=== PATIENT | male | born 1930 | race Caucasian/White ===

== ENCOUNTER 2017-10-03 16:07 | Emergency (ER) | payer OTHER ==
--- NOTE | 2017-10-03 17:54 | RAD REPORT ---
EXAM DESCRIPTION: RAD - Foot Left 3 View - 10/03/2017 5:32 pm CLINICAL HISTORY: Trip and fall, foot pain, no localizing symptoms detailed COMPARISON: None. FINDINGS: No fracture, dislocation or periosteal reaction. No acute or destructive bony process. F lexion at the first -third IP joints likely chronic. No acute IP joint finding. No air or foreign body in the soft tissues. IMPRESSION: No fracture or acute finding.
--- NOTE | 2017-10-03 18:35 | ER ---
Nurse's Notes [facility] Name: Bella Morales Age: 87 yrs Sex: Male : 1930 Arrival Date: 10/03/2017 Time: 16:11 Bed 13 Private MD: Diagnosis: Peroneal tendinitis, left leg;Foot drop, left foot;Foot drop (acquired) Presentation: 10/03 16:14 Presenting complaint: Patient states: "I tripped Tuesday and almost fell and I think I aa5 broke my tendon". Pt c/o left foot pain. Transition of care: patient was not received from another setting of care. Onset of symptoms was September 2017. Risk Assessment: Do you want to hurt yourself or someone else? Patient reports no desire to harm self or others. Initial Sepsis Screen: Does the patient meet any 2 criteria? No. Patient's initial sepsis screen is negative. Does the patient have a suspected source of infection? No. Patient's initial sepsis screen is negative. Care prior to arrival: None. 16:14 Method Of Arrival: Ambulatory aa5 16:14 Acuity: DIANNE 4 aa5 Historical: - Allergies: 16:15 No Known Allergies; aa5 - PMHx: 16:15 Hypertension; prostate cancer; aa5 - PSHx: 16:15 CABG; prostectomy; foot surgery; aa5 - Immunization history:: Adult Immunizations unknown. - Social history:: Smoking status: Patient/guardian denies using tobacco. - Ebola Screening: : No symptoms or risks identified at this time. - Family history:: not pertinent. Screenin:52 Abuse screen: Denies threats or abuse. Nutritional screening: No deficits noted. ae1 Tuberculosis screening: No symptoms or risk factors identified. Fall Risk No fall in past 12 months (0 pts). Secondary diagnosis (15 points) reduced control over ROM of left ankle/foot. . No IV (0 pts). Ambulatory Aid- None/Bed Rest/Nurse Assist (0 pts). Gait- Normal/Bed Rest/Wheelchair (0 pts) Mental Status- Oriented to own ability (0 pts). Assessment: 16:30 General: Appears in no apparent distress. uncomfortable, slender, Behavior is calm, ae1 cooperative. Pain: Complains of pain in left foot. Neuro: Level of Consciousness is awake, alert, obeys commands, Oriented to person, place, time, situation. Cardiovascular: Patient's skin is warm and dry. Respiratory: Airway is patent. GI: No signs and/or symptoms were reported involving the gastrointestinal system. : No signs and/or symptoms were reported regarding the genitourinary system. EENT: No signs and/or symptoms were reported regarding the EENT system. Derm: Skin is pink, warm \\T\\ dry. Musculoskeletal: Range of motion: limited in left ankle. Injury Description: denies injury, patient states he has always had pain and issues with his left foot but woke up this morning and had very little control over his ROM on his left foot. 16:30 Reassessment: Patient appears in no apparent distress at this time. No changes from ae1 previously documented assessment. Vital Signs: 16:16 BP 144 / 89; Pulse 81; Resp 16 S; Temp 98.6(TE); Pulse Ox 98% on R/A; Weight 89.81 kg aa5 (R); Height 6 ft. 2 in. (187.96 cm) (R); Pain 0/10; 18:53 BP 138 / 76; Pulse 75; Resp 17; Pulse Ox 97% on R/A; ae1 16:16 Body Mass Index 25.42 (89.81 kg, 187.96 cm) aa5 ED Course: 16:11 Patient arrived in ED. mr 16:14 Triage completed. aa5 16:14 Arm band placed on. aa5 16:20 Michael James, SHELBY is Primary Nurse. ae1 16:20 Eamon Potts NP is PHCP. pm1 16:20 Ralph Dominguez MD is Attending Physician. pm1 16:30 Bed in low position. Call light in reach. Side rails up X 1. ae1 16:47 Ralph Dominguez MD is Attending Physician. evelyn 17:32 Foot Left 3 View XRAY In Process Unspecified. EDMS 18:34 Oracio Templeton DPM is Referral Physician. evelyn 18:53 No provider procedures requiring assistance completed. Patient did not have IV access ae1 during this emergency room visit. Administered Medications: No medications were administered Outcome: 18:35 Discharge ordered by . evelyn 18:53 Discharged to home ambulatory, with family. ae1 18:53 Condition: stable 18:53 Discharge instructions given to patient, Instructed on discharge instructions, follow up and referral plans. medication usage, Demonstrated understanding of instructions, Prescriptions given X 2. 18:54 Patient left the ED. ae1 Signatures: Dispatcher [employer] EDDE Ralph Dominguez MD MD cha Rivera, Maria mr Jewell, Janelle, RN RN aa5 Eamon Potts, CHEMICAL DEPENDENCY COUNSELOR CHEMICAL DEPENDENCY COUNSELOR pm1 Michael James RN RN ae1
--- NOTE | 2017-10-03 18:36 | EDPHYS ---
Physician Documentation [facility] Name: Bella Morales Age: 87 yrs Sex: Male : 1930 Arrival Date: 10/03/2017 Time: 16:11 Bed 13 Private MD: Ralph Marquez HPI: 10/03 18:30 This 87 yrs old Male presents to ER via Ambulatory with complaints of Foot evelyn Pain. 18:30 The patient presents with decreased range of motion, cant dorsiflex. The complaints evelyn affect the left foot. Context: The problem was sustained. Onset: The symptoms/episode began/occurred 2 day(s) ago. Modifying factors: The symptoms are alleviated by nothing, the symptoms are aggravated by nothing. Associated signs and symptoms: The patient has no apparent associated signs or symptoms. Severity of symptoms: At their worst the symptoms were mild. The patient has not experienced similar symptoms in the past. Historical: - Allergies: 16:15 No Known Allergies; aa5 - PMHx: 16:15 Hypertension; prostate cancer; aa5 - PSHx: 16:15 CABG; prostectomy; foot surgery; aa5 - Immunization history:: Adult Immunizations unknown. - Social history:: Smoking status: Patient/guardian denies using tobacco. - Ebola Screening: : No symptoms or risks identified at this time. - Family history:: not pertinent. ROS: 18:30 Constitutional: Negative for fever, chills, and weight loss, Eyes: Negative for injury, evelyn pain, redness, and discharge, ENT: Negative for injury, pain, and discharge, Neck: Negative for injury, pain, and swelling, Cardiovascular: Negative for chest pain, palpitations, and edema, Respiratory: Negative for shortness of breath, cough, wheezing, and pleuritic chest pain, Abdomen/GI: Negative for abdominal pain, nausea, vomiting, diarrhea, and constipation, Back: Negative for injury and pain, : Negative for injury, bleeding, discharge, and swelling, Skin: Negative for injury, rash, and discoloration, Neuro: Negative for headache, weakness, numbness, tingling, and seizure, Psych: Negative for depression, anxiety, suicide ideation, homicidal ideation, and hallucinations, Allergy/Immunology: Negative for hives, rash, and allergies, Endocrine: Negative for neck swelling, polydipsia, polyuria, polyphagia, and marked weight changes, Hematologic/Lymphatic: Negative for swollen nodes, abnormal bleeding, and unusual bruising. 18:30 MS/extremity: Positive for decreased range of motion, pain, of the lateral aspect of left calf, left lateral ankle, lateral aspect of left foot, medial aspect of left calf, left medial ankle, medial aspect of left foot, left marin, anterior aspect of left ankle and dorsum of left foot. Exam: 18:30 Constitutional: This is a well developed, well nourished patient who is awake, alert, evelyn and in no acute distress. Head/Face: Normocephalic, atraumatic. Eyes: Pupils equal round and reactive to light, extra-ocular motions intact. Lids and lashes normal. Conjunctiva and sclera are non-icteric and not injected. Cornea within normal limits. Periorbital areas with no swelling, redness, or edema. ENT: Nares patent. No nasal discharge, no septal abnormalities noted. Tympanic membranes are normal and external auditory canals are clear. Oropharynx with no redness, swelling, or masses, exudates, or evidence of obstruction, uvula midline. Mucous membranes moist. Neck: Trachea midline, no thyromegaly or masses palpated, and no cervical lymphadenopathy. Supple, full range of motion without nuchal rigidity, or vertebral point tenderness. No Meningismus. Chest/axilla: Normal chest wall appearance and motion. Nontender with no deformity. No lesions are appreciated. Cardiovascular: Regular rate and rhythm with a normal S1 and S2. No gallops, murmurs, or rubs. Normal PMI, no JVD. No pulse deficits. Respiratory: Lungs have equal breath sounds bilaterally, clear to auscultation and percussion. No rales, rhonchi or wheezes noted. No increased work of breathing, no retractions or nasal flaring. Abdomen/GI: Soft, non-tender, with normal bowel sounds. No distension or tympany. No guarding or rebound. No evidence of tenderness throughout. Back: No spinal tenderness. No costovertebral tenderness. Full range of motion. Male : Normal genitalia with no discharge or lesions. Skin: Warm, dry with normal turgor. Normal color with no rashes, no lesions, and no evidence of cellulitis. Neuro: Awake and alert, GCS 15, oriented to person, place, time, and situation. Cranial nerves II-XII grossly intact. Motor strength 5/5 in all extremities. Sensory grossly intact. Cerebellar exam normal. Normal gait. Psych: Awake, alert, with orientation to person, place and time. Behavior, mood, and affect are within normal limits. 18:30 Musculoskeletal/extremity: ROM: cant dorsiflex left foot, Circulation is intact in all extremities. Tingling of extremity. numbness, decreased sensation, Compartment Syndrome exam of affected extremity: is normal. Tendon exam: postive for cant dorsiflex foot, DVT Exam: no pain, no swelling, no tenderness, negative Homans' sign noted on exam, no appreciated bluish discoloration, no erythema, no increased warmth. Vital Signs: 16:16 BP 144 / 89; Pulse 81; Resp 16 S; Temp 98.6(TE); Pulse Ox 98% on R/A; Weight 89.81 kg aa5 (R); Height 6 ft. 2 in. (187.96 cm) (R); Pain 0/10; 18:53 BP 138 / 76; Pulse 75; Resp 17; Pulse Ox 97% on R/A; ae1 16:16 Body Mass Index 25.42 (89.81 kg, 187.96 cm) aa5 MDM: 16:20 Patient medically screened. pm1 16:48 Patient medically screened. [facility] 18:30 Data reviewed: vital signs, nurses notes, radiologic studies. [facility] 10/03 16:57 Order name: Foot Left 3 View XRAY iw Administered Medications: No medications were administered Disposition: 10/03/17 18:35 Discharged to Home. Impression: Peroneal tendinitis, left leg, Foot drop, left foot, Foot drop (acquired). - Condition is Stable. - Discharge Instructions: Fall Prevention and Home Safety, Tendinitis, Fall Prevention and Home Safety, [id number], Tendinitis, [id number]. - Prescriptions for Tylenol- Codeine #3 300-30 mg Oral Tablet - take 1 tablet by ORAL route every 4 hours As needed; 24 tablet. Medrol (Justin) 4 mg Oral Tablets, Dose Pack - take 1 tablet by ORAL route as directed - follow package instructions; 1 packet. - Medication Reconciliation Form, Thank You Letter, Antibiotic Education, Prescription Opioid Use form. - Follow up: Private Physician; When: 2 - 3 days; Reason: Recheck today's complaints, Continuance of care, Re-evaluation by your physician. Follow up: Oracio Templeton DPM; When: 1 - 2 days; Reason: Recheck today's complaints, Re-evaluation by your physician. - Problem is new. - Symptoms have improved. Signatures: Dispatcher [employer] EDMS Ralph Dominguez MD MD cha Calderon, Audri, RN RN aa5 Eamon Potts, EMILIO ASSISTANT BUSINESS MANAGER pm1 Michael James RN RN ae1 Corrections: (The following items were deleted from the chart) 18:54 18:35 10/03/2017 18:35 Discharged to Home. Impression: Peroneal tendinitis, left leg; ae1 Foot drop, left foot; Foot drop (acquired). Condition is Stable. Forms are Medication Reconciliation Form, Thank You Letter, Antibiotic Education, Prescription Opioid Use. Follow up: Private Physician; When: 2 - 3 days; Reason: Recheck today's complaints, Continuance of care, Re-evaluation by your physician. Follow up: Dr. Oracio Templeton; When: 1 - 2 days; Reason: Recheck today's complaints, Re-evaluation by your physician. Problem is new. Symptoms have improved. evelyn
== END 2017-10-03 18:54 | disposition home or self-care (01) ==
LOC: ER 16:07
DX: M76.72 Peroneal tendinitis, left leg (principal); M21.372 Foot drop, left foot; I10 Essential (primary) hypertension
CPT/HCPCS: 99283

== ENCOUNTER 2018-05-19 08:17 | Day surgery (SDC) | payer OTHER ==
--- OUTSIDE RECORDS SUMMARY | 2018-05-19 08:20 | XMS REPORT ---
:1930 [facility] Address [address] [place] [address] Dr[address] Do [address] [place] [id number] Care Team Providers Name Role Phone Unavailable Unavailable Unavailable Problems This patient has no known problems. Allergies, Adverse Reactions, Alerts This patient has no known allergies or adverse reactions. Medications This patient has no known medications.
[2018-05-19] MEDS ORDERED: Ringers Lactate 1,000 ML IV ONE ×2 (09:25→11:05)
[2018-05-19] MEDS ORDERED: FENTANYL CITR 100 MCG/2 ML ONE (10:01)
[2018-05-19] MEDS ORDERED: PROPOFOL 200 MG/20 ML VIAL IV ONE (10:01)
[2018-05-19] MEDS ORDERED: LIDOCAINE 2% MPF 5 ML VIAL ONE (10:02)
[2018-05-19] MEDS ORDERED: LIDOCAINE 1.5% W/EPI AMP 5 ML ONE (10:17)
[2018-05-19] MEDS ORDERED: EPHEDRINE SULF 50 MG/ML VIAL ONE (10:39)
[2018-05-19] MEDS ORDERED: Phenylephrine HCl 10 MG/ML 1 ML VIAL ONE (10:58)
[2018-05-19] MEDS ORDERED: GLYCOPYRROLATE 0.2 MG/ML SYR ONE (11:04)
[2018-05-19] MEDS ORDERED: KETOROLAC 30 MG/ML INJ ONE (11:21)
--- NOTE | 2018-05-19 11:21 | P.BOP ---
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
--- NOTE | 2018-05-21 17:11 | OP ---
Date of Procedure: 05/19/2018 Surgeon: Ivanna Adler MD Preoperative Diagnoses: Left tissue soft mass and right skin neoplasm of uncertain behavior. Postoperative Diagnoses: Left tissue soft mass and right skin neoplasm of uncertain behavior with right atypical actinic keratosis. Primary Procedures: Excision and closure of left soft tissue mass and wide local excision with closure of right moravian. Description Of Procedure: The patient was brought to the operating room. He was placed under general anesthesia via LMA. The area around the left nasal mass and right moravian were injected with local anesthetic and were prepped with Betadine and draped in a sterile fashion. The right moravian lesion was examined. There appeared to be a raised crusted mass about 3 mm in diameter immediately inferior to this was an area of what appeared to be some lightly pigmented area, possibly a seborrheic keratosis. Due to the proximity of these 2 lesions, a single excision around these was performed. The skin was incised in a vertical fusiform fashion parallel to the relaxed skin tension lines. A full-thickness excision of the lesion was performed. The specimen was marked with a suture at 12 o'clock indicating the superior most aspect and the specimen was sent to Pathology for frozen section analysis. While awaiting these results, attention was turned to the nasal mass. The skin of the left nasal dorsum did not have any ulceration or visible superficial abnormalities. There was a hard palpable mass, which seemed deep to the skin, but was difficult to assess whether there was attachment to the skin or not. Election was made to perform skin and soft tissue excision. A fusiform excision over the mass was performed with the ellipse long axis parallel to the nasal dorsum, nasal sidewall line. The Bovie electrocautery was used to divide soft tissues around the mass until it was completely excised. The mass was approximately 2 x 1 cm. A specimen was placed at 12 o'clock on the skin aspect in order to orient the specimen and due to the unusual nature and appearance, no frozen section was elected for this lesion. The underlying tissue of the mass appeared to be normal with some areas of muscle and cartilage visible. The skin over the nasal dorsum and the lateral nasal wall was undermined in order to allow for closure, which was performed in a layered fashion using 4-0 Vicryl and 5-0 nylon sutures. The frozen section results indicated an atypical actinic keratosis with negative margins and the surrounding tissues were carefully elevated using Bovie electrocautery. An incision was likewise closed using 4-0 nylon sutures to approximate the wound edges and 5-0 nylon to close the skin. The skin was cleaned and dried and the wounds were dressed with triple antibiotic ointment. The patient was returned to care of anesthesia for awakening, extubation in the operating room, which proceeded without difficulty. Complications: None. Specimens: As above. Disposition: The patient will follow up in 1 week for discussion of pathology and evaluate wound healing. KEY Voice ID: [id number] Report ID: [id number] MIGUEL ÁNGEL
== END 2018-05-19 12:40 | disposition home or self-care (01) ==
LOC: OR 08:17
PROVIDERS: ATTEND Otolaryngology
PROC: 0HB1XZZ Excision of Face Skin, External Approach (ICD-10-PCS; 2018-05-19)
PROC: 0HB1XZZ Excision of Face Skin, External Approach (ICD-10-PCS; principal; 2018-05-19 10:45)
DX: C44.391 Other specified malignant neoplasm of skin of nose (principal); L57.0 Actinic keratosis; L82.1 Other seborrheic keratosis; Z79.82 Long term (current) use of aspirin; Z79.899 Other long term (current) drug therapy; Z85.46 Personal history of malignant neoplasm of prostate
CPT/HCPCS: 88331; 88332; 88305; 11643; 12052; 11440; J2704; J2370; J3010; J2001

== ENCOUNTER 2020-09-22 11:23 | Inpatient (IN) | payer OTHER ==
--- OUTSIDE RECORDS SUMMARY | 2020-09-22 12:29 | XMS REPORT | Continuity of Care Document ---
:1930 Author Organization [facility] t Address [address] [place] [address] Care Team Providers Name Role Phone ESTELLA Primary Care Physician Unavailable Guicho CRAVEN, K.H. Attending Clinician Problems This patient has no known problems. Allergies, Adverse Reactions, Alerts This patient has no known allergies or adverse reactions. Medications This patient has no known medications. Procedures This patient has no known procedures. Encounters Start End Encounter Admission Attending Care Care Encounter Source Date/Time Date/Time Type Type Clinicians Facility Department ID 2020-08-28 2020-08-28 Office THIAGO Lindo [id number] 08:45:21 10:08:07 Visit De [place] [id number] [place] [id number] [facility] [id number] [address] 0[address] Building Results This patient has no known results.
[2020-09-22 13:18] LABS: Absolute Lymphocytes (CBC) 0.5 K/uL (0.7-4.9); Basophils % 0.3 % (0-1.3); Hematocrit 28.8 % (39.6-49.0); Lymphocytes % 3.5 % (15.3-44.8); MPV 11.2 fL (7.6-11.3); RBC Red Blood Cell Count 3.01 M/uL (4.33-5.43)
[2020-09-22 13:20] LABS: Protime INR 1.37
[2020-09-22] MEDS ORDERED: ACETAMINOPHEN 325 MG TABLET ONE (13:28)
[2020-09-22] MEDS ORDERED: NA CHLORIDE 0.9% 1,000 ML ONE (13:28)
[2020-09-22] MEDS ORDERED: TETANUS & DIPHTHERIA TOX,ADULT 0.5 ML VIAL ONE (13:28)
[2020-09-22] MEDS ORDERED: FAMOTIDINE 20 MG/2 ML VIAL IV ONE (13:28)
[2020-09-22] MEDS ORDERED: PIPERACIL/TAZO 3.375 GM VIAL IV ONE ×2 (13:29→13:37)
[2020-09-22] MEDS ORDERED: PIPER/TAZO/NS 3.375gm 3.375 GM/100 ML BAG IV ONE (13:30)
[2020-09-22 13:44] LABS: ALT/SGPT 21 U/L (12-78); AST/SGOT 17 U/L (15-37); Albumin 3.5 g/dL (3.4-5.0); Alkaline Phosphatase 88 U/L (45-117); Amylase 29 U/L (25-115); BUN Blood Urea Nitrogen 48 mg/dL (7-18); Bicarbonate 25 mmol/L (21-32); Bilirubin Direct 0.2 mg/dL (0-0.2); Bilirubin Total 0.8 mg/dL (0.2-1.0); Creatine Phosphokinase 89 U/L (39-308); Glucose Level 181 mg/dL (74-106); Lipase 28 U/L (73-393); Protein, Total 8.1 g/dL (6.4-8.2); Sodium Level 140 mmol/L (136-145); Troponin (Emerg Dept Use Only) < 0.02 ng/mL (0.0-0.045)
[2020-09-22 13:51] LABS: CKMB Creatine Kinase MB < 1.0 ng/mL (1.0-3.6)
--- NOTE | 2020-09-22 14:07 | RAD REPORT ---
EXAM DESCRIPTION: RAD - Chest Single View - 09/22/2020 1:51 pm CLINICAL HISTORY: MALAISE Chest pain. COMPARISON: CHEST SINGLE VIEW dated 01/25/2008 FINDINGS: Portable technique limits examination quality. The lungs are mildly emphysematous but grossly clear. The heart is mildly enlarged in size. Sternotom y wires present. IMPRESSION: No acute intrathoracic process suspected.
--- NOTE | 2020-09-22 14:07 | RAD REPORT ---
EXAM DESCRIPTION: RAD - Foot Left 3 View - 09/22/2020 1:51 pm CLINICAL HISTORY: Pain;Swelling COMPARISON: Foot Left 3 View dated 10/03/2017; FOOT W OBLIQUES dated 01/25/2008; Chest Single View clifford ed 09/22/2020 FINDINGS: Soft tissue irregularity with underlying irregularity of the bone is seen involving first, second and possibly third toe. In the correct clinical setting, this may be related trauma or infect ion/osteomyelitis. No soft tissue air seen.
--- NOTE | 2020-09-22 14:22 | EDPHYS ---
Physician Documentation [facility] Name: Bella Morales Age: 89 yrs Sex: Male : 1930 Arrival Date: 09/22/2020 Time: 11:27 Bed 6 Private MD: DEEPA Physician Ralph Dominguez HPI: 09/22 14:13 This 89 yrs old Male presents to ER via Wheelchair with complaints of Wound evelyn Infection. 14:13 This 89 yrs old Male presents to ER via Wheelchair with complaints of Wound evelyn Infection. Historical: - Allergies: 12:28 Vancomycin; jl7 - Home Meds: 13:45 Amitiza 24 mcg oral cap 1 cap 2 times per day [Active]; aspirin 325 mg Oral tab 1 tab ph once daily [Active]; Basaglar KwikPen U-100 Insulin 100 unit/mL (3 mL) subcutaneous inpn 12 unit nightly [Active]; furosemide 40 mg Oral tab 1 tab once daily [Active]; gabapentin 400 mg oral cap 1 cap 3 times per day [Active]; Humulin R Regular U-100 Insuln 100 unit/mL soln 4 unit before breakfast and dinner [Active]; levothyroxine 25 mcg tab 1 tab once daily [Active]; Linzess 290 mcg oral cap 1 cap once daily [Active]; metoprolol succinate 50 mg oral CSpX 1 cap once daily [Active]; pantoprazole 40 mg oral TbEC 1 tab once daily [Active]; simvastatin 40 mg Oral tab 1 tab once daily [Active]; tramadol 50 mg Oral tab 1 tab every 6 hours [Active]; - 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 - Social history:: Smoking status: Patient denies any tobacco usage or history of. ROS: 14:16 Eyes: Negative for injury, pain, redness, and discharge, ENT: Negative for injury, evelyn pain, and discharge, Neck: Negative for injury, pain, and swelling, Cardiovascular: Negative for chest pain, palpitations, and edema, Respiratory: Negative for shortness of breath, cough, wheezing, and pleuritic chest pain, Abdomen/GI: Negative for abdominal pain, nausea, vomiting, diarrhea, and constipation, Back: Negative for injury and pain, : Negative for injury, bleeding, discharge, and swelling, Neuro: Negative for headache, weakness, numbness, tingling, and seizure, Psych: Negative for depression, anxiety, suicide ideation, homicidal ideation, and hallucinations, Allergy/Immunology: Negative for hives, rash, and allergies, Endocrine: Negative for neck swelling, polydipsia, polyuria, polyphagia, and marked weight changes. 14:16 MS/extremity: Positive for decreased range of motion, erythema, pain, swelling, tenderness, of the left foot. Exam: 14:16 Head/Face: Normocephalic, atraumatic. Eyes: Pupils equal round and reactive to light, evelyn extra-ocular motions intact. Lids and lashes normal. Conjunctiva and sclera are non-icteric and not injected. Cornea within normal limits. Periorbital areas with no swelling, redness, or edema. ENT: Nares patent. No nasal discharge, no septal abnormalities noted. Tympanic membranes are normal and external auditory canals are clear. Oropharynx with no redness, swelling, or masses, exudates, or evidence of obstruction, uvula midline. Mucous membranes moist. Neck: Trachea midline, no thyromegaly or masses palpated, and no cervical lymphadenopathy. Supple, full range of motion without nuchal rigidity, or vertebral point tenderness. No Meningismus. Chest/axilla: Normal chest wall appearance and motion. Nontender with no deformity. No lesions are appreciated. Cardiovascular: Regular rate and rhythm with a normal S1 and S2. No gallops, murmurs, or rubs. Normal PMI, no JVD. No pulse deficits. Respiratory: Lungs have equal breath sounds bilaterally, clear to auscultation and percussion. No rales, rhonchi or wheezes noted. No increased work of breathing, no retractions or nasal flaring. Abdomen/GI: Soft, non-tender, with normal bowel sounds. No distension or tympany. No guarding or rebound. No evidence of tenderness throughout. Back: No spinal tenderness. No costovertebral tenderness. Full range of motion. Male : Normal genitalia with no discharge or lesions. Skin: Warm, dry with normal turgor. Normal color with no rashes, no lesions, and no evidence of cellulitis. Neuro: Awake and alert, GCS 15, oriented to person, place, time, and situation. Cranial nerves II-XII grossly intact. Motor strength 5/5 in all extremities. Sensory grossly intact. Cerebellar exam normal. Normal gait. Psych: Awake, alert, with orientation to person, place and time. Behavior, mood, and affect are within normal limits. 14:16 Constitutional: The patient appears febrile. 14:16 Musculoskeletal/extremity: ROM: intact in all extremities, full active range of motion, full passive range of motion, Circulation is intact in all extremities. Sensation intact. Compartment Syndrome exam of affected extremity: is normal. DVT Exam: negative Homans' sign noted on exam, no appreciated bluish discoloration, pain, swelling, tenderness, erythema, increased warmth, that is moderate, of the plantar aspect of left first toe, plantar aspect of left second toe, plantar aspect of left third toe, medial aspect of left toes, Left third toenail, Left second toenail and Left first toenail. 14:24 ECG was reviewed by the Attending Physician. [facility] Vital Signs: 12:26 BP 104 / 57; Pulse 92; Resp 17; Temp 101.9; Pulse Ox 96% ; Weight 88.45 kg; jl7 12:45 BP 114 / 47; Pulse 88; Resp 18; Pulse Ox 97% on R/A; ph 13:27 BP 124 / 49; Pulse 79; Resp 18; Pulse Ox 99% on R/A; ph 14:30 BP 120 / 55; Pulse 70; Resp 18; Temp 98.2(O); Pulse Ox 99% on R/A; ph 15:37 BP 123 / 50; Pulse 68; Resp 16; Pulse Ox 99% on R/A; ph 16:21 BP 117 / 52; Pulse 67; Resp 18; Temp 98.0; Pulse Ox 100% on R/A; ph MDM: 12:49 Patient medically screened. [facility] 14:23 Differential diagnosis: fracture, sprain, arthritis, cellulitis, viral Infection, evelyn bacterial infection, URI, bronchitis, pneumonia UTI. Differential Diagnosis sepsis. Data reviewed: vital signs, nurses notes, EMS record, lab test result(s), EKG, radiologic studies, plain films. 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 Test interpretation: by ED physician or midlevel provider: ECG, plain radiologic studies. Counseling: I had a detailed discussion with the patient and/or guardian regarding: the historical points, exam findings, and any diagnostic results supporting the discharge/admit diagnosis, lab results, radiology results, the need for further work-up and treatment in the hospital. 09/22 12:35 Order name: Amylase, Serum ph 09/22 12:35 Order name: Basic Metabolic Panel ph 09/22 12:35 Order name: Blood Culture Adult (2) ph 09/22 12:35 Order name: CBC with Diff ph 09/22 12:35 Order name: CPK; Complete Time: 14:05 ph 09/22 12:35 Order name: Ckmb; Complete Time: 14:05 ph 09/22 12:35 Order name: LFT's; Complete Time: 14:05 ph 09/22 12:35 Order name: Lactate ph 09/22 12:35 Order name: Lipase; Complete Time: 14:05 ph 09/22 12:35 Order name: Procalcitonin; Complete Time: 14:59 ph 09/22 12:35 Order name: Protime (+inr); Complete Time: 13:41 ph 09/22 12:35 Order name: Ptt, Activated; Complete Time: 13:41 ph 09/22 12:35 Order name: Troponin (emerg Dept Use Only); Complete Time: 14:05 ph 09/22 12:35 Order name: Urine Microscopic Only ph 09/22 12:35 Order name: Chest Single View XRAY; Complete Time: 14:59 ph 09/22 12:35 Order name: Accucheck; Complete Time: 12:56 ph 09/22 12:35 Order name: Amylase; Complete Time: 14:05 EDMS 09/22 12:35 Order name: Basic Metabolic Panel; Complete Time: 14:05 EDMS 09/22 12:55 Order name: Foot Left 3 View XRAY; Complete Time: 14:59 evelyn 09/22 12:55 Order name: Sed Rate; Complete Time: 14:59 evelyn 09/22 14:09 Order name: COVID-19 : Document "Date of Symptom Onset" if Symptomatic. [facility] 09/22 15:51 Order name: CONS Physician Consult EDMS 09/22 12:35 Order name: Cardiac monitoring; Complete Time: 12:41 ph 09/22 12:35 Order name: EKG - Nurse/Tech; Complete Time: 12:56 ph 09/22 12:35 Order name: IV Saline Lock - Large Bore; Complete Time: 12:41 ph 09/22 12:35 Order name: Labs collected and sent; Complete Time: 12:56 ph 09/22 12:35 Order name: O2 Per Protocol; Complete Time: 12:41 ph 09/22 12:35 Order name: O2 Sat Monitoring; Complete Time: 12:41 ph EC:24 Rate is 88 beats/min. Rhythm is regular. QRS [place] is Normal. OR interval is normal. QRS eveyln interval is normal. QT interval is normal. No Q waves. T waves are Normal. No ST changes noted. Clinical impression: NSR w/ Non-specific ST/T Changes, 1st degree heart block, and No evidence of ischemia. Interpreted by me. Reviewed by me. Administered Medications: 13:24 Drug: Tetanus-Diphtheria Toxoid Adult 0.5 ml {Bullet Lubricant Mixer: [employer]. Exp: ph 06/05/2022. Lot #: [id number]. } Route: IM; Site: right deltoid; 18:00 Follow up: Response: No adverse reaction ph 13:24 Drug: Pepcid (famotidine) 20 mg Route: IVP; Site: right antecubital; ph 18:00 Follow up: Response: No adverse reaction ph 13:24 Drug: Tylenol 650 mg Route: PO; ph 17:59 Follow up: Response: No adverse reaction; Temperature is decreased ph 13:25 Drug: NS 0.9% (30 ml/kg) 30 ml/kg Route: IV; Rate: bolus; Site: right antecubital; ph 16:00 Follow up: Response: No adverse reaction; IV Status: Completed infusion; IV Intake: ph 2000ml 13:50 Drug: Zosyn (piperacillin-tazobactam) 3.375 grams Route: IVPB; Infused Over: 60 mins; ph Site: right antecubital; 15:00 Follow up: Response: No adverse reaction; IV Status: Completed infusion ph 15:10 Not Given (Duplicate Order): Silver Nitrate Applicators 1 application Topical once evelyn 15:36 Drug: levofloxacin 500 mg Volume: 100 ml; Route: IVPB; Infused Over: 60 mins; Site: ph right antecubital; 16:40 Follow up: Response: No adverse reaction; IV Status: Completed infusion; IV Intake: ph 100ml 15:36 Drug: Silvadene (silver sulfADIAZINE) Cream 1 % 1 application Route: Topical; Site: ph wound; Disposition Summary: 09/22/20 14:22 Hospitalization Ordered Hospitalization Status: Inpatient Admission evelyn Provider: Pedrito Lugo cha Location: Telemetry/MedSurg (Inpatient) evelyn Condition: Fair evelyn Problem: new evelyn Symptoms: have improved evelyn Bed/Room Type: Standard [facility] Room Assignment: 206(09/22/20 16:15) bd Diagnosis - Cellulitis and acute lymphangitis of other parts of limb - foot, left 1st, 2nd, 3rd evelyn toes - Fever, unspecified evelyn - Acute kidney failure, unspecified - on Chronic evelyn - Osteomyelitis, unspecified - 1st, 2nd and 3RD TOES evelyn Forms: - Medication Reconciliation Form evelyn - SBAR form evelyn Signatures: Dispatcher [employer] EDNataliia Crawley Corey, MD MD cha Hall, Patricia, RN RN ph Leal, Jahala, RN RN jl7 Corrections: (The following items were deleted from the chart) 16:15 14:22 evelyn bd
--- NOTE | 2020-09-22 14:22 | ER ---
Nurse's Notes [facility] Name: Bella Morales Age: 89 yrs Sex: Male : 1930 Arrival Date: 09/22/2020 Time: 11:27 Bed 6 Private MD: Diagnosis: Cellulitis and acute lymphangitis of other parts of limb-foot, left 1st, 2nd, 3rd toes;Fever, unspecified;Acute kidney failure, unspecified-on Chronic;Osteomyelitis, unspecified-1st, 2nd and 3RD TOES Presentation: 09/22 12:26 Chief complaint: Patient states: Wound infection to left foot x 1 week, feeling weak jl7 and ill since this morning. Coronavirus screen: Client denies travel out of the [place] in the last 14 days. At this time, the client does not indicate any symptoms associated with coronavirus-19. Ebola Screen: No symptoms or risks identified at this time. Initial Sepsis Screen: Does the patient meet any 2 criteria? Temp <36.0*C (96.8*F)) or > 38.3*C (100.9*F). HR > 90 bpm. Yes Does the patient have a suspected source of infection? Yes: Skin breakdown/wound. Risk Assessment: Do you want to hurt yourself or someone else? Patient reports no desire to harm self or others. Onset of symptoms is unknown. 12:26 Method Of Arrival: Wheelchair jl7 12:26 Acuity: DIANNE 2 jl7 Historical: - Allergies: 12:28 Vancomycin; jl7 - Home Meds: 13:45 Amitiza 24 mcg oral cap 1 cap 2 times per day [Active]; aspirin 325 mg Oral tab 1 tab ph once daily [Active]; Basaglar KwikPen U-100 Insulin 100 unit/mL (3 mL) subcutaneous inpn 12 unit nightly [Active]; furosemide 40 mg Oral tab 1 tab once daily [Active]; gabapentin 400 mg oral cap 1 cap 3 times per day [Active]; Humulin R Regular U-100 Insuln 100 unit/mL soln 4 unit before breakfast and dinner [Active]; levothyroxine 25 mcg tab 1 tab once daily [Active]; Linzess 290 mcg oral cap 1 cap once daily [Active]; metoprolol succinate 50 mg oral CSpX 1 cap once daily [Active]; pantoprazole 40 mg oral TbEC 1 tab once daily [Active]; simvastatin 40 mg Oral tab 1 tab once daily [Active]; tramadol 50 mg Oral tab 1 tab every 6 hours [Active]; - 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 - Social history:: Smoking status: Patient denies any tobacco usage or history of. Screenin:43 Abuse screen: Denies threats or abuse. Denies injuries from another. Nutritional ph screening: No deficits noted. Tuberculosis screening: No symptoms or risk factors identified. Fall Risk None identified. Assessment: 12:41 General: Appears in no apparent distress. comfortable, Behavior is calm, cooperative, ph appropriate for age. Pain: Complains of pain in buttocks. Neuro: Level of Consciousness is awake, obeys commands, lethargic, Oriented to person, place, time, situation. Cardiovascular: Capillary refill < 3 seconds in bilateral fingers Patient's skin is warm and dry. Respiratory: Airway is patent Respiratory effort is even, unlabored. Derm: Skin is fragile, is thin, Skin is pink, warm \\T\\ dry. Derm: Wound noted plantar aspect of left first toe, plantar aspect of left second toe and plantar aspect of left third toe. Musculoskeletal: Circulation, motion, and sensation intact. Range of motion: intact in all extremities. 12:44 Cardiovascular: small device noted to L upper chest, pt states," It's a monitor for my ph heart that my doctor wants me to wear.". 15:18 Reassessment: Patient appears in no apparent distress at this time. Patient and/or ph family updated on plan of care and expected duration. Pain level reassessed. Patient is alert, oriented x 3, equal unlabored respirations, skin warm/dry/pink. Dr Mendoza at bedside to speak w/ pt about admit to hospital. 16:30 Reassessment: Patient appears in no apparent distress at this time. Patient and/or ph family updated on plan of care and expected duration. Pain level reassessed. Patient is alert, oriented x 3, equal unlabored respirations, skin warm/dry/pink. Attempted to call report to second floor, placed on hold > 5 minutes, will attempt to call back. 17:21 Reassessment: Patient appears in no apparent distress at this time. Patient and/or ph family updated on plan of care and expected duration. Pain level reassessed. Patient is alert, oriented x 3, equal unlabored respirations, skin warm/dry/pink. Report given to Libertad RYAN. Vital Signs: 12:26 BP 104 / 57; Pulse 92; Resp 17; Temp 101.9; Pulse Ox 96% ; Weight 88.45 kg; jl7 12:45 BP 114 / 47; Pulse 88; Resp 18; Pulse Ox 97% on R/A; ph 13:27 BP 124 / 49; Pulse 79; Resp 18; Pulse Ox 99% on R/A; ph 14:30 BP 120 / 55; Pulse 70; Resp 18; Temp 98.2(O); Pulse Ox 99% on R/A; ph 15:37 BP 123 / 50; Pulse 68; Resp 16; Pulse Ox 99% on R/A; ph 16:21 BP 117 / 52; Pulse 67; Resp 18; Temp 98.0; Pulse Ox 100% on R/A; ph ED Course: 11:27 Patient arrived in ED. rg4 12:28 Triage completed. jl7 12:28 Arm band placed on right wrist. jl7 12:31 Awa Nugent, RN is Primary Nurse. ph 12:43 Inserted saline lock: 20 gauge in right antecubital area, using aseptic technique. ph Blood collected. 12:44 Patient has correct armband on for positive identification. Placed in gown. Bed in low ph position. Call light in reach. Side rails up X 1. Pulse ox on. NIBP on. bus driver/monitor on. Door closed. Noise minimized. 12:48 Ralph Dominguez MD is Attending Physician. evelyn 13:51 Chest Single View XRAY In Process Unspecified. EDMS 13:52 Foot Left 3 View XRAY In Process Unspecified. EDMS 14:21 Pedrito Lugo is Hospitalizing Provider. evelyn 15:36 No provider procedures requiring assistance completed. Patient admitted, IV remains in ph place. Administered Medications: 13:24 Drug: Tetanus-Diphtheria Toxoid Adult 0.5 ml {Closing Agent: [email or web address]. Exp: ph 06/05/2022. Lot #: [id number]. } Route: IM; Site: right deltoid; 18:00 Follow up: Response: No adverse reaction ph 13:24 Drug: Pepcid (famotidine) 20 mg Route: IVP; Site: right antecubital; ph 18:00 Follow up: Response: No adverse reaction ph 13:24 Drug: Tylenol 650 mg Route: PO; ph 17:59 Follow up: Response: No adverse reaction; Temperature is decreased ph 13:25 Drug: NS 0.9% (30 ml/kg) 30 ml/kg Route: IV; Rate: bolus; Site: right antecubital; ph 16:00 Follow up: Response: No adverse reaction; IV Status: Completed infusion; IV Intake: ph 2000ml 13:50 Drug: Zosyn (piperacillin-tazobactam) 3.375 grams Route: IVPB; Infused Over: 60 mins; ph Site: right antecubital; 15:00 Follow up: Response: No adverse reaction; IV Status: Completed infusion ph 15:10 Not Given (Duplicate Order): Silver Nitrate Applicators 1 application Topical once evelyn 15:36 Drug: levofloxacin 500 mg Volume: 100 ml; Route: IVPB; Infused Over: 60 mins; Site: ph right antecubital; 16:40 Follow up: Response: No adverse reaction; IV Status: Completed infusion; IV Intake: ph 100ml 15:36 Drug: Silvadene (silver sulfADIAZINE) Cream 1 % 1 application Route: Topical; Site: ph wound; Intake: 16:00 IV: 2000ml; Total: 2000ml. ph 16:40 IV: 100ml; Total: 2100ml. ph Outcome: 14:22 Decision to Hospitalize by Provider. evelyn 17:58 Admitted to Med/surg accompanied by tech, via stretcher, with chart, Report called to Nahid Lucio 17:58 Condition: stable 17:58 Instructed on the need for admit. 18:02 Patient left the ED. Signatures: Dispatcher [employer] EDMS Ralph Dominguez MD MD cha Hall, Patricia RN RN Lenore Cherry [id number] Abel Elias RN RN jl7 Corrections: (The following items were deleted from the chart) 12:46 12:41 Pain: Denies pain. ph 12:46 12:44 Cardiovascular: small device noted to L upper chest, pt states," It's a monitor ph for my heart that I am having to wear. ph 17:24 16:30 Reassessment: Patient appears in no apparent distress at this time. Patient ph and/or family updated on plan of care and expected duration. Pain level reassessed. Patient is alert, oriented x 3, equal unlabored respirations, skin warm/dry/pink. ph
[2020-09-22] MEDS ORDERED: Levofloxacin500mg IV 500 MG/100 ML BAG IV ONE (14:49)
[2020-09-22] MEDS ORDERED: SILVER SULFADIAZINE 1% 25 GM TOP ONE (14:49)
[2020-09-22] MEDS: INSULIN -REGULAR HUMAN 50 UNIT/0.5 ML ML SQ SCH ×2 (17:39→21:00)
[2020-09-22] MEDS ORDERED: ONDANSETRON 4 MG/2 ML VIAL IV PRN (17:39)
[2020-09-22] MEDS ORDERED: D50W 25 GM/50 ML SYRINGE IV PRN (17:39)
[2020-09-22] MEDS ORDERED: GLUCAGON 1 MG/VIAL IM PRN (17:39)
[2020-09-22] MEDS ORDERED: Levofloxacin500mg IV 500 MG/100 ML BAG IV SCH (18:00)
[2020-09-22 18:14] VITALS: BMI 23.7
[2020-09-22] MEDS: NA CHLORIDE 0.9% 1,000 ML IV SCH (18:40)
--- NOTE | 2020-09-22 18:51 | P.HP ---
Certification for Inpatient With expected LOS: >2 Midnights Patient will require the following post-hospital care: [facility] Practitioner: I am a practitioner with admitting privileges, knowledge of patient current condition, hospital course, and medical plan of care. Services: Services provided to patient in accordance with Admission requirements found in Title 42 Section 412.3 of the Code of Federal Regulations Patient History Date of Service: 09/22/20 Primary Care Provider: Dr. Hayes in [place] Reason for admission: cellulitis, possible osteomyelitis History of Present Illness: This is an 89 y/o M w/ history of prostate cancer, angiosarcoma, HTN, IDDM who presents today with a L foot wound infection and feeling unwell. He noticed he h ad bloody socks about 1 week ago and states his shoes do not fit him well. He reports that he feels fatigued and has "been getting weaker" for the past 2 weeks. He c/o chills. Denies any fevers, nausea, vomiting. He reports that he had a few episodes of "white outs" for the past 3 months and is currently following up with tyre finisher and examiner (Dr. Lindo in [place]) and has had heart monitor in place x 3 weeks. States this has never occurred before in the past. He denies any chest pain, palpitations. WC 13.10 lactic acid 1.8 procal 1.11 ESR >140 XR of L foot: Soft tissue irregularity with underlying irregularity of the bone is seen involving first, second and possibly third toe. In the correct clinical setting, this may be related trauma or infection/osteomyelitis. No soft tissue a ir seen. Allergies vancomycin Allergy (Verified 05/18/18 09:20) Hives/Rash Home Medications: Metoprolol Succinate [Toprol Xl] 50 mg PO BEDTIME 05/18/18 Simvastatin 40 mg PO BEDTIME 05/18/18 Aspirin 1 tab PO DAILY 09/22/20 Furosemide 1 tab PO DAILY 09/22/20 Gabapentin 1 cap PO TID 09/22/20 Insulin -Regular Human [Novolin -R*] 4 unit SQ BID 09/22/20 Insulin Glargine,Hum.rec.anlog [Lantus] 12 unit SQ BEDTIME 09/22/20 Levothyroxine Sodium [Levothyroxine] 1 tab PO [id number] 09/22/20 Linaclotide [Linzess] 1 tab PO DAILY 09/22/20 Lubiprostone [Amitiza] 1 cap PO DAILY 09/22/20 Pantoprazole [Protonix Tab*] 1 tab PO DAILY 09/22/20 Tramadol HCl [Ultram] 1 tab PO Q6H PRN 09/22/20 - Past Medical/Surgical History Has patient received pneumonia vaccine in the past: No -: IDDM -: HTN -: prostate cancer -: kidney failure -: angiosarcoma -: prostatectomy Psychosocial/ Personal History: lives at home by himself - Family History Mother -: Heart disease (passed from [place] at 79 y/o) Father -: Cancer (lung) - Social History Smoking Status: Never smoker Alcohol use: No CD- Drugs: No Caffeine use: No Physical Examination - Vital Signs Temperature: 97.3 F Blood Pressure: 112/53 Pulse: 93 Respirations: 19 Pulse Ox (%): 93 - Physical Exam General: Alert, In no apparent distress, Cooperative HEENT: Normocephalic, Mucous membr. moist/pink Respiratory: Clear to auscultation bilaterally, Normal air movement Cardiovascular: Regular rate/rhythm Gastrointestinal: Normal bowel sounds, Soft and benign, No tenderness, No guarding Integumentary: Skin breakdown, Tenderness/swelling, Erythema, Warmth (L first, second, third toe) Neurological: Normal speech, Normal affect - Studies Laboratory Data (last 24 hrs) 09/22/20 12:45: PT 15.8 H, INR 1.37, APTT 48.0 H 09/22/20 12:45: WBC 13.10 H, Hgb 9.5 L, Hct 28.8 L, Plt Count 161 09/22/20 12:45: Sodium 140, Potassium 5.0, BUN 48 H, Creatinine 2.42 H, Glucose 181 H, Total Bilirubin 0.8, AST 17, ALT 21, Alkaline Phosphatase 88, Amylase 29, Lipase 28 L Assessment and Plan - Plan impression: leukocytosis, elevated procal and ESR likely secondary to osteomyelitis of L first toe, L second toe, L third toe IDDM HTN plan: leukocytosis, elevated procal and ESR likely secondary to osteomyelitis of L first toe, L second toe, L third toe: will start IV levaquin as pt is allergic to vancomycin. trend CBC. blood cultures pending. MRI ordered. may need wound debridement. consult surgery and await recommendations. IDDM: start lantus 10 units bedtime. accchecks and SSI. HTN: verify and restart home meds. Discharge Plan: Home Plan to discharge in: Greater than 2 days - Advance Directives Does patient have a Living Will: No Does patient have a Durable POA for Healthcare: No Time Spent Managing Pts Care (In Minutes): 55
[2020-09-22 20:09] LABS: Platelet Estimate ADEQ; White Blood Cell Scan OK (OK)
[2020-09-22 20:10] LABS: Blood Morphology Comment NOTED (NOT SEEN); Poikilocytosis 1+
[2020-09-22] MEDS: INSULIN GLARGINE 100 UNITS/ML SQ SCH (22:14)
[2020-09-22] MEDS: HEPARIN 5000 UNIT/ML 1 ML VIAL SQ SCH (22:14)
[2020-09-22] MEDS: GABAPENTIN 400 MG CAP PO SCH (22:14)
[2020-09-22] MEDS: ATORVASTATIN 20 MG TAB PO SCH (22:15)
[2020-09-22] MEDS: LINEZOLID 600 MG IVPB 600 MG/300 ML BAG IV SCH (22:23)
[2020-09-23 03:56] LABS: Absolute Lymphocytes (CBC) 0.8 K/uL (0.7-4.9); Basophils % 0.6 % (0-1.3); Hematocrit 24.2 % (39.6-49.0); Lymphocytes % 6.3 % (15.3-44.8); MPV 10.8 fL (7.6-11.3); RBC Red Blood Cell Count 2.57 M/uL (4.33-5.43)
[2020-09-23 04:26] LABS: C-Reactive Protein 74.1 mg/L (<3.00); Magnesium 2.7 mg/dL (1.8-2.4); Potassium 4.3 mmol/L (3.5-5.1); Thyroid Stimulating Hormone 1.21 uIU/mL (0.360-3.740)
[2020-09-23] MEDS: LEVOTHYROXINE SOD 0.025 MG TAB PO SCH (05:56)
[2020-09-23] MEDS: PANTOPRAZOLE 40MG TABLET PO SCH (05:56)
[2020-09-23] MEDS: METOPROLOL XL 50 MG TAB PO SCH (05:56)
--- NOTE | 2020-09-23 07:22 | P.PN ---
Subjective Date of Service: 09/23/20 Primary Care Provider: Dr. Hayes in [place] Chief Complaint: cellulitis, possible osteomyelitis Subjective: Other (feels slightly better this morning, no significant change. Didn't sleep much overnight.) Review of Systems 10-point ROS is otherwise unremarkable Physical Examination - Vital Signs Temperature: 98.9 F Blood Pressure: 136/56 Pulse: 63 Respirations: 18 Pulse Ox (%): 98 - Studies Laboratory Data (last 24 hrs) 09/22/20 12:45: PT 15.8 H, INR 1.37, APTT 48.0 H 09/22/20 12:45: WBC 13.10 H, Hgb 9.5 L, Hct 28.8 L, Plt Count 161 09/22/20 12:45: Sodium 140, Potassium 5.0, BUN 48 H, Creatinine 2.42 H, Glucose 181 H, Total Bilirubin 0.8, AST 17, ALT 21, Alkaline Phosphatase 88, Amylase 29, Lipase 28 L Assessment & Plan Physician Review Additional Text: Physical Exam General: Alert, no apparent distress HEENT: Normal conjunctiva, sclera anicteric Respiratory: Clear to auscultation bilaterally, Normal air movement Cardiovascular: Regular rate/rhythm, no murmur Gastrointestinal: soft, nontender, nondistended Integumentary: L foot: 1st-3rd toes with erythema, drainage, dusky appearance Neurological: Normal speech, Normal affect Problem List leukocytosis, elevated procal and ESR likely secondary to osteomyelitis of L first toe, L second toe, L third toe IDDM2 HTN h/o prostate cancer, s/p prostatectomy -procal/ESR/CRP elevated, secondary to L foot/toe infection, likely osteomyelitis -h/o vanc nephropathy, on IV levaquin and zyvox -Dr. Blackman consulted - pt seen before in wound center -ID consulted -MRI ordered to eval for osteomyelitis -pt reports h/o osteomyelitis previously on R foot -accucheks, SSI, lantus, titrate as needed -confirm home meds, restart as appropriate Diet: NPO Code: full Dispo: anticipate hospitalization 2-3 days, dc home, will likely need supervisor intermediates antibiotics pending further workup Time Spent Managing Pts Care (In Minutes): 40
[2020-09-23] MEDS: INSULIN -REGULAR HUMAN 50 UNIT/0.5 ML ML SQ SCH ×4 (07:30→21:00)
[2020-09-23] MEDS ORDERED: PNEUMOCOCCAL VACCINE 0.5 ML IMVAC ONE (08:00)
[2020-09-23] MEDS: HEPARIN 5000 UNIT/ML 1 ML VIAL SQ SCH ×3 (09:00→21:18)
[2020-09-23] MEDS ORDERED: FUROSEMIDE 40 MG TABLET PO SCH (09:00)
[2020-09-23] MEDS: ASPIRIN EC 81 MG TAB PO SCH ×2 (09:00)
[2020-09-23] MEDS: GABAPENTIN 400 MG CAP PO SCH ×3 (09:32→21:18)
[2020-09-23] MEDS: LINEZOLID 600 MG IVPB 600 MG/300 ML BAG IV SCH ×2 (09:32→22:38)
--- NOTE | 2020-09-23 11:28 | P.CNS ---
Date of Consult: 09/23/20 Primary Care Provider: Dr. Hayes in [place] Chief Complaint: cellulitis, possible osteomyelitis History of Present Illness: Patient is an 89-year-old male with a past medical history of prostate cancer, angiosarcoma, hypertension, diabetes, vancomycin nephropathy, and anemia who presented to the emergency department due to left foot infection and not feeling well. Patient states that he recently got new diabetic shoes and noted that he had bloody socks about a week ago and stated the shoes did not fit him well. Patient also reports that he has been feeling fatigued, general malaise, and feels that he is getting weaker. X-ray performed of the left lower extremity showed concern for infection versus osteomyelitis, MRI pending. Blood cultures positive for gram-positive cocci in clusters. Patient empirically started on Cytoxan Levaquin. Dr. Blackman also on case. Patient currently denies nausea, vomiting, diarrhea, shortness breath, chest pain. Allergies vancomycin Allergy (Verified 05/18/18 09:20) Hives/Rash Home Medications: Metoprolol Succinate [Toprol Xl] 50 mg PO BEDTIME 05/18/18 Simvastatin 40 mg PO BEDTIME 05/18/18 Aspirin 1 tab PO DAILY 09/22/20 Furosemide 1 tab PO DAILY 09/22/20 Gabapentin 1 cap PO TID 09/22/20 Insulin -Regular Human [Novolin -R*] 4 unit SQ BID 09/22/20 Insulin Glargine,Hum.rec.anlog [Lantus] 12 unit SQ BEDTIME 09/22/20 Levothyroxine Sodium [Levothyroxine] 1 tab PO [id number] 09/22/20 Linaclotide [Linzess] 1 tab PO DAILY 09/22/20 Lubiprostone [Amitiza] 1 cap PO DAILY 09/22/20 Pantoprazole [Protonix Tab*] 1 tab PO DAILY 09/22/20 Tramadol HCl [Ultram] 1 tab PO Q6H PRN 09/22/20 - Past Medical/Surgical History Diabetic: Yes -: IDDM -: HTN -: prostate cancer -: kidney failure -: angiosarcoma -: prostatectomy Psychosocial/ Personal History: lives at home by himself - Family History Mother Medical History: Heart disease Father Medical History: Cancer - Social History Alcohol use: No CD- Drugs: No Caffeine use: No Place of Residence: Home Review of Systems 10-point ROS is otherwise unremarkable Physical Examination Temp Pulse Resp BP Pulse Ox 98.9 F 63 18 136/56 L 98 09/23/20 09:30 09/23/20 09:30 09/23/20 09:30 09/23/20 09:30 09/23/20 09:30 General: Alert, In no apparent distress, Oriented x3 HEENT: Atraumatic, Normocephalic Neck: Supple, 2+ carotid pulse no bruit Respiratory: Clear to auscultation bilaterally, Normal air movement Cardiovascular: No edema, Normal pulses, Regular rate/rhythm Gastrointestinal: Normal bowel sounds, Soft and benign Musculoskeletal: Other (Right Charcot foot changes. Right hallux amputation. ) Integumentary: Diabetic ulcer (The left 1st through 3rd toes. Josy wound tissue with erythema and swelling. Unable to determine depth of wound. No bone visualized during examination.) Neurological: Normal speech Laboratory Data (last 24 hrs) 09/22/20 12:45: PT 15.8 H, INR 1.37, APTT 48.0 H 09/22/20 12:45: WBC 13.10 H, Hgb 9.5 L, Hct 28.8 L, Plt Count 161 09/22/20 12:45: Sodium 140, Potassium 5.0, BUN 48 H, Creatinine 2.42 H, Glucose 181 H, Total Bilirubin 0.8, AST 17, ALT 21, Alkaline Phosphatase 88, Amylase 29, Lipase 28 L Conclusions/Impression: Antibiotics: zyvox start: 09/22 stop: -- Levaquin start: 09/22 stop: -- Assessment: -left 1st through 3rd toe diabetic ulcerations with possible osteomyelitis -history of prostate cancer -diabetes -anemia -history of vancomycin neuropathy Plan: -x-ray taken of left lower extremity showed concern for possible osteomyelitis of left 1st through 3rd toe. MRI pending. Blood cultures taken on 09/22: 3/ bottles grew gram-positive cocci in clusters, 4th bottle results still pending. Continue empiric IV antibiotic therapy with zyvox and Levaquin, will tailor antibiotics based off of full blood culture results. Source of bacteremia: Likely diabetic foot ulcer. -wound care orders: [place] 1st through 3rd toe with Betadine, apply gauze, wrapped with Kerlix. Change QMWF or p.r.n. if soiled removed. Dr. Blackman al so lung case. -diabetes: Hemoglobin A1c ordered. -anemia: Continue to monitor H&H. -patient started on vitamin-C and zinc to promote wound healing. -albumin within normal range, no concern for protein caloric malnutrition that would hinder wound healing. -medical management per primary team -continue monitor CBC and BMP -continue to monitor for signs infection Plan of care discussed with Dr. Maciel. Thank you for consultation.
[2020-09-23] MEDS ORDERED: LEVOFLOXACIN 750MG/D5W 150 ML IV SCH (12:00)
[2020-09-23] MEDS ORDERED: GABAPENTIN 300 MG CAP PO SCH (12:00)
--- NOTE | 2020-09-23 12:11 | RAD REPORT ---
EXAM DESCRIPTION: MRI - Foot Left Wo Cont - 09/23/2020 11:48 am CLINICAL HISTORY: evaluate for osteomyelitisopen wound first-third toes, pain COMPARISON: Foot Left 3 View dated 09/22/2020 TECHNIQUE: Multiplanar imaging of the left foot performed using T1 weighted, T2 weighted, T2 fat sat uration and T2 stir sequencing. FINDINGS: Patient is flexed at the IP joint of the first toe and the DIP joint of the second and thi rd toes. This may indicate possible disruption of the extensor tendon along the dorsal surface of the se toes. The first distal phalanx, second middle and distal phalanges and the third middle and distal phalanges show hypointense T1 and hyperintense T2 signal. Bone loss is suspected at the tuft of the first distal phalanx as well as the second and third distal phalanges. Edematous soft tissues are pre sent around these toes. No abscess or drainable fluid collection. No signal abnormalities in the fourth and fifth toes. Metatarsals show no suspicious signal pattern. IMPRESSION: Osteomyelitis with bone destruction involving the tip of the first distal phalanx and th e second and third distal phalanges. Osteomyelitis without bone destruction seen in the second and third middle phalanges.
--- NOTE | 2020-09-23 12:44 | RAD REPORT ---
EXAM DESCRIPTION: US - Upper Lower Extrem Art Multi - 09/23/2020 11:02 am CLINICAL HISTORY: evaluate for PVD, bilateral leg pain COMPARISON: None. TECHNIQUE: Left brachial artery pressure measurement was obtained. Waveforms were obtained along the length of each lower extremity. Ankle pressure measurements were obtained with index values calculat ed. Visual inspection of the lower extremity arterial tree performed. FINDINGS: Left brachial artery pressure measurement was in range of normal. CHRISS values are 0.88 on t he right and 0.82 on the left. The right lower extremity arterial tree shows biphasic waveform pattern from common femoral artery to the dorsalis pedis and posterior tibial arteries. The left common femoral, superficial femoral and p opliteal arteries were also biphasic. Left posterior tibial and dorsalis pedis arteries were monophas ic. No occlusion or flow restricting lesion identifiable. IMPRESSION: Mild to moderate severity bilateral lower extremity arterial tree. There is no occlusion or focal flow restricting lesion identifiable. CHRISS values measured 0.88 on the right and 0.82 on the left.
[2020-09-23] MEDS: ASCORBIC ACID 500 MG TABLET PO SCH (12:51)
[2020-09-23] MEDS: ZINC SULFATE 220 MG CAP PO SCH (12:52)
--- NOTE | 2020-09-23 16:13 | EKG ---
Test Date: 2020-09-22 Test Time: 12:54:23 Street Commissioner: JENNIFER MEASUREMENT RESULTS: Intervals: Rate: 88 NM: 216 QRSD: 90 QT: 344 QTc: 416 [place]: P: 54 NM: 216 QRS: 67 T: 49 INTERPRETIVE STATEMENTS: Sinus rhythm with marked sinus arrhythmia with 1st degree AV block Anterior infarct, age undetermined Abnormal ECG Compared to ECG 01/25/2008 14:20:19 First degree AV block now present Myocardial infarct finding now present Electronically Signed On 09-23-20 16:08:52 CDT by Glenn Looney
[2020-09-23] MEDS ORDERED: D50W 25 GM/50 ML VIAL IV PRN (17:00)
[2020-09-23] MEDS: Levofloxacin 250mg IV 250 MG/50 ML BAG IV SCH (17:01)
[2020-09-23] MEDS: NA CHLORIDE 0.9% 1,000 ML IV SCH (17:01)
--- NOTE | 2020-09-23 21:15 | P.CNS ---
Date of Consult: 09/23/20 Reason for Consult: LIZETT/ CKD Requesting Physician: Timmy Rodriguez Primary Care Provider: Dr. Hayes in [place] Chief Complaint: cellulitis, possible osteomyelitis History of Present Illness: This is an 89 y/o M w/ history of prostate cancer, angiosarcoma, HTN, IDDM who presents today with a L foot wound infection and feeling unwell. He noticed he had bloody socks about 1 week ago and states his shoes do not fit him well. He reports that he feels fatigued and has "been getting weaker" for the past 2 weeks. He c/o chills. Denies any fevers, nausea, vomiting. He reports that he had a few episodes of "white outs" for the past 3 months and is currently following up with check examiner (Dr. Lindo in [place]) and has had heart monitor in place x 3 weeks. States this has never occurred before in the past. He denies any chest pain, palpitations. 14:13 This 89 yrs old Male presents to ER via Wheelchair with complaints of Wound evelyn Infection. 14:13 This 89 yrs old Male presents to ER via Wheelchair with complaints of Wound evelyn Infection. Allergies vancomycin Allergy (Verified 05/18/18 09:20) Hives/Rash Home medications list reviewed: Yes Home Medications: Metoprolol Succinate [Toprol Xl] 50 mg PO BEDTIME 05/18/18 Simvastatin 40 mg PO BEDTIME 05/18/18 Aspirin 1 tab PO DAILY 09/22/20 Furosemide 1 tab PO DAILY 09/22/20 Gabapentin 1 cap PO TID 09/22/20 Insulin -Regular Human [Novolin -R*] 4 unit SQ BID 09/22/20 Insulin Glargine,Hum.rec.anlog [Lantus] 12 unit SQ BEDTIME 09/22/20 Levothyroxine Sodium [Levothyroxine] 1 tab PO [id number] 09/22/20 Linaclotide [Linzess] 1 tab PO DAILY 09/22/20 Lubiprostone [Amitiza] 1 cap PO DAILY 09/22/20 Pantoprazole [Protonix Tab*] 1 tab PO DAILY 09/22/20 Tramadol HCl [Ultram] 1 tab PO Q6H PRN 09/22/20 - Past Medical/Surgical History Diabetic: Yes -: IDDM -: HTN -: prostate cancer -: kidney failure -: angiosarcoma -: prostatectomy Psychosocial/ Personal History: lives at home by himself - Family History Mother Medical History: Heart disease Father Medical History: Cancer - Social History Alcohol use: No CD- Drugs: No Caffeine use: No Place of Residence: Home Review of Systems 10-point ROS is otherwise unremarkable Integumentary: Lesions Neurological: Weakness Physical Examination Temp Pulse Resp BP Pulse Ox 98.6 F 61 16 141/53 H 99 09/23/20 16:00 09/23/20 16:00 09/23/20 16:00 09/23/20 16:00 09/23/20 16:00 General: In no apparent distress, Oriented x3, Cooperative HEENT: Atraumatic Neck: Supple Respiratory: Clear to auscultation bilaterally Cardiovascular: No edema, Regular rate/rhythm Gastrointestinal: Soft and benign, Non-distended Musculoskeletal: No clubbing Integumentary: No rashes, No cyanosis, Skin breakdown, Diabetic ulcer Neurological: Normal speech Blood work reviewed in the chart. Imagings Data: EXAM DESCRIPTION: MRI - Foot Left Wo Cont - 09/23/2020 11:48 am IMPRESSION: Osteomyelitis with bone destruction involving the tip of the first distal phalanx and the second and third distal phalanges. Osteomyelitis without bone destruction seen in the second and third middle phalanges. EXAM DESCRIPTION: US - Upper Lower Extrem Art Multi - 09/23/2020 11:02 am FINDINGS: Left brachial artery pressure measurement was in range of normal. CHRISS values are 0.88 on the right and 0.82 on the left. The right lower extremity arterial tree shows biphasic waveform pattern from common femoral artery to the dorsalis pedis and posterior tibial arteries. The left common femoral, superficial femoral and popliteal arteries were also biphasic. Left posterior tibial and dorsalis pedis arteries were monophasic. No occlusion or flow restricting lesion identifiable. IMPRESSION: Mild to moderate severity bilateral lower extremity arterial tree. There is no occlusion or focal flow restricting lesion identifiable. CHRISS values measured 0.88 on the right and 0.82 on the left. EXAM DESCRIPTION: RAD - Chest Single View - 09/22/2020 1:51 pm CLINICAL HISTORY: MALAISE Chest pain. COMPARISON: CHEST SINGLE VIEW dated 01/25/2008 FINDINGS: Portable technique limits examination quality. The lungs are mildly emphysematous but grossly clear. The heart is mildly enlarged in size. Sternotomy wires present. IMPRESSION: No acute intrathoracic process suspected. Conclusions/Impression: LIZETT likely hypovolemia CKD III -No NSAIDs -Change IVF 1/2NS -Hold furosemide Hyperkalemia -Monitor level Hypocalcemia -Start Vitamin D3 HTN with CKD -Continue Metoprolol DM II with CKD -Continue Lantus -RISS Anemia in chronic illness -Monitor H&H Osteomyelitis of the left toes -Continue Zosyn and Linezolid -Follow up with ID Thank you kindly for the consultation.
[2020-09-23] MEDS: ATORVASTATIN 20 MG TAB PO SCH (21:18)
[2020-09-23] MEDS: INSULIN GLARGINE 100 UNITS/ML SQ SCH (21:19)
[2020-09-23] MEDS: NACHLORIDE 0.45% 1,000 ML IV SCH (22:38)
[2020-09-24] MEDS: METOPROLOL XL 50 MG TAB PO SCH (00:34)
[2020-09-24] MEDS: TRAMADOL HCL 50 MG TAB PO PRN (00:34)
[2020-09-24 05:59] LABS: Basophils % 0.6 % (0-1.3); Lymphocytes % 15.1 % (15.3-44.8); RBC Red Blood Cell Count 2.51 M/uL (4.33-5.43)
[2020-09-24] MEDS: LEVOTHYROXINE SOD 0.025 MG TAB PO SCH (06:03)
[2020-09-24] MEDS: PANTOPRAZOLE 40MG TABLET PO SCH (06:03)
[2020-09-24 06:17] LABS: C-Reactive Protein 52.7 mg/L (<3.00); Magnesium 2.5 mg/dL (1.8-2.4)
[2020-09-24] MEDS: INSULIN -REGULAR HUMAN 50 UNIT/0.5 ML ML SQ SCH ×4 (07:30→21:00)
--- NOTE | 2020-09-24 07:35 | P.PN ---
Subjective Date of Service: 09/24/20 Primary Care Provider: Dr. Hayes in [place] Chief Complaint: cellulitis, possible osteomyelitis Subjective: No new changes (didnt sleep well, o/n went into afib to 110-120s. slight nausea overnight. denies history of afib, no chest pain. reports bad bleed on eliquis - almost killed me ~1yr ago. 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) Review of Systems 10-point ROS is otherwise unremarkable Physical Examination - Vital Signs Temperature: 97.9 F Blood Pressure: 110/54 Pulse: 103 Respirations: 20 Pulse Ox (%): 93 - Studies Microbiology Data (last 24 hrs): 09/22/20 12:57 Blood - Blood Blood Culture Gram Stain - Final 09/22/20 12:57 Blood - Blood Gram Stain - Final Assessment & Plan Physician Review Additional Text: Physical Exam General: Alert, no apparent distress HEENT: Normal conjunctiva, sclera anicteric Respiratory: Clear to auscultation bilaterally, Normal air movement Cardiovascular: irregularly irregular rhythm, HR: 90-100 Gastrointestinal: soft, nontender, nondistended Integumentary: L foot with dressing in place Neurological: Normal speech, Normal affect Problem List Osteomyelitis of L first toe, L second toe, L third toe with bacteremia IDDM2 Afib, new onset LIZETT on CKDIII Anemia of chronic disease HTN h/o prostate cancer, s/p prostatectomy -MRi consistent with osteomyelitis -h/o vanc nephropathy, on IV levaquin and zyvox -Dr. Blackman consulted - to go to OR for debridement vs amputation, pt wants to further speak with him this morning -ID consulted -accucheks, SSI, lantus, titrate as needed -LIZETT on CKDII, nephrology consulted, on IVF, avoid nephrotoxic medications -new onset Afib, cardiology consulted, pt did not receive beta salud yesterday, denies history of afib. 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
[2020-09-24] MEDS: LINEZOLID 600 MG IVPB 600 MG/300 ML BAG IV SCH (08:59)
[2020-09-24] MEDS: ASPIRIN EC 81 MG TAB PO SCH (09:00)
[2020-09-24] MEDS: HEPARIN 5000 UNIT/ML 1 ML VIAL SQ SCH ×2 (09:00→21:00)
[2020-09-24] MEDS: ZINC SULFATE 220 MG CAP PO SCH (09:00)
[2020-09-24] MEDS: GABAPENTIN 400 MG CAP PO SCH ×2 (09:00→21:00)
[2020-09-24] MEDS: ASCORBIC ACID 500 MG TABLET PO SCH (09:00)
--- NOTE | 2020-09-24 09:00 | P.PN ---
Date of Service: 09/24/20 Vital Signs Temp Pulse Resp BP Pulse Ox 97.9 F 103 H 20 110/54 L 93 09/24/20 07:41 09/24/20 07:41 09/24/20 07:41 09/24/20 07:41 09/24/20 07:41 Medications Acetaminophen (Acetaminophen 500 Mg Tab) 500 mg PO Q4HP PRN PRN Reason: Pain scale 2-4 (Mild) Ascorbic Acid (Ascorbic Acid 500 Mg Tablet) 500 mg PO DAILY COUNT INCLUDES THE [facility] Last Admin: 09/23/20 12:51 Dose: 500 mg Documented by: Aspirin (Aspirin Ec 81 Mg Tab) 81 mg PO DAILY COUNT INCLUDES THE [facility] Last Admin: 09/23/20 09:00 Dose: 81 mg Documented by: Atorvastatin Calcium (Atorvastatin 20 Mg Tab) 20 mg PO BEDTIME COUNT INCLUDES THE [facility] Last Admin: 09/23/20 21:18 Dose: 20 mg Documented by: Dextrose (D50w 25 Gm/50 Ml Vial) 12.5 gm IV PRN PRN; Protocol PRN Reason: HYPOGLYCEMIA Gabapentin (Gabapentin 400 Mg Cap) 400 mg PO BID COUNT INCLUDES THE [facility] Last Admin: 09/23/20 21:18 Dose: 400 mg Documented by: Glucagon (Glucagon 1 Mg/Vial) 1 mg IM 1X PRN; Protocol PRN Reason: HYPOGLYCEMIA Heparin Sodium (Porcine) (Heparin 5000 Unit/Ml 1 Ml Vial) 5,000 unit SQ BID COUNT INCLUDES THE [facility] Last Admin: 09/23/20 21:18 Dose: 5,000 unit Documented by: Linezolid (Zyvox 600 Mg/300 Ml Ivpb (Premix)) 600 mg in 300 mls @ 300 mls/hr IV Q12HR COUNT INCLUDES THE [facility]; Protocol Last Admin: 09/23/20 22:38 Dose: 300 mls Documented by: Levofloxacin/Dextrose (Levaquin 250mg/50 Ml Ivpb) 250 mg in 50 mls @ 50 mls/hr IV Q24H COUNT INCLUDES THE [facility] Last Admin: 09/23/20 17:01 Dose: 50 mls Documented by: Sodium Chloride (Sodium Chloride 0.45%) 1,000 mls @ 80 mls/hr IV .[id number] COUNT INCLUDES THE [facility] Last Admin: 09/23/20 22:38 Dose: 1,000 mls Documented by: Insulin Glargine (Insulin Glargine 100 Units/Ml) 10 units SQ BEDTIME COUNT INCLUDES THE [facility] Last Admin: 09/23/20 21:19 Dose: 10 units Documented by: Insulin Human Regular (Insulin -Regular Human 50 Unit/0.5 Ml Ml) 0 unit SQ ACHS COUNT INCLUDES THE [facility]; Protocol Last Admin: 09/23/20 21:00 Dose: Not Given Documented by: Levothyroxine Sodium (Levothyroxine Sod 0.025 Mg Tab) 0.025 mg PO DAILYAC COUNT INCLUDES THE [facility] Last Admin: 09/24/20 06:03 Dose: Not Given Documented by: Metoprolol Succinate (Metoprolol Xl 50 Mg Tab) 50 mg PO [id number] COUNT INCLUDES THE [facility] Last Admin: 09/24/20 00:34 Dose: 50 mg Documented by: Ondansetron HCl (Ondansetron 4 Mg/2 Ml Vial) 4 mg IV Q6HP PRN PRN Reason: NAUSEA / VOMITING Pantoprazole Sodium (Pantoprazole 40mg Tablet) 40 mg PO DAILYAC COUNT INCLUDES THE [facility]; Protocol Last Admin: 09/24/20 06:03 Dose: Not Given Documented by: Sodium Chloride (Flush Normal Saline 10 Ml) 10 ml IV BID COUNT INCLUDES THE [facility] Last Admin: 09/23/20 21:00 Dose: 10 ml Documented by: Tramadol HCl (Tramadol Hcl 50 Mg Tab) 50 mg PO TID PRN PRN Reason: Pain scale 2-4 (Mild) Last Admin: 09/24/20 00:34 Dose: 50 mg Documented by: Zinc Sulfate (Zinc Sulfate 220 Mg Cap) 220 mg PO DAILY COUNT INCLUDES THE [facility] Last Admin: 09/23/20 12:52 Dose: 220 mg Documented by: Microbiology Results 09/22/20 12:57 Blood - Blood Aerobic Blood Culture - Preliminary 09/22/20 12:57 Blood - Blood Blood Culture Gram Stain - Final 09/22/20 12:57 Blood - Blood Anaerobic Blood Culture - Preliminary 09/22/20 12:57 Blood - Blood Gram Stain - Final Assessment/ Plan: Nephrology Concerned about his infection and considering an amputation. CPS stable without CP or SOB. Reports an episode of afib yesterday. No acute events overnight. Vitals, medications, blood work and imaging reviewed in the chart. General: In no apparent distress, Oriented x3, Cooperative HEENT: Atraumatic Neck: Supple Respiratory: Clear to auscultation bilaterally Cardiovascular: No edema, Regular rate/rhythm Gastrointestinal: Soft and benign, Non-distended Musculoskeletal: No clubbing Integumentary: No rashes, No cyanosis, Skin breakdown, Diabetic ulcer Neurological: Normal speech Blood work reviewed in the chart. Imagings Data: EXAM DESCRIPTION: MRI - Foot Left Wo Cont - 09/23/2020 11:48 am IMPRESSION: Osteomyelitis with bone destruction involving the tip of the first distal phalanx and the second and third distal phalanges. Osteomyelitis without bone destruction seen in the second and third middle phalanges. EXAM DESCRIPTION: US - Upper Lower Extrem Art Multi - 09/23/2020 11:02 am FINDINGS: Left brachial artery pressure measurement was in range of normal. CHRISS values are 0.88 on the right and 0.82 on the left. The right lower extremity arterial tree shows biphasic waveform pattern from common femoral artery to the dorsalis pedis and posterior tibial arteries. The left common femoral, superficial femoral and popliteal arteries were also biphasic. Left posterior tibial and dorsalis pedis arteries were monophasic. No occlusion or flow restricting lesion identifiable. IMPRESSION: Mild to moderate severity bilateral lower extremity arterial tree. There is no occlusion or focal flow restricting lesion identifiable. CHRISS values measured 0.88 on the right and 0.82 on the left. EXAM DESCRIPTION: RAD - Chest Single View - 09/22/2020 1:51 pm CLINICAL HISTORY: MALAISE Chest pain. COMPARISON: CHEST SINGLE VIEW dated 01/25/2008 FINDINGS: Portable technique limits examination quality. The lungs are mildly emphysematous but grossly clear. The heart is mildly enlarged in size. Sternotomy wires present. IMPRESSION: No acute intrathoracic process suspected. Conclusions/Impression: LIZETT likely hypovolemia CKD III -No NSAIDs -Continue IVF 1/2NS -Hold furosemide Hyperkalemia -Monitor level Hypocalcemia -Continue Vitamin D3 HTN with CKD -Continue Metoprolol DM II with CKD -Continue Lantus -RISS Anemia in chronic illness -Monitor H&H Osteomyelitis of the left toes -Continue Zosyn and Linezolid -Follow up with ID -Follow up with surgery
--- NOTE | 2020-09-24 09:31 | CON ---
Date of Consultation: 09/23/2020 Reason For Service: Multiple digit diabetic infected wounds on the left foot with osteomyelitis. History Of Present Illness: This is a case of an 89-year-old patient with multiple medical problems, comes to us with left foot multiple diabetic infected ulcer and osteomyelitis and a surgical consult was obtained. The patient stated that he has been using a different shoe recently and he thinks roni t, that probably was a factor for this ulcers to be present. He does not have any sensation in that area, so it is hard for him to notice when they are really is starting to develop. The patient has b een feeling weak for the last several weeks. He is having some studies and some workup done by the [facility] doctors. Allergies: INCLUDE VANCOMYCIN. Medications: Include Ultram, furosemide, gabapentin, metoprolol, simvastatin. Past Medical Problems: Insulin-dependent diabetes, prostate cancer, kidney failure, and he has ale rivas. Past Surgical History: Include prostatectomy and he has sarcoma treatment, he does not remember the details of it. Social History: He does not smoke. He does not drink alcohol. Family History: Includes heart disease. Review of Systems: See H and P. Physical Examination: General: The patient is awake, alert. Eyes: Pupils are equal and reactive. Chest: Clear. Abdomen: Soft and depressible. Extremities: Diminished peripheral pulses bilaterally. Over the left foot, the patient has an infec candelario diabetic ulcers on the 1st, 2nd and 3rd toes with necrotic tissue present and needs debridement w ith peripheral neuropathy. Laboratory Data: Blood work shows a WBC count of 12, hemoglobin of 8.3, creatinine is 2.32, glucose 135. MRI of the foot interpreted by Dr. Kaufman as osteomyelitis with bone destruction involving the tip of the 1st distal and 2nd and 3rd phalanx. There is cellulitis without bone destruction of the 2nd and 3rd middle phalanx. Assessment: This is 89-year-old patient with multiple ulcers, cellulitis, cardiac disease, diabetes, renal disease, now comes with ulcers in the 1st and 3rd toe with osteomyelitis involved. At least f rom the surgical standpoint until we have better idea of his circulation, we should clean those areas right now with necrotic tissue. I explained to him that eventually he may need amputations at certa in levels of those 3 toes and he agree for the future if this does not heal. The benefits, alternati ves, and risks of debridement were fully explained, which include, but not limited to infection, blee ding, damage to adjacent structures, anesthesia complication, nonhealing wound, CO, and even . He also understands this may not relieve the symptoms. He might need more than one surgical interven tion. He will require wound care and he still may lose his toes and if he is not careful, he may margarita n lose his foot. JULIANN/HONORIO Voice ID: [id number] Report ID: [id number]
[2020-09-24] MEDS: NACHLORIDE 0.45% 1,000 ML IV SCH ×2 (10:30→23:00)
--- NOTE | 2020-09-24 10:41 | P.PN ---
Subjective Date of Service: 09/24/20 Primary Care Provider: Dr. Hayes in [place] Chief Complaint: cellulitis, possible osteomyelitis Patient seen examined at bedside, uncomfortable as he states he has not been able to sleep since he has been hospitalized as he feels uncomfortable. Arterial Doppler shows bilateral mild to moderate peripheral arterial disease. Review of Systems 10-point ROS is otherwise unremarkable Physical Examination - Vital Signs Temperature: 97.9 F Blood Pressure: 110/54 Pulse: 103 Respirations: 20 Pulse Ox (%): 93 - Studies Laboratory Last Values WBC 13.10 K/uL (4.3-10.9) H 09/22/20 12:45 RBC 3.01 M/uL (4.33-5.43) L 09/22/20 12:45 Hgb 9.5 g/dL (13.6-17.9) L 09/22/20 12:45 Hct 28.8 % (39.6-49.0) L 09/22/20 12:45 MCV 95.9 fL (80-100) 09/22/20 12:45 MCH 31.4 pg (27.0-35.0) 09/22/20 12:45 MCHC 32.8 g/dL (32.0-36.0) 09/22/20 12:45 RDW 12.5 % (12.1-15.2) 09/22/20 12:45 Plt Count 161 K/uL (152-406) 09/22/20 12:45 MPV 11.2 fL (7.6-11.3) 09/22/20 12:45 Neutrophils % 92.5 % (41.7-73.7) H 09/22/20 12:45 Lymphocytes % 3.5 % (15.3-44.8) L 09/22/20 12:45 Monocytes % 3.6 % (3.3-12.3) 09/22/20 12:45 Eosinophils % 0.1 % (0-4.4) 09/22/20 12:45 Basophils % 0.3 % (0-1.3) 09/22/20 12:45 Absolute Neutrophils 12.1 K/uL (1.8-8.0) H 09/22/20 12:45 Absolute Lymphocytes 0.5 K/uL (0.7-4.9) L 09/22/20 12:45 Absolute Monocytes 0.5 K/uL (0.1-1.3) 09/22/20 12:45 Absolute Eosinophils 0.0 K/uL (0-0.5) 09/22/20 12:45 Absolute Basophils 0.0 K/uL (0-0.5) 09/22/20 12:45 Platelet Estimate Adeq 09/22/20 12:45 Poikilocytosis 1+ 09/22/20 12:45 Morphology Comment Noted (NOT SEEN) 09/22/20 12:45 ESR Westergren > 140 mm/HR (0-20) H 09/22/20 12:45 PT 15.8 SECONDS (9.5-12.5) H 09/22/20 12:45 INR 1.37 09/22/20 12:45 APTT 48.0 SECONDS (24.3-36.9) H 09/22/20 12:45 Sodium 140 mmol/L (136-145) 09/22/20 12:45 Potassium 5.0 mmol/L (3.5-5.1) 09/22/20 12:45 Chloride 109 mmol/L (98-107) H 09/22/20 12:45 Carbon Dioxide 25 mmol/L (21-32) 09/22/20 12:45 BUN 48 mg/dL (7-18) H 09/22/20 12:45 Creatinine 2.42 mg/dL (0.55-1.3) H 09/22/20 12:45 Estimated GFR 25 mL/min (=/>90) L 09/22/20 12:45 Glucose 181 mg/dL (74-106) H 09/22/20 12:45 Lactic Acid 1.8 mmol/L (0.4-2.0) 09/22/20 12:45 Calcium 8.8 mg/dL (8.5-10.1) 09/22/20 12:45 Total Bilirubin 0.8 mg/dL (0.2-1.0) 09/22/20 12:45 Direct Bilirubin 0.2 mg/dL (0-0.2) 09/22/20 12:45 AST 17 U/L (15-37) 09/22/20 12:45 ALT 21 U/L (12-78) 09/22/20 12:45 Alkaline Phosphatase 88 U/L (45-117) 09/22/20 12:45 Creatine Kinase 89 U/L (39-308) 09/22/20 12:45 CK-MB (CK-2) < 1.0 ng/mL (1.0-3.6) L 09/22/20 12:45 Rapid Troponin I < 0.02 ng/mL (0.0-0.045) 09/22/20 12:45 Serum Total Protein 8.1 g/dL (6.4-8.2) 09/22/20 12:45 Albumin 3.5 g/dL (3.4-5.0) 09/22/20 12:45 Globulin 4.6 g/dL (2.3-3.5) H 09/22/20 12:45 Albumin/Globulin Ratio 0.8 (1.1-1.8) L 09/22/20 12:45 Amylase 29 U/L (25-115) 09/22/20 12:45 Lipase 28 U/L (73-393) L 09/22/20 12:45 Procalcitonin 1.11 ng/mL (<0.050) H 09/22/20 12:45 Urine RBC Cancelled 09/22/20 12:35 Urine WBC Cancelled 09/22/20 12:35 Ur Squamous Epith Cells Cancelled 09/22/20 12:35 Ur Urothelial Cells Cancelled 09/22/20 12:35 Calcium Oxalate Crystal Cancelled 09/22/20 12:35 Uric Acid Crystals Cancelled 09/22/20 12:35 Triple Phos Crystals Cancelled 09/22/20 12:35 Other Crystals Cancelled 09/22/20 12:35 Amorphous Sediment Cancelled 09/22/20 12:35 Glitter Cells Cancelled 09/22/20 12:35 Urine Bacteria Cancelled 09/22/20 12:35 Hyaline Casts Cancelled 09/22/20 12:35 Fine Granular Casts Cancelled 09/22/20 12:35 Coarse Granular Casts Cancelled 09/22/20 12:35 Waxy Casts Cancelled 09/22/20 12:35 RBC Casts Cancelled 09/22/20 12:35 WBC Casts Cancelled 09/22/20 12:35 Urine Mucus Cancelled 09/22/20 12:35 Urine Other Cancelled 09/22/20 12:35 Urine Trichomonas Cancelled 09/22/20 12:35 Urine Yeast Cancelled 09/22/20 12:35 Ur Yeast w Hyphae Cancelled 09/22/20 12:35 Urine Yeast (Budding) Cancelled 09/22/20 12:35 Urine Sperm Cancelled 09/22/20 12:35 Urine Culture Reflexed Cancelled 09/22/20 12:35 Urine Total Volume Cancelled 09/22/20 12:35 Smear Scan Ok (OK) 09/22/20 12:45 Microbiology Data (last 24 hrs): 09/22/20 12:57 Blood - Blood Blood Culture Gram Stain - Final 09/22/20 12:57 Blood - Blood Gram Stain - Final Assessment And Plan - Plan Physical Exam: General: Alert, In no apparent distress, Oriented x3 HEENT: Atraumatic, Normocephalic Neck: Supple, 2+ carotid pulse no bruit Respiratory: Clear to auscultation bilaterally, Normal air movement Cardiovascular: No edema, Normal pulses, Regular rate/rhythm Gastrointestinal: Normal bowel sounds, Soft and benign Musculoskeletal: Other (Right Charcot foot changes. Right hallux amputation. ) Integumentary: Diabetic ulcer (The left 1st through 3rd toes. Josy wound tissue with erythema and swelling. Unable to determine depth of wound. No bone visualized during examination.) Neurological: Normal speech Laboratory Data (last 24 hrs) Conclusions/Impression: Antibiotics: zyvox start: 09/22 stop: -- Levaquin start: 09/22 stop: -- Assessment: -left 1st through 3rd toe diabetic ulcerations with possible osteomyelitis -history of prostate cancer -diabetes -anemia -history of vancomycin neuropathy Plan: -x-ray taken of left lower extremity showed concern for possible osteomyelitis of left 1st through 3rd toe. MRI confirmed osteomyelitis. Arterial Doppler showed zakt-li-imgesosa bilateral for for arterial disease. Blood cultures taken on 09/22: 3/4 bottles grew gram-positive cocci in clusters, 4th bottle results still pending. Continue empiric IV antibiotic therapy with zyvox and Levaquin, will tailor antibiotics based off of full blood culture results. Source of bacteremia: Likely diabetic foot ulcer. -wound care orders: Holters Crossing 1st through 3rd toe with Betadine, apply gauze, wrapped with Kerlix. Change QMWF or p.r.n. if soiled removed. Dr. Blackman also lung case. -patient has left hammertoe deformity and bilateral neuropathy, both contributing to decrease wound healing. -diabetes: Hemoglobin A1c 6.5 -anemia: Continue to monitor H&H. -patient started on vitamin-C and zinc to promote wound healing. -albumin within normal range, no concern for protein caloric malnutrition that would hinder wound healing. -medical management per primary team -continue monitor CBC and BMP -continue to monitor for signs infection Plan of care discussed with Dr. Maciel. Thank you for consultation. 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 Blackman consulted - to go to OR for debridement vs amputation, pt wants to further speak with him this morning -ID consulted -accucheks, SSI, lantus, titrate as needed -LIZETT on CKDII, nephrology consulted, on IVF, avoid nephrotoxic medications -new onset Afib, cardiology consulted, pt did not receive beta salud yesterday, denies history of afib. echo ordered, restart metoprolol -patient reports "almost bleeding to " from GI bleed last year after initiation of eliquis and does not want anticoagulation again Diet: NPO Code: full Dispo: anticipate hospitalization ~2 more days, dc home, will need supervisor intermediates antibiotics
--- NOTE | 2020-09-24 12:59 | EKG ---
Test Date: 2020-09-24 Test Time: 00:06:24 Senior Manager Asset Protection: NANCY MEASUREMENT RESULTS: Intervals: Rate: 107 MT: QRSD: 96 QT: 348 QTc: 464 [place]: P: MT: QRS: 49 T: -25 INTERPRETIVE STATEMENTS: Atrial fibrillation with rapid ventricular response with premature ventricular or aberrantly conducted complexes Nonspecific ST abnormality, probably digitalis effect Abnormal QRS-T angle, consider primary T wave abnormality Abnormal ECG Compared to ECG 09/22/2020 12:54:23 Ventricular premature complex(es) now present ST (T wave) deviation now present T-wave abnormality now present Sinus rhythm no longer present Sinus arrhythmia no longer present First degree AV block no longer present Myocardial infarct finding no longer present Electronically Signed On 09-24-20 12:58:57 CDT by Glenn Looney
--- NOTE | 2020-09-24 14:13 | ECHO ---
HEIGHT: 6 ft 2 in WEIGHT: 185 lb 0 oz DATE OF STUDY: 09/24/[address]: Timmy Rodriguez MD 2-DIMENSIONAL: YES M.MODE: YES DOPPLER: YES COLOR FLOW: YES TDS: NO PORTABLE: NO DEFINITY: NO BUBBLE STUDY: NO DIAGNOSIS: NEW ATRIAL FIBRILLATION CARDIAC HISTORY: CATHERIZATION: SURGERY: PROSTHETIC VALVE: PACEMAKER: MEASUREMENTS (cm) DIASTOLIC (NORMALS) SYSTOLIC (NORMALS) IVSd 0.9 (0.6-1.2) LA Diam 4.8 (1.9-4.0) LVEF 63% LVIDd 5.2 (3.5-5.7) LVIDs 3.4 (2.0-3.5) %FS 34% LVPWd 1.4 (0.6-1.2) Ao Diam 3.5 (2.0-3.7) 2 DIMENSIONAL ASSESSMENT: RIGHT ATRIUM: NORMAL LEFT ATRIUM: DILATED RIGHT VENTRICLE: NORMAL LEFT VENTRICLE: NORMAL TRICUSPID VALVE: NORMAL MITRAL VALVE: NORMAL PULMONIC VALVE: NORMAL AORTIC VALVE: NORMAL PERICARDIAL EFFUSION: NONE AORTIC ROOT: NORMAL LEFT VENTRICULAR WALL MOTION: NORMAL DOPPLER/COLOR FLOW: MILD TRICUSPID REGURGITATION. NORMAL RIGHT VENTRICULAR SYSTOLIC PRESSURE. COMMENTS: MILD TRICUSPID REGURGITATION. NORMAL RIGHT VENTRICULAR SYSTOLIC PRESSURE. LEFT ATRIAL ENLARGEMENT. NORMAL LEFT VENTRICULAR SIZE AND FUNCTION. NO THROMBUS. TECHNOLOGIST: Ghislaine ARTHUR
[2020-09-24] MEDS: Levofloxacin 250mg IV 250 MG/50 ML BAG IV SCH (17:32)
[2020-09-24] MEDS: ATORVASTATIN 20 MG TAB PO SCH (21:00)
[2020-09-24] MEDS: INSULIN GLARGINE 100 UNITS/ML SQ SCH (21:00)
[2020-09-25] MEDS: LINEZOLID 600 MG IVPB 600 MG/300 ML BAG IV SCH ×3 (02:13→20:20)
--- NOTE | 2020-09-25 05:17 | CON ---
Date of Consultation: 09/24/2020 History Of Present Illness: Atrial fibrillation and peripheral arterial disease. History Of Present Illness: Mr. Morales is an 89-year-old male who had presented to the emergency ro om with a wheelchair complaining of wound infection. No cardiac symptoms reported. Denied PND, orth opnea, pedal edema, palpitations, or syncope. Denied any fever or chills. Allergies: HE IS ALLERGIC TO VANCOMYCIN. Past Medical History: Includes hypertension, prostate cancer, angiosarcoma. He has history of diabe get and atrial fibrillation, but he is not a candidate for anticoagulation because of bleeding. Medications: His medication at home includes Amitiza, aspirin, insulin, furosemide, gabapentin, levo thyroxine, Linzess, metoprolol, pantoprazole, and tramadol. Review of Systems: Negative. Social History: Negative. Family History: Noncontributory. Physical Examination: Vital Signs: He was in normal rhythm when I saw him. Blood pressure was 110/54, breathing rate was 20. He was afebrile. HEENT: Negative. Neck: Supple. No bruit. Chest: Clear to auscultation and percussion. Cardiac: Exam revealed a regular rhythm and rate with an aortic sclerosis murmur. No gallops or rub s. Abdomen: Benign. Extremities: Showed multiple ulcers in the first third toe with what appeared to be osteomyelitis. Diagnostic Data: Showed a creatinine of 2.32. His RBC was 2.1. His hemoglobin was 8.2 and platelet count was a 149,000. His hemoglobin A1c was 6.4. Magnesium was 2.7. C-reactive protein was 74. P rocalcitonin was 20. TSH was normal. Chest x-ray was negative. EKG showed sinus rhythm with old an terior infarct. Arterial Doppler showed no focal stenosis, just diffuse disease below the knee. Impression And Plan: 1.Severe peripheral arterial disease with mostly distal disease below the knee. No focal stenosis. CHRISS is 0.8 and 0.9. Surgical intervention may be needed, and he is clear from that standpoint. He is being seen by Dr. Blackman. I think an echocardiogram is reasonable to rule out severe cardiomyop athy. No need to do an abdominal angiogram at this point. I agree with his present regimen. His ot her problems include renal insufficiency, and I think Nephrology has been consulted, specifically Dr. Mcduffie. 2.Diabetes. 3.Hypertension, fairly well controlled. 4.Chronic diastolic congestive heart failure, well controlled. 5.Hypothyroidism, well controlled. 6.Gastroesophageal reflux, well controlled. 7.Dyslipidemia, well controlled. We will continue to follow Mr. Morales. I agree with present regimen for now. BARRETT/HONORIO Voice ID: [id number] Report ID: [id number]
--- NOTE | 2020-09-25 05:17 | PN ---
Date of Progress Note: 09/25/2020 Mr. Morales had come in with osteomyelitis. Echocardiogram which was done on 09/24/2020, showed a no rmal ejection fraction and serial Doppler showed diffuse peripheral arterial disease [id number] w ithout any focal stenosis. The patient has been seen by Dr. Blackman. His EKG is unremarkable. Lakia st x-ray is unremarkable. He is on antibiotics. He has been followed by Nephrology and Infectious D isease. From my standpoint, he can have his surgery whenever it is okay with Dr. Blackman, who will be around for questions. No need to change his medical therapy at this point. BARRETT/MODL Voice ID: [id number] Report ID: [id number]
[2020-09-25] MEDS: METOPROLOL XL 50 MG TAB PO SCH (05:35)
[2020-09-25] MEDS: PANTOPRAZOLE 40MG TABLET PO SCH (06:27)
[2020-09-25] MEDS: LEVOTHYROXINE SOD 0.025 MG TAB PO SCH (06:28)
[2020-09-25 06:36] LABS: Magnesium 2.5 mg/dL (1.8-2.4); Potassium 4.2 mmol/L (3.5-5.1)
[2020-09-25] MEDS: INSULIN -REGULAR HUMAN 50 UNIT/0.5 ML ML SQ SCH ×4 (07:30→20:36)
[2020-09-25 08:28] LABS: Absolute Lymphocytes (CBC) 1.2 K/uL (0.7-4.9); Basophils % 0.8 % (0-1.3); Hematocrit 25.5 % (39.6-49.0); Lymphocytes % 19.8 % (15.3-44.8); MPV 11.1 fL (7.6-11.3); RBC Red Blood Cell Count 2.68 M/uL (4.33-5.43)
[2020-09-25] MEDS: ASCORBIC ACID 500 MG TABLET PO SCH (09:00)
[2020-09-25] MEDS: ASPIRIN EC 81 MG TAB PO SCH (09:00)
[2020-09-25] MEDS: HEPARIN 5000 UNIT/ML 1 ML VIAL SQ SCH ×2 (09:00→20:21)
[2020-09-25] MEDS: ZINC SULFATE 220 MG CAP PO SCH (09:00)
[2020-09-25] MEDS: TRAMADOL HCL 50 MG TAB PO PRN (09:42)
[2020-09-25] MEDS: GABAPENTIN 400 MG CAP PO SCH ×2 (09:47→20:21)
[2020-09-25] MEDS ORDERED: EPOETIN ALFA-EPBX 10,000 UNIT/ML VIAL SQ ONE (10:03)
--- NOTE | 2020-09-25 10:07 | P.PN ---
Date of Service: 09/25/20 Vital Signs Temp Pulse Resp BP Pulse Ox 98.1 F 60 16 124/50 L 95 09/25/20 08:00 09/25/20 08:00 09/25/20 08:00 09/25/20 08:00 09/25/20 08:00 Medications Acetaminophen (Acetaminophen 500 Mg Tab) 500 mg PO Q4HP PRN PRN Reason: Pain scale 2-4 (Mild) Ascorbic Acid (Ascorbic Acid 500 Mg Tablet) 500 mg PO DAILY COUNT INCLUDES THE [facility] Last Admin: 09/25/20 09:00 Dose: Not Given Documented by: Aspirin (Aspirin Ec 81 Mg Tab) 81 mg PO DAILY COUNT INCLUDES THE [facility] Last Admin: 09/25/20 09:00 Dose: Not Given Documented by: Atorvastatin Calcium (Atorvastatin 20 Mg Tab) 20 mg PO BEDTIME COUNT INCLUDES THE [facility] Last Admin: 09/24/20 21:00 Dose: 20 mg Documented by: Calcitriol (Calcitrol 0.25 Mcg Cap) 0.5 mcg PO DAILY COUNT INCLUDES THE [facility] Cholecalciferol (Vitamin D 5,000 Unit Cap) 5,000 unit PO DAILY COUNT INCLUDES THE [facility] Dextrose (D50w 25 Gm/50 Ml Vial) 12.5 gm IV PRN PRN; Protocol PRN Reason: HYPOGLYCEMIA Gabapentin (Gabapentin 400 Mg Cap) 400 mg PO BID COUNT INCLUDES THE [facility] Last Admin: 09/25/20 09:47 Dose: 400 mg Documented by: Glucagon (Glucagon 1 Mg/Vial) 1 mg IM 1X PRN; Protocol PRN Reason: HYPOGLYCEMIA Heparin Sodium (Porcine) (Heparin 5000 Unit/Ml 1 Ml Vial) 5,000 unit SQ BID COUNT INCLUDES THE [facility] Last Admin: 09/25/20 09:00 Dose: Not Given Documented by: Linezolid (Zyvox 600 Mg/300 Ml Ivpb (Premix)) 600 mg in 300 mls @ 300 mls/hr IV Q12HR COUNT INCLUDES THE [facility]; Protocol Last Admin: 09/25/20 09:38 Dose: 300 mls Documented by: Levofloxacin/Dextrose (Levaquin 250mg/50 Ml Ivpb) 250 mg in 50 mls @ 50 mls/hr IV Q24H COUNT INCLUDES THE [facility] Last Admin: 09/24/20 17:32 Dose: Not Given Documented by: Sodium Chloride (Sodium Chloride 0.45%) 1,000 mls @ 80 mls/hr IV .[id number] COUNT INCLUDES THE [facility] Last Admin: 09/24/20 23:00 Dose: Not Given Documented by: Insulin Glargine (Insulin Glargine 100 Units/Ml) 10 units SQ BEDTIME COUNT INCLUDES THE [facility] Last Admin: 09/24/20 21:00 Dose: 10 units Documented by: Insulin Human Regular (Insulin -Regular Human 50 Unit/0.5 Ml Ml) 0 unit SQ ACHS COUNT INCLUDES THE [facility]; Protocol Last Admin: 09/25/20 07:30 Dose: Not Given Documented by: Levothyroxine Sodium (Levothyroxine Sod 0.025 Mg Tab) 0.025 mg PO DAILYAC COUNT INCLUDES THE [facility] Last Admin: 09/25/20 06:28 Dose: Not Given Documented by: Metoprolol Succinate (Metoprolol Xl 50 Mg Tab) 50 mg PO [id number] COUNT INCLUDES THE [facility] Last Admin: 09/25/20 05:35 Dose: 50 mg Documented by: Ondansetron HCl (Ondansetron 4 Mg/2 Ml Vial) 4 mg IV Q6HP PRN PRN Reason: NAUSEA / VOMITING Pantoprazole Sodium (Pantoprazole 40mg Tablet) 40 mg PO DAILYAC COUNT INCLUDES THE [facility]; Protocol Last Admin: 09/25/20 06:27 Dose: Not Given Documented by: Sodium Chloride (Flush Normal Saline 10 Ml) 10 ml IV BID COUNT INCLUDES THE [facility] Last Admin: 09/25/20 09:00 Dose: Not Given Documented by: Tramadol HCl (Tramadol Hcl 50 Mg Tab) 50 mg PO TID PRN PRN Reason: Pain scale 2-4 (Mild) Last Admin: 09/25/20 09:42 Dose: 50 mg Documented by: Zinc Sulfate (Zinc Sulfate 220 Mg Cap) 220 mg PO DAILY COUNT INCLUDES THE [facility] Last Admin: 09/25/20 09:00 Dose: Not Given Documented by: Microbiology Results 09/22/20 12:57 Blood - Blood Aerobic Blood Culture - Preliminary 09/22/20 12:57 Blood - Blood Blood Culture Gram Stain - Final 09/22/20 12:57 Blood - Blood Anaerobic Blood Culture - Preliminary 09/22/20 12:57 Blood - Blood Gram Stain - Final Assessment/ Plan: Nephrology He is frustrated that his PICC line is not working well this morning. CPS stable without CP or SOB. No acute events overnight. Vitals, medications, blood work and imaging reviewed in the chart. General: In no apparent distress, Oriented x3, Cooperative HEENT: Atraumatic Neck: Supple Respiratory: Clear to auscultation bilaterally Cardiovascular: No edema, Regular rate/rhythm Gastrointestinal: Soft and benign, Non-distended Musculoskeletal: No clubbing Integumentary: No rashes, No cyanosis, Skin breakdown, Diabetic ulcer Neurological: Normal speech Blood work reviewed in the chart. Imagings Data: EXAM DESCRIPTION: MRI - Foot Left Wo Cont - 09/23/2020 11:48 am IMPRESSION: Osteomyelitis with bone destruction involving the tip of the first distal phalanx and the second and third distal phalanges. Osteomyelitis without bone destruction seen in the second and third middle phalanges. EXAM DESCRIPTION: US - Upper Lower Extrem Art Multi - 09/23/2020 11:02 am FINDINGS: Left brachial artery pressure measurement was in range of normal. CHRISS values are 0.88 on the right and 0.82 on the left. The right lower extremity arterial tree shows biphasic waveform pattern from common femoral artery to the dorsalis pedis and posterior tibial arteries. The left common femoral, superficial femoral and popliteal arteries were also biphasic. Left posterior tibial and dorsalis pedis arteries were monophasic. No occlusion or flow restricting lesion identifiable. IMPRESSION: Mild to moderate severity bilateral lower extremity arterial tree. There is no occlusion or focal flow restricting lesion identifiable. CHRISS values measured 0.88 on the right and 0.82 on the left. EXAM DESCRIPTION: RAD - Chest Single View - 09/22/2020 1:51 pm CLINICAL HISTORY: MALAISE Chest pain. COMPARISON: CHEST SINGLE VIEW dated 01/25/2008 FINDINGS: Portable technique limits examination quality. The lungs are mildly emphysematous but grossly clear. The heart is mildly enlarged in size. Sternotomy wires present. IMPRESSION: No acute intrathoracic process suspected. Conclusions/Impression: LIZETT likely hypovolemia CKD III -No NSAIDs -Continue IVF 1/2NS -Hold furosemide Hyperkalemia -Monitor level Hypocalcemia -Continue Vitamin D3 -Start Calcitriol HTN with CKD -Continue Metoprolol DM II with CKD -Continue Lantus -RISS Anemia in chronic illness -Monitor H&H -Give Retacrit X1 today Osteomyelitis of the left toes -Continue Zosyn and Linezolid -Follow up with ID -Follow up with surgery; plan for debridement today
--- NOTE | 2020-09-25 11:39 | P.PN ---
Subjective Date of Service: 09/25/20 Primary Care Provider: Dr. Hayes in [place] Chief Complaint: cellulitis, possible osteomyelitis Patient seen examined at bedside, will undergo surgical debridement of wound today. Blood cultures still pending. Review of Systems 10-point ROS is otherwise unremarkable Physical Examination - Vital Signs Temperature: 98.1 F Blood Pressure: 124/50 Pulse: 60 Respirations: 16 Pulse Ox (%): 95 - Studies Laboratory Last Values WBC 13.10 K/uL (4.3-10.9) H 09/22/20 12:45 RBC 3.01 M/uL (4.33-5.43) L 09/22/20 12:45 Hgb 9.5 g/dL (13.6-17.9) L 09/22/20 12:45 Hct 28.8 % (39.6-49.0) L 09/22/20 12:45 MCV 95.9 fL (80-100) 09/22/20 12:45 MCH 31.4 pg (27.0-35.0) 09/22/20 12:45 MCHC 32.8 g/dL (32.0-36.0) 09/22/20 12:45 RDW 12.5 % (12.1-15.2) 09/22/20 12:45 Plt Count 161 K/uL (152-406) 09/22/20 12:45 MPV 11.2 fL (7.6-11.3) 09/22/20 12:45 Neutrophils % 92.5 % (41.7-73.7) H 09/22/20 12:45 Lymphocytes % 3.5 % (15.3-44.8) L 09/22/20 12:45 Monocytes % 3.6 % (3.3-12.3) 09/22/20 12:45 Eosinophils % 0.1 % (0-4.4) 09/22/20 12:45 Basophils % 0.3 % (0-1.3) 09/22/20 12:45 Absolute Neutrophils 12.1 K/uL (1.8-8.0) H 09/22/20 12:45 Absolute Lymphocytes 0.5 K/uL (0.7-4.9) L 09/22/20 12:45 Absolute Monocytes 0.5 K/uL (0.1-1.3) 09/22/20 12:45 Absolute Eosinophils 0.0 K/uL (0-0.5) 09/22/20 12:45 Absolute Basophils 0.0 K/uL (0-0.5) 09/22/20 12:45 Platelet Estimate Adeq 09/22/20 12:45 Poikilocytosis 1+ 09/22/20 12:45 Morphology Comment Noted (NOT SEEN) 09/22/20 12:45 ESR Westergren > 140 mm/HR (0-20) H 09/22/20 12:45 PT 15.8 SECONDS (9.5-12.5) H 09/22/20 12:45 INR 1.37 09/22/20 12:45 APTT 48.0 SECONDS (24.3-36.9) H 09/22/20 12:45 Sodium 140 mmol/L (136-145) 09/22/20 12:45 Potassium 5.0 mmol/L (3.5-5.1) 09/22/20 12:45 Chloride 109 mmol/L (98-107) H 09/22/20 12:45 Carbon Dioxide 25 mmol/L (21-32) 09/22/20 12:45 BUN 48 mg/dL (7-18) H 09/22/20 12:45 Creatinine 2.42 mg/dL (0.55-1.3) H 09/22/20 12:45 Estimated GFR 25 mL/min (=/>90) L 09/22/20 12:45 Glucose 181 mg/dL (74-106) H 09/22/20 12:45 Lactic Acid 1.8 mmol/L (0.4-2.0) 09/22/20 12:45 Calcium 8.8 mg/dL (8.5-10.1) 09/22/20 12:45 Total Bilirubin 0.8 mg/dL (0.2-1.0) 09/22/20 12:45 Direct Bilirubin 0.2 mg/dL (0-0.2) 09/22/20 12:45 AST 17 U/L (15-37) 09/22/20 12:45 ALT 21 U/L (12-78) 09/22/20 12:45 Alkaline Phosphatase 88 U/L (45-117) 09/22/20 12:45 Creatine Kinase 89 U/L (39-308) 09/22/20 12:45 CK-MB (CK-2) < 1.0 ng/mL (1.0-3.6) L 09/22/20 12:45 Rapid Troponin I < 0.02 ng/mL (0.0-0.045) 09/22/20 12:45 Serum Total Protein 8.1 g/dL (6.4-8.2) 09/22/20 12:45 Albumin 3.5 g/dL (3.4-5.0) 09/22/20 12:45 Globulin 4.6 g/dL (2.3-3.5) H 09/22/20 12:45 Albumin/Globulin Ratio 0.8 (1.1-1.8) L 09/22/20 12:45 Amylase 29 U/L (25-115) 09/22/20 12:45 Lipase 28 U/L (73-393) L 09/22/20 12:45 Procalcitonin 1.11 ng/mL (<0.050) H 09/22/20 12:45 Urine RBC Cancelled 09/22/20 12:35 Urine WBC Cancelled 09/22/20 12:35 Ur Squamous Epith Cells Cancelled 09/22/20 12:35 Ur Urothelial Cells Cancelled 09/22/20 12:35 Calcium Oxalate Crystal Cancelled 09/22/20 12:35 Uric Acid Crystals Cancelled 09/22/20 12:35 Triple Phos Crystals Cancelled 09/22/20 12:35 Other Crystals Cancelled 09/22/20 12:35 Amorphous Sediment Cancelled 09/22/20 12:35 Glitter Cells Cancelled 09/22/20 12:35 Urine Bacteria Cancelled 09/22/20 12:35 Hyaline Casts Cancelled 09/22/20 12:35 Fine Granular Casts Cancelled 09/22/20 12:35 Coarse Granular Casts Cancelled 09/22/20 12:35 Waxy Casts Cancelled 09/22/20 12:35 RBC Casts Cancelled 09/22/20 12:35 WBC Casts Cancelled 09/22/20 12:35 Urine Mucus Cancelled 09/22/20 12:35 Urine Other Cancelled 09/22/20 12:35 Urine Trichomonas Cancelled 09/22/20 12:35 Urine Yeast Cancelled 09/22/20 12:35 Ur Yeast w Hyphae Cancelled 09/22/20 12:35 Urine Yeast (Budding) Cancelled 09/22/20 12:35 Urine Sperm Cancelled 09/22/20 12:35 Urine Culture Reflexed Cancelled 09/22/20 12:35 Urine Total Volume Cancelled 09/22/20 12:35 Smear Scan Ok (OK) 09/22/20 12:45 Microbiology Data (last 24 hrs): 09/22/20 12:57 Blood - Blood Blood Culture Gram Stain - Final 09/22/20 12:57 Blood - Blood Gram Stain - Final Assessment And Plan - Plan Physical Exam: General: Alert, In no apparent distress, Oriented x3 HEENT: Atraumatic, Normocephalic Neck: Supple, 2+ carotid pulse no bruit Respiratory: Clear to auscultation bilaterally, Normal air movement Cardiovascular: No edema, Normal pulses, Regular rate/rhythm Gastrointestinal: Normal bowel sounds, Soft and benign Musculoskeletal: Other (Right Charcot foot changes. Right hallux amputation. ) Integumentary: Diabetic ulcer (The left 1st through 3rd toes. Josy wound tissue with erythema and swelling. Unable to determine depth of wound. No bone visualized during examination.) Neurological: Normal speech Laboratory Data (last 24 hrs) Conclusions/Impression: Antibiotics: zyvox start: 09/22 stop: -- Levaquin start: 09/22 stop: -- Assessment: -left 1st through 3rd toe diabetic ulcerations with possible osteomyelitis -history of prostate cancer -diabetes -anemia -history of vancomycin neuropathy Plan: -x-ray taken of left lower extremity showed concern for possible osteomyelitis of left 1st through 3rd toe. MRI confirmed osteomyelitis. Arterial Doppler showed [id number] bilateral for for arterial disease. Blood cultures taken on 09/22: 3/4 bottles grew gram-positive cocci in clusters, 4th bottle results still pending. Continue empiric IV antibiotic therapy with zyvox and Levaquin, will tailor antibiotics based off of full blood culture results. Source of bacteremia: Likely diabetic foot ulcer. -wound care orders: [place] 1st through 3rd toe with Betadine, apply gauze, wrapped with Kerlix. Change QMWF or p.r.n. if soiled removed. Dr. Blackman also lung case. -patient has left hammertoe deformity and bilateral neuropathy, both contributing to decrease wound healing. -diabetes: Hemoglobin A1c 6.5 -anemia: Continue to monitor H&H. -patient started on vitamin-C and zinc to promote wound healing. -albumin within normal range, no concern for protein caloric malnutrition that would hinder wound healing. -medical management per primary team -continue monitor CBC and BMP -continue to monitor for signs infection Plan of care discussed with Dr. Maciel. Thank you for consultation.
--- NOTE | 2020-09-25 13:12 | RAD REPORT ---
EXAM DESCRIPTION: RAD - Chest Single View - 09/25/2020 12:43 am CLINICAL HISTORY: 89 years, Male, picc line insertion COMPARISON: None FINDINGS: Single view of the chest was obtained portable. No prior films are available for compariso n. There is a right upper extremity PICC line tip of the catheter within the superior vena cava at th e level of the azygos vein region. The cardiomediastinal silhouette demonstrate to be unremarkable. T he heart is not enlarged. The thoracic aorta demonstrate minimal intimal calcification. 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 No significant pleural effusions and/or focal areas of consolidation. The rest of the soft tissue and bony structures demonstrate to be unremarkable. IMPRESSION: Right upper extremity PICC line in good position. Status post cardiothoracic surgery. Electronically signed by: Jesus Woodard MD 09/25/2020 1:02 AM CDT Due to temporary technical issues with the PACS/Fluency reporting system, reports are being signed by the in house radiologists without review as a courtesy to insure prompt reporting. The interpreting radiologist is fully responsible for the content of the report.
--- NOTE | 2020-09-25 16:36 | P.PN ---
Subjective Date of Service: 09/25/20 Primary Care Provider: Dr. Hayes in [place] Chief Complaint: cellulitis, possible osteomyelitis Subjective: No new changes (feels about the same, no significant change. this morning converted to sinus rhythm. NPO for surgery) Review of Systems 10-point ROS is otherwise unremarkable Physical Examination - Vital Signs Temperature: 97.2 F Blood Pressure: 119/59 Pulse: 54 Respirations: 16 Pulse Ox (%): 95 Assessment & Plan Physician Review Additional Text: Physical Exam General: Alert, no apparent distress HEENT: Normal conjunctiva, sclera anicteric Respiratory: Clear to auscultation bilaterally, Normal air movement Cardiovascular: regular rate/rhythm Gastrointestinal: soft, nontender, nondistended Integumentary: L foot with dressing in place Neurological: Normal speech, Normal affect Problem List Osteomyelitis of L first toe, L second toe, L third toe with bacteremia IDDM2 Afib, new onset 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 Blackman consulted - to go to OR for debridement -ID consulted -accucheks, SSI, lantus, titrate as needed -LIZETT on CKDII, nephrology consulted, on IVF, avoid nephrotoxic medications -new onset Afib, cardiology consulted, converted back to sinus rhythm this morn ing, continue metoprolol -patient reports "almost bleeding to " from GI bleed last year after initiation of eliquis and does not want anticoagulation again -PICC placed Diet: NPO for surgery Code: full Dispo: anticipate hospitalization ~2 more days, discussed with patient - would benefit from LTAC for wound care, chronic antibiotics, he is agreeable Time Spent Managing Pts Care (In Minutes): 35
[2020-09-25] MEDS: NACHLORIDE 0.45% 1,000 ML IV SCH ×2 (17:27→17:51)
[2020-09-25] MEDS: Levofloxacin 250mg IV 250 MG/50 ML BAG IV SCH (17:30)
[2020-09-25] MEDS: ATORVASTATIN 20 MG TAB PO SCH (20:21)
[2020-09-25] MEDS: INSULIN GLARGINE 100 UNITS/ML SQ SCH (20:35)
--- NOTE | 2020-09-25 20:44 | PN ---
Date of Progress Note: 09/25/2020 Mr. Morales is an 89-year-old patient with left foot multiple digit osteomyelitis with a multiple nec rotic toes that will be 1, 2, and 3. He was booked for debridement 24 hours ago, but once we called him down to the OR, he decided not to proceed unless he has some other questions answered. So, we ca n once again discuss the benefits, alternatives, and risks. He is asking about different levels of a mputations. I discussed with him, although we need the cardiac evaluation to see the evidence of per ipheral vascular disease and how severe it is. Today, we got the facts of this peripheral vascular d isease and his heart status, so I came today and explained to him different options that goes from to e debridement from a below-knee amputation to multiple digits 1, 2, and 3 amputation. After discussi ng pros and cons with all the benefits, alternatives, and risks, the patient did not want above-knee or below-knee, he wants just the amputations of the toes 1, 2, and 3, and understanding that the circ ulation in that area is poor and the chance of healing will depend on his nutrition on his peripheral vascular disease and his compliance with treatment and multiple months of wound care trying to heal those areas. The patient understands that and he wants to go for that process. He always know that he can go higher, but he want to try the toes amputation first, so the patient will be book in surger y. The benefits, alternatives, and risks fully explained once again, including, but not limited to i nfection, bleeding, damage to adjacent structures, anesthesia complication, TX, even . HM/MODL Voice ID: [id number] Report ID: [id number]
[2020-09-26] MEDS: METOPROLOL XL 50 MG TAB PO SCH (04:50)
[2020-09-26 05:24] LABS: Absolute Lymphocytes (CBC) 1.4 K/uL (0.7-4.9); Basophils % 0.8 % (0-1.3); Hematocrit 24.7 % (39.6-49.0); Lymphocytes % 21.7 % (15.3-44.8); MPV 10.7 fL (7.6-11.3)
[2020-09-26 05:49] LABS: Magnesium 2.4 mg/dL (1.8-2.4); Potassium 4.3 mmol/L (3.5-5.1)
[2020-09-26] MEDS: PANTOPRAZOLE 40MG TABLET PO SCH (06:16)
[2020-09-26] MEDS: LEVOTHYROXINE SOD 0.025 MG TAB PO SCH (06:17)
[2020-09-26] MEDS: INSULIN -REGULAR HUMAN 50 UNIT/0.5 ML ML SQ SCH ×4 (07:30→21:00)
[2020-09-26] MEDS: LINEZOLID 600 MG IVPB 600 MG/300 ML BAG IV SCH ×2 (08:03→21:14)
[2020-09-26] MEDS: NACHLORIDE 0.45% 1,000 ML IV SCH ×2 (08:04→12:30)
[2020-09-26] MEDS: ASPIRIN EC 81 MG TAB PO SCH (08:08)
[2020-09-26] MEDS: GABAPENTIN 400 MG CAP PO SCH ×2 (08:09→21:15)
[2020-09-26] MEDS: CALCITROL 0.25 MCG CAP PO SCH (08:09)
[2020-09-26] MEDS: HEPARIN 5000 UNIT/ML 1 ML VIAL SQ SCH ×2 (08:09→21:15)
[2020-09-26] MEDS: ASCORBIC ACID 500 MG TABLET PO SCH (08:09)
[2020-09-26] MEDS: ZINC SULFATE 220 MG CAP PO SCH (08:10)
[2020-09-26] MEDS: VITAMIN D 5,000 UNIT CAP PO SCH (08:10)
--- NOTE | 2020-09-26 08:15 | P.PN ---
Subjective Date of Service: 09/26/20 Primary Care Provider: Dr. Hayes in [place] Chief Complaint: cellulitis, possible osteomyelitis Subjective: No new changes (feels toes have gotten worse, no increased pain, no new symptoms/complaints, uncomfortable due to pain and bed) Review of Systems 10-point ROS is otherwise unremarkable Physical Examination - Vital Signs Temperature: 97.6 F Blood Pressure: 120/58 Pulse: 70 Respirations: 16 Pulse Ox (%): 99 Assessment & Plan Physician Review Additional Text: Physical Exam General: Alert, no apparent distress HEENT: Normal conjunctiva, sclera anicteric Respiratory: Clear to auscultation bilaterally, Normal air movement Cardiovascular: regular rate/rhythm Gastrointestinal: soft, nontender, nondistended Integumentary: L foot: 1st,2nd,3rd toes with ulceration, mix of necrotic tissue Neurological: Normal speech, Normal affect Problem List Osteomyelitis of L first toe, L second toe, L third toe with bacteremia IDDM2 Paroxysmal Afib, new onset 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 Blackman consulted - to go to OR for amputation today -ID consulted - continue levaquin and zyvos -blood cultures positive on 09/22 for coag neg and positive staph, repeat blood cultures 09/26 -accucheks, SSI, lantus, titrate as needed -LIZETT on CKDII, nephrology consulted, on IVF, dc'd lasix, avoid nephrotoxic medications, improved -new onset Afib, cardiology consulted, converted back to sinus rhythm 78 AM, continue metoprolol -patient reports "almost bleeding to " from GI bleed last year after initiation of eliquis and does not want anticoagulation again -PICC placed Diet: NPO for surgery Code: full Dispo: anticipate hospitalization ~2 more days, discussed with patient - would benefit from LTAC for wound care, chronic antibiotics, he is agreeable Time Spent Managing Pts Care (In Minutes): 40
[2020-09-26] MEDS: TRAMADOL HCL 50 MG TAB PO PRN ×2 (11:31→21:18)
[2020-09-26] MEDS ORDERED: NA CHLORIDE 0.9% 1,000 ML ONE (14:03)
[2020-09-26] MEDS ORDERED: FENTANYL CITR 100 MCG/2 ML ONE (14:24)
[2020-09-26] MEDS ORDERED: LIDOCAINE 2% MPF 5 ML VIAL ONE (14:24)
[2020-09-26] MEDS ORDERED: propofoL 200 MG/20 ML VIAL IV ONE (14:24)
[2020-09-26] MEDS ORDERED: ONDANSETRON 4 MG/2 ML VIAL ONE (14:25)
--- NOTE | 2020-09-26 15:22 | P.BOP ---
Preoperative diagnosis: gangrenous infected toes 1st, 2nd, 3rd Postoperative diagnosis: same Primary procedure: Amputation of gangrenous toes 1st, 2nd, 3rd Estimated blood loss: <10cc Specimen: 1,2,3 toes Findings: gangrene Anesthesia: MAC Complications: None Drain(s): Other Transferred to: Recovery Room Condition: Good
--- NOTE | 2020-09-26 16:15 | PN ---
Subjective: The patient is lying in bed. Had surgical debridement done to his toes. Denies any hea dache, nausea, vomiting, chest pain, abdominal pain, constipation, or diarrhea. Objective: Vital signs: Temperature 98, pulse 51, respirations 16, blood pressure 132/42. Lungs: Clear to auscultation. Heart: S1, S2 regular. Abdomen: Soft, nontender. Bowel sounds present. Extremities: foot is in post surgical bandage. Laboratory Data: Shows WBC 6.5, hemoglobin 8.2, platelets 169. Chemistry shows sodium 142, potassiu m 4.3, chloride 111, bicarb 24, BUN 28, creatinine 1.94, glucose 124. Medications: Include Levaquin and Zyvox. Assessment And Plan: Osteomyelitis of multiple toes to the foot, status post partial amputation; his tory of diabetes mellitus and diabetic neuropathy, anemia, and history of prostate cancer. Continue antibiotic and supportive care. Status post now removal of osteomyelitic bones. We will be able to switch him to oral antibiotic and continue supportive care and wound care. Keep leg elevated when po ssible. NF/MODL Voice ID: [id number] Report ID: [id number]
[2020-09-26] MEDS: Levofloxacin 250mg IV 250 MG/50 ML BAG IV SCH (17:13)
--- NOTE | 2020-09-26 19:43 | P.PN ---
Date of Service: 09/26/20 Vital Signs Temp Pulse Resp BP Pulse Ox 97.8 F 51 18 157/60 H 98 09/26/20 16:00 09/26/20 16:00 09/26/20 16:00 09/26/20 16:00 09/26/20 16:00 Medications Acetaminophen (Acetaminophen 500 Mg Tab) 500 mg PO Q4HP PRN PRN Reason: Pain scale 2-4 (Mild) Ascorbic Acid (Ascorbic Acid 500 Mg Tablet) 500 mg PO DAILY [facility] Last Admin: 09/26/20 08:09 Dose: Not Given Documented by: Aspirin (Aspirin Ec 81 Mg Tab) 81 mg PO DAILY [facility] Last Admin: 09/26/20 08:08 Dose: Not Given Documented by: Atorvastatin Calcium (Atorvastatin 20 Mg Tab) 20 mg PO BEDTIME [facility] Last Admin: 09/25/20 20:21 Dose: 20 mg Documented by: Calcitriol (Calcitrol 0.25 Mcg Cap) 0.5 mcg PO DAILY [facility] Last Admin: 09/26/20 08:09 Dose: Not Given Documented by: Cholecalciferol (Vitamin D 5,000 Unit Cap) 5,000 unit PO DAILY [facility] Last Admin: 09/26/20 08:10 Dose: Not Given Documented by: Dextrose (D50w 25 Gm/50 Ml Vial) 12.5 gm IV PRN PRN; Protocol PRN Reason: HYPOGLYCEMIA Gabapentin (Gabapentin 400 Mg Cap) 400 mg PO BID [facility] Last Admin: 09/26/20 08:09 Dose: Not Given Documented by: Glucagon (Glucagon 1 Mg/Vial) 1 mg IM 1X PRN; Protocol PRN Reason: HYPOGLYCEMIA Heparin Sodium (Porcine) (Heparin 5000 Unit/Ml 1 Ml Vial) 5,000 unit SQ BID [facility] Last Admin: 09/26/20 08:09 Dose: Not Given Documented by: Linezolid (Zyvox 600 Mg/300 Ml Ivpb (Premix)) 600 mg in 300 mls @ 300 mls/hr IV Q12HR [facility]; Protocol Last Admin: 09/26/20 08:03 Dose: 300 mls Documented by: Levofloxacin/Dextrose (Levaquin 250mg/50 Ml Ivpb) 250 mg in 50 mls @ 50 mls/hr IV Q24H [facility] Last Admin: 09/26/20 17:13 Dose: 50 mls Documented by: Sodium Chloride (Sodium Chloride 0.45%) 1,000 mls @ 80 mls/hr IV .[id number] [facility] Last Admin: 09/26/20 12:30 Dose: Not Given Documented by: Insulin Glargine (Insulin Glargine 100 Units/Ml) 10 units SQ BEDTIME [facility] Last Admin: 09/25/20 20:35 Dose: Not Given Documented by: Insulin Human Regular (Insulin -Regular Human 50 Unit/0.5 Ml Ml) 0 unit SQ ACHS [facility]; Protocol Last Admin: 09/26/20 16:30 Dose: Not Given Documented by: Levothyroxine Sodium (Levothyroxine Sod 0.025 Mg Tab) 0.025 mg PO DAILYAC [facility] Last Admin: 09/26/20 06:17 Dose: Not Given Documented by: Metoprolol Succinate (Metoprolol Xl 50 Mg Tab) 50 mg PO [id number] [facility] Last Admin: 09/26/20 04:50 Dose: 50 mg Documented by: Ondansetron HCl (Ondansetron 4 Mg/2 Ml Vial) 4 mg IV Q6HP PRN PRN Reason: NAUSEA / VOMITING Pantoprazole Sodium (Pantoprazole 40mg Tablet) 40 mg PO DAILYAC [facility]; Protocol Last Admin: 09/26/20 06:16 Dose: Not Given Documented by: Sodium Chloride (Flush Normal Saline 10 Ml) 10 ml IV BID [facility] Last Admin: 09/26/20 08:09 Dose: Not Given Documented by: Tramadol HCl (Tramadol Hcl 50 Mg Tab) 50 mg PO TID PRN PRN Reason: Pain scale 2-4 (Mild) Last Admin: 09/26/20 11:31 Dose: 50 mg Documented by: Zinc Sulfate (Zinc Sulfate 220 Mg Cap) 220 mg PO DAILY [facility] Last Admin: 09/26/20 08:10 Dose: Not Given Documented by: Microbiology Results 09/22/20 12:57 Blood - Blood Aerobic Blood Culture - Preliminary 09/22/20 12:57 Blood - Blood Blood Culture Gram Stain - Final 09/22/20 12:57 Blood - Blood Anaerobic Blood Culture - Preliminary 09/22/20 12:57 Blood - Blood Gram Stain - Final Assessment/ Plan: Nephrology Seen and examined post surgery. Reports amputation of three toes. CPS stable without CP or SOB. No acute events overnight. Vitals, medications, blood work and imaging reviewed in the chart. General: In no apparent distress, Oriented x3, Cooperative HEENT: Atraumatic Neck: Supple Respiratory: Clear to auscultation bilaterally Cardiovascular: No edema, Regular rate/rhythm Gastrointestinal: Soft and benign, Non-distended Musculoskeletal: No clubbing Integumentary: No rashes, No cyanosis, Skin breakdown, Diabetic ulcer Neurological: Normal speech Blood work reviewed in the chart. Imagings Data: EXAM DESCRIPTION: MRI - Foot Left Wo Cont - 09/23/2020 11:48 am IMPRESSION: Osteomyelitis with bone destruction involving the tip of the first distal phalanx and the second and third distal phalanges. Osteomyelitis without bone destruction seen in the second and third middle phalanges. EXAM DESCRIPTION: US - Upper Lower Extrem Art Multi - 09/23/2020 11:02 am FINDINGS: Left brachial artery pressure measurement was in range of normal. CHRISS values are 0.88 on the right and 0.82 on the left. The right lower extremity arterial tree shows biphasic waveform pattern from common femoral artery to the dorsalis pedis and posterior tibial arteries. The left common femoral, superficial femoral and popliteal arteries were also biphasic. Left posterior tibial and dorsalis pedis arteries were monophasic. No occlusion or flow restricting lesion identifiable. IMPRESSION: Mild to moderate severity bilateral lower extremity arterial tree. There is no occlusion or focal flow restricting lesion identifiable. CHRISS values measured 0.88 on the right and 0.82 on the left. EXAM DESCRIPTION: RAD - Chest Single View - 09/22/2020 1:51 pm CLINICAL HISTORY: MALAISE Chest pain. COMPARISON: CHEST SINGLE VIEW dated 01/25/2008 FINDINGS: Portable technique limits examination quality. The lungs are mildly emphysematous but grossly clear. The heart is mildly enlarged in size. Sternotomy wires present. IMPRESSION: No acute intrathoracic process suspected. Conclusions/Impression: LIZETT likely hypovolemia CKD III -No NSAIDs -Continue IVF 1/2NS -Hold furosemide Hyperkalemia -Monitor level Hypocalcemia -Continue Vitamin D3 -Continue Calcitriol HTN with CKD -Continue Metoprolol DM II with CKD -Continue Lantus -RISS Anemia in chronic illness -Monitor H&H -Give Retacrit prn Osteomyelitis of the left toes -Continue Levaquin and Linezolid -Follow up with ID -Follow up with surgery
[2020-09-26] MEDS: ATORVASTATIN 20 MG TAB PO SCH (21:15)
[2020-09-26] MEDS: INSULIN GLARGINE 100 UNITS/ML SQ SCH (21:16)
[2020-09-27] MEDS: NACHLORIDE 0.45% 1,000 ML IV SCH ×3 (01:00→13:30)
[2020-09-27] MEDS: MELATONIN 5 MG TABLET PO PRN (01:59)
[2020-09-27] MEDS: TRAMADOL HCL 50 MG TAB PO PRN ×2 (03:55→10:13)
[2020-09-27 05:04] LABS: Absolute Lymphocytes (CBC) 1.3 K/uL (0.7-4.9); Basophils % 0.7 % (0-1.3); Hematocrit 24.3 % (39.6-49.0); Lymphocytes % 14.9 % (15.3-44.8); MPV 10.6 fL (7.6-11.3); RBC Red Blood Cell Count 2.54 M/uL (4.33-5.43)
[2020-09-27 05:16] LABS: Albumin 2.7 g/dL (3.4-5.0); Bilirubin Total 0.3 mg/dL (0.2-1.0); Magnesium 2.3 mg/dL (1.8-2.4); Phosphorus 2.9 mg/dL (2.5-4.9); Potassium 4.4 mmol/L (3.5-5.1); Protein, Total 6.8 g/dL (6.4-8.2); Uric Acid 6.5 mg/dL (3.5-7.2)
[2020-09-27] MEDS: PANTOPRAZOLE 40MG TABLET PO SCH (05:49)
[2020-09-27] MEDS: METOPROLOL XL 50 MG TAB PO SCH (05:49)
[2020-09-27] MEDS: LEVOTHYROXINE SOD 0.025 MG TAB PO SCH (05:50)
--- NOTE | 2020-09-27 06:55 | P.PN ---
Subjective Date of Service: 09/27/20 Primary Care Provider: Dr. Hayes in [place] Chief Complaint: cellulitis, possible osteomyelitis Subjective: Other (having increased R foot pain - sharp in nature, slight worsening of chronic pain, has been taking lower dose of gabapentin here. L foot pain is tolerable s/p amputation.) Review of Systems 10-point ROS is otherwise unremarkable Physical Examination - Vital Signs Temperature: 98.4 F Blood Pressure: 142/65 Pulse: 61 Respirations: 16 Pulse Ox (%): 96 Assessment & Plan Physician Review Additional Text: Physical Exam General: Alert, no apparent distress HEENT: Normal conjunctiva, sclera anicteric Respiratory: Clear to auscultation bilaterally Cardiovascular: Regular rate/rhythm, no edema Gastrointestinal: soft, non-tender, non-distended Integumentary: L foot: surgical dressing in place, c/d/i. 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 Blackman on 10/06 -blood cultures positive on 09/22 for coag neg and positive staph, repeat blood cultures 09/26 -ID consulted - continue levaquin and zyvox -accucheks, SSI, lantus, titrate as needed -LIZETT on CKDII, nephrology consulted, on IVF, dc'd lasix, avoid nephrotoxic medications, improved -new onset Afib, cardiology consulted, converted back to sinus rhythm 7/8 AM, continue metoprolol -patient reports "almost bleeding to " from GI bleed last year after initiation of eliquis and does not want anticoagulation again -PICC placed Diet: ADA Code: full Dispo: anticipate hospitalization ~1-2 more days, awaiting repeat blood cultures would benefit from LTAC for wound care, chronic antibiotics, he is agreeable Time Spent Managing Pts Care (In Minutes): 40
[2020-09-27] MEDS: INSULIN -REGULAR HUMAN 50 UNIT/0.5 ML ML SQ SCH ×4 (07:30→21:00)
[2020-09-27] MEDS: ZINC SULFATE 220 MG CAP PO SCH (10:13)
[2020-09-27] MEDS: ASPIRIN EC 81 MG TAB PO SCH (10:13)
[2020-09-27] MEDS: CALCITROL 0.25 MCG CAP PO SCH (10:14)
[2020-09-27] MEDS: GABAPENTIN 400 MG CAP PO SCH ×2 (10:15→21:00)
[2020-09-27] MEDS: HEPARIN 5000 UNIT/ML 1 ML VIAL SQ SCH ×2 (10:15→21:00)
[2020-09-27] MEDS: VITAMIN D 5,000 UNIT CAP PO SCH (10:15)
[2020-09-27] MEDS: ASCORBIC ACID 500 MG TABLET PO SCH (10:15)
[2020-09-27] MEDS: LINEZOLID 600 MG IVPB 600 MG/300 ML BAG IV SCH ×2 (10:16→21:00)
--- NOTE | 2020-09-27 13:01 | PN ---
Date of Progress Note: 09/27/2020 Diagnosis: Status post amputation of 3 toes for gangrene. Subjective: The patient is doing better. Dressings are intact. No shortness of breath. No chest p ain. Objective: Extremity: Intact surgical site. Plan: We have a plan for either wound VAC or wet-to-dry. I have to see the resources of the [facility] this weekend. The patient wants to be home and I do not want that to be the definitive factor for discharge, so if he goes home and we do not have a wound VAC available, he can do wet-to-dry the next few days and then on [facility], we will take care of that pa rt. As soon as he is a safe discharge then he can go home from the surgical standpoint. JULIANN/HONORIO Voice ID: [id number] Report ID: [id number]
[2020-09-27] MEDS: ACETAMINOPHEN 500 MG TAB PO PRN (15:37)
[2020-09-27 17:35] LABS: Absolute Lymphocytes (CBC) 1.4 K/uL (0.7-4.9); Basophils % 0.8 % (0-1.3); Hematocrit 24.1 % (39.6-49.0); MPV 10.9 fL (7.6-11.3); RBC Red Blood Cell Count 2.53 M/uL (4.33-5.43)
[2020-09-27 17:44] LABS: C-Reactive Protein 34.7 mg/L (<3.00); Potassium 4.4 mmol/L (3.5-5.1)
--- NOTE | 2020-09-27 18:01 | RAD REPORT ---
EXAM DESCRIPTION: RAD - Chest Single View - 09/27/2020 5:26 pm CLINICAL HISTORY: increasing SOB COMPARISON: Single view September 25 TECHNIQUE: AP portable chest image was obtained 09/27/2020 5:26 pm . FINDINGS: No focal mass or consolidation. Lung markings are increased slightly from comparison. Cent ral vasculature is minimally increased. Heart size is upper normal, similar to comparison. No measurable pleural effusion and no pneumothorax. No acute bony abnormality seen. No acute aortic findings suspected. IMPRESSION: No focal mass or consolidation. No significant pulmonary edema. Lung markings and vasculature are fractionally increased and correlation can be made with any minimal failure or volume overload.
[2020-09-27] MEDS: Levofloxacin 250mg IV 250 MG/50 ML BAG IV SCH (18:08)
[2020-09-27] MEDS: INSULIN GLARGINE 100 UNITS/ML SQ SCH (21:00)
[2020-09-27] MEDS: ATORVASTATIN 20 MG TAB PO SCH (21:00)
[2020-09-28] MEDS: ACETAMINOPHEN 500 MG TAB PO PRN (01:55)
[2020-09-28] MEDS: TRAMADOL HCL 50 MG TAB PO PRN ×2 (02:15→09:44)
[2020-09-28] MEDS ORDERED: METOPROLOL TARTRATE 5 MG/5 ML INJ IV STA (02:27)
[2020-09-28] MEDS: LEVOTHYROXINE SOD 0.025 MG TAB PO SCH (06:01)
[2020-09-28] MEDS: METOPROLOL XL 50 MG TAB PO SCH (06:01)
[2020-09-28] MEDS: PANTOPRAZOLE 40MG TABLET PO SCH (06:01)
[2020-09-28 06:19] LABS: Hematocrit 21.2 % (39.6-49.0); MPV 10.9 fL (7.6-11.3); RBC Red Blood Cell Count 2.22 M/uL (4.33-5.43)
[2020-09-28 06:29] LABS: Albumin 2.3 g/dL (3.4-5.0); C-Reactive Protein 56.3 mg/L (<3.00); Phosphorus 3.1 mg/dL (2.5-4.9); Potassium 4.2 mmol/L (3.5-5.1)
[2020-09-28] MEDS: INSULIN -REGULAR HUMAN 50 UNIT/0.5 ML ML SQ SCH ×4 (07:30→20:50)
[2020-09-28] MEDS ORDERED: NA CHLORIDE 0.9% 250 ML IV SCH (09:00)
[2020-09-28] MEDS: VITAMIN D 5,000 UNIT CAP PO SCH (09:44)
[2020-09-28] MEDS: ASCORBIC ACID 500 MG TABLET PO SCH (09:44)
[2020-09-28] MEDS: ASPIRIN EC 81 MG TAB PO SCH (09:44)
[2020-09-28] MEDS: ZINC SULFATE 220 MG CAP PO SCH (09:44)
[2020-09-28] MEDS: GABAPENTIN 400 MG CAP PO SCH ×2 (09:45→20:49)
[2020-09-28] MEDS: CALCITROL 0.25 MCG CAP PO SCH (09:45)
[2020-09-28] MEDS: HEPARIN 5000 UNIT/ML 1 ML VIAL SQ SCH ×2 (09:46→20:49)
--- NOTE | 2020-09-28 10:40 | P.PN ---
Subjective Date of Service: 09/28/20 Primary Care Provider: Dr. Hayes in [place] Chief Complaint: cellulitis, possible osteomyelitis Subjective: Other (yesterday - pt had temp:100.0, found hypoxic to 85% on RA while sleeping. improved quickly with 2L NC. He reported feeling fine, finally got some much needed sleep, sepsis workup without any new findings. Today feeling tired, overnight back into afib, no bleeding, normal color stool yesterday) Review of Systems 10-point ROS is otherwise unremarkable Physical Examination - Vital Signs Temperature: 98.3 F Blood Pressure: 119/73 Pulse: 113 Respirations: 18 Pulse Ox (%): 95 - Studies Microbiology Data (last 24 hrs): 09/22/20 12:57 Blood - Blood Aerobic Blood Culture - Final Staph Aureus 09/22/20 12:57 Blood - Blood Blood Culture Gram Stain - Final 09/22/20 12:57 Blood - Blood Anaerobic Blood Culture - Final Staph Aureus 09/22/20 12:57 Blood - Blood Gram Stain - Final Assessment & Plan Physician Review Additional Text: Physical Exam General: Alert, no apparent distress Respiratory: Clear to auscultation bilaterally, diminished bilaterally at bases, on room air Cardiovascular: irregularly irregular rhythm, HR: 100, no edema Gastrointestinal: soft, non-tender, non-distended Integumentary: L foot: surgical dressing in place, kerlix with some old blood. 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 -patient reports "almost bleeding to " from GI bleed last year after initiation of eliquis and does not want anticoagulation again -Hgb down this morning, has been slowly trending down, will order 1u PRBC and reassess, may need 2u PRBC -PICC placed Diet: ADA Code: full Dispo: anticipate hospitalization ~2 more days, awaiting repeat blood cultures, blood transfusion would benefit from LTAC for wound care, chronic antibiotics, he is agreeable Time Spent Managing Pts Care (In Minutes): 35
[2020-09-28 10:47] LABS: Hematocrit 23.7 % (39.6-49.0)
[2020-09-28 10:51] LABS: RBC Red Blood Cell Count 2.48 M/uL (4.33-5.43)
[2020-09-28] MEDS ORDERED: SOTALOL HCL 80 MG TAB PO ONE (13:00)
--- NOTE | 2020-09-28 13:26 | PN ---
Date of Progress Note: 09/28/2020 Subjective: Mr. Morales has been seen earlier with diabetes, hypertension, chronic diastolic congest luz maria heart failure, hypothyroidism, gastroesophageal reflux disease, and hyperlipidemia. He had a nor mal echo but while he has been treated for his congestive heart failure, he developed new atrial fibr illation. I recommended increasing the beta blockers starting the sotalol 80 b.i.d. We will have to set him up for an outpatient Watchman. He is not a candidate for anticoagulation. We will see what he does with the sotalol. BARRETT/HONORIO Voice ID: [id number] Report ID: [id number]
[2020-09-28] MEDS: LINEZOLID 600 MG IVPB 600 MG/300 ML BAG IV SCH ×2 (14:00→20:48)
[2020-09-28] MEDS: Levofloxacin 250mg IV 250 MG/50 ML BAG IV SCH (15:42)
[2020-09-28] MEDS: INSULIN GLARGINE 100 UNITS/ML SQ SCH (20:48)
[2020-09-28] MEDS: ATORVASTATIN 20 MG TAB PO SCH (20:50)
[2020-09-28 22:54] LABS: Hematocrit 23.9 % (39.6-49.0)
[2020-09-28 23:39] LABS: Urine Appearance CLEAR (Clear); Urine Bilirubin NEGATIVE (Negative); Urine Blood NEGATIVE (Negative); Urine Color YELLOW (Yellow); Urine Glucose NEGATIVE (Negative); Urine Protein TRACE (Negative); Urine Urobilinogen 0.2 mg/dL (0.2-1.0)
[2020-09-28 23:59] LABS: Urine Microscopic Reflex ORDER UMIC
[2020-09-29 00:08] LABS: Urine Bacteria 20-50 /HPF (NONE SEEN); Urine Mucus 1+ /HPF (NONE SEEN); Urine RBC <5 /HPF (NONE SEEN)
[2020-09-29] MEDS: LEVOTHYROXINE SOD 0.025 MG TAB PO SCH (05:55)
[2020-09-29] MEDS: METOPROLOL XL 50 MG TAB PO SCH (05:55)
[2020-09-29] MEDS: PANTOPRAZOLE 40MG TABLET PO SCH (05:55)
[2020-09-29] MEDS ORDERED: SOTALOL HCL 80 MG TAB PO SCH (06:00)
[2020-09-29 06:22] LABS: Absolute Lymphocytes (CBC) 1.3 K/uL (0.7-4.9); Basophils % 0.9 % (0-1.3); Hematocrit 22.9 % (39.6-49.0); Lymphocytes % 18.6 % (15.3-44.8); MPV 10.2 fL (7.6-11.3); RBC Red Blood Cell Count 2.48 M/uL (4.33-5.43)
[2020-09-29 06:33] LABS: Albumin 2.4 g/dL (3.4-5.0); Bilirubin Total 0.6 mg/dL (0.2-1.0); C-Reactive Protein 70.9 mg/L (<3.00); Magnesium 2.3 mg/dL (1.8-2.4); Potassium 4.4 mmol/L (3.5-5.1); Protein, Total 6.1 g/dL (6.4-8.2)
[2020-09-29] MEDS: INSULIN -REGULAR HUMAN 50 UNIT/0.5 ML ML SQ SCH ×4 (07:30→21:00)
[2020-09-29] MEDS: LINEZOLID 600 MG IVPB 600 MG/300 ML BAG IV SCH (09:00)
--- NOTE | 2020-09-29 10:54 | P.PN ---
Subjective Date of Service: 09/29/20 Primary Care Provider: Dr. Hayes in [place] Chief Complaint: cellulitis, possible osteomyelitis Patient seen examined at bedside, status post amputation of left 1-3rd toe. Blood culture came back growing staph aureus methicillin-susceptible. Repeat blood cultures taken on 09/26: No growth to date. Continue antibiotics for 2 weeks following negative blood culture report. Zyvox has been discontinued, no concern for MRSA. Review of Systems 10-point ROS is otherwise unremarkable Physical Examination - Vital Signs Temperature: 98.1 F Blood Pressure: 162/74 Pulse: 60 Respirations: 18 Pulse Ox (%): 93 Assessment And Plan - Plan Physical Exam: General: Alert, In no apparent distress, Oriented x3 HEENT: Atraumatic, Normocephalic Neck: Supple, 2+ carotid pulse no bruit Respiratory: Clear to auscultation bilaterally, Normal air movement Cardiovascular: No edema, Normal pulses, Regular rate/rhythm Gastrointestinal: Normal bowel sounds, Soft and benign Musculoskeletal: Other (Right Charcot foot changes. Right hallux amputation. ) Integumentary: Diabetic ulcer s/p amputation on 09/26 of 1st-3rd toe Laboratory Data (last 24 hrs) Conclusions/Impression: Antibiotics: zyvox start: 09/22 stop: 09/29 Levaquin start: 09/22 stop: 10/10 Assessment: -left 1st through 3rd toe diabetic ulcerations with possible osteomyelitis -history of prostate cancer -diabetes -anemia -history of vancomycin neuropathy Plan: -x-ray taken of left lower extremity showed concern for possible osteomyelitis of left 1st through 3rd toe. MRI confirmed osteomyelitis. Arterial Doppler showed [id number] bilateral for for arterial disease. Blood cultures taken on 09/22: Grew Staph aureus methicillin-susceptible. Repeat blood cu ltures taken on no growth to date. Tylox has been discontinued, continue IV Levaquin for duration of hospital stay, can switch to oral Levaquin for discharge. Source of bacteremia: Likely diabetic foot ulcer. -status post amputation of 1st through 3rd the left toe. Dr. Blackman following, wound care per surgery team. -patient has left hammertoe deformity and bilateral neuropathy, both con tributing to decrease wound healing. -diabetes: Hemoglobin A1c 6.5 -anemia: Continue to monitor H&H. -patient started on vitamin-C and zinc to promote wound healing. -albumin within normal range, no concern for protein caloric malnutrition that would hinder wound healing. -medical management per primary team -continue monitor CBC and BMP -continue to monitor for signs infection Plan of care discussed with Dr. Maciel. Thank you for consultation.
[2020-09-29] MEDS: ASPIRIN EC 81 MG TAB PO SCH (11:07)
[2020-09-29] MEDS: GABAPENTIN 400 MG CAP PO SCH ×2 (11:08→21:09)
[2020-09-29] MEDS ORDERED: FUROSEMIDE 40 MG/4 ML VIAL IV ONE (11:08)
[2020-09-29] MEDS: TRAMADOL HCL 50 MG TAB PO PRN (11:08)
[2020-09-29] MEDS: HEPARIN 5000 UNIT/ML 1 ML VIAL SQ SCH ×2 (11:08→21:09)
[2020-09-29] MEDS: ZINC SULFATE 220 MG CAP PO SCH (11:08)
[2020-09-29] MEDS: ASCORBIC ACID 500 MG TABLET PO SCH (11:11)
[2020-09-29] MEDS: CALCITROL 0.25 MCG CAP PO SCH (11:13)
[2020-09-29] MEDS: VITAMIN D 5,000 UNIT CAP PO SCH (11:17)
[2020-09-29] MEDS ORDERED: AMLODIPINE 2.5 MG TAB PO ONE (11:40)
[2020-09-29] MEDS ORDERED: EPOETIN ALFA-EPBX 4,000 UNIT/ML VIAL SQ ONE (11:40)
--- NOTE | 2020-09-29 12:15 | P.PN ---
Subjective Date of Service: 09/29/20 Primary Care Provider: Dr. Hayes in [place] Chief Complaint: cellulitis, possible osteomyelitis Subjective: Improving (doing ok, having some R foot shooting pain intermittently, L foot is ok, no SOB, no chest pain, converted to sinus rhythm yesterday, did not start sotalol) Review of Systems 10-point ROS is otherwise unremarkable Physical Examination - Vital Signs Temperature: 98.1 F Blood Pressure: 162/74 Pulse: 60 Respirations: 18 Pulse Ox (%): 93 Assessment & Plan Physician Review Additional Text: Physical Exam General: Alert, no apparent distress Respiratory: Clear to auscultation bilaterally, on room air Cardiovascular: regular rate/rhythm, no murmur Gastrointestinal: soft, non-tender, non-distended Integumentary: L foot: wound pink, no bleeding, no purulent drainage s/p amputation Neurological: Normal speech, Normal affect Problem List Osteomyelitis of L first toe, L second toe, L third toe with bacteremia s/p amputation (09/27) IDDM2 Paroxysmal Afib, new onset 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, nephrology consulted, improved with IVF -new onset Afib, cardiology consulted, converted back to sinus rhythm 09/25 AM, continued metoprolol, back into afib 09/28 AM and sinus rhythm on 09/28 PM -levaquin may have contributed to afib, pt does have dilated LA on echo -patient reports "almost bleeding to " from GI bleed last year after initiation of eliquis and does not want anticoagulation again -not a candidate for anticoagulation, cardiology to set up for watchman's procedure as outpatient -Hgb down on 09/28, s/p 1uPRBC, 7.8 -> 8.0, back to 7.8 this morning, will give 1uPRBC given afib/surgery -old blood on surgical dressing, no active bleeding, no bright red blood or maroon/dark black stool -retic count low, anemia of chronic disease, with low retic count likely from bone marrow suppression in setting of osteomyelitis/bacteremia -PICC placed last week Diet: ADA Code: full Dispo: improving, working on [facility] swing bed for patient - IV antibiotics, wound vac for foot s/p 1uPRBC on 09/28, and will receive a 2nd u PRBC today Time Spent Managing Pts Care (In Minutes): 35
[2020-09-29] MEDS: CEFAZOLIN/SWI 2gm 2 GM/20 ML SYR IV SCH ×2 (13:00→18:17)
--- NOTE | 2020-09-29 14:24 | PN ---
Date of Progress Note: 09/29/2020 The patient is seen in room 206 on second floor at [facility]. Subjective: The patient is alert, awake, able to communicate with me. His sister is in the room wit h him also. The patient denies any discomfort currently. He states, he is very frustrated, agitated , just because he has these issues going on medically and he is dealing with them. He seems to have good insight, is able to answer some questions. His blood pressure has been fluctuating systolic 110 to 160. Last blood pressure is 162/74, before that 155/70. His pulse is at 60 currently, he is in normal sinus rhythm now, but has been in atrial fibrillation earlier. Has been evaluated by Dr. Jonah kingsley who says that he may need some procedure done on the heart to prevent further clots. I understan d that he is referring to Watchman procedure as he is not a good candidate for anticoagulation. He h as been on Zyvox. He has been on Levaquin. He has a history of osteomyelitis for which he has had a mputation and debridement of the toe area and he is recovering well from that. Objective: General: He is resting comfortably on my evaluation. Vital signs: On vitals, his blood pressure is 162/74, his pulse is 60, respirations around 16 to 18. Lungs: Clear to auscultation anteriorly. He does have some decreased sounds at the very bases poste riorly. Abdomen: Soft. Extremities: Do reveal positive 1 edema bilaterally. Laboratory Data: Reviewed. WBC count 7, hemoglobin 7.8, hematocrit 22.9, platelet count of 135. Ch emistry shows sodium 140, potassium 4.4, chloride 111, bicarb 25, BUN 26, creatinine 1.65, albumin is 2.4. Creatinine has been relatively stable since around September 27 about 2 days, did have an elevation up to 1.94 on September 26. He did have a creatinine of 2.32 on September 24, so looks like the creatinine has stabilized more close to his baseline of around 1.5 to 2 range. C-reactive protein is at 70.9. Assessment And Plan: The patient with osteomyelitis; atrial fibrillation; Methicillin-sensitive Stap hylococcus aureus infection, on antibiotics; anemia with hemoglobin down to 7.8 despite blood transfu juan, pending another transfusion today from primary care team. The patient seems to be slightly on the volume overloaded side. His blood pressure is running in the 150 to 160 systolic range. His damion athing is comfortable, but lungs do sound decreased breath sounds at the bases. He is in atrial fibr illation or has been in atrial fibrillation, but currently in normal sinus rhythm. Acute kidney inju ry, improving. The patient seems to be close to euvolemic, slightly volume overloaded. We will give him a low dose of amlodipine at 2.5 mg once. We will give him Lasix IV 40 mg once. We will give hi m Retacrit 4000 units once. The patient is likely getting a blood transfusion. Continue to monitor v olume status and further Lasix dosages as needed. Antibiotics as per primary team and ID for osteomy elitis. Physical therapy and fall precautions. The patient may need a Watchman procedure as he is n ot a good candidate for anticoagulation. X-ray is also pending to assess his volume status. Discuss ed the plan with the patient and his sister as well. We will need close monitoring of his renal func tion post discharge to evaluate for current residual renal function and damage from his acute kidney injury on admission. At this point, the patient is clinically stable and improved overall. Continue to monitor mood. He is a little bit discouraged and frustrated with his medical issues going on, bu t he seems to have good insight. No SI or HI at this point. /HONORIO Voice ID: [id number] Report ID: [id number]
[2020-09-29] MEDS: ACETAMINOPHEN 500 MG TAB PO PRN ×2 (16:10→21:13)
--- NOTE | 2020-09-29 16:15 | PN ---
Date of Progress Note: 09/29/2020 Diagnosis: Amputation of the 1st, 2nd and 3rd toe. Subjective: The patient is doing well. No complaint. Dressings today looks intact, intact surgical site. No purulent discharge. Plan: Wound VAC. Continue antibiotics per primary MD. The patient is still here for medical issues . When the patient gets discharged home, [facility]. JULIANN/HONORIO Voice ID: [id number] Report ID: [id number]
[2020-09-29] MEDS ORDERED: CEFAZOLIN/SWI 2gm 2 GM/20 ML SYR IV SCH (17:00)
[2020-09-29 18:46] LABS: Hematocrit 27.9 % (39.6-49.0)
--- NOTE | 2020-09-29 20:00 | OP ---
Date of Procedure: 09/26/2020 Surgeon: Eagle Blackman MD Preoperative Diagnosis: Gangrenous infected toes, first, second and third on his left foot. Postoperative Diagnosis: Gangrenous infected toes, first, second and third on his left foot. Procedure: Amputation at transmet level of the left first, second and third toes. Anesthesia: MAC plus local. Complications: None. Finding: Gangrene of first, second and third toes with destructive osteomyelitis. Indications: This is a case of an 89-year-old patient with chronic wounds, chronic peripheral vascul ar disease, admitted to the hospital with gangrenous changes of the toes as mentioned above. He was trying to the wound care first via the antibiotics but was not moving the way he wants to. In the la st few days, we have been discussing with him different options. He has not decided yet, but today h e decided for amputation of the first, second and third toe and consent was signed. Please see my pr ogress mendez H and P for details. He understands the below-knee amputation. He also understands the options of only debridement. He wants the amputation of the first, second, third and he is very conv inced about it. He understands the peripheral vascular disease issues including the risks of nonheal ing and he will move more proximal if it is a that happening. In the meantime, we only have consent for that. So the benefits, alternatives, and risks of amputation of first, second, third fully expla ined, which include, but not limited to infection, bleeding, damage to adjacent structures, anesthesi a complication, nonhealing wound, ND, and even . He also understands this may not relieve his s ymptoms. He might need more than one surgical intervention. He understood, signed a consent. Procedure In Detail: The patient was brought to the operating room, placed in supine position. Anes thesia was done without complication. A time-out was called. Left foot was prepped and draped in [facility] sterile fashion. Each toe was done individually and was done using the same technique. We made an incision at the base of the toe. Incision was carried down. We obtained hemostasis. Going to e we identified the bone. Then, we identified the metatarsophalangeal joint, amputate the toed, excoriated and removed the part of the metatarsal head and then obtained hemostasis with the h elp of chromic stitches and then left the area to heal by secondary intention. The same was done wit h the second toe and the third toe and the first toe, each one individually. The patient tolerated t he procedure well. The area was covered with wet-to-dry dressing. The patient tolerated the procedu re well. The patient was sent to Recovery in stable condition. JULIANN/HONORIO Voice ID: [id number] Report ID: [id number]
[2020-09-29] MEDS: ATORVASTATIN 20 MG TAB PO SCH (21:08)
[2020-09-29] MEDS: INSULIN GLARGINE 100 UNITS/ML SQ SCH (21:09)
[2020-09-29] MEDS: MELATONIN 5 MG TABLET PO PRN (21:13)
[2020-09-30] MEDS: CEFAZOLIN/SWI 2gm 2 GM/20 ML SYR IV SCH ×2 (00:52→10:25)
[2020-09-30] MEDS: TRAMADOL HCL 50 MG TAB PO PRN ×3 (03:29→12:49)
[2020-09-30 04:22] LABS: Absolute Lymphocytes (CBC) 1.1 K/uL (0.7-4.9); Basophils % 0.8 % (0-1.3); Hematocrit 26.2 % (39.6-49.0); Lymphocytes % 16.8 % (15.3-44.8); MPV 10.5 fL (7.6-11.3); RBC Red Blood Cell Count 2.86 M/uL (4.33-5.43)
[2020-09-30 04:30] LABS: Albumin 2.4 g/dL (3.4-5.0); Bilirubin Total 0.3 mg/dL (0.2-1.0); Magnesium 2.2 mg/dL (1.8-2.4); Potassium 3.9 mmol/L (3.5-5.1); Protein, Total 6.5 g/dL (6.4-8.2); Uric Acid 6.6 mg/dL (3.5-7.2)
[2020-09-30] MEDS: LEVOTHYROXINE SOD 0.025 MG TAB PO SCH (06:02)
[2020-09-30] MEDS: PANTOPRAZOLE 40MG TABLET PO SCH (06:02)
[2020-09-30] MEDS: METOPROLOL XL 50 MG TAB PO SCH (06:03)
[2020-09-30] MEDS ORDERED: MORPHINE 2 MG/ML SYR IV PRN (06:46)
[2020-09-30] MEDS: INSULIN -REGULAR HUMAN 50 UNIT/0.5 ML ML SQ SCH ×4 (07:30→21:00)
[2020-09-30] MEDS: CALCITROL 0.25 MCG CAP PO SCH (08:38)
[2020-09-30] MEDS: VITAMIN D 5,000 UNIT CAP PO SCH (08:38)
[2020-09-30] MEDS: ASPIRIN EC 81 MG TAB PO SCH (08:38)
[2020-09-30] MEDS: ZINC SULFATE 220 MG CAP PO SCH (08:38)
[2020-09-30] MEDS: ASCORBIC ACID 500 MG TABLET PO SCH (08:38)
[2020-09-30] MEDS: GABAPENTIN 400 MG CAP PO SCH ×2 (08:38→21:37)
[2020-09-30] MEDS: HEPARIN 5000 UNIT/ML 1 ML VIAL SQ SCH ×2 (08:39→21:36)
[2020-09-30] MEDS: MORPHINE 4 MG/ML SYR IV PRN ×4 (10:19→22:00)
[2020-09-30] MEDS: LIDOCAINE 4% PATCH TOP SCH (10:20)
--- NOTE | 2020-09-30 13:05 | RAD REPORT ---
EXAM DESCRIPTION: CT - C Spine Wo Con - 09/30/2020 11:45 am CLINICAL HISTORY: Neck pain COMPARISON: None. TECHNIQUE: Computed axial tomography of the cervical spine were obtained with sagittal and coronal r econstruction images generated and reviewed. All CT scans are performed using dose optimization technique as appropriate and may include automated exposure control or mA/KV adjustment according to patient size. FINDINGS: Mild to moderate anterior subluxation C2 on C3. Alignment of remainder of the cervical spine is satisfactory. No fracture seen. Disc bulge and facet hypertrophy at C2-3. Moderate narrowing of the neural foramina bilaterally. Osteophytes and disc bulge C3-4 resulting in mild to moderate narrowing of the left neural foramina. Disc bulge and osteophytes C4-5 results in mild to moderate narrowing the neural foramina bilaterally . 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
--- NOTE | 2020-09-30 13:30 | P.PN ---
Subjective Date of Service: 09/30/20 Primary Care Provider: Dr. Hayes in [place] Chief Complaint: cellulitis, possible osteomyelitis Patient complaining of neck pain since yesterday. He has pain with neck rotation or tilting. Physical Examination - Vital Signs Temperature: 98.2 F Blood Pressure: 171/72 Pulse: 59 Respirations: 16 Pulse Ox (%): 96 - Physical Exam General: Alert, Moderate distress (Due to neck pain) HEENT: PERRLA, Mucous membr. 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 Posttransfusion hemoglobin is up to 9. Continue to monitor hemoglobin. -old blood on surgical dressing, no active bleeding, no bright red blood or maroon/dark black stool -PICC placed last week -CT cervical spine reports mild to moderate C2 C3 subluxation. Pain management with IV morphine and lidocaine patch. Obtain MRI cervical spine to evaluate the spinal cord. Diet: ADA Code: full Dispo: improving, working on [facility] swing bed for patient - IV antibiotics, wound vac for foot
--- NOTE | 2020-09-30 13:39 | P.PN ---
Subjective Date of Service: 09/30/20 Primary Care Provider: Dr. Hayes in [place] Chief Complaint: cellulitis, possible osteomyelitis Patient seen examined at bedside-Dc having excruciating a cervical pain that started the day yesterday. The pain is nonradiating, patient still has unbearable pain does being on morphine and tramadol. Febrile with a T-max of 101.9, and tachycardic, and hypotensive. Review of Systems 10-point ROS is otherwise unremarkable Physical Examination - Vital Signs Temperature: 98.2 F Blood Pressure: 171/72 Pulse: 59 Respirations: 16 Pulse Ox (%): 96 - Studies Laboratory Last Values WBC 13.10 K/uL (4.3-10.9) H 09/22/20 12:45 RBC 3.01 M/uL (4.33-5.43) L 09/22/20 12:45 Hgb 9.5 g/dL (13.6-17.9) L 09/22/20 12:45 Hct 28.8 % (39.6-49.0) L 09/22/20 12:45 MCV 95.9 fL (80-100) 09/22/20 12:45 MCH 31.4 pg (27.0-35.0) 09/22/20 12:45 MCHC 32.8 g/dL (32.0-36.0) 09/22/20 12:45 RDW 12.5 % (12.1-15.2) 09/22/20 12:45 Plt Count 161 K/uL (152-406) 09/22/20 12:45 MPV 11.2 fL (7.6-11.3) 09/22/20 12:45 Neutrophils % 92.5 % (41.7-73.7) H 09/22/20 12:45 Lymphocytes % 3.5 % (15.3-44.8) L 09/22/20 12:45 Monocytes % 3.6 % (3.3-12.3) 09/22/20 12:45 Eosinophils % 0.1 % (0-4.4) 09/22/20 12:45 Basophils % 0.3 % (0-1.3) 09/22/20 12:45 Absolute Neutrophils 12.1 K/uL (1.8-8.0) H 09/22/20 12:45 Absolute Lymphocytes 0.5 K/uL (0.7-4.9) L 09/22/20 12:45 Absolute Monocytes 0.5 K/uL (0.1-1.3) 09/22/20 12:45 Absolute Eosinophils 0.0 K/uL (0-0.5) 09/22/20 12:45 Absolute Basophils 0.0 K/uL (0-0.5) 09/22/20 12:45 Platelet Estimate Adeq 09/22/20 12:45 Poikilocytosis 1+ 09/22/20 12:45 Morphology Comment Noted (NOT SEEN) 09/22/20 12:45 ESR Westergren > 140 mm/HR (0-20) H 09/22/20 12:45 PT 15.8 SECONDS (9.5-12.5) H 09/22/20 12:45 INR 1.37 09/22/20 12:45 APTT 48.0 SECONDS (24.3-36.9) H 09/22/20 12:45 Sodium 140 mmol/L (136-145) 09/22/20 12:45 Potassium 5.0 mmol/L (3.5-5.1) 09/22/20 12:45 Chloride 109 mmol/L (98-107) H 09/22/20 12:45 Carbon Dioxide 25 mmol/L (21-32) 09/22/20 12:45 BUN 48 mg/dL (7-18) H 09/22/20 12:45 Creatinine 2.42 mg/dL (0.55-1.3) H 09/22/20 12:45 Estimated GFR 25 mL/min (=/>90) L 09/22/20 12:45 Glucose 181 mg/dL (74-106) H 09/22/20 12:45 Lactic Acid 1.8 mmol/L (0.4-2.0) 09/22/20 12:45 Calcium 8.8 mg/dL (8.5-10.1) 09/22/20 12:45 Total Bilirubin 0.8 mg/dL (0.2-1.0) 09/22/20 12:45 Direct Bilirubin 0.2 mg/dL (0-0.2) 09/22/20 12:45 AST 17 U/L (15-37) 09/22/20 12:45 ALT 21 U/L (12-78) 09/22/20 12:45 Alkaline Phosphatase 88 U/L (45-117) 09/22/20 12:45 Creatine Kinase 89 U/L (39-308) 09/22/20 12:45 CK-MB (CK-2) < 1.0 ng/mL (1.0-3.6) L 09/22/20 12:45 Rapid Troponin I < 0.02 ng/mL (0.0-0.045) 09/22/20 12:45 Serum Total Protein 8.1 g/dL (6.4-8.2) 09/22/20 12:45 Albumin 3.5 g/dL (3.4-5.0) 09/22/20 12:45 Globulin 4.6 g/dL (2.3-3.5) H 09/22/20 12:45 Albumin/Globulin Ratio 0.8 (1.1-1.8) L 09/22/20 12:45 Amylase 29 U/L (25-115) 09/22/20 12:45 Lipase 28 U/L (73-393) L 09/22/20 12:45 Procalcitonin 1.11 ng/mL (<0.050) H 09/22/20 12:45 Urine RBC Cancelled 09/22/20 12:35 Urine WBC Cancelled 09/22/20 12:35 Ur Squamous Epith Cells Cancelled 09/22/20 12:35 Ur Urothelial Cells Cancelled 09/22/20 12:35 Calcium Oxalate Crystal Cancelled 09/22/20 12:35 Uric Acid Crystals Cancelled 09/22/20 12:35 Triple Phos Crystals Cancelled 09/22/20 12:35 Other Crystals Cancelled 09/22/20 12:35 Amorphous Sediment Cancelled 09/22/20 12:35 Glitter Cells Cancelled 09/22/20 12:35 Urine Bacteria Cancelled 09/22/20 12:35 Hyaline Casts Cancelled 09/22/20 12:35 Fine Granular Casts Cancelled 09/22/20 12:35 Coarse Granular Casts Cancelled 09/22/20 12:35 Waxy Casts Cancelled 09/22/20 12:35 RBC Casts Cancelled 09/22/20 12:35 WBC Casts Cancelled 09/22/20 12:35 Urine Mucus Cancelled 09/22/20 12:35 Urine Other Cancelled 09/22/20 12:35 Urine Trichomonas Cancelled 09/22/20 12:35 Urine Yeast Cancelled 09/22/20 12:35 Ur Yeast w Hyphae Cancelled 09/22/20 12:35 Urine Yeast (Budding) Cancelled 09/22/20 12:35 Urine Sperm Cancelled 09/22/20 12:35 Urine Culture Reflexed Cancelled 09/22/20 12:35 Urine Total Volume Cancelled 09/22/20 12:35 Smear Scan Ok (OK) 09/22/20 12:45 Assessment And Plan - Plan Physical Exam: General: Alert, In no apparent distress, Oriented x3 HEENT: Atraumatic, Normocephalic Neck: Supple, 2+ carotid pulse no bruit Respiratory: Clear to auscultation bilaterally, Normal air movement Cardiovascular: No edema, Normal pulses, Regular rate/rhythm Gastrointestinal: Normal bowel sounds, Soft and benign Musculoskeletal: Other (Right Charcot foot changes. Right hallux amputation. ) Integumentary: Diabetic ulcer s/p amputation on 09/26 of 1st-3rd toe Laboratory Data (last 24 hrs) Conclusions/Impression: Antibiotics: Daptomycin start: 09/30 stop: -- cefepime start: 09/30 stop: -- cefazolin start: 09/29 stop: 09/30 zyvox start: 09/22 stop: 09/29 Levaquin start: 09/22 stop: 09/29 Assessment: -left 1st through 3rd toe diabetic ulcerations with possible osteomyelitis -neck pain -history of prostate cancer -diabetes -LIZETT on CKD stage 3 -anemia -history of vancomycin neuropathy -thrombocytopenia Plan: -patient's showing signs of systemic inflammatory response: T-max a 101.9, tachycardic with a pulse of 92, hypotensive with a blood pressure of 104/57. The repeat blood cultures obtained, Cephazolin discontinued patient started on cefepime and doxycycline. Patient's current creatinine clearance is 29.5 milliliters/minute-cefepime renally dosed at 1 g Q 24 hr -x-ray taken of left lower extremity showed concern for possible osteomyelitis of left 1st through 3rd toe. MRI confirmed osteomyelitis. Arterial Doppler showed [id number] bilateral for for arterial disease. Blood cultures taken on 09/22: Grew Staph aureus methicillin-susceptible. Repeat blood cultures taken on no growth to date. Patient will need antibiotics until 10/10. Source of bacteremia: Likely diabetic foot ulcer. -status post amputation of 1st through 3rd the left toe. Dr. Blackman following, wound care per surgery team. Wound VAC placed. Change Q Tuesday. -patient has left hammertoe deformity and bilateral neuropathy, both contributing to decrease wound healing. -neck pain: Cervical CT ordered. Patient on scheduled pain medication. -diabetes: Hemoglobin A1c 6.5 -anemia: Continue to monitor H&H. -renal insufficiency: Continue to monitor creatinine and GFR. Avoid nephrotoxic agents. Renally dose all medications. -patient started on vitamin-C and zinc to promote wound healing. -albumin within normal range, no concern for protein caloric malnutrition that would hinder wound healing. -medical management per primary team -continue monitor CBC and BMP -continue to monitor for signs infection Plan of care discussed with Dr. Maciel. Thank you for consultation. Physician Review Additional Text: Physical Exam General: Alert, no apparent distress Respiratory: Clear to auscultation bilaterally, on room air Cardiovascular: regular rate/rhythm, no murmur Gastrointestinal: soft, non-tender, non-distended Integumentary: L foot: wound pink, no bleeding, no purulent drainage s/p amputation Neurological: Normal speech, Normal affect Problem List Osteomyelitis of L first toe, L second toe, L third toe with bacteremia s/p amputation (09/27) IDDM2 Paroxysmal Afib, new onset 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, nephrology consulted, improved with IVF -new onset Afib, cardiology consulted, converted back to sinus rhythm 09/25 AM, continued metoprolol, back into afib 09/28 AM and sinus rhythm on 09/28 PM -levaquin may have contributed to afib, pt does have dilated LA on echo -patient reports "almost bleeding to " from GI bleed last year after initiation of eliquis and does not want anticoagulation again -not a candidate for anticoagulation, cardiology to set up for watchman's procedure as outpatient -Hgb down on 09/28, s/p 1uPRBC, 7.8 -> 8.0, back to 7.8 this morning, will give 1uPRBC given afib/surgery -old blood on surgical dressing, no active bleeding, no bright red blood or maroon/dark black stool -retic count low, anemia of chronic disease, with low retic count likely from bone marrow suppression in setting of osteomyelitis/bacteremia -PICC placed last week Diet: ADA Code: full Dispo: improving, working on owens swing bed for patient - IV antibiotics, wound vac for foot s/p 1uPRBC on 09/28, and will receive a 2nd u PRBC today
--- NOTE | 2020-09-30 15:37 | PN ---
The patient is seen in room 206 at [facility]. Subjective: The patient is alert, awake. His S sister is in the room with him. He denies any disco mfort currently except for his neck. States that the neck has been bothering him, especially since y . The pain has been getting worse. He is wondering if these are just neck spasms or somethi ng else is going on. He says that when he moves his neck, it is hurting him. He states that he has discussed that with the hospitalist this morning and some imaging and further evaluation has been ord ered. He is otherwise comfortable. His breathing seems to be reasonably stable. His blood pressure is on the higher side with systolic running in the 170 to 190 range, but he is due to get his pain m edications also currently and the nurse is by the bedside. The patient was given a small dose of aml odipine yesterday. He tolerated that well. Objective: Lungs: Clear to auscultation anteriorly. Abdomen: Soft. Extremities: Revealed trace edema, somewhat improved from yesterday. Laboratory Data: Reviewed. WBC 6.5, hemoglobin 8.8, hematocrit 26.2, platelet count 145. Sodium 14 3, potassium 3.9, chloride 109, bicarb is 26, BUN 29, creatinine is 2.01, compared to 1.65 yesterday. Albumin 2.4. His oxygen saturations are 96% on room air. Assessment And Plan: 1.The patient with chronic kidney disease, seems to be reasonably stable. At this point, his main i ssue is the neck discomfort. He is already getting evaluation for that with the hospitalist aware an d some imaging has been ordered. He denies any headaches currently. He got a shot of Retacrit yeste rday. His anemia is stable. 2.Anemia. Has gotten Retacrit. Hemoglobin stable. 3.Chronic kidney disease, currently stable. Continue to monitor. Volume status seems to be close t o euvolemic. Avoid NSAIDs. Avoid dye. 4.Electrolyte. Sodium seems to be slightly on the higher side. Encourage p.o. water intake. Potas sium is adequate. Bicarb is adequate. Continue to monitor. 5.Hypertension. We will start the patient on amlodipine 5 mg 1 dose now and daily. /HONORIO Voice ID: [id number] Report ID: [id number]
[2020-09-30] MEDS: CEFEPIME/SWI 1gm 10 ML IV SCH (17:09)
--- NOTE | 2020-09-30 17:24 | P.PN ---
Date of Service: 09/27/20 Vital Signs Temp Pulse Resp BP Pulse Ox 98.0 F 59 16 168/70 H 94 09/30/20 16:00 09/30/20 16:00 09/30/20 17:09 09/30/20 16:00 09/30/20 17:09 Medications Acetaminophen (Acetaminophen 500 Mg Tab) 500 mg PO Q4HP PRN PRN Reason: Pain scale 2-4 (Mild) Last Admin: 09/29/20 21:13 Dose: 500 mg Documented by: Amlodipine Besylate (Amlodipine 5 Mg Tab) 5 mg PO DAILY [facility] Last Admin: 09/30/20 12:49 Dose: 5 mg Documented by: Ascorbic Acid (Ascorbic Acid 500 Mg Tablet) 500 mg PO DAILY [facility] Last Admin: 09/30/20 08:38 Dose: 500 mg Documented by: Aspirin (Aspirin Ec 81 Mg Tab) 81 mg PO DAILY [facility] Last Admin: 09/30/20 08:38 Dose: 81 mg Documented by: Atorvastatin Calcium (Atorvastatin 20 Mg Tab) 20 mg PO BEDTIME [facility] Last Admin: 09/29/20 21:08 Dose: 20 mg Documented by: Calcitriol (Calcitrol 0.25 Mcg Cap) 0.5 mcg PO DAILY [facility] Last Admin: 09/30/20 08:38 Dose: 0.5 mcg Documented by: Cholecalciferol (Vitamin D 5,000 Unit Cap) 5,000 unit PO DAILY [facility] Last Admin: 09/30/20 08:38 Dose: 5,000 unit Documented by: Dextrose (D50w 25 Gm/50 Ml Vial) 12.5 gm IV PRN PRN; Protocol PRN Reason: HYPOGLYCEMIA Gabapentin (Gabapentin 400 Mg Cap) 800 mg PO BID [facility] Last Admin: 09/30/20 08:38 Dose: 800 mg Documented by: Glucagon (Glucagon 1 Mg/Vial) 1 mg IM 1X PRN; Protocol PRN Reason: HYPOGLYCEMIA Heparin Sodium (Porcine) (Heparin 5000 Unit/Ml 1 Ml Vial) 5,000 unit SQ BID [facility] Last Admin: 09/30/20 08:39 Dose: 5,000 unit Documented by: Sodium Chloride (Sodium Chloride) 250 mls @ 0 mls/hr IV .Q0M [facility] Doxycycline Hyclate 100 mg/ (Sodium Chloride) 100 mls @ 100 mls/hr IVPB Q12HR [facility]; Protocol Cefepime HCl (Maxipime 1 Gm/10 Ml Ivp) 10 mls @ 200 mls/hr IV DAILY 5 PM [facility] Last Admin: 09/30/20 17:09 Dose: 10 mls Documented by: Insulin Glargine (Insulin Glargine 100 Units/Ml) 10 units SQ BEDTIME [facility] Last Admin: 09/29/20 21:09 Dose: 10 units Documented by: Insulin Human Regular (Insulin -Regular Human 50 Unit/0.5 Ml Ml) 0 unit SQ ACHS [facility]; Protocol Last Admin: 09/30/20 16:07 Dose: Not Given Documented by: Levothyroxine Sodium (Levothyroxine Sod 0.025 Mg Tab) 0.025 mg PO DAILYAC [facility] Last Admin: 09/30/20 06:02 Dose: 0.025 mg Documented by: Lidocaine (Lidocaine 4% Patch) 1 patch TOP DAILY [facility] Last Admin: 09/30/20 10:20 Dose: 1 patch Documented by: Melatonin (Melatonin 5 Mg Tablet) 10 mg PO BEDTIME PRN PRN PRN Reason: INSOMNIA Last Admin: 09/29/20 21:13 Dose: 10 mg Documented by: Metoprolol Succinate (Metoprolol Xl 50 Mg Tab) 50 mg PO [id number] [facility] Last Admin: 09/30/20 06:03 Dose: 50 mg Documented by: Morphine Sulfate (Morphine 4 Mg/Ml Syr) 4 mg IV Q4H PRN PRN Reason: Pain scale 5-7 (Moderate) Last Admin: 09/30/20 17:09 Dose: 4 mg Documented by: Ondansetron HCl (Ondansetron 4 Mg/2 Ml Vial) 4 mg IV Q6HP PRN PRN Reason: NAUSEA / VOMITING Last Admin: 09/30/20 10:19 Dose: 4 mg Documented by: Pantoprazole Sodium (Pantoprazole 40mg Tablet) 40 mg PO DAILYAC [facility]; Protocol Last Admin: 09/30/20 06:02 Dose: 40 mg Documented by: Sodium Chloride (Flush Normal Saline 10 Ml) 10 ml IV BID [facility] Last Admin: 09/30/20 08:39 Dose: 10 ml Documented by: Tramadol HCl (Tramadol Hcl 50 Mg Tab) 50 mg PO TID PRN PRN Reason: Pain scale 2-4 (Mild) Last Admin: 09/30/20 12:49 Dose: 50 mg Documented by: Zinc Sulfate (Zinc Sulfate 220 Mg Cap) 220 mg PO DAILY [facility] Last Admin: 09/30/20 08:38 Dose: 220 mg Documented by: Microbiology Results 09/22/20 12:57 Blood - Blood Aerobic Blood Culture - Final Staph Aureus 09/22/20 12:57 Blood - Blood Blood Culture Gram Stain - Final 09/22/20 12:57 Blood - Blood Anaerobic Blood Culture - Final Staph Aureus 09/22/20 12:57 Blood - Blood Gram Stain - Final Assessment/ Plan: Nephrology Feeling better today. CPS stable without CP or SOB. No acute events overnight. Vitals, medications, blood work and imaging reviewed in the chart. General: In no apparent distress, Oriented x3, Cooperative HEENT: Atraumatic Neck: Supple Respiratory: Clear to auscultation bilaterally Cardiovascular: No edema, Regular rate/rhythm Gastrointestinal: Soft and benign, Non-distended Musculoskeletal: No clubbing Integumentary: No rashes, No cyanosis, Skin breakdown, Diabetic ulcer Neurological: Normal speech Blood work reviewed in the chart. Imagings Data: EXAM DESCRIPTION: MRI - Foot Left Wo Cont - 09/23/2020 11:48 am IMPRESSION: Osteomyelitis with bone destruction involving the tip of the first distal phalanx and the second and third distal phalanges. Osteomyelitis without bone destruction seen in the second and third middle phalanges. EXAM DESCRIPTION: US - Upper Lower Extrem Art Multi - 09/23/2020 11:02 am FINDINGS: Left brachial artery pressure measurement was in range of normal. CHRISS values are 0.88 on the right and 0.82 on the left. The right lower extremity arterial tree shows biphasic waveform pattern from common femoral artery to the dorsalis pedis and posterior tibial arteries. The left common femoral, superficial femoral and popliteal arteries were also biphasic. Left posterior tibial and dorsalis pedis arteries were monophasic. No occlusion or flow restricting lesion identifiable. IMPRESSION: Mild to moderate severity bilateral lower extremity arterial tree. There is no occlusion or focal flow restricting lesion identifiable. CHRISS values measured 0.88 on the right and 0.82 on the left. EXAM DESCRIPTION: RAD - Chest Single View - 09/22/2020 1:51 pm CLINICAL HISTORY: MALAISE Chest pain. COMPARISON: CHEST SINGLE VIEW dated 01/25/2008 FINDINGS: Portable technique limits examination quality. The lungs are mildly emphysematous but grossly clear. The heart is mildly enlarged in size. Sternotomy wires present. IMPRESSION: No acute intrathoracic process suspected. Conclusions/Impression: LIZETT likely hypovolemia CKD III -No NSAIDs -Continue IVF 1/2NS -Hold furosemide Hyperkalemia -Monitor level Hypocalcemia -Continue Vitamin D3 -Continue Calcitriol HTN with CKD -Continue Metoprolol DM II with CKD -Continue Lantus -RISS Anemia in chronic illness -Monitor H&H -Give Retacrit prn Osteomyelitis of the left toes -Continue Levaquin and Linezolid -Follow up with ID -Follow up with surgery Case reviewed with Dr. Rodriguez. Late entry due to computer access problems.
[2020-09-30] MEDS: INSULIN GLARGINE 100 UNITS/ML SQ SCH (21:37)
[2020-09-30] MEDS: ATORVASTATIN 20 MG TAB PO SCH (21:37)
[2020-09-30] MEDS: DOXYCYCLINE 100 MG in NA CHLORIDE 0.9% 100 ML IVPB SCH (21:39)
--- NOTE | 2020-09-30 21:46 | PN ---
Date of Progress Note: 09/29/2020 Subjective: Mr. Morales has been followed for intermittent atrial fibrillation. We had plan to put him on sotalol 80 b.i.d. in addition to his metoprolol, however, he converted to sinus rhythm on the metoprolol alone. He is feeling well. No cardiac symptoms. I am comfortable with him going home wi th beta-blockers and aspirin. Mr. Morales is not a candidate for anticoagulant because of history of his bleeding. He needs to have an appointment and he needs to be set-up for what for a Watchman pro cedure and I will make that arrangement as an outpatient. He can go home, whenever, it is okay with primary care physician, Dr. Rodriguez. BARRETT/HONORIO Voice ID: [id number] Report ID: [id number]
[2020-10-01] MEDS: MORPHINE 4 MG/ML SYR IV PRN ×4 (04:35→20:31)
[2020-10-01 05:37] LABS: Absolute Lymphocytes (CBC) 1.3 K/uL (0.7-4.9); Basophils % 0.8 % (0-1.3); Hematocrit 27.4 % (39.6-49.0); MPV 9.4 fL (7.6-11.3); RBC Red Blood Cell Count 2.97 M/uL (4.33-5.43)
[2020-10-01 05:48] LABS: Potassium 4.1 mmol/L (3.5-5.1)
[2020-10-01] MEDS: METOPROLOL XL 50 MG TAB PO SCH (05:55)
[2020-10-01] MEDS: PANTOPRAZOLE 40MG TABLET PO SCH (05:55)
[2020-10-01] MEDS: LEVOTHYROXINE SOD 0.025 MG TAB PO SCH (05:55)
[2020-10-01] MEDS: INSULIN -REGULAR HUMAN 50 UNIT/0.5 ML ML SQ SCH ×4 (07:30→21:00)
[2020-10-01] MEDS ORDERED: AMLODIPINE 5 MG TAB PO SCH (09:00)
[2020-10-01] MEDS ORDERED: CEFEPIME 1 GM/VIAL IV SCH (09:00)
[2020-10-01] MEDS: AMLODIPINE 10 MG TAB PO SCH (09:09)
[2020-10-01] MEDS: LIDOCAINE 4% PATCH TOP SCH (09:10)
[2020-10-01] MEDS: ASPIRIN EC 81 MG TAB PO SCH (09:10)
[2020-10-01] MEDS: ASCORBIC ACID 500 MG TABLET PO SCH (09:10)
[2020-10-01] MEDS: CALCITROL 0.25 MCG CAP PO SCH (09:10)
[2020-10-01] MEDS: VITAMIN D 5,000 UNIT CAP PO SCH (09:10)
[2020-10-01] MEDS: HEPARIN 5000 UNIT/ML 1 ML VIAL SQ SCH ×2 (09:10→20:30)
[2020-10-01] MEDS: ZINC SULFATE 220 MG CAP PO SCH (09:11)
[2020-10-01] MEDS: GABAPENTIN 400 MG CAP PO SCH ×2 (09:11→20:31)
--- NOTE | 2020-10-01 10:53 | P.PN ---
Subjective Date of Service: 10/01/20 Primary Care Provider: Dr. Hayes in [place] Chief Complaint: cellulitis, possible osteomyelitis Patient seen examined at bedside-cervical MRI pending. Patient currently on scheduled IV morphine and Dilaudid. IM will start muscle relaxants. Patient afebrile today. No change in neck pain. Review of Systems 10-point ROS is otherwise unremarkable Physical Examination - Vital Signs Temperature: 97.9 F Blood Pressure: 167/72 Pulse: 84 Respirations: 16 Pulse Ox (%): 97 - Studies Laboratory Last Values WBC 13.10 K/uL (4.3-10.9) H 09/22/20 12:45 RBC 3.01 M/uL (4.33-5.43) L 09/22/20 12:45 Hgb 9.5 g/dL (13.6-17.9) L 09/22/20 12:45 Hct 28.8 % (39.6-49.0) L 09/22/20 12:45 MCV 95.9 fL (80-100) 09/22/20 12:45 MCH 31.4 pg (27.0-35.0) 09/22/20 12:45 MCHC 32.8 g/dL (32.0-36.0) 09/22/20 12:45 RDW 12.5 % (12.1-15.2) 09/22/20 12:45 Plt Count 161 K/uL (152-406) 09/22/20 12:45 MPV 11.2 fL (7.6-11.3) 09/22/20 12:45 Neutrophils % 92.5 % (41.7-73.7) H 09/22/20 12:45 Lymphocytes % 3.5 % (15.3-44.8) L 09/22/20 12:45 Monocytes % 3.6 % (3.3-12.3) 09/22/20 12:45 Eosinophils % 0.1 % (0-4.4) 09/22/20 12:45 Basophils % 0.3 % (0-1.3) 09/22/20 12:45 Absolute Neutrophils 12.1 K/uL (1.8-8.0) H 09/22/20 12:45 Absolute Lymphocytes 0.5 K/uL (0.7-4.9) L 09/22/20 12:45 Absolute Monocytes 0.5 K/uL (0.1-1.3) 09/22/20 12:45 Absolute Eosinophils 0.0 K/uL (0-0.5) 09/22/20 12:45 Absolute Basophils 0.0 K/uL (0-0.5) 09/22/20 12:45 Platelet Estimate Adeq 09/22/20 12:45 Poikilocytosis 1+ 09/22/20 12:45 Morphology Comment Noted (NOT SEEN) 09/22/20 12:45 ESR Westergren > 140 mm/HR (0-20) H 09/22/20 12:45 PT 15.8 SECONDS (9.5-12.5) H 09/22/20 12:45 INR 1.37 09/22/20 12:45 APTT 48.0 SECONDS (24.3-36.9) H 09/22/20 12:45 Sodium 140 mmol/L (136-145) 09/22/20 12:45 Potassium 5.0 mmol/L (3.5-5.1) 09/22/20 12:45 Chloride 109 mmol/L (98-107) H 09/22/20 12:45 Carbon Dioxide 25 mmol/L (21-32) 09/22/20 12:45 BUN 48 mg/dL (7-18) H 09/22/20 12:45 Creatinine 2.42 mg/dL (0.55-1.3) H 09/22/20 12:45 Estimated GFR 25 mL/min (=/>90) L 09/22/20 12:45 Glucose 181 mg/dL (74-106) H 09/22/20 12:45 Lactic Acid 1.8 mmol/L (0.4-2.0) 09/22/20 12:45 Calcium 8.8 mg/dL (8.5-10.1) 09/22/20 12:45 Total Bilirubin 0.8 mg/dL (0.2-1.0) 09/22/20 12:45 Direct Bilirubin 0.2 mg/dL (0-0.2) 09/22/20 12:45 AST 17 U/L (15-37) 09/22/20 12:45 ALT 21 U/L (12-78) 09/22/20 12:45 Alkaline Phosphatase 88 U/L (45-117) 09/22/20 12:45 Creatine Kinase 89 U/L (39-308) 09/22/20 12:45 CK-MB (CK-2) < 1.0 ng/mL (1.0-3.6) L 09/22/20 12:45 Rapid Troponin I < 0.02 ng/mL (0.0-0.045) 09/22/20 12:45 Serum Total Protein 8.1 g/dL (6.4-8.2) 09/22/20 12:45 Albumin 3.5 g/dL (3.4-5.0) 09/22/20 12:45 Globulin 4.6 g/dL (2.3-3.5) H 09/22/20 12:45 Albumin/Globulin Ratio 0.8 (1.1-1.8) L 09/22/20 12:45 Amylase 29 U/L (25-115) 09/22/20 12:45 Lipase 28 U/L (73-393) L 09/22/20 12:45 Procalcitonin 1.11 ng/mL (<0.050) H 09/22/20 12:45 Urine RBC Cancelled 09/22/20 12:35 Urine WBC Cancelled 09/22/20 12:35 Ur Squamous Epith Cells Cancelled 09/22/20 12:35 Ur Urothelial Cells Cancelled 09/22/20 12:35 Calcium Oxalate Crystal Cancelled 09/22/20 12:35 Uric Acid Crystals Cancelled 09/22/20 12:35 Triple Phos Crystals Cancelled 09/22/20 12:35 Other Crystals Cancelled 09/22/20 12:35 Amorphous Sediment Cancelled 09/22/20 12:35 Glitter Cells Cancelled 09/22/20 12:35 Urine Bacteria Cancelled 09/22/20 12:35 Hyaline Casts Cancelled 09/22/20 12:35 Fine Granular Casts Cancelled 09/22/20 12:35 Coarse Granular Casts Cancelled 09/22/20 12:35 Waxy Casts Cancelled 09/22/20 12:35 RBC Casts Cancelled 09/22/20 12:35 WBC Casts Cancelled 09/22/20 12:35 Urine Mucus Cancelled 09/22/20 12:35 Urine Other Cancelled 09/22/20 12:35 Urine Trichomonas Cancelled 09/22/20 12:35 Urine Yeast Cancelled 09/22/20 12:35 Ur Yeast w Hyphae Cancelled 09/22/20 12:35 Urine Yeast (Budding) Cancelled 09/22/20 12:35 Urine Sperm Cancelled 09/22/20 12:35 Urine Culture Reflexed Cancelled 09/22/20 12:35 Urine Total Volume Cancelled 09/22/20 12:35 Smear Scan Ok (OK) 09/22/20 12:45 Assessment And Plan - Plan Physical Exam: General: Alert, In no apparent distress, Oriented x3 HEENT: Atraumatic, Normocephalic Neck: Supple, 2+ carotid pulse no bruit Respiratory: Clear to auscultation bilaterally, Normal air movement Cardiovascular: No edema, Normal pulses, Regular rate/rhythm Gastrointestinal: Normal bowel sounds, Soft and benign Musculoskeletal: Other (Right Charcot foot changes. Right hallux amputation. ) Integumentary: Diabetic ulcer s/p amputation on 09/26 of 1st-3rd toe Laboratory Data (last 24 hrs) Conclusions/Impression: Antibiotics: Doxycline start: 09/30 stop: -- cefepime start: 09/30 stop: -- cefazolin start: 09/29 stop: 09/30 zyvox start: 09/22 stop: 09/29 Levaquin start: 09/22 stop: 09/29 Assessment: -left 1st through 3rd toe diabetic ulcerations with possible osteomyelitis -neck pain -history of prostate cancer -diabetes -LIZETT on CKD stage 3 -anemia -history of vancomycin neuropathy -thrombocytopenia Plan: -patient improving in condition, patient remains afebrile. Vital signs within normal limits. Continue IV doxycycline and cefepime. Patient can be sent home on a 7 day course of oral doxycycline. -x-ray taken of left lower extremity showed concern for possible osteomyelitis of left 1st through 3rd toe. MRI confirmed osteomyelitis. Arterial Doppler showed [id number] bilateral for for arterial disease. Blood cultures taken on 09/22: Grew Staph aureus methicillin-susceptible. Repeat blood cultures taken on no growth to date. Patient will need antibiotics until 10/10. Source of bacteremia: Likely diabetic foot ulcer. -status post amputation of 1st through 3rd the left toe. Dr. Blackman following, wound care per surgery team. Wound VAC placed. Change Q Tuesday. -patient has left hammertoe deformity and bilateral neuropathy, both contributing to decrease wound healing. -neck pain: Cervical CT ordered. Patient on scheduled pain medication. -diabetes: Hemoglobin A1c 6.5 -anemia: Continue to monitor H&H. -renal insufficiency: Continue to monitor creatinine and GFR. Avoid nephrotoxic agents. Renally dose all medications. -patient started on vitamin-C and zinc to promote wound healing. -albumin within normal range, no concern for protein caloric malnutrition that would hinder wound healing. -medical management per primary team -continue monitor CBC and BMP -continue to monitor for signs infection Plan of care discussed with Dr. Maciel. Thank you for consultation.
[2020-10-01] MEDS: CYCLOBENZAPRINE 10 MG TAB PO PRN ×2 (12:07→20:28)
[2020-10-01] MEDS: DOXYCYCLINE 100 MG in NA CHLORIDE 0.9% 100 ML IVPB SCH ×2 (12:08→21:00)
[2020-10-01] MEDS ORDERED: TIZANIDINE 4 MG TABLET PO PRN (13:57)
[2020-10-01] MEDS: CEFEPIME/SWI 1gm 10 ML IV SCH (16:27)
--- NOTE | 2020-10-01 17:38 | P.PN ---
Subjective Date of Service: 10/01/20 Primary Care Provider: Dr. Hayes in [place] Chief Complaint: cellulitis, possible osteomyelitis Patient complaining of neck pain since yesterday. He has pain with neck rotation or tilting. Patient stay report severe neck pain, no improvement. Physical Examination - Vital Signs Temperature: 98.5 F Blood Pressure: 193/79 Pulse: 80 Respirations: 16 Pulse Ox (%): 95 - Physical Exam General: Alert, Moderate distress (Due to pain) HEENT: Mucous membr. moist/pink Neck: JVD not distended Respiratory: Clear to auscultation bilaterally, Normal air movement Cardiovascular: Regular rate/rhythm, Normal S1 S2 Gastrointestinal: Normal bowel sounds, Soft and benign, Non-distended Musculoskeletal: Other (Left toes amputation.) Integumentary: Other (Left toe wound VAC) Neurological: Other (No focal motor deficit.) Assessment And Plan - Plan Problem list Osteomyelitis of L first toe, L second toe, L third toe with bacteremia s/p amputation (09/27) IDDM2 Paroxysmal Afib, new onset LIZETT on CKDIII Anemia of chronic disease HTN h/o prostate cancer, s/p prostatectomy C2-C3 anterior subluxation -MRI consistent with osteomyelitis -blood cultures positive on 09/22 stap aureus, repeat blood cultures 09/26: NG x24hrs -h/o vanc nephropathy, was on IV levaquin and zyvox, blood culture (09/22) grew MSSA transitioned to Ancef on 09/29, per guidelines, would need minimum 14days since negative culture -s/p amputation by Dr. Blackman on 10/06 -Lantus insulin and insulin sliding scale for glucose management -LIZETT on CKDII, nephrology is following, improved with IVF -new onset Afib, cardiology consulted, converted back to sinus rhythm 7/8 AM, continued metoprolol, back into afib 09/28 AM and sinus rhythm on 09/28 PM -patient reports "almost bleeding to " from GI bleed last year after initiation of eliquis and does not want anticoagulation again -not a candidate for anticoagulation, cardiology to set up for watchman's procedure as outpatient -status post 2 units PRBC transfusion. Posttransfusion hemoglobin is up to 9. Continue to monitor hemoglobin. -PICC placed last week -CT cervical spine reports mild to moderate C2 C3 subluxation. Pain management with IV morphine and lidocaine patch. Obtain MRI cervical spine to evaluate the spinal cord. -Further management of C2-C3 subluxation pending MRI result. Physician Review Additional Text: Problem List -MRI consistent with osteomyelitis -blood cultures positive on 09/22 stap aureus, repeat blood cultures 09/26: NG x24hrs -h/o vanc nephropathy, was on IV levaquin and zyvox, blood culture (09/22) grew MSSA transitioned to Ancef on 09/29, per guidelines, would need minimum 14days since negative culture -s/p amputation by Dr. 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, nephrology following, improved with IVF -new onset Afib, cardiology consulted, converted back to sinus rhythm 09/25 AM, continued metoprolol, back into afib 09/28 AM and sinus rhythm on 09/28 PM -patient reports "almost bleeding to " from GI bleed last year after initiation of eliquis and does not want anticoagulation again -not a candidate for anticoagulation, cardiology to set up for watchman's procedure as outpatient -Hgb down on 09/28, s/p 1uPRBC, 7.8 -> 8.0, back to 7.8 this morning, will give 1uPRBC given afib/surgery -old blood on surgical dressing, no active bleeding, no bright red blood or maroon/dark black stool -retic count low, anemia of chronic disease, with low retic count likely from bone marrow suppression in setting of osteomyelitis/bacteremia -PICC placed last week Diet: ADA Code: full Dispo: improving, working on ow[facility] swing bed for patient - IV antibiotics, wound vac for foot s/p 1uPRBC on 09/28, and will receive a 2nd u PRBC today
[2020-10-01] MEDS: MELATONIN 5 MG TABLET PO PRN (20:31)
[2020-10-01] MEDS: ATORVASTATIN 20 MG TAB PO SCH (20:32)
[2020-10-01] MEDS: INSULIN GLARGINE 100 UNITS/ML SQ SCH (20:37)
--- NOTE | 2020-10-01 21:33 | P.PN ---
Date of Service: 10/01/20 Vital Signs Temp Pulse Resp BP Pulse Ox 99.1 F 72 17 182/77 H 96 10/01/20 20:00 10/01/20 20:00 10/01/20 20:00 10/01/20 20:00 10/01/20 20:00 Medications Acetaminophen (Acetaminophen 500 Mg Tab) 500 mg PO Q4HP PRN PRN Reason: Pain scale 2-4 (Mild) Last Admin: 09/29/20 21:13 Dose: 500 mg Documented by: Amlodipine Besylate (Amlodipine 10 Mg Tab) 10 mg PO DAILY [facility] Last Admin: 10/01/20 09:09 Dose: 10 mg Documented by: Ascorbic Acid (Ascorbic Acid 500 Mg Tablet) 500 mg PO DAILY [facility] Last Admin: 10/01/20 09:10 Dose: 500 mg Documented by: Aspirin (Aspirin Ec 81 Mg Tab) 81 mg PO DAILY [facility] Last Admin: 10/01/20 09:10 Dose: 81 mg Documented by: Atorvastatin Calcium (Atorvastatin 20 Mg Tab) 20 mg PO BEDTIME [facility] Last Admin: 10/01/20 20:32 Dose: 20 mg Documented by: Calcitriol (Calcitrol 0.25 Mcg Cap) 0.5 mcg PO DAILY [facility] Last Admin: 10/01/20 09:10 Dose: 0.5 mcg Documented by: Cholecalciferol (Vitamin D 5,000 Unit Cap) 5,000 unit PO DAILY [facility] Last Admin: 10/01/20 09:10 Dose: 5,000 unit Documented by: Cyclobenzaprine HCl (Cyclobenzaprine 10 Mg Tab) 5 mg PO TIDP PRN PRN Reason: MUSCLE SPASMS Last Admin: 10/01/20 20:28 Dose: 5 mg Documented by: Dextrose (D50w 25 Gm/50 Ml Vial) 12.5 gm IV PRN PRN; Protocol PRN Reason: HYPOGLYCEMIA Gabapentin (Gabapentin 400 Mg Cap) 800 mg PO BID [facility] Last Admin: 10/01/20 20:31 Dose: 800 mg Documented by: Glucagon (Glucagon 1 Mg/Vial) 1 mg IM 1X PRN; Protocol PRN Reason: HYPOGLYCEMIA Heparin Sodium (Porcine) (Heparin 5000 Unit/Ml 1 Ml Vial) 5,000 unit SQ BID [facility] Last Admin: 10/01/20 20:30 Dose: 5,000 unit Documented by: Sodium Chloride (Sodium Chloride) 250 mls @ 0 mls/hr IV .Q0M [facility] Doxycycline Hyclate 100 mg/ (Sodium Chloride) 100 mls @ 100 mls/hr IVPB Q12HR [facility]; Protocol Last Admin: 10/01/20 12:08 Dose: 100 mls Documented by: Cefepime HCl (Maxipime 1 Gm/10 Ml Ivp) 10 mls @ 200 mls/hr IV DAILY 5 PM [facility] Last Admin: 10/01/20 16:27 Dose: 10 mls Documented by: Insulin Glargine (Insulin Glargine 100 Units/Ml) 10 units SQ BEDTIME [facility] Last Admin: 10/01/20 20:37 Dose: 10 units Documented by: Insulin Human Regular (Insulin -Regular Human 50 Unit/0.5 Ml Ml) 0 unit SQ ACHS [facility]; Protocol Last Admin: 10/01/20 16:25 Dose: Not Given Documented by: Levothyroxine Sodium (Levothyroxine Sod 0.025 Mg Tab) 0.025 mg PO DAILYAC [facility] Last Admin: 10/01/20 05:55 Dose: 0.025 mg Documented by: Lidocaine (Lidocaine 4% Patch) 1 patch TOP DAILY [facility] Last Admin: 10/01/20 09:10 Dose: 1 patch Documented by: Melatonin (Melatonin 5 Mg Tablet) 10 mg PO BEDTIME PRN PRN PRN Reason: INSOMNIA Last Admin: 10/01/20 20:31 Dose: 10 mg Documented by: Metoprolol Succinate (Metoprolol Xl 50 Mg Tab) 50 mg PO [id number] [facility] Last Admin: 10/01/20 05:55 Dose: 50 mg Documented by: Morphine Sulfate (Morphine 4 Mg/Ml Syr) 4 mg IV Q4H PRN PRN Reason: Pain scale 5-7 (Moderate) Last Admin: 10/01/20 20:31 Dose: 4 mg Documented by: Ondansetron HCl (Ondansetron 4 Mg/2 Ml Vial) 4 mg IV Q6HP PRN PRN Reason: NAUSEA / VOMITING Last Admin: 09/30/20 10:19 Dose: 4 mg Documented by: Pantoprazole Sodium (Pantoprazole 40mg Tablet) 40 mg PO DAILYAC [facility]; Protocol Last Admin: 10/01/20 05:55 Dose: 40 mg Documented by: Sodium Chloride (Flush Normal Saline 10 Ml) 10 ml IV BID [facility] Last Admin: 10/01/20 20:32 Dose: 10 ml Documented by: Tizanidine HCl (Tizanidine 4 Mg Tablet) 4 mg PO BID PRN PRN Reason: Pain scale 5-7 (Moderate) Last Admin: 10/01/20 16:26 Dose: 4 mg Documented by: Tramadol HCl (Tramadol Hcl 50 Mg Tab) 50 mg PO TID PRN PRN Reason: Pain scale 2-4 (Mild) Last Admin: 09/30/20 12:49 Dose: 50 mg Documented by: Zinc Sulfate (Zinc Sulfate 220 Mg Cap) 220 mg PO DAILY [facility] Last Admin: 10/01/20 09:11 Dose: 220 mg Documented by: Microbiology Results 09/22/20 12:57 Blood - Blood Aerobic Blood Culture - Final Staph Aureus 09/22/20 12:57 Blood - Blood Blood Culture Gram Stain - Final 09/22/20 12:57 Blood - Blood Anaerobic Blood Culture - Final Staph Aureus 09/22/20 12:57 Blood - Blood Gram Stain - Final Assessment/ Plan: Nephrology Neck pain worse with movement. CPS stable without CP or SOB. No acute events overnight. Vitals, medications, blood work and imaging reviewed in the chart. General: In no apparent distress, Oriented x3, Cooperative HEENT: Atraumatic Neck: Tender Respiratory: Clear to auscultation bilaterally Cardiovascular: No edema, Regular rate/rhythm Gastrointestinal: Soft and benign, Non-distended Musculoskeletal: No clubbing Integumentary: No rashes, No cyanosis, Skin breakdown, Diabetic ulcer sp left toe amputation Neurological: Normal speech Blood work reviewed in the chart. Imagings Data: EXAM DESCRIPTION: MRI - Foot Left Wo Cont - 09/23/2020 11:48 am IMPRESSION: Osteomyelitis with bone destruction involving the tip of the first distal phalanx and the second and third distal phalanges. Osteomyelitis without bone destruction seen in the second and third middle phalanges. EXAM DESCRIPTION: US - Upper Lower Extrem Art Multi - 09/23/2020 11:02 am FINDINGS: Left brachial artery pressure measurement was in range of normal. CHRISS values are 0.88 on the right and 0.82 on the left. The right lower extremity arterial tree shows biphasic waveform pattern from common femoral artery to the dorsalis pedis and posterior tibial arteries. The left common femoral, superficial femoral and popliteal arteries were also biphasic. Left posterior tibial and dorsalis pedis arteries were monophasic. No occlusion or flow restricting lesion identifiable. IMPRESSION: Mild to moderate severity bilateral lower extremity arterial tree. There is no occlusion or focal flow restricting lesion identifiable. CHRISS values measured 0.88 on the right and 0.82 on the left. EXAM DESCRIPTION: RAD - Chest Single View - 09/22/2020 1:51 pm CLINICAL HISTORY: MALAISE Chest pain. COMPARISON: CHEST SINGLE VIEW dated 01/25/2008 FINDINGS: Portable technique limits examination quality. The lungs are mildly emphysematous but grossly clear. The heart is mildly enlarged in size. Sternotomy wires present. IMPRESSION: No acute intrathoracic process suspected. Conclusions/Impression: LIZETT likely hypovolemia CKD III -No NSAIDs -Hold furosemide Hyperkalemia -Monitor level Hypocalcemia -Continue Vitamin D3 -Continue Calcitriol HTN with CKD -Continue Metoprolol DM II with CKD -Continue Lantus -RISS Anemia in chronic illness -Monitor H&H -Give Retacrit prn Osteomyelitis of the left toes -Continue Levaquin and Linezolid -Follow up with ID -Follow up with surgery Neck pain -Follow up imaging -Tizanidine prn Case reviewed with Dr. Lugo
[2020-10-02 03:29] LABS: Absolute Lymphocytes (CBC) 1.2 K/uL (0.7-4.9); Basophils % 0.9 % (0-1.3); Lymphocytes % 21.6 % (15.3-44.8); MPV 9.1 fL (7.6-11.3); RBC Red Blood Cell Count 2.83 M/uL (4.33-5.43)
[2020-10-02 03:32] LABS: Potassium 4.2 mmol/L (3.5-5.1)
[2020-10-02] MEDS: METOPROLOL XL 50 MG TAB PO SCH (05:13)
[2020-10-02] MEDS: PANTOPRAZOLE 40MG TABLET PO SCH (05:15)
[2020-10-02] MEDS: LEVOTHYROXINE SOD 0.025 MG TAB PO SCH (05:15)
[2020-10-02] MEDS: MORPHINE 4 MG/ML SYR IV PRN (05:20)
[2020-10-02] MEDS: INSULIN -REGULAR HUMAN 50 UNIT/0.5 ML ML SQ SCH ×4 (07:30→21:00)
[2020-10-02] MEDS: LIDOCAINE 4% PATCH TOP SCH (09:00)
[2020-10-02] MEDS: DOXYCYCLINE 100 MG in NA CHLORIDE 0.9% 100 ML IVPB SCH ×2 (09:14→21:59)
[2020-10-02] MEDS: CALCITROL 0.25 MCG CAP PO SCH (09:14)
[2020-10-02] MEDS: AMLODIPINE 10 MG TAB PO SCH (09:14)
[2020-10-02] MEDS: VITAMIN D 5,000 UNIT CAP PO SCH (09:15)
[2020-10-02] MEDS: ASCORBIC ACID 500 MG TABLET PO SCH (09:15)
[2020-10-02] MEDS: ZINC SULFATE 220 MG CAP PO SCH (09:15)
[2020-10-02] MEDS: HEPARIN 5000 UNIT/ML 1 ML VIAL SQ SCH ×2 (09:15→22:00)
[2020-10-02] MEDS: ASPIRIN EC 81 MG TAB PO SCH (09:15)
[2020-10-02] MEDS: GABAPENTIN 400 MG CAP PO SCH ×2 (09:15→22:00)
--- NOTE | 2020-10-02 09:30 | P.PN ---
Subjective Date of Service: 10/02/20 Primary Care Provider: Dr. Hayes in [place] Chief Complaint: cellulitis, possible osteomyelitis Patient seen examined at bedside-pending transfer to [facility], awaiting cervical MRI. Review of Systems 10-point ROS is otherwise unremarkable Physical Examination - Vital Signs Temperature: 97.9 F Blood Pressure: 126/74 Pulse: 97 Respirations: 16 Pulse Ox (%): 93 - Studies Laboratory Last Values WBC 13.10 K/uL (4.3-10.9) H 09/22/20 12:45 RBC 3.01 M/uL (4.33-5.43) L 09/22/20 12:45 Hgb 9.5 g/dL (13.6-17.9) L 09/22/20 12:45 Hct 28.8 % (39.6-49.0) L 09/22/20 12:45 MCV 95.9 fL (80-100) 09/22/20 12:45 MCH 31.4 pg (27.0-35.0) 09/22/20 12:45 MCHC 32.8 g/dL (32.0-36.0) 09/22/20 12:45 RDW 12.5 % (12.1-15.2) 09/22/20 12:45 Plt Count 161 K/uL (152-406) 09/22/20 12:45 MPV 11.2 fL (7.6-11.3) 09/22/20 12:45 Neutrophils % 92.5 % (41.7-73.7) H 09/22/20 12:45 Lymphocytes % 3.5 % (15.3-44.8) L 09/22/20 12:45 Monocytes % 3.6 % (3.3-12.3) 09/22/20 12:45 Eosinophils % 0.1 % (0-4.4) 09/22/20 12:45 Basophils % 0.3 % (0-1.3) 09/22/20 12:45 Absolute Neutrophils 12.1 K/uL (1.8-8.0) H 09/22/20 12:45 Absolute Lymphocytes 0.5 K/uL (0.7-4.9) L 09/22/20 12:45 Absolute Monocytes 0.5 K/uL (0.1-1.3) 09/22/20 12:45 Absolute Eosinophils 0.0 K/uL (0-0.5) 09/22/20 12:45 Absolute Basophils 0.0 K/uL (0-0.5) 09/22/20 12:45 Platelet Estimate Adeq 09/22/20 12:45 Poikilocytosis 1+ 09/22/20 12:45 Morphology Comment Noted (NOT SEEN) 09/22/20 12:45 ESR Westergren > 140 mm/HR (0-20) H 09/22/20 12:45 PT 15.8 SECONDS (9.5-12.5) H 09/22/20 12:45 INR 1.37 09/22/20 12:45 APTT 48.0 SECONDS (24.3-36.9) H 09/22/20 12:45 Sodium 140 mmol/L (136-145) 09/22/20 12:45 Potassium 5.0 mmol/L (3.5-5.1) 09/22/20 12:45 Chloride 109 mmol/L (98-107) H 09/22/20 12:45 Carbon Dioxide 25 mmol/L (21-32) 09/22/20 12:45 BUN 48 mg/dL (7-18) H 09/22/20 12:45 Creatinine 2.42 mg/dL (0.55-1.3) H 09/22/20 12:45 Estimated GFR 25 mL/min (=/>90) L 09/22/20 12:45 Glucose 181 mg/dL (74-106) H 09/22/20 12:45 Lactic Acid 1.8 mmol/L (0.4-2.0) 09/22/20 12:45 Calcium 8.8 mg/dL (8.5-10.1) 09/22/20 12:45 Total Bilirubin 0.8 mg/dL (0.2-1.0) 09/22/20 12:45 Direct Bilirubin 0.2 mg/dL (0-0.2) 09/22/20 12:45 AST 17 U/L (15-37) 09/22/20 12:45 ALT 21 U/L (12-78) 09/22/20 12:45 Alkaline Phosphatase 88 U/L (45-117) 09/22/20 12:45 Creatine Kinase 89 U/L (39-308) 09/22/20 12:45 CK-MB (CK-2) < 1.0 ng/mL (1.0-3.6) L 09/22/20 12:45 Rapid Troponin I < 0.02 ng/mL (0.0-0.045) 09/22/20 12:45 Serum Total Protein 8.1 g/dL (6.4-8.2) 09/22/20 12:45 Albumin 3.5 g/dL (3.4-5.0) 09/22/20 12:45 Globulin 4.6 g/dL (2.3-3.5) H 09/22/20 12:45 Albumin/Globulin Ratio 0.8 (1.1-1.8) L 09/22/20 12:45 Amylase 29 U/L (25-115) 09/22/20 12:45 Lipase 28 U/L (73-393) L 09/22/20 12:45 Procalcitonin 1.11 ng/mL (<0.050) H 09/22/20 12:45 Urine RBC Cancelled 09/22/20 12:35 Urine WBC Cancelled 09/22/20 12:35 Ur Squamous Epith Cells Cancelled 09/22/20 12:35 Ur Urothelial Cells Cancelled 09/22/20 12:35 Calcium Oxalate Crystal Cancelled 09/22/20 12:35 Uric Acid Crystals Cancelled 09/22/20 12:35 Triple Phos Crystals Cancelled 09/22/20 12:35 Other Crystals Cancelled 09/22/20 12:35 Amorphous Sediment Cancelled 09/22/20 12:35 Glitter Cells Cancelled 09/22/20 12:35 Urine Bacteria Cancelled 09/22/20 12:35 Hyaline Casts Cancelled 09/22/20 12:35 Fine Granular Casts Cancelled 09/22/20 12:35 Coarse Granular Casts Cancelled 09/22/20 12:35 Waxy Casts Cancelled 09/22/20 12:35 RBC Casts Cancelled 09/22/20 12:35 WBC Casts Cancelled 09/22/20 12:35 Urine Mucus Cancelled 09/22/20 12:35 Urine Other Cancelled 09/22/20 12:35 Urine Trichomonas Cancelled 09/22/20 12:35 Urine Yeast Cancelled 09/22/20 12:35 Ur Yeast w Hyphae Cancelled 09/22/20 12:35 Urine Yeast (Budding) Cancelled 09/22/20 12:35 Urine Sperm Cancelled 09/22/20 12:35 Urine Culture Reflexed Cancelled 09/22/20 12:35 Urine Total Volume Cancelled 09/22/20 12:35 Smear Scan Ok (OK) 09/22/20 12:45 Assessment And Plan - Plan Physical Exam: General: Alert, In no apparent distress, Oriented x3 HEENT: Atraumatic, Normocephalic Neck: Supple, 2+ carotid pulse no bruit Respiratory: Clear to auscultation bilaterally, Normal air movement Cardiovascular: No edema, Normal pulses, Regular rate/rhythm Gastrointestinal: Normal bowel sounds, Soft and benign Musculoskeletal: Other (Right Charcot foot changes. Right hallux amputation. ) Integumentary: Diabetic ulcer s/p amputation on 09/26 of 1st-3rd toe Laboratory Data (last 24 hrs) Conclusions/Impression: Antibiotics: Doxycline start: 09/30 stop: -- cefepime start: 09/30 stop: -- cefazolin start: 09/29 stop: 09/30 zyvox start: 09/22 stop: 09/29 Levaquin start: 09/22 stop: 09/29 Assessment: -left 1st through 3rd toe diabetic ulcerations with possible osteomyelitis -neck pain -history of prostate cancer -diabetes -LIZETT on CKD stage 3 -anemia -history of vancomycin neuropathy -thrombocytopenia Plan: -patient improving in condition, patient remains afebrile. Vital signs within normal limits. Continue IV doxycycline and cefepime. Patient can be sent home on a 7 day course of oral doxycycline. -x-ray taken of left lower extremity showed concern for possible osteomyelitis o f left 1st through 3rd toe. MRI confirmed osteomyelitis. Arterial Doppler showed [id number] bilateral for for arterial disease. Blood cultures taken on 09/22: Grew Staph aureus methicillin-susceptible. Repeat blood cultures taken on no growth to date. Patient will need antibiotics until 10/10. Source of bacteremia: Likely diabetic foot ulcer. -status post amputation of 1st through 3rd the left toe. Dr. Blackman following, wound care per surgery team. Wound VAC placed. Change Q Tuesday. -patient has left hammertoe deformity and bilateral neuropathy, both con tributing to decrease wound healing. -neck pain: Cervical CT ordered. Patient on scheduled pain medication. -diabetes: Hemoglobin A1c 6.5 -anemia: Continue to monitor H&H. -renal insufficiency: Continue to monitor creatinine and GFR. Avoid nephrotoxic agents. Renally dose all medications. -patient started on vitamin-C and zinc to promote wound healing. -albumin within normal range, no concern for protein caloric malnutrition that would hinder wound healing. -medical management per primary team -continue monitor CBC and BMP -continue to monitor for signs infection Plan of care discussed with Dr. Maciel. Thank you for consultation.
[2020-10-02] MEDS ORDERED: FENTANYL CITR 100 MCG/2 ML IV ONE (11:53)
--- NOTE | 2020-10-02 13:55 | P.PN ---
Subjective Date of Service: 10/02/20 Primary Care Provider: Dr. Hayes in [place] Chief Complaint: cellulitis, possible osteomyelitis Patient still complaining of neck pain and no change from yesterday. No improvement. Physical Examination - Vital Signs Temperature: 97.7 F Blood Pressure: 119/70 Pulse: 102 Respirations: 18 Pulse Ox (%): 98 - Physical Exam General: Alert, Moderate distress (Due to neck pain) HEENT: Mucous membr. 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 Posttransfusion hemoglobin is up to 9. Continue to monitor hemoglobin. -PICC placed last week -CT cervical spine reports mild to moderate C2 C3 subluxation. Pain management with IV morphine and lidocaine patch. He was unable to do the MRI because of pain and inability to lay flat. Patient given a dose of IV fentanyl for pain before the MRI. -Further management of C2-C3 subluxation pending MRI result. -patient accepted for transfer to swing bed in [facility].
[2020-10-02] MEDS: CEFEPIME/SWI 1gm 10 ML IV SCH (16:10)
--- NOTE | 2020-10-02 19:33 | RAD REPORT ---
EXAM DESCRIPTION: MRI - C Spine Wo Cont - 10/02/2020 7:10 pm CLINICAL HISTORY: c2-C3 subluxation COMPARISON: C Spine Wo Con dated 09/30/2020 TECHNIQUE: Sagittal T1-weighted, T2-weighted and T2-STIR sequences were obtained as well as T2 medic sequence. FINDINGS: Cervical bodies are normal in height. Scattered fatty marrow degenerative changes are pres ent with no aggressive marrow edema or marrow replacing process identifiable. Advanced degenerative c hanges are present at the dens anterior arch C1 level. There is thickening of the transverse ligament posterior to the dens. No suspicious marrow edema or marrow replacing process. No paraspinal mass. Cerebellar tonsils and mid-line skull base show no suspicious finding. C2-3 level: Anterior subluxation of C2 on C3 is noted matching the earlier CT study. There are promin ent degenerative changes involving endplates at this level. Disc bulge and endplate spurring changes are created by the subluxation. There is significant posterior ligamentous thickening. These changes combine for attenuation of the anterior and posterior subarachnoid spaces. There is flattening of the cord in significant central spinal stenosis to 6 mm. Bilateral foraminal stenosis is present. No cor d signal abnormality seen. C3-4 level: There is complete loss in disc height. There is bridging ossification along the uncoverte bral joints and this is an essentially fused level. Bone hypertrophy and mineralization of the compliance spec ior longitudinal ligament partially attenuate the anterior subarachnoid space. Central canal stenosis to 8 mm is noted. Uncovertebral joint hypertrophy and bridging ossification result in bilateral fora ewa stenosis. Posterior ligament thickening is seen. C4-5 level: Disc space is effaced. There is bridging ossification at the uncovertebral joint hypertro phy level fusing this level. Posterior endplate hypertrophy and posterior ligamentous thickening are present. Central spinal stenosis is present at 8 mm. Uncovertebral joint fusion changes cause bilater al bony foraminal encroachment. C5-6 level: Disc is desiccated. Prominent disc bulge and endplate spurring changes are present. Poste rior ligament thickening changes present. There is contact and flattening the cord. Spinal stenosis i s present to 7-8 mm. No cord signal abnormality seen. Uncovertebral joint hypertrophy causes signific ant bilateral bony foraminal stenosis. C6-7 level: Significant loss in disc height noted with desiccation. Circumferential disc bulge and en dplate spurring changes are present. Canal is 10 mm. No significant degree foraminal stenosis seen. C7-T1 level: Disc is desiccated. No herniation or significant disc bulge. No canal or foramen stenosi s. No expansile change of the cord. No signal abnormality. IMPRESSION: C2 anterior subluxation secondary to facet joint degenerative change. This matches the C T study. There is significant spinal stenosis and cord flattening. Canal is 6 mm. Significant bilateral foraminal stenosis changes are present as well. C3-C5 fusion changes are present from bony hypertrophy and bridging ossification. Spinal stenosis evelyn nges are present and 8 mm with significant bony foraminal stenosis. C5-6 spondylosis changes with spinal stenosis to 7-8 mm. Significant foraminal stenosis also present. Spinal cord is flattened at multiple locations but no cord signal abnormality is seen.
[2020-10-02] MEDS ORDERED: EPOETIN ALFA-EPBX 10,000 UNIT/ML VIAL SQ ONE (20:19)
--- NOTE | 2020-10-02 20:23 | P.PN ---
Date of Service: 10/02/20 Vital Signs Temp Pulse Resp BP Pulse Ox 97.6 F 100 H 16 137/82 96 10/02/20 15:58 10/02/20 15:58 10/02/20 15:58 10/02/20 15:58 10/02/20 15:58 Medications Acetaminophen (Acetaminophen 500 Mg Tab) 500 mg PO Q4HP PRN PRN Reason: Pain scale 2-4 (Mild) Last Admin: 09/29/20 21:13 Dose: 500 mg Documented by: Amlodipine Besylate (Amlodipine 10 Mg Tab) 10 mg PO DAILY [facility] Last Admin: 10/02/20 09:14 Dose: 10 mg Documented by: Ascorbic Acid (Ascorbic Acid 500 Mg Tablet) 500 mg PO DAILY [facility] Last Admin: 10/02/20 09:15 Dose: 500 mg Documented by: Aspirin (Aspirin Ec 81 Mg Tab) 81 mg PO DAILY [facility] Last Admin: 10/02/20 09:15 Dose: 81 mg Documented by: Atorvastatin Calcium (Atorvastatin 20 Mg Tab) 20 mg PO BEDTIME [facility] Last Admin: 10/01/20 20:32 Dose: 20 mg Documented by: Calcitriol (Calcitrol 0.25 Mcg Cap) 0.5 mcg PO DAILY [facility] Last Admin: 10/02/20 09:14 Dose: 0.5 mcg Documented by: Cholecalciferol (Vitamin D 5,000 Unit Cap) 5,000 unit PO DAILY [facility] Last Admin: 10/02/20 09:15 Dose: 5,000 unit Documented by: Cyclobenzaprine HCl (Cyclobenzaprine 10 Mg Tab) 5 mg PO TIDP PRN PRN Reason: MUSCLE SPASMS Last Admin: 10/01/20 20:28 Dose: 5 mg Documented by: Dextrose (D50w 25 Gm/50 Ml Vial) 12.5 gm IV PRN PRN; Protocol PRN Reason: HYPOGLYCEMIA Gabapentin (Gabapentin 400 Mg Cap) 800 mg PO BID [facility] Last Admin: 10/02/20 09:15 Dose: 800 mg Documented by: Glucagon (Glucagon 1 Mg/Vial) 1 mg IM 1X PRN; Protocol PRN Reason: HYPOGLYCEMIA Heparin Sodium (Porcine) (Heparin 5000 Unit/Ml 1 Ml Vial) 5,000 unit SQ BID [facility] Last Admin: 10/02/20 09:15 Dose: 5,000 unit Documented by: Sodium Chloride (Sodium Chloride) 250 mls @ 0 mls/hr IV .Q0M [facility] Doxycycline Hyclate 100 mg/ (Sodium Chloride) 100 mls @ 100 mls/hr IVPB Q12HR [facility]; Protocol Last Admin: 10/02/20 09:14 Dose: 100 mls Documented by: Cefepime HCl (Maxipime 1 Gm/10 Ml Ivp) 10 mls @ 200 mls/hr IV DAILY 5 PM [facility] Last Admin: 10/02/20 16:10 Dose: 10 mls Documented by: Insulin Glargine (Insulin Glargine 100 Units/Ml) 10 units SQ BEDTIME [facility] Last Admin: 10/01/20 20:37 Dose: 10 units Documented by: Insulin Human Regular (Insulin -Regular Human 50 Unit/0.5 Ml Ml) 0 unit SQ ACHS [facility]; Protocol Last Admin: 10/02/20 16:08 Dose: Not Given Documented by: Levothyroxine Sodium (Levothyroxine Sod 0.025 Mg Tab) 0.025 mg PO DAILYAC [facility] Last Admin: 10/02/20 05:15 Dose: 0.025 mg Documented by: Lidocaine (Lidocaine 4% Patch) 1 patch TOP DAILY [facility] Last Admin: 10/02/20 09:00 Dose: Not Given Documented by: Melatonin (Melatonin 5 Mg Tablet) 10 mg PO BEDTIME PRN PRN PRN Reason: INSOMNIA Last Admin: 10/01/20 20:31 Dose: 10 mg Documented by: Metoprolol Succinate (Metoprolol Xl 50 Mg Tab) 50 mg PO [id number] [facility] Last Admin: 10/02/20 05:13 Dose: 50 mg Documented by: Morphine Sulfate (Morphine 4 Mg/Ml Syr) 4 mg IV Q4H PRN PRN Reason: Pain scale 5-7 (Moderate) Last Admin: 10/02/20 05:20 Dose: 4 mg Documented by: Ondansetron HCl (Ondansetron 4 Mg/2 Ml Vial) 4 mg IV Q6HP PRN PRN Reason: NAUSEA / VOMITING Last Admin: 09/30/20 10:19 Dose: 4 mg Documented by: Pantoprazole Sodium (Pantoprazole 40mg Tablet) 40 mg PO DAILYAC [facility]; Protocol Last Admin: 10/02/20 05:15 Dose: 40 mg Documented by: Sodium Chloride (Flush Normal Saline 10 Ml) 10 ml IV BID [facility] Last Admin: 10/02/20 09:00 Dose: 10 ml Documented by: Tramadol HCl (Tramadol Hcl 50 Mg Tab) 50 mg PO TID PRN PRN Reason: Pain scale 2-4 (Mild) Last Admin: 09/30/20 12:49 Dose: 50 mg Documented by: Zinc Sulfate (Zinc Sulfate 220 Mg Cap) 220 mg PO DAILY [facility] Last Admin: 10/02/20 09:15 Dose: 220 mg Documented by: Microbiology Results 09/22/20 12:57 Blood - Blood Aerobic Blood Culture - Final Staph Aureus 09/22/20 12:57 Blood - Blood Blood Culture Gram Stain - Final 09/22/20 12:57 Blood - Blood Anaerobic Blood Culture - Final Staph Aureus 09/22/20 12:57 Blood - Blood Gram Stain - Final Assessment/ Plan: Nephrology Persistent neck pain. CPS stable without CP or SOB. No acute events overnight. Vitals, medications, blood work and imaging reviewed in the chart. General: In no apparent distress, Oriented x3, Cooperative HEENT: Atraumatic Neck: Tender Respiratory: Clear to auscultation bilaterally Cardiovascular: No edema, Regular rate/rhythm Gastrointestinal: Soft and benign, Non-distended Musculoskeletal: No clubbing Integumentary: No rashes, No cyanosis, Skin breakdown, Diabetic ulcer sp left toe amputation Neurological: Normal speech Blood work reviewed in the chart. Imagings Data: EXAM DESCRIPTION: MRI - Foot Left Wo Cont - 09/23/2020 11:48 am IMPRESSION: Osteomyelitis with bone destruction involving the tip of the first distal phalanx and the second and third distal phalanges. Osteomyelitis without bone destruction seen in the second and third middle phalanges. EXAM DESCRIPTION: US - Upper Lower Extrem Art Multi - 09/23/2020 11:02 am FINDINGS: Left brachial artery pressure measurement was in range of normal. CHRISS values are 0.88 on the right and 0.82 on the left. The right lower extremity arterial tree shows biphasic waveform pattern from common femoral artery to the dorsalis pedis and posterior tibial arteries. The left common femoral, superficial femoral and popliteal arteries were also biphasic. Left posterior tibial and dorsalis pedis arteries were monophasic. No occlusion or flow restricting lesion identifiable. IMPRESSION: Mild to moderate severity bilateral lower extremity arterial tree. There is no occlusion or focal flow restricting lesion identifiable. CHRISS values measured 0.88 on the right and 0.82 on the left. EXAM DESCRIPTION: RAD - Chest Single View - 09/22/2020 1:51 pm CLINICAL HISTORY: MALAISE Chest pain. COMPARISON: CHEST SINGLE VIEW dated 01/25/2008 FINDINGS: Portable technique limits examination quality. The lungs are mildly emphysematous but grossly clear. The heart is mildly enlarged in size. Sternotomy wires present. IMPRESSION: No acute intrathoracic process suspected. Conclusions/Impression: LIZETT likely hypovolemia CKD III -No NSAIDs -Hold furosemide Hyperkalemia -Monitor level Hypocalcemia -Continue Vitamin D3 -Continue Calcitriol HTN with CKD -Continue Metoprolol DM II with CKD -Continue Lantus -RISS Anemia in chronic illness -Monitor H&H -Give Retacrit prn Osteomyelitis of the left toes -Continue Levaquin and Linezolid -Follow up with ID -Follow up with surgery Neck pain -Cervical MRI reviewed -Flexeril TID PRN Case reviewed with Dr. Lugo
[2020-10-02] MEDS: INSULIN GLARGINE 100 UNITS/ML SQ SCH (21:00)
[2020-10-02] MEDS: ATORVASTATIN 20 MG TAB PO SCH (22:00)
[2020-10-03] MEDS: CYCLOBENZAPRINE 10 MG TAB PO PRN (00:12)
[2020-10-03] MEDS: MORPHINE 4 MG/ML SYR IV PRN ×3 (03:39→20:45)
[2020-10-03] MEDS: PANTOPRAZOLE 40MG TABLET PO SCH (05:56)
[2020-10-03] MEDS: METOPROLOL XL 50 MG TAB PO SCH (05:56)
[2020-10-03] MEDS: TRAMADOL HCL 50 MG TAB PO PRN (05:57)
[2020-10-03] MEDS: LEVOTHYROXINE SOD 0.025 MG TAB PO SCH (05:57)
[2020-10-03] MEDS: INSULIN -REGULAR HUMAN 50 UNIT/0.5 ML ML SQ SCH ×4 (07:30→20:33)
--- NOTE | 2020-10-03 09:12 | P.PN ---
Subjective Date of Service: 10/03/20 Primary Care Provider: Dr. Hayes in [place] Chief Complaint: cellulitis, possible osteomyelitis Patient seen examined at bedside-no new labs in as of yet this morning. Thromocytopenia, patient no longer taking zyvox. Review of Systems 10-point ROS is otherwise unremarkable Physical Examination - Vital Signs Temperature: 97.5 F Blood Pressure: 160/72 Pulse: 61 Respirations: 16 Pulse Ox (%): 95 - Studies Laboratory Last Values WBC 13.10 K/uL (4.3-10.9) H 09/22/20 12:45 RBC 3.01 M/uL (4.33-5.43) L 09/22/20 12:45 Hgb 9.5 g/dL (13.6-17.9) L 09/22/20 12:45 Hct 28.8 % (39.6-49.0) L 09/22/20 12:45 MCV 95.9 fL (80-100) 09/22/20 12:45 MCH 31.4 pg (27.0-35.0) 09/22/20 12:45 MCHC 32.8 g/dL (32.0-36.0) 09/22/20 12:45 RDW 12.5 % (12.1-15.2) 09/22/20 12:45 Plt Count 161 K/uL (152-406) 09/22/20 12:45 MPV 11.2 fL (7.6-11.3) 09/22/20 12:45 Neutrophils % 92.5 % (41.7-73.7) H 09/22/20 12:45 Lymphocytes % 3.5 % (15.3-44.8) L 09/22/20 12:45 Monocytes % 3.6 % (3.3-12.3) 09/22/20 12:45 Eosinophils % 0.1 % (0-4.4) 09/22/20 12:45 Basophils % 0.3 % (0-1.3) 09/22/20 12:45 Absolute Neutrophils 12.1 K/uL (1.8-8.0) H 09/22/20 12:45 Absolute Lymphocytes 0.5 K/uL (0.7-4.9) L 09/22/20 12:45 Absolute Monocytes 0.5 K/uL (0.1-1.3) 09/22/20 12:45 Absolute Eosinophils 0.0 K/uL (0-0.5) 09/22/20 12:45 Absolute Basophils 0.0 K/uL (0-0.5) 09/22/20 12:45 Platelet Estimate Adeq 09/22/20 12:45 Poikilocytosis 1+ 09/22/20 12:45 Morphology Comment Noted (NOT SEEN) 09/22/20 12:45 ESR Westergren > 140 mm/HR (0-20) H 09/22/20 12:45 PT 15.8 SECONDS (9.5-12.5) H 09/22/20 12:45 INR 1.37 09/22/20 12:45 APTT 48.0 SECONDS (24.3-36.9) H 09/22/20 12:45 Sodium 140 mmol/L (136-145) 09/22/20 12:45 Potassium 5.0 mmol/L (3.5-5.1) 09/22/20 12:45 Chloride 109 mmol/L (98-107) H 09/22/20 12:45 Carbon Dioxide 25 mmol/L (21-32) 09/22/20 12:45 BUN 48 mg/dL (7-18) H 09/22/20 12:45 Creatinine 2.42 mg/dL (0.55-1.3) H 09/22/20 12:45 Estimated GFR 25 mL/min (=/>90) L 09/22/20 12:45 Glucose 181 mg/dL (74-106) H 09/22/20 12:45 Lactic Acid 1.8 mmol/L (0.4-2.0) 09/22/20 12:45 Calcium 8.8 mg/dL (8.5-10.1) 09/22/20 12:45 Total Bilirubin 0.8 mg/dL (0.2-1.0) 09/22/20 12:45 Direct Bilirubin 0.2 mg/dL (0-0.2) 09/22/20 12:45 AST 17 U/L (15-37) 09/22/20 12:45 ALT 21 U/L (12-78) 09/22/20 12:45 Alkaline Phosphatase 88 U/L (45-117) 09/22/20 12:45 Creatine Kinase 89 U/L (39-308) 09/22/20 12:45 CK-MB (CK-2) < 1.0 ng/mL (1.0-3.6) L 09/22/20 12:45 Rapid Troponin I < 0.02 ng/mL (0.0-0.045) 09/22/20 12:45 Serum Total Protein 8.1 g/dL (6.4-8.2) 09/22/20 12:45 Albumin 3.5 g/dL (3.4-5.0) 09/22/20 12:45 Globulin 4.6 g/dL (2.3-3.5) H 09/22/20 12:45 Albumin/Globulin Ratio 0.8 (1.1-1.8) L 09/22/20 12:45 Amylase 29 U/L (25-115) 09/22/20 12:45 Lipase 28 U/L (73-393) L 09/22/20 12:45 Procalcitonin 1.11 ng/mL (<0.050) H 09/22/20 12:45 Urine RBC Cancelled 09/22/20 12:35 Urine WBC Cancelled 09/22/20 12:35 Ur Squamous Epith Cells Cancelled 09/22/20 12:35 Ur Urothelial Cells Cancelled 09/22/20 12:35 Calcium Oxalate Crystal Cancelled 09/22/20 12:35 Uric Acid Crystals Cancelled 09/22/20 12:35 Triple Phos Crystals Cancelled 09/22/20 12:35 Other Crystals Cancelled 09/22/20 12:35 Amorphous Sediment Cancelled 09/22/20 12:35 Glitter Cells Cancelled 09/22/20 12:35 Urine Bacteria Cancelled 09/22/20 12:35 Hyaline Casts Cancelled 09/22/20 12:35 Fine Granular Casts Cancelled 09/22/20 12:35 Coarse Granular Casts Cancelled 09/22/20 12:35 Waxy Casts Cancelled 09/22/20 12:35 RBC Casts Cancelled 09/22/20 12:35 WBC Casts Cancelled 09/22/20 12:35 Urine Mucus Cancelled 09/22/20 12:35 Urine Other Cancelled 09/22/20 12:35 Urine Trichomonas Cancelled 09/22/20 12:35 Urine Yeast Cancelled 09/22/20 12:35 Ur Yeast w Hyphae Cancelled 09/22/20 12:35 Urine Yeast (Budding) Cancelled 09/22/20 12:35 Urine Sperm Cancelled 09/22/20 12:35 Urine Culture Reflexed Cancelled 09/22/20 12:35 Urine Total Volume Cancelled 09/22/20 12:35 Smear Scan Ok (OK) 09/22/20 12:45 Assessment And Plan - Plan Physical Exam: General: Alert, In no apparent distress, Oriented x3 HEENT: Atraumatic, Normocephalic Neck: Supple, 2+ carotid pulse no bruit Respiratory: Clear to auscultation bilaterally, Normal air movement Cardiovascular: No edema, Normal pulses, Regular rate/rhythm Gastrointestinal: Normal bowel sounds, Soft and benign Musculoskeletal: Other (Right Charcot foot changes. Right hallux amputation. ) Integumentary: Diabetic ulcer s/p amputation on 09/26 of 1st-3rd toe Laboratory Data (last 24 hrs) Conclusions/Impression: Antibiotics: Doxycline start: 09/30 stop: -- cefepime start: 09/30 stop: -- cefazolin start: 09/29 stop: 09/30 zyvox start: 09/22 stop: 09/29 Levaquin start: 09/22 stop: 09/29 Assessment: -left 1st through 3rd toe diabetic ulcerations with possible osteomyelitis -neck pain -history of prostate cancer -diabetes -LIZETT on CKD stage 3 -anemia -history of vancomycin neuropathy -thrombocytopenia Plan: -patient improving in condition, patient remains afebrile. Vital signs within normal limits. Continue IV doxycycline and cefepime. Patient can be sent home on a 7 day course of oral doxycycline. -x-ray taken of left lower extremity showed concern for possible osteomyelitis of left 1st through 3rd toe. MRI confirmed osteomyelitis. Arterial Doppler showed [id number] bilateral for for arterial disease. Blood cultures taken on 09/22: Grew Staph aureus methicillin-susceptible. Repeat blood cultures taken on no growth to date. Patient will need antibiotics until 10/10. Source of bacteremia: Likely diabetic foot ulcer. -status post amputation of 1st through 3rd the left toe. Dr. Blackman following, wound care per surgery team. Wound VAC placed. Change Q Tuesday. -patient has left hammertoe deformity and bilateral neuropathy, both contributing to decrease wound healing. -neck pain: CT and MRI performed, showed diffuse cervical pathology -diabetes: Hemoglobin A1c 6.5 -anemia: Continue to monitor H&H. -renal insufficiency: Continue to monitor creatinine and GFR. Avoid nephrotoxic agents. Renally dose all medications. -patient started on vitamin-C and zinc to promote wound healing. -albumin within normal range, no concern for protein caloric malnutrition that would hinder wound healing. -medical management per primary team -continue monitor CBC and BMP -continue to monitor for signs infection Plan of care discussed with Dr. Maciel. Thank you for consultation.
[2020-10-03] MEDS: ZINC SULFATE 220 MG CAP PO SCH (09:38)
[2020-10-03] MEDS: ASPIRIN EC 81 MG TAB PO SCH (09:38)
[2020-10-03] MEDS: VITAMIN D 5,000 UNIT CAP PO SCH (09:38)
[2020-10-03] MEDS: ASCORBIC ACID 500 MG TABLET PO SCH (09:38)
[2020-10-03] MEDS: CALCITROL 0.25 MCG CAP PO SCH (09:38)
[2020-10-03] MEDS: DOXYCYCLINE 100 MG in NA CHLORIDE 0.9% 100 ML IVPB SCH ×2 (09:39→20:33)
[2020-10-03] MEDS: GABAPENTIN 400 MG CAP PO SCH ×2 (09:39→20:31)
[2020-10-03] MEDS: AMLODIPINE 10 MG TAB PO SCH (09:39)
[2020-10-03] MEDS: HEPARIN 5000 UNIT/ML 1 ML VIAL SQ SCH (09:39)
[2020-10-03] MEDS: LIDOCAINE 4% PATCH TOP SCH (09:39)
--- NOTE | 2020-10-03 13:09 | P.PN ---
Subjective Date of Service: 10/03/20 Primary Care Provider: Dr. Hayes in [place] Chief Complaint: cellulitis, possible osteomyelitis Patient still complaining of neck pain and no change from yesterday. No improvement. Cervical MRI results reviewed. No urinary incontinence or stool incontinence. Physical Examination - Vital Signs Temperature: 98.3 F Blood Pressure: 163/72 Pulse: 70 Respirations: 16 Pulse Ox (%): 99 - Physical Exam General: Alert, In no apparent distress HEENT: Mucous membr. moist/pink Neck: JVD not distended Respiratory: Clear to auscultation bilaterally, Normal air movement Cardiovascular: No edema, Regular rate/rhythm, Normal S1 S2 Gastrointestinal: Soft and benign, Non-distended, No tenderness Musculoskeletal: No contractures Integumentary: Other (Dressed left toe amputation wounds) Neurological: Normal strength at 5/5 x4 extr, Cranial nerves 3-12 intact Assessment And Plan - Plan Problem list Osteomyelitis of L first toe, L second toe, L third toe with bacteremia s/p amputation (09/27) IDDM2 Paroxysmal Afib, new onset LIZETT on CKDIII Anemia of chronic disease HTN h/o prostate cancer, s/p prostatectomy C2-C3 anterior subluxation -MRI of foot consistent with osteomyelitis -blood cultures positive on 09/22 stap aureus, repeat blood cultures 09/26: NG x24hrs -h/o vanc nephropathy, status post IV levaquin and zyvox, blood culture (09/22) grew MSSA transitioned to Ancef on 09/29, per guidelines, would need minimum 14days since negative culture. Antibiotics not changed to IV cefepime and doxycycline. -s/p amputation by Dr. 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 Posttransfusion hemoglobin is up to 9. Hemoglobin is relatively stable. -PICC placed last week -CT cervical spine reports mild to moderate C2 C3 subluxation. Pain management with IV morphine and lidocaine patch. -MRI cervical spine confirms C2 C3 subluxation and spinal cannot stenosis with cord flattening up to 6 mm. -neurosurgery Dr. Christian at [facility] contacted who accepted patient for transfer. I also spoke to hospitalist Dr. Syed who accepted patient for transfer to telemetry bed. -awaiting bed availability.
[2020-10-03] MEDS: CEFEPIME/SWI 1gm 10 ML IV SCH (17:08)
--- NOTE | 2020-10-03 18:31 | P.PN ---
Date of Service: 10/03/20 Vital Signs Temp Pulse Resp BP Pulse Ox 98.3 F 71 18 165/73 H 95 10/03/20 16:00 10/03/20 16:00 10/03/20 16:00 10/03/20 16:00 10/03/20 16:00 Medications Acetaminophen (Acetaminophen 500 Mg Tab) 500 mg PO Q4HP PRN PRN Reason: Pain scale 2-4 (Mild) Last Admin: 09/29/20 21:13 Dose: 500 mg Documented by: Amlodipine Besylate (Amlodipine 10 Mg Tab) 10 mg PO DAILY [facility] Last Admin: 10/03/20 09:39 Dose: 10 mg Documented by: Ascorbic Acid (Ascorbic Acid 500 Mg Tablet) 500 mg PO DAILY [facility] Last Admin: 10/03/20 09:38 Dose: 500 mg Documented by: Aspirin (Aspirin Ec 81 Mg Tab) 81 mg PO DAILY [facility] Last Admin: 10/03/20 09:38 Dose: 81 mg Documented by: Atorvastatin Calcium (Atorvastatin 20 Mg Tab) 20 mg PO BEDTIME [facility] Last Admin: 10/02/20 22:00 Dose: 20 mg Documented by: Calcitriol (Calcitrol 0.25 Mcg Cap) 0.5 mcg PO DAILY [facility] Last Admin: 10/03/20 09:38 Dose: 0.5 mcg Documented by: Cholecalciferol (Vitamin D 5,000 Unit Cap) 5,000 unit PO DAILY [facility] Last Admin: 10/03/20 09:38 Dose: 5,000 unit Documented by: Cyclobenzaprine HCl (Cyclobenzaprine 10 Mg Tab) 5 mg PO TIDP PRN PRN Reason: MUSCLE SPASMS Last Admin: 10/03/20 00:12 Dose: 5 mg Documented by: Dextrose (D50w 25 Gm/50 Ml Vial) 12.5 gm IV PRN PRN; Protocol PRN Reason: HYPOGLYCEMIA Gabapentin (Gabapentin 400 Mg Cap) 800 mg PO BID [facility] Last Admin: 10/03/20 09:39 Dose: 800 mg Documented by: Glucagon (Glucagon 1 Mg/Vial) 1 mg IM 1X PRN; Protocol PRN Reason: HYPOGLYCEMIA Doxycycline Hyclate 100 mg/ (Sodium Chloride) 100 mls @ 100 mls/hr IVPB Q12HR IN[facility]; Protocol Last Admin: 10/03/20 09:39 Dose: 100 mls Documented by: Cefepime HCl (Maxipime 1 Gm/10 Ml Ivp) 10 mls @ 200 mls/hr IV DAILY 5 PM [facility] Last Admin: 10/03/20 17:08 Dose: 10 mls Documented by: Insulin Glargine (Insulin Glargine 100 Units/Ml) 10 units SQ BEDTIME [facility] Last Admin: 10/02/20 21:00 Dose: 10 units Documented by: Insulin Human Regular (Insulin -Regular Human 50 Unit/0.5 Ml Ml) 0 unit SQ ACHS [facility]; Protocol Last Admin: 10/03/20 15:57 Dose: Not Given Documented by: Levothyroxine Sodium (Levothyroxine Sod 0.025 Mg Tab) 0.025 mg PO DAILYAC [facility] Last Admin: 10/03/20 05:57 Dose: 0.025 mg Documented by: Lidocaine (Lidocaine 4% Patch) 1 patch TOP DAILY [facility] Last Admin: 10/03/20 09:39 Dose: 1 patch Documented by: Melatonin (Melatonin 5 Mg Tablet) 10 mg PO BEDTIME PRN PRN PRN Reason: INSOMNIA Last Admin: 10/01/20 20:31 Dose: 10 mg Documented by: Metoprolol Succinate (Metoprolol Xl 50 Mg Tab) 50 mg PO [id number] [facility] Last Admin: 10/03/20 05:56 Dose: 50 mg Documented by: Morphine Sulfate (Morphine 4 Mg/Ml Syr) 4 mg IV Q4H PRN PRN Reason: Pain scale 5-7 (Moderate) Last Admin: 10/03/20 09:37 Dose: 4 mg Documented by: Ondansetron HCl (Ondansetron 4 Mg/2 Ml Vial) 4 mg IV Q6HP PRN PRN Reason: NAUSEA / VOMITING Last Admin: 09/30/20 10:19 Dose: 4 mg Documented by: Pantoprazole Sodium (Pantoprazole 40mg Tablet) 40 mg PO DAILYAC [facility]; Protocol Last Admin: 10/03/20 05:56 Dose: 40 mg Documented by: Sodium Chloride (Flush Normal Saline 10 Ml) 10 ml IV BID [facility] Last Admin: 10/03/20 09:40 Dose: 10 ml Documented by: Zinc Sulfate (Zinc Sulfate 220 Mg Cap) 220 mg PO DAILY [facility] Last Admin: 10/03/20 09:38 Dose: 220 mg Documented by: Microbiology Results 09/22/20 12:57 Blood - Blood Aerobic Blood Culture - Final Staph Aureus 09/22/20 12:57 Blood - Blood Blood Culture Gram Stain - Final 09/22/20 12:57 Blood - Blood Anaerobic Blood Culture - Final Staph Aureus 09/22/20 12:57 Blood - Blood Gram Stain - Final Assessment/ Plan: Nephrology Persistent neck pain. Appetite fair. CPS stable without CP or SOB. No acute events overnight. Vitals, medications, blood work and imaging reviewed in the chart. General: In no apparent distress, Oriented x3, Cooperative HEENT: Atraumatic Neck: Tender Respiratory: Clear to auscultation bilaterally Cardiovascular: No edema, Regular rate/rhythm Gastrointestinal: Soft and benign, Non-distended Musculoskeletal: No clubbing Integumentary: No rashes, No cyanosis, Skin breakdown, Diabetic ulcer sp left toe amputation Neurological: Normal speech Blood work reviewed in the chart. Imagings Data: EXAM DESCRIPTION: MRI - Foot Left Wo Cont - 09/23/2020 11:48 am IMPRESSION: Osteomyelitis with bone destruction involving the tip of the first distal phalanx and the second and third distal phalanges. Osteomyelitis without bone destruction seen in the second and third middle phalanges. EXAM DESCRIPTION: US - Upper Lower Extrem Art Multi - 09/23/2020 11:02 am FINDINGS: Left brachial artery pressure measurement was in range of normal. CHRISS values are 0.88 on the right and 0.82 on the left. The right lower extremity arterial tree shows biphasic waveform pattern from common femoral artery to the dorsalis pedis and posterior tibial arteries. The left common femoral, superficial femoral and popliteal arteries were also biphasic. Left posterior tibial and dorsalis pedis arteries were monophasic. No occlusion or flow restricting lesion identifiable. IMPRESSION: Mild to moderate severity bilateral lower extremity arterial tree. There is no occlusion or focal flow restricting lesion identifiable. CHRISS values measured 0.88 on the right and 0.82 on the left. EXAM DESCRIPTION: RAD - Chest Single View - 09/22/2020 1:51 pm CLINICAL HISTORY: MALAISE Chest pain. COMPARISON: CHEST SINGLE VIEW dated 01/25/2008 FINDINGS: Portable technique limits examination quality. The lungs are mildly emphysematous but grossly clear. The heart is mildly enlarged in size. Sternotomy wires present. IMPRESSION: No acute intrathoracic process suspected. Conclusions/Impression: LIZETT likely hypovolemia CKD III -No NSAIDs -Hold furosemide Hyperkalemia -Monitor level Hypocalcemia -Continue Vitamin D3 -Continue Calcitriol HTN with CKD -Continue Metoprolol DM II with CKD -Continue Lantus -RISS Anemia in chronic illness -Monitor H&H -Give Retacrit prn Osteomyelitis of the left toes -Continue Levaquin and Linezolid -Follow up with ID -Follow up with surgery Neck pain -Cervical MRI reviewed -Flexeril TID PRN -Agree with Lidocaine -May need neurosurgery evaluation Case reviewed with Dr. Lugo
[2020-10-03] MEDS: ATORVASTATIN 20 MG TAB PO SCH (20:31)
[2020-10-03] MEDS: INSULIN GLARGINE 100 UNITS/ML SQ SCH (20:33)
[2020-10-03] MEDS: MELATONIN 5 MG TABLET PO PRN (22:33)
[2020-10-04] MEDS: PANTOPRAZOLE 40MG TABLET PO SCH (05:34)
[2020-10-04] MEDS: CYCLOBENZAPRINE 10 MG TAB PO PRN ×2 (05:34→12:07)
[2020-10-04] MEDS: LEVOTHYROXINE SOD 0.025 MG TAB PO SCH (05:34)
[2020-10-04] MEDS: METOPROLOL XL 50 MG TAB PO SCH (05:34)
[2020-10-04 05:39] LABS: Absolute Lymphocytes (CBC) 1.3 K/uL (0.7-4.9); Basophils % 0.9 % (0-1.3); Lymphocytes % 18.3 % (15.3-44.8); MPV 8.7 fL (7.6-11.3); RBC Red Blood Cell Count 3.03 M/uL (4.33-5.43)
[2020-10-04] MEDS: INSULIN -REGULAR HUMAN 50 UNIT/0.5 ML ML SQ SCH ×4 (07:30→21:00)
[2020-10-04] MEDS: MORPHINE 4 MG/ML SYR IV PRN ×3 (09:32→21:21)
[2020-10-04] MEDS: GABAPENTIN 400 MG CAP PO SCH ×2 (09:33→21:23)
[2020-10-04] MEDS: ASCORBIC ACID 500 MG TABLET PO SCH (09:33)
[2020-10-04] MEDS: AMLODIPINE 10 MG TAB PO SCH (09:33)
[2020-10-04] MEDS: CALCITROL 0.25 MCG CAP PO SCH (09:33)
[2020-10-04] MEDS: ASPIRIN EC 81 MG TAB PO SCH (09:33)
[2020-10-04] MEDS: ZINC SULFATE 220 MG CAP PO SCH (09:33)
[2020-10-04] MEDS: LIDOCAINE 4% PATCH TOP SCH (09:34)
[2020-10-04] MEDS: VITAMIN D 5,000 UNIT CAP PO SCH (09:34)
[2020-10-04] MEDS: DOXYCYCLINE 100 MG in NA CHLORIDE 0.9% 100 ML IVPB SCH ×2 (09:35→21:56)
--- NOTE | 2020-10-04 13:52 | P.PN ---
Subjective Date of Service: 10/04/20 Primary Care Provider: Dr. Hayes in [place] Chief Complaint: cellulitis, possible osteomyelitis Patient complaining of neck pain. He states the pain is better than yesterday. Cervical MRI results reviewed. No urinary incontinence or stool incontinence. No limb weakness. Physical Examination - Vital Signs Temperature: 97.9 F Blood Pressure: 166/70 Pulse: 65 Respirations: 17 Pulse Ox (%): 94 - Physical Exam General: Alert, In no apparent distress HEENT: Mucous membr. moist/pink Respiratory: Clear to auscultation bilaterally, Normal air movement Cardiovascular: Regular rate/rhythm, Normal S1 S2 Gastrointestinal: Soft and benign, Non-distended Musculoskeletal: No swelling Neurological: Normal strength at 5/5 x4 extr Assessment And Plan - Plan Problem list Osteomyelitis of L first toe, L second toe, L third toe with bacteremia s/p amputation (09/27) IDDM2 Paroxysmal Afib, new onset LIZETT on CKDIII Anemia of chronic disease HTN h/o prostate cancer, s/p prostatectomy C2-C3 anterior subluxation -MRI of foot consistent with osteomyelitis -blood cultures positive on 09/22 stap aureus, repeat blood cultures 09/26: NG x24hrs -h/o vanc nephropathy, status post IV levaquin and zyvox, blood culture (09/22) grew MSSA transitioned to Ancef on 09/29, per guidelines, would need minimum 14days since negative culture. Antibiotics not changed to IV cefepime and doxycycline. -s/p amputation by Dr. 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 Posttransfusion hemoglobin is up to 9. Hemoglobin is relatively stable. -PICC placed last week -CT cervical spine reports mild to moderate C2 C3 subluxation. Pain management with IV morphine and lidocaine patch. -MRI cervical spine confirms C2 C3 subluxation and spinal cannot stenosis with cord flattening up to 6 mm. -neurosurgery Dr. Christian at [facility] contacted who accepted patient for transfer. I also spoke to hospitalist Dr. Syed who accepted patient for transfer to telemetry bed. -awaiting bed availability. -Meanwhile will order rigid cervical collar.
--- NOTE | 2020-10-04 16:05 | PN ---
Date of Progress Note: 10/04/2020 The patient is seen in room 206 at [facility]. Subjective: The patient is alert, awake, able to answer questions. He is uncomfortable, has been in pain, is getting pain control for his neck pain. He does have some subluxation of his cervical spin e and is awaiting transfer for higher level of care and for evaluation and treatment of this. His bl ood pressure has been running in the 150-160 range since yesterday. Last blood pressure was 166/70, pulse is 65, respirations around 14-16. Objective: Lungs: Clear to auscultation. Abdomen: Soft. Extremities: Reveal no edema. He does have the left foot cleanly dressed and has a wound VAC in [facility]. His O2 sats are 94% on room air. Laboratory Data: Reviewed. His WBC count is 7.3, hemoglobin and hematocrit of 9.6 and 28, platelet count of 126, calcium 8.1, magnesium 2.0, sodium 143, potassium 4.0, chloride 113, bicarb is 26, BUN 28, creatinine is 1.6. His glucose level is 142. Creatinine has stayed reasonably stable, with a cr eatinine level of 1.58 yesterday, 1.73 before that, 2.01 on September 30. Overall, creatinine is stable to slightly improved, with 1.6 today. Assessment/plan: 1.Chronic kidney disease, overall stable. Volume status close to euvolemic. The patient is taking some p.o. intake but minimal. Continue to monitor this. May need hydration if he does not improve h is eating. His blood pressure seems to be on the higher side. Part of this could be secondary to hi s pain. At this point, I would like to give him at least one dose of blood pressure medication to as sist with getting the blood pressure a little bit better controlled. Do not want to give him hydrala zine. He is currently in normal sinus rhythm, but has had atrial fibrillation. Do not want to use s pironolactone or further JIM inhibitors given his recent problem with potassium. We will go ahead an d give him one dose of isosorbide. This medication may be used further in the future if he does not get headaches with that. We will give one dose of isosorbide 30 mg. Monitor blood pressure. Kidney function reasonably stable. Awaiting transfer for higher level of care to address cervical spine fernandes bluxation issue. 2.Osteomyelitis, on antibiotics, on wound VAC. ID has been following. Seems to have improved after his amputations and debridement. /HONORIO Voice ID: [id number] Report ID: [id number]
[2020-10-04] MEDS: CEFEPIME/SWI 1gm 10 ML IV SCH (16:11)
[2020-10-04] MEDS: INSULIN GLARGINE 100 UNITS/ML SQ SCH (21:00)
[2020-10-04] MEDS: ATORVASTATIN 20 MG TAB PO SCH (21:23)
[2020-10-05] MEDS: PANTOPRAZOLE 40MG TABLET PO SCH (05:55)
[2020-10-05] MEDS: LEVOTHYROXINE SOD 0.025 MG TAB PO SCH (05:55)
[2020-10-05] MEDS: METOPROLOL XL 50 MG TAB PO SCH (05:55)
[2020-10-05] MEDS: MORPHINE 4 MG/ML SYR IV PRN ×4 (05:59→20:55)
[2020-10-05] MEDS: INSULIN -REGULAR HUMAN 50 UNIT/0.5 ML ML SQ SCH ×4 (07:30→20:56)
[2020-10-05] MEDS: ISOSORBIDE MONO SR 30 MG TAB PO SCH (09:12)
[2020-10-05] MEDS: DOXYCYCLINE 100 MG in NA CHLORIDE 0.9% 100 ML IVPB SCH ×2 (09:12→20:52)
[2020-10-05] MEDS: VITAMIN D 5,000 UNIT CAP PO SCH (09:12)
[2020-10-05] MEDS: GABAPENTIN 400 MG CAP PO SCH ×2 (09:12→20:55)
[2020-10-05] MEDS: ASPIRIN EC 81 MG TAB PO SCH (09:12)
[2020-10-05] MEDS: LIDOCAINE 4% PATCH TOP SCH (09:12)
[2020-10-05] MEDS: ZINC SULFATE 220 MG CAP PO SCH (09:12)
[2020-10-05] MEDS: CALCITROL 0.25 MCG CAP PO SCH (09:12)
[2020-10-05] MEDS: AMLODIPINE 10 MG TAB PO SCH (09:12)
[2020-10-05] MEDS: ASCORBIC ACID 500 MG TABLET PO SCH (09:12)
[2020-10-05] MEDS: CYCLOBENZAPRINE 10 MG TAB PO PRN ×2 (09:21→20:53)
--- NOTE | 2020-10-05 16:15 | PN ---
Date of Progress Note: 10/05/2020 The patient is seen in room 206 at [facility] ([place] Subjective: The patient is alert, awake, and comfortable. He does have discomfort in the neck that is ongoing, but is stable and not worsening. Patient thinks and I agree that his blood pressure bein g up, may also be partly related to that. He did take isosorbide this morning, tolerated it well, an d the blood pressures have come down to 150 range from the 160s yesterday. He denies any other issue s. He is breathing comfortably. He has acceptance to [facility], but they are waiting for a bed to open up for him so he can get neurosurgery evaluation there for his cervical spine subluxation . Objective: Vital signs: Stable. Last blood pressure is 158/70; pulse about 89, has been running be tween 60-90 and regular; respirations are around 16; afebrile. Lungs: Clear to auscultation. Abdomen: Soft. Extremities: Reveal trace to no edema. He does have a drainage in place on the left lower extremity , which is cleanly dressed after his amputation/debridement. Laboratory Data: The patient's lab work is reviewed. Labs show WBC count of 7.3 yesterday, hemoglob in and hematocrit yesterday was 9.6 and 28, platelet count was 126. Glucose has been running in 130- 150 range for the most part. Assessment And Plan: The patient with acute on chronic kidney injury, at this point stabilizing, eat ing and drinking better. He is awaiting transfer for evaluation of his cervical spine. Blood pressu res are still running slightly on the higher side, but the patient has just been started on isosorbid e and responding. Continue to monitor. If blood pressures continue to stay above 150 range, we will consider increasing isosorbide to either b.i.d. or taking it to above 60 mg. Hopefully, taina jaeger have a bed available and get transferred quickly for his evaluation. I have been told that he has already been accepted. They are just waiti ng for bed availability. /HONORIO Voice ID: [id number] Report ID: [id number]
--- NOTE | 2020-10-05 16:56 | P.PN ---
Subjective Date of Service: 10/05/20 Primary Care Provider: Dr. Hayes in [place] Chief Complaint: cellulitis, possible osteomyelitis Patient states his neck pain is better. Cervical MRI results reviewed. No urinary incontinence or stool incontinence. No limb weakness. Physical Examination - Vital Signs Temperature: 98.2 F Blood Pressure: 158/70 Pulse: 89 Respirations: 17 Pulse Ox (%): 95 - Physical Exam General: Alert, In no apparent distress HEENT: Mucous membr. moist/pink Neck: JVD not distended Respiratory: Clear to auscultation bilaterally, Normal air movement Cardiovascular: Regular rate/rhythm Gastrointestinal: Soft and benign, Non-distended Musculoskeletal: No swelling Neurological: Normal strength at 5/5 x4 extr Assessment And Plan - Plan Problem list Osteomyelitis of L first toe, L second toe, L third toe with bacteremia s/p amputation (09/27) IDDM2 Paroxysmal Afib, new onset LIZETT on CKDIII Anemia of chronic disease HTN h/o prostate cancer, s/p prostatectomy C2-C3 anterior subluxation -MRI of foot consistent with osteomyelitis. Status post amputation. -blood cultures positive on 09/22 stap aureus, repeat blood cultures 09/26: NG x24hrs -h/o vanc nephropathy, status post IV levaquin and zyvox, blood culture (09/22) grew MSSA transitioned to Ancef on 09/29, per guidelines, would need minimum 14days since negative culture. Antibiotics not changed to IV cefepime and doxycycline. -s/p amputation by Dr. 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 Posttransfusion hemoglobin is up to 9. Hemoglobin is relatively stable. -PICC placed last week -CT cervical spine reports mild to moderate C2 C3 subluxation. Pain management with IV morphine and lidocaine patch. -MRI cervical spine confirms C2 C3 subluxation and spinal cannot stenosis with cord flattening up to 6 mm. -neurosurgery Dr. Christian at [facility] contacted who accepted patient for transfer. I also spoke to hospitalist Dr. Syed who accepted patient for transfer to telemetry bed. -awaiting bed availability. Transferred to [facility] also initiated. Waiting for bed availability. -patient refused rigid cervical collar.
[2020-10-05] MEDS: CEFEPIME/SWI 1gm 10 ML IV SCH (17:05)
[2020-10-05] MEDS: MELATONIN 5 MG TABLET PO PRN (20:54)
[2020-10-05] MEDS: ATORVASTATIN 20 MG TAB PO SCH (20:55)
[2020-10-05] MEDS: INSULIN GLARGINE 100 UNITS/ML SQ SCH (21:03)
[2020-10-06] MEDS: PANTOPRAZOLE 40MG TABLET PO SCH ×2 (05:03→05:04)
[2020-10-06] MEDS: MORPHINE 4 MG/ML SYR IV PRN ×3 (05:03→20:30)
[2020-10-06] MEDS: LEVOTHYROXINE SOD 0.025 MG TAB PO SCH (05:04)
[2020-10-06] MEDS: METOPROLOL XL 50 MG TAB PO SCH (05:04)
[2020-10-06 06:00] LABS: Absolute Lymphocytes (CBC) 1.3 K/uL (0.7-4.9); Basophils % 0.6 % (0-1.3); Hematocrit 27.9 % (39.6-49.0); Lymphocytes % 16.9 % (15.3-44.8); MPV 9.2 fL (7.6-11.3)
[2020-10-06 06:10] LABS: Potassium 4.1 mmol/L (3.5-5.1)
[2020-10-06] MEDS: CYCLOBENZAPRINE 10 MG TAB PO PRN ×2 (06:35→20:29)
[2020-10-06] MEDS: INSULIN -REGULAR HUMAN 50 UNIT/0.5 ML ML SQ SCH ×4 (07:30→20:31)
[2020-10-06 07:56] LABS: Blood Morphology Comment NOTED (NOT SEEN); Platelet Estimate ADEQ; Polychromasia SLIGHT
--- NOTE | 2020-10-06 09:36 | P.PN ---
Subjective Date of Service: 10/06/20 Primary Care Provider: Dr. Hayes in [place] Chief Complaint: cellulitis, possible osteomyelitis Patient seen examined at bedside-AWAITING TRANSFER. TO CEFEPIME HAS BEEN DISCONTINUED. Review of Systems 10-point ROS is otherwise unremarkable Physical Examination - Vital Signs Temperature: 97.4 F Blood Pressure: 150/67 Pulse: 64 Respirations: 70 Pulse Ox (%): 94 - Studies Laboratory Last Values WBC 13.10 K/uL (4.3-10.9) H 09/22/20 12:45 RBC 3.01 M/uL (4.33-5.43) L 09/22/20 12:45 Hgb 9.5 g/dL (13.6-17.9) L 09/22/20 12:45 Hct 28.8 % (39.6-49.0) L 09/22/20 12:45 MCV 95.9 fL (80-100) 09/22/20 12:45 MCH 31.4 pg (27.0-35.0) 09/22/20 12:45 MCHC 32.8 g/dL (32.0-36.0) 09/22/20 12:45 RDW 12.5 % (12.1-15.2) 09/22/20 12:45 Plt Count 161 K/uL (152-406) 09/22/20 12:45 MPV 11.2 fL (7.6-11.3) 09/22/20 12:45 Neutrophils % 92.5 % (41.7-73.7) H 09/22/20 12:45 Lymphocytes % 3.5 % (15.3-44.8) L 09/22/20 12:45 Monocytes % 3.6 % (3.3-12.3) 09/22/20 12:45 Eosinophils % 0.1 % (0-4.4) 09/22/20 12:45 Basophils % 0.3 % (0-1.3) 09/22/20 12:45 Absolute Neutrophils 12.1 K/uL (1.8-8.0) H 09/22/20 12:45 Absolute Lymphocytes 0.5 K/uL (0.7-4.9) L 09/22/20 12:45 Absolute Monocytes 0.5 K/uL (0.1-1.3) 09/22/20 12:45 Absolute Eosinophils 0.0 K/uL (0-0.5) 09/22/20 12:45 Absolute Basophils 0.0 K/uL (0-0.5) 09/22/20 12:45 Platelet Estimate Adeq 09/22/20 12:45 Poikilocytosis 1+ 09/22/20 12:45 Morphology Comment Noted (NOT SEEN) 09/22/20 12:45 ESR Westergren > 140 mm/HR (0-20) H 09/22/20 12:45 PT 15.8 SECONDS (9.5-12.5) H 09/22/20 12:45 INR 1.37 09/22/20 12:45 APTT 48.0 SECONDS (24.3-36.9) H 09/22/20 12:45 Sodium 140 mmol/L (136-145) 09/22/20 12:45 Potassium 5.0 mmol/L (3.5-5.1) 09/22/20 12:45 Chloride 109 mmol/L (98-107) H 09/22/20 12:45 Carbon Dioxide 25 mmol/L (21-32) 09/22/20 12:45 BUN 48 mg/dL (7-18) H 09/22/20 12:45 Creatinine 2.42 mg/dL (0.55-1.3) H 09/22/20 12:45 Estimated GFR 25 mL/min (=/>90) L 09/22/20 12:45 Glucose 181 mg/dL (74-106) H 09/22/20 12:45 Lactic Acid 1.8 mmol/L (0.4-2.0) 09/22/20 12:45 Calcium 8.8 mg/dL (8.5-10.1) 09/22/20 12:45 Total Bilirubin 0.8 mg/dL (0.2-1.0) 09/22/20 12:45 Direct Bilirubin 0.2 mg/dL (0-0.2) 09/22/20 12:45 AST 17 U/L (15-37) 09/22/20 12:45 ALT 21 U/L (12-78) 09/22/20 12:45 Alkaline Phosphatase 88 U/L (45-117) 09/22/20 12:45 Creatine Kinase 89 U/L (39-308) 09/22/20 12:45 CK-MB (CK-2) < 1.0 ng/mL (1.0-3.6) L 09/22/20 12:45 Rapid Troponin I < 0.02 ng/mL (0.0-0.045) 09/22/20 12:45 Serum Total Protein 8.1 g/dL (6.4-8.2) 09/22/20 12:45 Albumin 3.5 g/dL (3.4-5.0) 09/22/20 12:45 Globulin 4.6 g/dL (2.3-3.5) H 09/22/20 12:45 Albumin/Globulin Ratio 0.8 (1.1-1.8) L 09/22/20 12:45 Amylase 29 U/L (25-115) 09/22/20 12:45 Lipase 28 U/L (73-393) L 09/22/20 12:45 Procalcitonin 1.11 ng/mL (<0.050) H 09/22/20 12:45 Urine RBC Cancelled 09/22/20 12:35 Urine WBC Cancelled 09/22/20 12:35 Ur Squamous Epith Cells Cancelled 09/22/20 12:35 Ur Urothelial Cells Cancelled 09/22/20 12:35 Calcium Oxalate Crystal Cancelled 09/22/20 12:35 Uric Acid Crystals Cancelled 09/22/20 12:35 Triple Phos Crystals Cancelled 09/22/20 12:35 Other Crystals Cancelled 09/22/20 12:35 Amorphous Sediment Cancelled 09/22/20 12:35 Glitter Cells Cancelled 09/22/20 12:35 Urine Bacteria Cancelled 09/22/20 12:35 Hyaline Casts Cancelled 09/22/20 12:35 Fine Granular Casts Cancelled 09/22/20 12:35 Coarse Granular Casts Cancelled 09/22/20 12:35 Waxy Casts Cancelled 09/22/20 12:35 RBC Casts Cancelled 09/22/20 12:35 WBC Casts Cancelled 09/22/20 12:35 Urine Mucus Cancelled 09/22/20 12:35 Urine Other Cancelled 09/22/20 12:35 Urine Trichomonas Cancelled 09/22/20 12:35 Urine Yeast Cancelled 09/22/20 12:35 Ur Yeast w Hyphae Cancelled 09/22/20 12:35 Urine Yeast (Budding) Cancelled 09/22/20 12:35 Urine Sperm Cancelled 09/22/20 12:35 Urine Culture Reflexed Cancelled 09/22/20 12:35 Urine Total Volume Cancelled 09/22/20 12:35 Smear Scan Ok (OK) 09/22/20 12:45 Assessment And Plan - Plan Physical Exam: General: Alert, In no apparent distress, Oriented x3 HEENT: Atraumatic, Normocephalic Neck: Supple, 2+ carotid pulse no bruit Respiratory: Clear to auscultation bilaterally, Normal air movement Cardiovascular: No edema, Normal pulses, Regular rate/rhythm Gastrointestinal: Normal bowel sounds, Soft and benign Musculoskeletal: Other (Right Charcot foot changes. Right hallux amputation. ) Integumentary: Diabetic ulcer s/p amputation on 09/26 of 1st-3rd toe Laboratory Data (last 24 hrs) Conclusions/Impression: Antibiotics: Doxycline start: 09/30 stop: -- cefepime start: 09/30 stop: 10/06 cefazolin start: 09/29 stop: 09/30 zyvox start: 09/22 stop: 09/29 Levaquin start: 09/22 stop: 09/29 Assessment: -left 1st through 3rd toe diabetic ulcerations with possible osteomyelitis -neck pain -history of prostate cancer -diabetes -LIZETT on CKD stage 3 -anemia -history of vancomycin neuropathy -thrombocytopenia Plan: -patient improving in condition, patient remains afebrile. Vital signs within normal limits. Cefepime has been discontinued. If patient remains stable condition doxycycline can be discontinued in 3-4 days. -x-ray taken of left lower extremity showed concern for possible osteomyelitis of left 1st through 3rd toe. MRI confirmed osteomyelitis. Arterial Doppler showed [id number] bilateral for for arterial disease. Blood cultures taken on 09/22: Grew Staph aureus methicillin-susceptible. Repeat blood cultures taken on no growth to date. Patient will need antibiotics until 10/10. Source of bacteremia: Likely diabetic foot ulcer. -status post amputation of 1st through 3rd the left toe. Dr. Blackman following, wound care per surgery team. Wound VAC placed. Change Q Tuesday. -patient has left hammertoe deformity and bilateral neuropathy, both contributing to decrease wound healing. -neck pain: CT and MRI performed, showed diffuse cervical pathology -diabetes: Hemoglobin A1c 6.5 -anemia: Continue to monitor H&H. -renal insufficiency: Continue to monitor creatinine and GFR. Avoid nephrotoxic agents. Renally dose all medications. -patient started on vitamin-C and zinc to promote wound healing. -albumin within normal range, no concern for protein caloric malnutrition that would hinder wound healing. -medical management per primary team -continue monitor CBC and BMP -continue to monitor for signs infection Plan of care discussed with Dr. Maciel. Thank you for consultation.
[2020-10-06] MEDS: AMLODIPINE 10 MG TAB PO SCH (09:46)
[2020-10-06] MEDS: GABAPENTIN 400 MG CAP PO SCH ×2 (09:46→20:29)
[2020-10-06] MEDS: ASPIRIN EC 81 MG TAB PO SCH (09:46)
[2020-10-06] MEDS: CALCITROL 0.25 MCG CAP PO SCH (09:47)
[2020-10-06] MEDS: VITAMIN D 5,000 UNIT CAP PO SCH (09:47)
[2020-10-06] MEDS: ISOSORBIDE MONO SR 30 MG TAB PO SCH (09:47)
[2020-10-06] MEDS: ASCORBIC ACID 500 MG TABLET PO SCH (09:47)
[2020-10-06] MEDS: LIDOCAINE 4% PATCH TOP SCH (09:48)
[2020-10-06] MEDS: ZINC SULFATE 220 MG CAP PO SCH (09:48)
[2020-10-06] MEDS: DOXYCYCLINE 100 MG in NA CHLORIDE 0.9% 100 ML IVPB SCH ×2 (09:49→20:28)
--- NOTE | 2020-10-06 11:37 | PN ---
The patient is seen in room 206 at [facility]. Subjective: The patient is alert, awake. Has been having some discomfort that has been ongoing for the neck problem, but he is feeling a little bit better today. He is however very frustrated as he i s awaiting transfer to [facility] for higher level of care, evaluation of neurosurgery for his neck, but has not been able to get a bed secured yet, even though he has had admission. The patient is stating that he is so frustrated that he will just leave and go home. I explained to him given hi s cervical subluxation, he would be better off getting a neurosurgery evaluation and if this gets wor se after he returns home and is not able to take care of his neck, he could have paralysis. Given th at, the patient is a little bit more calm and seems to be more willing to stay and wait for the trans margaret. Objective: Vital signs: Somewhat stable. Blood pressure systolic is running in 140 to 150 range. Last blood pressure 150/67, pulse at about 60 to 65 and regular, respirations around 14 to 15. He is afebrile, O2 sats are 94% to 96% on room air. Lungs: Clear to auscultation. Abdomen: Soft. Extremities: Reveal trace edema. Left wound has a clean dressing on. He is on antibiotics with Maxipime and Vibramycin. He has a PICC line. He is otherwise comfortable. Laboratory Data: Reviewed. Labs show WBC count 7, hemoglobin 9.3, hematocrit 27.9, platelet count o f 133. All these parameters seem to be stable. Sodium 144, potassium 4.1, chloride 114, bicarb is 2 6, BUN is 28, creatinine 1.31, glucose 109. The patient's creatinine seems to have improved from 2 d ays ago when it was 1.6 and from September 30 when it was 2.01. Medications: Reviewed. The patient is tolerating amlodipine. He is on aspirin, atorvastatin. He i s on vitamin D replacement. He has also been on cholecalciferol and calcitriol for vitamin D replace ment. He has been started on isosorbide, which he is tolerating well with some improvement in blood pressure. Assessment And Plan: 1.Acute kidney injury/chronic kidney disease/osteomyelitis/subluxation of cervical spine. At this p oint, clinically improving. Blood pressure is improved. Continue on isosorbide, tolerating well. A lso on amlodipine. 2.Volume status, improved. The patient is eating and drinking okay. If his sodium creeps up more, may need some free water replacement, but at this point, he is doing well. 3.Osteomyelitis of left foot. Antibiotics as per primary team. Has had debridement, amputation don e. Clinically stable. 4.Subluxation of cervical spine. Awaiting neurosurgery evaluation. Has been accepted to [facility], but awaiting for a bed to transfer. 5.Atrial fibrillation. At this point, the patient is stable, in normal sinus rhythm. Cardiology mo nitoring. May need further evaluation for a Watchman device and/or treatment if this is to recur and as per Cardiology, the patient states he is not a good candidate for anticoagulation and does not wa nt aggressive anticoagulation, So, in the long run, if atrial fibrillation is an issue, he will likel y need some intervention like a Watchman device. Will obviously defer that to Cardiology. 6.Hypocalcemia, on aggressive vitamin D replacement with 5000 units of cholecalciferol and calcitrio l also for active vitamin D replacement. 7.Hyperlipidemia, on statin. 8.Diabetes, on insulin. 9.Hypothyroidism, on levothyroxine. Appreciate your consultation. We will continue to follow with you as needed while the patient is in the hospital over here awaiting transfer. /HONORIO Voice ID: [id number] Report ID: [id number]
--- NOTE | 2020-10-06 14:02 | P.PN ---
Subjective Date of Service: 10/06/20 Primary Care Provider: Dr. Hayes in [place] Chief Complaint: cellulitis, possible osteomyelitis Patient states his neck pain is better. No urinary incontinence or stool incontinence. No limb weakness. Physical Examination - Vital Signs Temperature: 97.4 F Blood Pressure: 157/68 Pulse: 66 Respirations: 20 Pulse Ox (%): 95 - Physical Exam General: Alert, In no apparent distress, Oriented x3 HEENT: Mucous membr. 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 Status post amputation. -blood cultures positive on 09/22 stap aureus, repeat blood cultures 09/26: NG x24hrs -h/o vanc nephropathy, status post IV levaquin and zyvox, blood culture (09/22) grew MSSA transitioned to Ancef on 09/29, per guidelines, would need minimum 14days since negative culture. Antibiotics not changed to IV cefepime and doxycycline. Antibiotics now scale down to IV doxycycline. May have 4 more days to complete antibiotic -s/p amputation by Dr. Blackman on 10/06 -Lantus insulin and insulin sliding scale for glucose management -LIZETT on CKDII, nephrology is following. Acute renal failure almost resolved. IV fluid discontinued. -new onset Afib, cardiology consulted, converted back to sinus rhythm 78 AM, continued metoprolol, back into afib 09/28 AM and sinus rhythm on 09/28 PM -patient reports "almost bleeding to " from GI bleed last year after initiation of eliquis and does not want anticoagulation again -not a candidate for anticoagulation, cardiology to set up for watchman's procedure as outpatient -status post 2 units PRBC transfusion. Posttransfusion hemoglobin is up to 9. Hemoglobin is stable. -PICC placed last week -CT cervical spine reports mild to moderate C2 C3 subluxation. Pain management with IV morphine and lidocaine patch. -MRI cervical spine confirms C2 C3 subluxation and spinal canal stenosis with cord flattening up to 6 mm. -neurosurgery Dr. Christian at [facility] contacted who accepted patient for transfer. I also spoke to hospitalist Dr. Syed who accepted patient for transfer to telemetry bed. -awaiting bed availability. Transfer to [facility] also initiated. Also awaiting for bed availability for transfer. -patient refused rigid cervical collar. Physician Review Additional Text: Problem List -MRI consistent with osteomyelitis -blood cultures positive on 09/22 stap aureus, repeat blood cultures 09/26: NG x24hrs -h/o vanc nephropathy, was on IV levaquin and zyvox, blood culture (09/22) grew MSSA transitioned to Ancef on 09/29, per guidelines, would need minimum 14days since negative culture -s/p amputation by Dr. 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, nephrology following, improved with IVF -new onset Afib, cardiology consulted, converted back to sinus rhythm 09/25 AM, continued metoprolol, back into afib 09/28 AM and sinus rhythm on 09/28 PM -patient reports "almost bleeding to " from GI bleed last year after initiation of eliquis and does not want anticoagulation again -not a candidate for anticoagulation, cardiology to set up for watchman's procedure as outpatient -Hgb down on 09/28, s/p 1uPRBC, 7.8 -> 8.0, back to 7.8 this morning, will give 1uPRBC given afib/surgery -old blood on surgical dressing, no active bleeding, no bright red blood or maroon/dark black stool -retic count low, anemia of chronic disease, with low retic count likely from bone marrow suppression in setting of osteomyelitis/bacteremia -PICC placed last week Diet: ADA Code: full Dispo: improving, working on [facility] swing bed for patient - IV antibiotics, wound vac for foot s/p 1uPRBC on 09/28, and will receive a 2nd u PRBC today
[2020-10-06] MEDS: MELATONIN 5 MG TABLET PO PRN (20:29)
[2020-10-06] MEDS: ATORVASTATIN 20 MG TAB PO SCH (20:29)
[2020-10-06] MEDS: GLUCERNA SHAKE 237 ML CAN PO SCH (20:30)
[2020-10-06] MEDS: INSULIN GLARGINE 100 UNITS/ML SQ SCH (20:31)
[2020-10-07] MEDS ORDERED: ALTEPLASE 2 MG/VIAL IV ONE (02:19)
[2020-10-07] MEDS ORDERED: WATER FOR INJ,STERILE 10 ML ONE (03:23)
[2020-10-07] MEDS: LEVOTHYROXINE SOD 0.025 MG TAB PO SCH (05:26)
[2020-10-07] MEDS: PANTOPRAZOLE 40MG TABLET PO SCH (05:26)
[2020-10-07] MEDS: METOPROLOL XL 50 MG TAB PO SCH (05:26)
[2020-10-07 06:08] LABS: Absolute Lymphocytes (CBC) 1.2 K/uL (0.7-4.9); Basophils % 0.5 % (0-1.3); Hematocrit 25.7 % (39.6-49.0); Lymphocytes % 17.8 % (15.3-44.8); MPV 10.1 fL (7.6-11.3); RBC Red Blood Cell Count 2.78 M/uL (4.33-5.43)
[2020-10-07 06:28] LABS: Potassium 4.2 mmol/L (3.5-5.1)
[2020-10-07] MEDS: INSULIN -REGULAR HUMAN 50 UNIT/0.5 ML ML SQ SCH ×3 (07:30→16:27)
[2020-10-07 09:31] VITALS: O2SAT 92
[2020-10-07] MEDS: CALCITROL 0.25 MCG CAP PO SCH (09:38)
[2020-10-07] MEDS: GABAPENTIN 400 MG CAP PO SCH (09:38)
[2020-10-07] MEDS: DOXYCYCLINE 100 MG in NA CHLORIDE 0.9% 100 ML IVPB SCH (09:38)
[2020-10-07] MEDS: ASPIRIN EC 81 MG TAB PO SCH (09:39)
[2020-10-07] MEDS: AMLODIPINE 10 MG TAB PO SCH (09:39)
[2020-10-07] MEDS: VITAMIN D 5,000 UNIT CAP PO SCH (09:39)
[2020-10-07] MEDS: ISOSORBIDE MONO SR 30 MG TAB PO SCH (09:39)
[2020-10-07] MEDS: ASCORBIC ACID 500 MG TABLET PO SCH (09:39)
[2020-10-07] MEDS: LIDOCAINE 4% PATCH TOP SCH (09:39)
[2020-10-07] MEDS: ZINC SULFATE 220 MG CAP PO SCH (09:40)
[2020-10-07] MEDS: GLUCERNA SHAKE 237 ML CAN PO SCH (09:40)
--- NOTE | 2020-10-07 10:46 | P.PN ---
Subjective Date of Service: 10/07/20 Primary Care Provider: Dr. Hayes in [place] Chief Complaint: cellulitis, possible osteomyelitis Patient seen examined at bedside, frustrated due [facility] is taking for transfer. Thrombocytopenia, platelet count continues to drop. Continue to monitor. WBC w ithin normal range, patient remains afebrile. Wound VAC in place, apparently tissue clean dry intact were no clinical signs infection. Continue to change Q Tuesday. Review of Systems 10-point ROS is otherwise unremarkable Physical Examination - Vital Signs Temperature: 98.6 F Blood Pressure: 153/72 Pulse: 80 Respirations: 22 Pulse Ox (%): 98 - Studies Laboratory Last Values WBC 13.10 K/uL (4.3-10.9) H 09/22/20 12:45 RBC 3.01 M/uL (4.33-5.43) L 09/22/20 12:45 Hgb 9.5 g/dL (13.6-17.9) L 09/22/20 12:45 Hct 28.8 % (39.6-49.0) L 09/22/20 12:45 MCV 95.9 fL (80-100) 09/22/20 12:45 MCH 31.4 pg (27.0-35.0) 09/22/20 12:45 MCHC 32.8 g/dL (32.0-36.0) 09/22/20 12:45 RDW 12.5 % (12.1-15.2) 09/22/20 12:45 Plt Count 161 K/uL (152-406) 09/22/20 12:45 MPV 11.2 fL (7.6-11.3) 09/22/20 12:45 Neutrophils % 92.5 % (41.7-73.7) H 09/22/20 12:45 Lymphocytes % 3.5 % (15.3-44.8) L 09/22/20 12:45 Monocytes % 3.6 % (3.3-12.3) 09/22/20 12:45 Eosinophils % 0.1 % (0-4.4) 09/22/20 12:45 Basophils % 0.3 % (0-1.3) 09/22/20 12:45 Absolute Neutrophils 12.1 K/uL (1.8-8.0) H 09/22/20 12:45 Absolute Lymphocytes 0.5 K/uL (0.7-4.9) L 09/22/20 12:45 Absolute Monocytes 0.5 K/uL (0.1-1.3) 09/22/20 12:45 Absolute Eosinophils 0.0 K/uL (0-0.5) 09/22/20 12:45 Absolute Basophils 0.0 K/uL (0-0.5) 09/22/20 12:45 Platelet Estimate Adeq 09/22/20 12:45 Poikilocytosis 1+ 09/22/20 12:45 Morphology Comment Noted (NOT SEEN) 09/22/20 12:45 ESR Westergren > 140 mm/HR (0-20) H 09/22/20 12:45 PT 15.8 SECONDS (9.5-12.5) H 09/22/20 12:45 INR 1.37 09/22/20 12:45 APTT 48.0 SECONDS (24.3-36.9) H 09/22/20 12:45 Sodium 140 mmol/L (136-145) 09/22/20 12:45 Potassium 5.0 mmol/L (3.5-5.1) 09/22/20 12:45 Chloride 109 mmol/L (98-107) H 09/22/20 12:45 Carbon Dioxide 25 mmol/L (21-32) 09/22/20 12:45 BUN 48 mg/dL (7-18) H 09/22/20 12:45 Creatinine 2.42 mg/dL (0.55-1.3) H 09/22/20 12:45 Estimated GFR 25 mL/min (=/>90) L 09/22/20 12:45 Glucose 181 mg/dL (74-106) H 09/22/20 12:45 Lactic Acid 1.8 mmol/L (0.4-2.0) 09/22/20 12:45 Calcium 8.8 mg/dL (8.5-10.1) 09/22/20 12:45 Total Bilirubin 0.8 mg/dL (0.2-1.0) 09/22/20 12:45 Direct Bilirubin 0.2 mg/dL (0-0.2) 09/22/20 12:45 AST 17 U/L (15-37) 09/22/20 12:45 ALT 21 U/L (12-78) 09/22/20 12:45 Alkaline Phosphatase 88 U/L (45-117) 09/22/20 12:45 Creatine Kinase 89 U/L (39-308) 09/22/20 12:45 CK-MB (CK-2) < 1.0 ng/mL (1.0-3.6) L 09/22/20 12:45 Rapid Troponin I < 0.02 ng/mL (0.0-0.045) 09/22/20 12:45 Serum Total Protein 8.1 g/dL (6.4-8.2) 09/22/20 12:45 Albumin 3.5 g/dL (3.4-5.0) 09/22/20 12:45 Globulin 4.6 g/dL (2.3-3.5) H 09/22/20 12:45 Albumin/Globulin Ratio 0.8 (1.1-1.8) L 09/22/20 12:45 Amylase 29 U/L (25-115) 09/22/20 12:45 Lipase 28 U/L (73-393) L 09/22/20 12:45 Procalcitonin 1.11 ng/mL (<0.050) H 09/22/20 12:45 Urine RBC Cancelled 09/22/20 12:35 Urine WBC Cancelled 09/22/20 12:35 Ur Squamous Epith Cells Cancelled 09/22/20 12:35 Ur Urothelial Cells Cancelled 09/22/20 12:35 Calcium Oxalate Crystal Cancelled 09/22/20 12:35 Uric Acid Crystals Cancelled 09/22/20 12:35 Triple Phos Crystals Cancelled 09/22/20 12:35 Other Crystals Cancelled 09/22/20 12:35 Amorphous Sediment Cancelled 09/22/20 12:35 Glitter Cells Cancelled 09/22/20 12:35 Urine Bacteria Cancelled 09/22/20 12:35 Hyaline Casts Cancelled 09/22/20 12:35 Fine Granular Casts Cancelled 09/22/20 12:35 Coarse Granular Casts Cancelled 09/22/20 12:35 Waxy Casts Cancelled 09/22/20 12:35 RBC Casts Cancelled 09/22/20 12:35 WBC Casts Cancelled 09/22/20 12:35 Urine Mucus Cancelled 09/22/20 12:35 Urine Other Cancelled 09/22/20 12:35 Urine Trichomonas Cancelled 09/22/20 12:35 Urine Yeast Cancelled 09/22/20 12:35 Ur Yeast w Hyphae Cancelled 09/22/20 12:35 Urine Yeast (Budding) Cancelled 09/22/20 12:35 Urine Sperm Cancelled 09/22/20 12:35 Urine Culture Reflexed Cancelled 09/22/20 12:35 Urine Total Volume Cancelled 09/22/20 12:35 Smear Scan Ok (OK) 09/22/20 12:45 Assessment And Plan - Plan Physical Exam: General: Alert, In no apparent distress, Oriented x3 HEENT: Atraumatic, Normocephalic Neck: Supple, 2+ carotid pulse no bruit Respiratory: Clear to auscultation bilaterally, Normal air movement Cardiovascular: No edema, Normal pulses, Regular rate/rhythm Gastrointestinal: Normal bowel sounds, Soft and benign Musculoskeletal: Other (Right Charcot foot changes. Right hallux amputation. ) Integumentary: Diabetic ulcer s/p amputation on 09/26 of 1st-3rd toe Laboratory Data (last 24 hrs) Conclusions/Impression: Antibiotics: Doxycline start: 09/30 stop: -- cefepime start: 09/30 stop: 10/06 cefazolin start: 09/29 stop: 09/30 zyvox start: 09/22 stop: 09/29 Levaquin start: 09/22 stop: 09/29 Assessment: -left 1st through 3rd toe diabetic ulcerations with possible osteomyelitis -neck pain -history of prostate cancer -diabetes -LIZETT on CKD stage 3 -anemia -history of vancomycin neuropathy -thrombocytopenia Plan: -patient improving in condition, patient remains afebrile. Vital signs within normal limits. Cefepime has been discontinued. If patient remains stable condition doxycycline can be discontinued in 3-4 days. -x-ray taken of left lower extremity showed concern for possible osteomyelitis of left 1st through 3rd toe. MRI confirmed osteomyelitis. Arterial Doppler showed [id number] bilateral for for arterial disease. Blood cultures taken on 09/22: Grew Staph aureus methicillin-susceptible. Repeat blood cultures taken on no growth to date. Patient will need antibiotics until 10/10. Source of bacteremia: Likely diabetic foot ulcer. -status post amputation of 1st through 3rd the left toe. Dr. Blackman following, wound care per surgery team. Wound VAC placed. Change Q Tuesday. -patient has left hammertoe deformity and bilateral neuropathy, both contributing to decrease wound healing. -neck pain: CT and MRI performed, showed diffuse cervical pathology -diabetes: Hemoglobin A1c 6.5 -anemia: Continue to monitor H&H. -renal insufficiency: Continue to monitor creatinine and GFR. Avoid nephrotoxic agents. Renally dose all medications. -patient started on vitamin-C and zinc to promote wound healing. -albumin within normal range, no concern for protein caloric malnutrition that would hinder wound healing. -medical management per primary team -continue monitor CBC and BMP -continue to monitor for signs infection Plan of care discussed with Dr. Maciel. Thank you for consultation.
--- NOTE | 2020-10-07 12:30 | P.PN ---
Subjective Date of Service: 10/07/20 Primary Care Provider: Dr. Hayes in [place] Chief Complaint: cellulitis, possible osteomyelitis Subjective: No new changes (tired/frustated of being in hospital, waiting for things to be done. pain is ok, no new numbness/tingling/weakness) Review of Systems 10-point ROS is otherwise unremarkable Physical Examination - Vital Signs Temperature: 97.7 F Blood Pressure: 132/60 Pulse: 68 Respirations: 20 Pulse Ox (%): 95 Assessment & Plan Physician Review Additional Text: Physical Exam General: Alert, In no apparent distress, Oriented x3 HEENT: Mucous membr. moist/pink Respiratory: Clear to auscultation bilaterally, Normal air movement Cardiovascular: No edema, Regular rate/rhythm, Normal S1 S2 Gastrointestinal: Soft and benign, Non-distended, No tenderness Musculoskeletal: No swelling Ext: s/p L toe amputations, wound vac in place Neurological: Normal strength at 5/5 x4 extr, decreased sensation b/l feet Problem list Osteomyelitis of L first toe, L second toe, L third toe with bacteremia s/p amputation (09/27) IDDM2 Paroxysmal Afib, new onset LIZETT on CKDIII Anemia of chronic disease HTN h/o prostate cancer, s/p prostatectomy C2-C3 anterior subluxation -MRI of foot consistent with osteomyelitis. Status post amputation. -blood cultures positive on 09/22 staph aureus, repeat blood cultures 09/26: NGTD -h/o vanc nephropathy, status post IV levaquin and zyvox, blood culture (09/22) grew MSSA transitioned to Ancef on 09/29, per guidelines, would need minimum 14days since negative culture. Antibiotics not changed to IV cefepime and doxycycline. Antibiotics now scaled down to IV doxycycline. May need a few more days to complete antibiotics -Lantus insulin and insulin sliding scale for glucose management -LIZETT on CKDII, nephrology is following. Acute renal failure improved with IVF -new onset Afib, cardiology consulted, converted back to sinus rhythm 7/8 AM, continued metoprolol, back into afib 09/28 AM and sinus rhythm on 09/28 PM -patient reports "almost bleeding to " from GI bleed last year after initiation of eliquis and does not want anticoagulation again -not a candidate for anticoagulation, cardiology to set up for watchman's procedure as outpatient -status post 2 units PRBC transfusion. Posttransfusion hemoglobin stable -PICC placed -CT cervical spine reports mild to moderate C2 C3 subluxation. Pain management with IV morphine and lidocaine patch. -MRI cervical spine confirms C2 C3 subluxation and spinal canal stenosis with cord flattening up to 6 mm. -neurosurgery Dr. Christian at [facility] contacted who accepted patient for transfer. Hospitalist Dr. Syed accepted patient for transfer to telemetry bed. -awaiting bed availability. Transfer to [facility] also initiated. Also awaiting for bed availability for transfer. -patient refused rigid cervical collar. Dispo: transfer to tertiary care center once bed available Time Spent Managing Pts Care (In Minutes): 35
[2020-10-07 16:12] VITALS: BP 143/65; TEMP 97.8
[2020-10-07] MEDS: MORPHINE 4 MG/ML SYR IV PRN ×2 (16:26→19:07)
--- NOTE | 2020-10-07 17:26 | P.DS ---
Admission Date: 09/22/20 Discharge Date: 10/07/20 Primary Care Provider: Dr. Hayes in [place] Disposition: TRANSFER TO [facility] Reason for Admission: osteomyelitis Consultations: Infectious Disease - Dr. Maciel General Surgery - Dr. Blackman Nephrology - Dr. Mcduffie Procedures: CXR (09/22): FINDINGS: Portable technique limits examination quality. The lungs are mildly emphysematous but grossly clear. The heart is mildly enlarged in size. Sternotomy wires present. IMPRESSION: No acute intrathoracic process suspected. Foot X-ray (09/22): Soft tissue irregularity with underlying irregularity of the bone is seen involving first, second and possibly third toe. In the correct clinical setting, this may be related trauma or infection/osteomyelitis. No soft tissue air seen. Doppler U/S (09/22): FINDINGS: Left brachial artery pressure measurement was in range of normal. CHRISS values are 0.88 on the right and 0.82 on the left. The right lower extremity arterial tree shows biphasic waveform pattern from common femoral artery to the dorsalis pedis and posterior tibial arteries. The left common femoral, superficial femoral and popliteal arteries were also biphasic. Left posterior tibial and dorsalis pedis arteries were monophasic. No occlusion or flow restricting lesion identifiable. IMPRESSION: Mild to moderate severity bilateral lower extremity arterial tree. There is no occlusion or focal flow restricting lesion identifiable. CHRISS values measured 0.88 on the right and 0.82 on the left. MRI Foot (09/23): FINDINGS: Patient is flexed at the IP joint of the first toe and the DIP joint of the second and third toes. This may indicate possible disruption of the extensor tendon along the dorsal surface of these toes. The first distal phalanx, second middle and distal phalanges and the third middle and distal phalanges show hypointense T1 and hyperintense T2 signal. Bone loss is suspected at the tuft of the first distal phalanx as well as the second and third distal phalanges. Edematous soft tissues are present around these toes. No abscess or drainable fluid collection. No signal abnormalities in the fourth and fifth toes. Metatarsals show no suspicious signal pattern. IMPRESSION: Osteomyelitis with bone destruction involving the tip of the first distal phalanx and the second and third distal phalanges. Osteomyelitis without bone destruction seen in the second and third middle phalanges. TTE (09/24): mild TR, normal RVSP, LA enlargement, normal LV size/function. no thrombus. CXR (09/25): FINDINGS: Single view of the chest was obtained portable. No prior films are available for comparison. There is a right upper extremity PICC line tip of the catheter within the superior vena cava at the level of the azygos vein region. The cardiomediastinal silhouette demonstrate to be unremarkable. The heart is not enlarged. The thoracic aorta demonstrate minimal intimal calcification. 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 No significant pleural effusions and/or focal areas of consolidation. The rest of the soft tiss ue and bony structures demonstrate to be unremarkable. IMPRESSION: Right upper extremity PICC line in good position. Status post cardiothoracic surgery. Amputation at transmet level of the left first, second and third toes (09/26): by Dr. Blackman CXR (09/27): FINDINGS: No focal mass or consolidation. Lung markings are increased slightly from comparison. Central vasculature is minimally increased. Heart size is upper normal, similar to comparison. No measurable pleural effusion and no pneumothorax. No acute bony abnormality seen. No acute aortic findings suspected. IMPRESSION: No focal mass or consolidation. No significant pulmonary edema. Lung markings and vasculature are fractionally increased and correlation can be made with any minimal failure or volume overload. CT c-spine (09/30): FINDINGS: Mild to moderate anterior subluxation C2 on C3. Alignment of remainder of the cervical spine is satisfactory. No fracture seen. Disc bulge and facet hypertrophy at C2-3. Moderate narrowing of the neural foramina bilaterally. Osteophytes and disc bulge C3-4 resulting in mild to moderate narrowing of the left neural foramina. Disc bulge and osteophytes C4-5 results in mild to moderate narrowing the neural foramina bilaterally. Disc bulge and osteophytes C5-6 result in moderate to marked narrowing of the right and mild to moderate narrowing left neural foramina Mild spondylosis C6-7 and C7-T1 IMPRESSION: Mild to moderate anterior subluxation C2 on C3. This in combination with spondylosis result in moderate bilateral foraminal stenosis Spondylosis C5-6 resulting in moderate to marked right foraminal stenosis If the patient continues have symptoms to suggest spinal cord/spinal canal/ligamentous pathology then MRI would be recommended. MRI c-spine (7/15): FINDINGS: Cervical bodies are normal in height. Scattered fatty marrow degenerative changes are present with no aggressive marrow edema or marrow replacing process identifiable. Advanced degenerative changes are present at the dens anterior arch C1 level. There is thickening of the transverse ligament posterior to the dens. No suspicious marrow edema or marrow replacing process. No paraspinal mass. Cerebellar tonsils and mid-line skull base show no suspicious finding. C2-3 level: Anterior subluxation of C2 on C3 is noted matching the earlier CT study. There are prominent degenerative changes involving endplates at this level. Disc bulge and endplate spurring changes are created by the subluxation. There is significant posterior ligamentous thickening. These changes combine for attenuation of the anterior and posterior subarachnoid spaces. There is flattening of the cord in significant central spinal stenosis to 6 mm. Bilateral foraminal stenosis is present. No cord signal abnormality seen. C3-4 level: There is complete loss in disc height. There is bridging ossification along the uncovertebral joints and this is an essentially fused level. Bone hypertrophy and mineralization of the posterior longitudinal ligament partially attenuate the anterior subarachnoid space. Central canal stenosis to 8 mm is noted. Uncovertebral joint hypertrophy and bridging ossification result in bilateral foraminal stenosis. Posterior ligament thickening is seen. C4-5 level: Disc space is effaced. There is bridging ossification at the uncovertebral joint hypertrophy level fusing this level. Posterior endplate hypertrophy and posterior ligamentous thickening are present. Central spinal stenosis is present at 8 mm. Uncovertebral joint fusion changes cause bilateral bony foraminal encroachment. C5-6 level: Disc is desiccated. Prominent disc bulge and endplate spurring changes are present. Posterior ligament thickening changes present. There is contact and flattening the cord. Spinal stenosis is present to 7-8 mm. No cord signal abnormality seen. Uncovertebral joint hypertrophy causes significant b ilateral bony foraminal stenosis. C6-7 level: Significant loss in disc height noted with desiccation. Circumferential disc bulge and endplate spurring changes are present. Canal is 10 mm. No significant degree foraminal stenosis seen. C7-T1 level: Disc is desiccated. No herniation or significant disc bulge. No canal or foramen stenosis. No expansile change of the cord. No signal abnormality. IMPRESSION: C2 anterior subluxation secondary to facet joint degenerative change. This matches the CT study. There is significant spinal stenosis and cord flattening. Canal is 6 mm. Significant bilateral foraminal stenosis changes are present as well. C3-C5 fusion changes are present from bony hypertrophy and bridging ossification. Spinal stenosis changes are present and 8 mm with significant bony foraminal stenosis. C5-6 spondylosis changes with spinal stenosis to 7-8 mm. Significant foraminal stenosis also present. Spinal cord is flattened at multiple locations but no cord signal abnormality is seen. 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 He noticed he had bloody socks about 1 week ago and states his shoes do not fit him well. He reports that he feels fatigued and has "been getting weaker" for the past 2 weeks. He c/o chills. Denies any fevers, nausea, vomiting. He reports that he had a few episodes of "white outs" for the past 3 months and is currently following up with bulb inspector (Dr. Lindo in [place]) and has had heart monitor in place x 3 weeks. States this has never occurred before in the past. He denies any chest pain, palpitations. Hospital Course: MRI was obtained, consistent with osteomyelitis. General Surgery initially planned on debridement, however, patient wanted amputation. TMA was performed on 09/26. ID was consulted. Blood cultures positive for MSSA on 09/22, and negative on 09/26. He has h/o vanc nephropathy, and was initially treated with IV levaquin and zyvox (09/22-09/29). Transitioned to Ancef on 09/29 - 09/30, became febrile and was broadened to Cefepime + Doxy on 09/30. Cefepime discontinued 10/06, and ID recommended ok to discontinue doxycycline today (10/07) on transfer to tertiary care center. 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 new onset Afib - cardiology consulted, converted back to sinus rhythm on 09/25 AM, and back in and out of afib again on 09/28. Echocardiogram revealed a dilated LA. He was taken off levaquin as well which may have contributed. patient reports "almost bleeding to " from GI bleed last year after initiation of eliquis and does not want anticoagulation again. Patient is not a candidate for anticoagulation, cardiology recommended for patient to be set up for a watchman's procedure as an outpatient in the near future. Patient did have a mild drop in his hemoglobin without any overt signs of bleeding. He did receive 2 units PRBCs. Posttransfusion hemoglobin has been stable. [place] through his hospitalization, patient began to report severe neck pain in addition to his bilateral foot numbness/tingling/neuropathy. A CT and subsequent MRI was done which revealed mildmoderate C2-C3 subluxation with spinal canal stenosis, with cord flattening up to 6 mm. This was discussed with our neurologist, and subsequently with neurosurgery at [facility]. Patient was accepted for transfer. Patient refused rigid cervical collar. Vital Signs/Physical Exam: Temp Pulse Resp BP Pulse Ox 97.8 F 69 18 143/65 H 96 10/07/20 16:00 10/07/20 16:00 10/07/20 16:26 10/07/20 16:00 10/07/20 16:26 Laboratory Data at Discharge: WBC 6.90 K/uL (4.3-10.9) 10/07/20 05:15 Hgb 8.8 g/dL (13.6-17.9) L 10/07/20 05:15 Hct 25.7 % (39.6-49.0) L 10/07/20 05:15 Plt Count 129 K/uL (152-406) L 10/07/20 05:15 PT 15.8 SECONDS (9.5-12.5) H 09/22/20 12:45 INR 1.37 09/22/20 12:45 APTT 48.0 SECONDS (24.3-36.9) H 09/22/20 12:45 Sodium 143 mmol/L (136-145) 10/07/20 05:15 Potassium 4.2 mmol/L (3.5-5.1) 10/07/20 05:15 BUN 31 mg/dL (7-18) H 10/07/20 05:15 Creatinine 1.47 mg/dL (0.55-1.3) H 10/07/20 05:15 Glucose 108 mg/dL (74-106) H 10/07/20 05:15 Uric Acid 6.6 mg/dL (3.5-7.2) 09/30/20 03:54 Phosphorus 3.1 mg/dL (2.5-4.9) 09/28/20 05:38 Magnesium 2.0 mg/dL (1.8-2.4) 10/04/20 05:00 Total Bilirubin 0.3 mg/dL (0.2-1.0) 09/30/20 03:54 AST 23 U/L (15-37) 09/30/20 03:54 ALT 30 U/L (12-78) 09/30/20 03:54 Alkaline Phosphatase 90 U/L (45-117) 09/30/20 03:54 Triglycerides 73 mg/dL (<150) 09/23/20 03:41 Cholesterol 69 mg/dL (<200) 09/23/20 03:41 HDL Cholesterol 45 mg/dL (40-60) 09/23/20 03:41 Cholesterol/HDL Ratio 1.53 09/23/20 03:41 Amylase 29 U/L (25-115) 09/22/20 12:45 Lipase 28 U/L (73-393) L 09/22/20 12:45 Home Medications: Metoprolol Succinate [Toprol Xl] 50 mg PO BEDTIME 05/18/18 Simvastatin 40 mg PO BEDTIME 05/18/18 Aspirin 1 tab PO DAILY 09/22/20 Furosemide 1 tab PO DAILY 09/22/20 Gabapentin 1 cap PO TID 09/22/20 Insulin -Regular Human [Novolin -R*] 4 unit SQ BID 09/22/20 Insulin Glargine,Hum.rec.anlog [Lantus] 12 unit SQ BEDTIME 09/22/20 Levothyroxine Sodium [Levothyroxine] 1 tab PO [id number] 09/22/20 Linaclotide [Linzess] 1 tab PO DAILY 09/22/20 Lubiprostone [Amitiza] 1 cap PO DAILY 09/22/20 Pantoprazole [Protonix Tab*] 1 tab PO DAILY 09/22/20 Tramadol HCl [Ultram] 1 tab PO Q6H PRN 09/22/20 Followup: Steven Hayes MD [Primary Care Provider] - Time spent managing pt's care (in minutes): 45
== END 2020-10-07 19:19 | disposition short-term general hospital (02) | DRG 617 ==
LOC: ER 11:23 → ERHOLD 15:49 → 2ND 17:00
PROVIDERS: ADMIT Internal Medicine; ATTEND Internal Medicine
PROC: 0Y6N0Z9 Detachment at Left Foot, Partial 1st Ray, Open Approach (ICD-10-PCS; 2020-09-26)
PROC: 0Y6N0ZB Detachment at Left Foot, Partial 2nd Ray, Open Approach (ICD-10-PCS; 2020-09-26)
PROC: 0Y6N0ZC Detachment at Left Foot, Partial 3rd Ray, Open Approach (ICD-10-PCS; 2020-09-26)
PROC: 30233N1 Transfusion of Nonautologous Red Blood Cells into Peripheral Vein, Percutaneous Approach (ICD-10-PCS; principal; 2020-09-28)
DX: E11.69 Type 2 diabetes mellitus with other specified complication (principal); M86.8X7 Other osteomyelitis, ankle and foot; E11.52 Type 2 diabetes mellitus with diabetic peripheral angiopathy with gangrene; I96 Gangrene, not elsewhere classified; I13.0 Hypertensive heart and chronic kidney disease with heart failure and stage 1 through stage 4 chronic kidney disease, or unspecified chronic kidney disease; I50.32 Chronic diastolic (congestive) heart failure; B95.61 Methicillin susceptible Staphylococcus aureus infection as the cause of diseases classified elsewhere; I48.0 Paroxysmal atrial fibrillation; E11.22 Type 2 diabetes mellitus with diabetic chronic kidney disease; N18.30 Chronic kidney disease, stage 3 unspecified; N17.9 Acute kidney failure, unspecified; M48.02 Spinal stenosis, cervical region; M43.5X2 Other recurrent vertebral dislocation, cervical region; D63.8 Anemia in other chronic diseases classified elsewhere; D69.6 Thrombocytopenia, unspecified; E83.51 Hypocalcemia; M20.42 Other hammer toe(s) (acquired), left foot; E11.40 Type 2 diabetes mellitus with diabetic neuropathy, unspecified; E87.5 Hyperkalemia; E11.621 Type 2 diabetes mellitus with foot ulcer; L97.529 Non-pressure chronic ulcer of other part of left foot with unspecified severity; Z85.46 Personal history of malignant neoplasm of prostate; Z79.4 Long term (current) use of insulin; Z85.89 Personal history of malignant neoplasm of other organs and systems; Z20.822 Contact with and (suspected) exposure to COVID-19
CPT/HCPCS: 36415; 36430; 36569; 71045; 72125; 72141; 80048; 80053; 80061; 80069; 80076; 81003; 81015; 82150; 82550; 82553; 82947; 83036; 83605; 83690; 83735; 84100; 84145; 84439; 84443; 84484; 84550; 85014; 85018; 85025; 85027; 85044; 85610; 85652; 85730; 86140; 86850; 86870; 86900; 86901; 87040; 87077; 87086; 87088; 87186; 87205; 88305; 88311; 90471; 90714; 93005; 93306; 93923; 94010; 96365; 96367; 96375; 97116; 97161; 99285; J0690; J0692; J1644; J1815; J1940; J2020; J2270; J2405; J2543; J2704; J2997; J3010; J7030; J7050; P9016; Q5106; U0003

== ENCOUNTER 2020-11-22 17:04 | Inpatient (IN) | payer OTHER ==
--- OUTSIDE RECORDS SUMMARY | 2020-11-22 17:08 | XMS REPORT | Continuity of Care Document ---
:1930 Author Organization [facility] t Address [address] [place] [address] Care Team Providers Name Role Phone [phone] Primary Care Physician Unavailable Freddy CRAVEN Attending Clinician Tereso CRAVEN Attending Clinician Tom CRAVEN Attending Clinician Nikole CRAVEN, P. Attending Clinician Mickie Blackwood MD Attending Clinician TERESO Attending Clinician Unavailable Guicho CRAVEN, K.H. 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 7-20 [facility] - of of 00:00: Medical cervical cervical 00 Center region region Type 2 Type 2 Disease Active Univers diabetes diabetes 3-18 ity of mellitus mellitus 00:00: [place] with other with other 00 Me dical specified specified Bran ch complicati complicati on, with on, with long-term long-term current current use of use of insulin insulin Charcot Charcot Disease Active Univers foot due foot due 3-18 ity of to to 00:00: [place] diabetes diabetes 00 Medica l mellitus mellitus Branch Chronic Chronic Disease Active 2019-[address] [facility] neck pain neck pain 2 Luke s - 00:00: Medical 00 Center Hypothyroi Hypothyroi Disease Active [facility] dism due dism due 11-13 [facility] - to defect to defect 00:00: Medi luann in thyroid in thyroid 00 Ce nter hormone hormone synthesis synthesis CAD CAD Disease Active [facility] (coronary (coronary 09-08 Luke s - artery artery 00:00: Medical disease), disease), 00 Cent er bois forte bois forte coronary coronary artery artery 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 Patient reports significa nt neuropath y - managed with mireille qiu Essential Essential Disease Active Overview: [facility] hypertensi hypertensi 12-14 Last Constance kes - [facility] t & Plan: Center Formattin g of this note might be different from the original. Hypertens ion: Will continue norvasc 10 mg, oral, daily; Losartan 100 mg tablet, 1 tablet oral daily, metoprolo l 50 mg tablet, once, daily. Ulcer of Ulcer of Disease Active Unive rs right foot right foot 12-14 it y of 00:00: [place] 00 Medical Branch Allergies, Adverse Reactions, Alerts Allergy Allergy Status Severity Reaction(s) Onset Inactive Treating Comm ents Source Name Type Date Date Clinician Vancomyc Propensi Active [facility] in ty to 7- [facility] - adverse 00:00: Medical reaction 00 [facility] Vancomyc Propensi Active Other - See Kidney U nivers in ty to comments 6 failure ity of adverse 00:00: [place] reaction 00 Medical s Branch Macrolid Propensi Active Unknown - Uni vers e ty to See comments 12-14 ity of Antibiot adverse 00:00: [place] ics reaction 00 Medical s Branch Social History Social Habit Start Date Stop Date Quantity Comments Source Sex Assigned At [facility] Tobacco use and 2020-10-12 2020-10-[address] [facility] - exposure 00:00:00 00:00:00 Medical Center Alcohol intake 2020-08-28 2020-08-28 Current University of 00:00:00 00:00:00 non-drinker of [facility] alcohol Branch (finding) Smoking Status Start Date Stop Date Source Never smoker [facility] Medications Ordered Filled Start Stop Current Ordering Indication Dosage Frequency Signature Comments Components Source Medication Medication Date Date Medication? Clinician (SIG) Name Name amLODIPine 2021- Yes 10mg QD Take [address] [facility] [address] (NORVASC) 10-16- tablet (10 [place] - 10 MG 00:00: 23:59 mg total) Medica l tablet 00 :00 by mouth Center daily. calcitrioL 2021- Yes .25ug QD Take [address] [address] (ROCALTROL) 10-16 capsule Luke s - 0.25 MCG 00:00: 23:59 (0.25 mcg Med ical capsule 00 :00 total) by Center mouth daily. metoprolol 2021- Yes 50mg QD Take [address] [address] succinate 10-16 tablet (50 [place] - (TOPROL-XL) 00:00: 23:59 mg total) Medical 50 MG 24 hr 00 :00 by mouth Cent er tablet daily. aspirin 81 2020- No 81mg QD Take [address] MG EC 10-16- tablet (81 [facility] - tablet 00:00: 23:59 mg total) Medic al 00 :00 by mouth Center daily for 30 days. gabapentin Yes 800mg Q.5D Take [address] (NEURONTIN) 7-28 mg by [facility] - 800 MG 17:17: mouth 2 Medical tablet 37 (two) Center times daily. levothyroxi Yes 25ug Take [address] ne 7-28 mcg by Lukes - (SYNTHROID, 17:17: mouth Medic al LEVOTHROID) 37 Every Center 25 MCG morning on tablet an empty stomach. traMADoL 2020- No 50mg Q.5D Take [address] (ULTRAM) 50 7-28 07-28 by mouth 2 L ukes - mg tablet 10:40: 00:00 (two) Medica l 04 :00 times Center daily. metoprolol 2020- No 50mg Take [address] [address] tartrate 10-15 by mouth [facility]ukes - (LOPRESSOR) 10:40: 00:00 daily with Medical 50 MG 04 :00 dinner. [place] tablet simvastatin 2020- No 40mg QD Take [address] (ZOCOR) 40 10-15 by mouth Luke s - MG tablet 10:40: 00:00 nightly. Med ical 04 :00 [place] furosemide 2020- No 40mg QD Take [address] [facility] (LASIX) 40 10-15 by mouth Luke s - MG tablet 10:40: 00:00 daily. Medic al 04 :00 [place] lubiproston 2020- No 24ug QD Take [address] e (AMITIZA) 10-15 mcg by [facility]ukes - 24 MCG 10:40: 00:00 mouth Medical capsule 04 :00 daily. [place] pantoprazol 2020- No 40mg QD Take [address] e 10-15 by mouth [facility]ukes - (PROTONIX) 10:40: 00:00 daily. Medi luann 40 MG 04 :00 [place] tablet aspirin 325 2020- No 325mg QD Take [address] MG tablet 10-15 mg by Lukes - 10:40: 00:00 mouth Medical 04 :00 daily. [place] insulin 2020- No 12U QD Inject [address] glargine 10-15 Units Lukes - (LANTUS) 10:40: 00:00 subcutaneo Me dical 100 unit/mL 04 :00 usly Center injection nightly Use as directed . insulin 2020- No 4U Inject 4 [facility] t regular 10-15 Units [facility]ukes - (HumuLIN 10:40: 00:00 subcutaneo Me dical R,NovoLIN 04 :00 usly 2 Center R) 100 (two) unit/mL times injection daily with breakfast and dinner Use as directed . insulin Yes 12U QD Inject 12 [facility] t glargine 7-28 Units [facility]ukes - (LANTUS) 00:00: subcutaneo Med ical 100 unit/mL 00 usly Center injection nightly Use as directed. zinc Yes 1g Q.5D Apply [address] oxide-florencio 10-15 topically [place] - latum 00:00: 2 (two) Medical (CRITIC-AID 00 times Center ) 20-51 % daily. Pste topical paste atorvastati 2021- Yes 20mg QD Take [address] n (LIPITOR) 10-15 tablet (20 L ukes - 20 MG 00:00: 23:59 mg total) Medica l tablet 00 :00 by mouth Center nightly. nystatin 2021- Yes Q.5D Apply [facility] (MYCOSTATIN 10-15 topically Constance kes - ) 100,000 00:00: 23:59 2 (two) Medi luann unit/gram 00 :00 times Center powder daily. insulin 2021- Yes 0U Inject 0-[address] lispro 10-15- Units [facility]ukes - (HumaLOG) 00:00: 23:59 subcutaneo M edical 100 unit/mL 00 :00 usly 3 Center injection (three) times daily before meals. SIMVASTATIN Yes [id number] TAKE ONE Univers 40 mg 7-20 (1) ity of tablet 00:00: TABLET(S) [place] 00 BY MOUTH Medical ONCE A DAY Branch IN THE EVENING. aspirin 325 Yes 325mg Take 325 U nivers mg tablet 6-10 mg by ity of 14:08: mouth [place] 47 daily. Medical Branch TRAMADOL 50 Yes [id number] TAKE ONE Univers mg tablet 5-17 (1) ity of 00:00: TABLET(S) [place] 00 BY MOUTH Medical EVERY SIX Branch HOURS NEEDED FOR PAIN. METOPROLOL Yes [id number] TAKE ONE Univers SUCCINATE 5-12 (1) ity of XL 50 mg 24 00:00: TABLET(S) [place] hr tablet 00 BY MOUTH Medica l ONCE A Branch DAY. GABAPENTIN Yes [id number] TAKE ONE Univers 400 mg 5-05 (1) ity of capsule 00:00: CAPSULE(S) [place] 00 BY MOUTH Medical THREE Branch TIMES A DAY. AMLODIPINE Yes TAKE ONE Un alejandro 10 mg 4-05 (1) ity of tablet 00:00: TABLET(S) BY MOUTH Medical ONCE A Branch DAY. cephALEXin Yes [id number] 500mg Take 1 Univers (KEFLEX) 3-18 capsule by ity o f 500 mg 00:00: mouth 4 [place] capsule 00 (four) Medical times Branch daily. furosemide 2019-03 40mg Take 40 mg Univers 40 mg 2-16 12-17 by mouth. ity of tablet 00:00: 05:59 [place] 00 :00 Medical Branch INCONTROL 2019-03 Yes [id number] USE EVERY Univers PEN NEEDLE 0-23 EVENING ity of 31 gauge x 00:00: WITH [place] 08/03" Ndle 00 LANTUS Medical PEN. Branch Insulin Yes [id number] USE Univ ers Syringe-Nee 9-16 DIRECTED ity of dle U-100 00:00: TWICE A [place] (SURE DAY WITH Medical COMFORT REGULAR Branch INSULIN) 1 INSULIN mL 31 gauge x 08/03 Syrg PANTOPRAZOL Yes [id number] TAKE ONE Univers E 40 mg EC 8-18 (1) ity of tablet 00:00: TABLET(S) BY MOUTH Medical ONCE A Branch DAY. linaCLOtide Yes [id number] 1{capsu Take 1 Univers (LINZESS) 7-09 le} capsule by ity of 290 mcg Cap 00:00: mouth 00 daily. Medical Branch AMITIZA 24 Yes [id number] TAKE ONE Univers mcg capsule 6-18 (1) ity of 00:00: CAPSULE(S) BY MOUTH Medical TWICE A Branch DAY WITH MEALS. BASAGLAR Yes INJECT 12 Univ ers KWIKPEN 3-30 UNITS ity of U-100 00:00: UNDER THE [place] INSULIN 100 00 SKIN EVERY Me dical unit/mL (3 EVENING. Branc h mL) injection blood sugar Yes [id number] Check U nivers diagnostic 6-12 glucose ity of (ONETOUCH 00:00: QID, and [place] ULTRA BLUE 00 prn Medical TEST STRIP) Branch strip insulin Yes [id number] 4U inject 4 Un alejandro regular 5-01 Units ity of human 100 00:00: under the [place] as unit/mL 00 skin 2 Medical injection (two) Branch times daily before breakfast and dinner. Blood-Gluco Yes [id number] Use as Univers se Meter 07-19 directed ity of (ONETOUCH 00:00: [place] monitor [place] ULTRA2) Kit 00 blood Medical glucose Branch fasting in AM and once in evening. Also as needed for symptoms for ICD E11.9 Lancets Yes [id number] Use as Univ ers (ONETOUCH 07-19 directed ity of ULTRASOFT 00:00: [place] LANCETS) 00 blood Medical Misc glucose Branch fasting in AM and once in evening. Also as needed for symptoms for ICD E11.9 lancets Yes [id number] Use as Univ ers (ONETOUCH 07-19 directed ity of SURESOFT 00:00: to monitor [place] as LANCING 00 blood Medical DEV) 28 glucose Branch gauge Misc fasting in AM and once in evening. Also as needed for symptoms for ICD E11.9 Vital Signs Vital Name Observation Time Observation Value Comments Source Systolic blood 2020-10-15 13:00:00 150 mm[Hg] [facility] Diastolic blood 2020-10-15 13:00:00 70 mm[Hg] [facility] Heart rate 2020-10-15 13:00:00 76 /min [facility] Body temperature 2020-10-15 13:00:00 36.89 Halima [facility] Respiratory rate 2020-10-15 13:00:00 20 /min [facility] Oxygen saturation in 2020-10-15 13:00:00 96 /min [facility] - Arterial blood by Medical Ce nter Pulse oximetry Body height 2020-10-08 11:42:[address] [facility] Body weight 2020-10-08 11:42:[address] [facility] BMI 2020-10-08 11:42:00 24.91 kg/m2 [facility] Procedures Procedure Date / Time Performed Performing Clinician Sourc e POCT-GLUCOSE METER 2020-10-15 11:29:00 Nikole, Jacki P. [facility] POCT-GLUCOSE METER 2020-10-15 08:22:00 Jacki Agustin [facility] POCT-GLUCOSE METER 2020-10-14 20:44:00 Modestocameron [facility] POCT-GLUCOSE METER 2020-10-14 18:16:00 Tom [facility] POCT-GLUCOSE METER 2020-10-14 12:14:00 Tom [facility] POCT-GLUCOSE METER 2020-10-14 08:01:00 Tom [facility] POCT-GLUCOSE METER 2020-10-13 22:24:00 Modestocameron [facility] POCT-GLUCOSE METER 2020-10-13 18:00:00 Tom [facility] POCT-GLUCOSE METER 2020-10-13 12:07:00 Tom [facility] POCT-GLUCOSE METER 2020-10-13 07:28:00 Tom [facility] POCT-GLUCOSE METER 2020-10-12 21:49:00 Tom [facility] POCT-GLUCOSE METER 2020-10-12 17:01:00 Tom [facility] POCT-GLUCOSE METER 2020-10-12 12:19:00 Tom [facility] POCT-GLUCOSE METER 2020-10-12 07:57:00 Tom [facility] CBC (HEMOGRAM ONLY) 2020-10-12 05:53:00 Tom [facility] COMPREHENSIVE METABOLIC 2020-10-12 05:53:00 Tom [facility] POCT-GLUCOSE METER 2020-10-11 21:26:00 Tom [facility] POCT-GLUCOSE METER 2020-10-11 17:16:00 Tom [facility] POCT-GLUCOSE METER 2020-10-11 11:26:00 Tom [facility] POCT-GLUCOSE METER 2020-10-11 08:45:00 Modestocameron [facility] POCT-GLUCOSE METER 2020-10-10 22:05:00 Modestocameron [facility] POCT-GLUCOSE METER 2020-10-10 18:27:00 Tom [facility] POCT-GLUCOSE METER 2020-10-10 13:17:00 Modestocameron [facility] POCT-GLUCOSE METER 2020-10-10 07:17:00 Modestocameron [facility] COMPREHENSIVE METABOLIC 2020-10-10 05:17:00 Tom [facility] POCT-GLUCOSE METER 2020-10-09 21:42:00 Tom [facility] POCT-GLUCOSE METER 2020-10-09 16:12:00 Modestocameron [facility] POCT-GLUCOSE METER 2020-10-09 07:38:00 Tom [facility] CBC (HEMOGRAM ONLY) 2020-10-09 04:40:00 Tom [facility] COMPREHENSIVE METABOLIC 2020-10-09 04:40:00 Tmo [facility] POCT-GLUCOSE METER 2020-10-08 21:21:00 Tom [facility] POCT-GLUCOSE METER 2020-10-08 17:36:00 Tom [facility] ECG 12-LEAD 2020-10-08 16:36:25 Tom [facility] XR CERVICAL SPINE COMP 2020-10-08 13:32:00 Kerline Angelo [facility] SARS-COV2/RT-PCR ([facility] & 2020-10-08 05:54:00 Dax Mckee [facility] - REF LABS) [facility] C-REACTIVE PROTEIN 2020-10-08 05:54:00 Gi [facility] PROCALCITONIN 2020-10-08 05:54:00 Gi, [facility] TSH/FREE T4 IF INDICATED 2020-10-08 05:54:00 Iveth Blackwood [facility] HEMOGLOBIN A1C 2020-10-08 03:38:[address] [facility] BLOOD CULTURE 2020-10-08 03:37:[address] [facility] BASIC METABOLIC PANEL (7) 2020-10-08 03:37:[address] [facility] HEPATIC FUNCTION PANEL 2020-10-08 03:37:00 Jaison [facility] LIPID PANEL 2020-10-08 03:37:[address] [facility] PROTHROMBIN TIME/INR 2020-10-08 03:37:00 [facility] MAGNESIUM 2020-10-08 03:37:[address] [facility] CBC W/PLT COUNT & AUTO 2020-10-08 03:37:00 Jaison [facility] APTT 2020-10-08 03:37:[address] [facility] COMPREHENSIVE METABOLIC 2020-10-07 22:51:00 [facility] & AUTO 2020-10-07 22:51:00 Jaison [facility] MAGNESIUM 2020-10-07 22:51:[address] [facility] Plan of Care Planned Activity Planned Date Details Comments Source Future Scheduled 2020-11-19 INFLUENZA VACCINE (#1) [facility] 00:00:00 [code = INFLUENZA Medical Ce nter VACCINE (#1)] Future Scheduled 2020-03-[address] [facility] - Test 00:00:00 (12+) [code = Medical Center DEPRESSION SCREENING (12+)] Future Scheduled 2020-03-21 FALLS RISK SCREENING [facility] - Test 00:00:00 [code = FALLS RISK Medical C enter SCREENING] Future Scheduled 2020-03-21 Medicare IPPE (WELCOME [facility] - Test 00:00:00 TO MEDICARE) [code = Medical Center Medicare IPPE (WELCOME TO MEDICARE)] Future Scheduled 1997 PNEUMOCOCCAL 65+ [facility] - Test 00:00:00 (1 of 1 - Medical Center [id number] PCV13) [code = PNEUMOCOCCAL 65+ YRS (1 of 1 - [id number] PCV13)] Future Scheduled 1982 SHINGLES VACCINES ([address] [facility] - Test 00:00:00 of 2) [code = SHINGLES Medic al Center VACCINES (1 of 2)] Future Scheduled 1949-08-11 DTAP/TDAP/TD VACCINES [facility] - Test 00:00:00 (1 - Tdap) [code = Medical C enter DTAP/TDAP/TD VACCINES (1 - Tdap)] Encounters Start End Encounter Admission Attending Care Care Encounter Source Date/Time Date/Time Type Type Clinicians Facility Department ID 2020-11-17 2020-11-17 Telephone [facility] [id number] Univers 00:00:00 00:00:00 [facility] [id number] it y [facility] [id number] Jonathon as Jasiel?Blea [id number] [address] Medical Office Building 2020-10-07 2020-10-15 [facility] Bruce Syed [facility] [id number] 20:32:00 17:17:00 Encounter Micki Santos [facility] P[facility] [place] 2020-10-08 2020-10-08 Travel [facility] [id number] [facility] 00:00:00 00:00:00 [facility] 2020-08-28 2020-08-28 Office Guicho [facility] [id number] 08:45:21 10:08:07 Visit Venanciocortez BetancourtAaron Buhl [id number] Jenna [id number] Satya [id number] nal 059 Building Results Test Description Test Time Test Comments Results Result Comments Source POC-Glucose meter 2020-10-15 11:44:00 Test Item Value Reference Range Interpretation Comme nts POC-Glucose Meter (test code = 184 mg/dL 70-110 H : [facility] [address], [facility] 30: Modeling And Simulation Analyst/Techni roxie ID = [id number] for Alberto Amber Lab Interpretation (test code = Abnormal 66137-8) [facility] [id number] 11:44:00 Test Item Value Reference Range Interpretation Comments POC-GLUCOSE METER 184 mg/dL 70-110 H : TESTED A T [facility] 6720 (BEAKER) (test code = [facility], 1538) 59524: Modeling And Simulation Analyst/Techni roxie ID = [id number] for An derson, Amber POCT-GLUCOSE [id number] 08:34:00 Test Item Value Reference Range Interpretation Comments POC-GLUCOSE METER 136 mg/dL 70-110 H : TESTED A T [facility] 6720 (BEAKER) (test code = [facility], 1538) 44780: Modeling And Simulation Analyst/Techni roxie ID = [id number] for An derson, Amber POCT-GLUCOSE [id number] 20:56:00 Test Item Value Reference Range Interpretation Comments POC-GLUCOSE METER 128 mg/dL 70-110 H : TESTED A T [facility] 6720 (BEAKER) (test code [facility], = 1538) 13069: Modeling And Simulation Analyst/Techni roxie ID = [id number] for SIENNA REJI JAMES POCT-GLUCOSE [id number] 18:29:00 Test Item Value Reference Range Interpretation Comments POC-GLUCOSE METER 144 mg/dL 70-110 H : TESTED A T [facility] 6720 (BEAKER) (test code = [facility], 1538) 61887: Modeling And Simulation Analyst/Techni roxie ID = [id number] for WALTER RTINEZ, [place] POCT-GLUCOSE [id number] 12:30:00 Test Item Value Reference Range Interpretation Comments POC-GLUCOSE METER 134 mg/dL 70-110 H : TESTED A T [facility] 6720 (BEAKER) (test code = [facility], 1538) 45723: Modeling And Simulation Analyst/Techni roxie ID = [id number] for MA RTINEZ, [place] POCT-GLUCOSE [id number] 08:13:00 Test Item Value Reference Range Interpretation Comments POC-GLUCOSE METER 129 mg/dL 70-110 H : TESTED A T [facility] 6720 (BEAKER) (test code = [facility], 153) 58564: Modeling And Simulation Analyst/Techni roxie ID = [id number] for MA RTINEZ, [place] POCT-GLUCOSE [id number] 22:35:00 Test Item Value Reference Range Interpretation Comments POC-GLUCOSE METER 119 mg/dL 70-110 H : TESTED A T [facility] 6720 (BEAKER) (test code = [facility], 1538) 76804: Modeling And Simulation Analyst/Techni roxie ID = [id number] for Daniel Hidalgo POCT-GLUCOSE [id number] 18:11:00 Test Item Value Reference Range Interpretation Comments POC-GLUCOSE METER 119 mg/dL 70-110 H : TESTED A T [facility] 6720 (BEAKER) (test code = [facility], 1538) 66459: Modeling And Simulation Analyst/Techni roxie ID = [id number] for WALTER RTINEZ, [place] POCT-GLUCOSE [id number] 12:20:00 Test Item Value Reference Range Interpretation Comments POC-GLUCOSE METER 155 mg/dL 70-110 H : TESTED A T [facility] 6720 (BEAKER) (test code = [facility], 1538) 64759: Modeling And Simulation Analyst/Techni roxie ID = [id number] for WALTER RTINEZ, [place] POCT-GLUCOSE [id number] 07:40:00 Test Item Value Reference Range Interpretation Comments POC-GLUCOSE METER 119 mg/dL 70-110 H : TESTED A T [facility] 6720 (BEAKER) (test code = [facility], 1538) 47181: Modeling And Simulation Analyst/Techni roxie ID = [id number] for [place] MEDEROS Blood Culture - Routine (Left Venipuncture)2020-10-13 07:00:00 Test Item Value Reference Range Interpretation Comments Result (test code = No growth in 5 days 6463-4) [facility] [id number] 07:00:00 Test Item Value Reference Range Interpretation Comments CULTURE (BEAKER) (test No growth in 5 days code = 1095) BLOOD [id number] 07:00:00 Test Item Value Reference Range Interpretation Comments CULTURE (BEAKER) (test No growth in 5 days code = 1095) POCT-GLUCOSE [id number] 22:01:00 Test Item Value Reference Range Interpretation Comments POC-GLUCOSE METER 133 mg/dL 70-110 H : TESTED A T [facility] 6720 (BEAKER) (test code = [facility], 153) 36999: Modeling And Simulation Analyst/Techni roxie ID = [id number] for NATA PAOLO BEBEGayle POCT-GLUCOSE [id number] 17:13:00 Test Item Value Reference Range Interpretation Comments POC-GLUCOSE METER 119 mg/dL 70-110 H : TESTED A T [facility] 6720 (BEAKER) (test code = [facility], 153) 50634: Modeling And Simulation Analyst/Techni roxie ID = [id number] for An derson, Amber POCT-GLUCOSE [id number] 12:31:00 Test Item Value Reference Range Interpretation Comments POC-GLUCOSE METER 151 mg/dL 70-110 H : TESTED A T [facility] 6720 (BEAKER) (test code = [facility], 153) 67125: Modeling And Simulation Analyst/Techni roxie ID = [id number] for An derson, Amber POCT-GLUCOSE [id number] 08:09:00 Test Item Value Reference Range Interpretation Comments POC-GLUCOSE METER 118 mg/dL 70-110 H : TESTED A T [facility] 6720 (BEAKER) (test code = [facility], 153) 58317: Modeling And Simulation Analyst/Techni roxie ID = [id number] for An derson, Amber Comprehensive metabolic [id number] 07:42:00 Test Item Value Reference Range Interpretation Comments Protein, Total (test 6.7 See_Comment [Autom ated code = 2885-2) message] The system which generated this result transmit candelario reference range : 6.0 - 8.3 gm/dL . The reference range was not u sed to interpret th is result as normal/abnormal . Albumin (test code = 3.1 g/dL 3.5-5 L 68294-1) Alkaline Phosphatase 96 U/L 40-150 (test code = 6768-6) Total Bilirubin (test 0.4 mg/dL 0.2-1.2 code = 1974-2) Sodium (test code = 140 meq/L 275-925 9723-2) Potassium (test code 4.5 meq/L 3.5-5.1 = 2823-3) Chloride (test code = 106 meq/L 98-107 2075-0) CO2 (test code = 24 meq/L 22-29 2028-9) BUN (test code = 29 mg/dL 7-21 H 3094-0) Creatinine (test code 1.51 mg/dL 0.57-1.25 H = 2160-0) Glucose (test code = 112 mg/dL 70-105 H 2345-7) Calcium (test code = 8.4 mg/dL 8.4-10.2 96432-5) AST (test code = 39 U/L 5-34 H 1920-8) ALT (test code = 30 U/L 6-55 1742-6) EGFR (test code = 44 mL/min/1.73 [place] [address]-6) NOT ACCURATE CREATININE CLEARANCE IN PREDICTING GLOMERULAR FILTRATION RATE . ESTIMATED GFR I S NOT APPLICABLE FOR DIALYSIS PATIEN CRISTINA (test code = CRISTINA) Modeling And Simulation Analyst ID - RM Lab Interpretation Abnormal (test code = 94310-2) [facility] METABOLIC [id number] 07:42:00 Test Item Value Reference Range Interpretation Comments TOTAL PROTEIN 6.7 gm/dL 6.0-8.3 (BEAKER) (test code = 770) ALBUMIN (BEAKER) 3.1 g/dL 3.5-5.0 L (test code = 1145) ALKALINE PHOSPHATASE 96 U/L 40-150 (BEAKER) (test code = 346) BILIRUBIN TOTAL 0.4 mg/dL 0.2-1.2 (BEAKER) (test code = 377) SODIUM (BEAKER) (test 140 meq/L 136-145 code = 381) POTASSIUM (BEAKER) 4.5 meq/L 3.5-5.1 (test code = 379) CHLORIDE (BEAKER) 106 meq/L 98-107 (test code = 382) CO2 (BEAKER) (test 24 meq/L 22-29 code = 355) BLOOD UREA NITROGEN 29 mg/dL 7-21 H (BEAKER) (test code = 354) CREATININE (BEAKER) 1.51 mg/dL 0.57-1.25 H (test code = 358) GLUCOSE RANDOM 112 mg/dL 70-105 H (BEAKER) (test code = 652) CALCIUM (BEAKER) 8.4 mg/dL 8.4-10.2 (test code = 697) AST (SGOT) (BEAKER) 39 U/L 5-34 H (test code = 353) ALT (SGPT) (BEAKER) 30 U/L 6-55 (test code = 347) EGFR (BEAKER) (test 44 mL/min/1.73 ESTIMA CANDELARIO GFR IS code = 1092) sq m NOT ACCURATE CREATININE CLEARANCE IN PREDICTING GLOMERULAR FILTRATION RATE . ESTIMATED GFR I S NOT APPLICABLE FOR DIALYSIS PATIEN TS. Modeling And Simulation Analyst ID - RMCBC (Hemogram only)2020-10-12 07:26:00 Test Item Value Reference Range Interpretation Comments WBC (test code = 6690-2) 4.5 See_Comment [A utomated message] The system [employer] generated this result transmitted ref erence range: 3.5 - 10 .5 K/L. The refe rence range was not u sed to interpret this result as normal/abnor mal. RBC (test code = 789-8) 3.30 See_Comment L [Au tomated message] The system [employer] generated this result transmitted ref erence range: 4.63 - 6 .08 M/L. The refe rence range was not u sed to interpret this result as normal/abnor mal. MCHC (test code = 786-4) 31.0 See_Comment L [A utomated message] The system [employer] [facility] generated this result transmitted ref erence range: 32.3 - 3 6.5 GM/DL. The refe rence range was not u sed to interpret this result as normal/abnor mal. Hematocrit (test code = 31.6 % 40.1-51 L 4544-3) MCV (test code = 787-2) 95.8 fL 79-92.2 H MCH (test code = 785-6) 29.7 pg 25.7-32.2 RDW (test code = 788-0) 13.9 % 11.6-14.4 Platelets (test code = 226 See_Comment [Aut omated message] 777-3) The system [employer] [facility] generated this result transmitted ref erence range: 150 - 45 0 K/CU MM. The referen ce range was not u sed to interpret this result as normal/abnor mal. MPV (test code = 11.8 fL 9.4-12.4 54128-9) nRBC (test code = 413) 0 See_Comment [Aut omated message] The system [employer] [facility] generated this result transmitted ref erence range: 0 - 0 /1 00 WBC. The refere nce range was not u sed to interpret this result as normal/abnor mal. Lab Interpretation (test Abnormal code = 92542-5) [facility] (HEMOGRAM ONLY)2020-10-12 07:26:00 Test Item Value Reference Range Interpretation Comments WHITE BLOOD CELL COUNT (BEAKER) 4.5 K/ L 3.5-10.5 (test code = 775) RED BLOOD CELL COUNT (BEAKER) 3.30 M/ L 4.63-6.08 L (test code = 761) HEMOGLOBIN (BEAKER) (test code = 9.8 GM/DL 13.7-17.5 L 410) HEMATOCRIT (BEAKER) (test code = 31.6 % 40.1-51.0 L 411) MEAN CORPUSCULAR VOLUME (BEAKER) 95.8 fL 79.0-92.2 H (test code = 753) MEAN CORPUSCULAR HEMOGLOBIN 29.7 pg 25.7-32.2 (BEAKER) (test code = 751) MEAN CORPUSCULAR HEMOGLOBIN CONC 31.0 GM/DL 32.3-36.5 L (BEAKER) (test code = 752) RED CELL DISTRIBUTION WIDTH 13.9 % 11.6-14.4 (BEAKER) (test code = 412) PLATELET COUNT (BEAKER) (test 226 K/CU MM 150-450 code = 756) MEAN PLATELET VOLUME (BEAKER) 11.8 fL 9.4-12.4 (test code = 754) NUCLEATED RED BLOOD CELLS 0 /100 WBC 0-0 (BEAKER) (test code = 413) POCT-GLUCOSE [id number] 21:39:00 Test Item Value Reference Range Interpretation Comments POC-GLUCOSE METER 96 mg/dL 70-110 : TESTED A T [facility] 6720 (BEAKER) (test code = [facility], 153) [address]: Modeling And Simulation Analyst/Techni roxie ID = [id number] for AKILAH BEATTY POCT-GLUCOSE [id number] 17:28:00 Test Item Value Reference Range Interpretation Comments POC-GLUCOSE METER 134 mg/dL 70-110 H : TESTED A T [facility] 6720 (BEAKER) (test code = [facility], [facility]) [address]: Modeling And Simulation Analyst/Techni roxie ID = [id number] for An derson, Amber POCT-GLUCOSE [id number] 11:39:00 Test Item Value Reference Range Interpretation Comments POC-GLUCOSE METER 113 mg/dL 70-110 H : TESTED A T [facility] 6720 (BEAKER) (test code = [facility], 153) 039[address]: Modeling And Simulation Analyst/Techni roxie ID = [id number] for An derson, Amber POCT-GLUCOSE [id number] 08:56:00 Test Item Value Reference Range Interpretation Comments POC-GLUCOSE METER 81 mg/dL 70-110 : TESTED A T [facility] 6720 (BEAKER) (test code = [facility], 153) 96896: Modeling And Simulation Analyst/Techni roxie ID = [id number] for Refugio doran, Amber POCT-GLUCOSE [id number] 22:16:00 Test Item Value Reference Range Interpretation Comments POC-GLUCOSE METER 151 mg/dL 70-110 H : TESTED A T [facility] 6720 (BEAKER) (test code = [facility], 153) [address]: Modeling And Simulation Analyst/Techni roxie ID = [id number] for Lee cantor (pca2), Meikole POCT-GLUCOSE [id number] 18:38:00 Test Item Value Reference Range Interpretation Comments POC-GLUCOSE METER 143 mg/dL 70-110 H : TESTED A T [facility] 6720 (BEAKER) (test code = [facility], 1538) 592[address]: Modeling And Simulation Analyst/Techni roxie ID = [id number] for Ca vitt, Eminae POCT-GLUCOSE [id number] 13:28:00 Test Item Value Reference Range Interpretation Comments POC-GLUCOSE METER 143 mg/dL 70-110 H : TESTED A T [facility] 6720 (BEAKER) (test code = [facility], 1538) 99911: Modeling And Simulation Analyst/Techni roxie ID = [id number] for Ca vitt, Eminae POCT-GLUCOSE [id number] 07:28:00 Test Item Value Reference Range Interpretation Comments POC-GLUCOSE METER 105 mg/dL 70-110 : TESTED A T [facility] 6720 (BEAKER) (test code = [facility], 1538) 765[address]: Modeling And Simulation Analyst/Techni roxie ID = [id number] for Ca vitt, Eminae COMPREHENSIVE METABOLIC [id number] 07:06:00 Test Item Value Reference Range Interpretation Comments TOTAL PROTEIN 6.3 gm/dL 6.0-8.3 (BEAKER) (test code = 770) ALBUMIN (BEAKER) 2.8 g/dL 3.5-5.0 L (test code = 1145) ALKALINE PHOSPHATASE 87 U/L 40-150 (BEAKER) (test code = 346) BILIRUBIN TOTAL 0.4 mg/dL 0.2-1.2 (BEAKER) (test code = 377) SODIUM (BEAKER) (test 139 meq/L 136-145 code = 381) POTASSIUM (BEAKER) 4.4 meq/L 3.5-5.1 (test code = 379) CHLORIDE (BEAKER) 106 meq/L 98-107 (test code = 382) CO2 (BEAKER) (test 24 meq/L 22-29 code = 355) BLOOD UREA NITROGEN 26 mg/dL 7-21 H (BEAKER) (test code = 354) CREATININE (BEAKER) 1.59 mg/dL 0.57-1.25 H (test code = 358) GLUCOSE RANDOM 109 mg/dL 70-105 H (BEAKER) (test code = 652) CALCIUM ([facility]) 8.2 mg/dL 8.4-10.2 L (test code = 697) AST (SGOT) ([facility]) 14 U/L 5-34 (test code = 353) ALT (SGPT) ([facility]) 11 U/L 6-55 (test code = 347) EGFR ([facility]) (test 41 mL/min/1.73 ESTIMA CANDELARIO GFR IS code = 1092) sq m NOT ACCURATE CREATININE CLEARANCE IN PREDICTING GLOMERULAR FILTRATION RATE . ESTIMATED GFR I S NOT APPLICABLE FOR DIALYSIS PATIEN TS. Modeling And Simulation Analyst ID - NORA WPOCT-GLUCOSE [id number] 21:54:00 Test Item Value Reference Range Interpretation Comments POC-GLUCOSE METER 139 mg/dL 70-110 H : Notified RN/MD: ([facility]) (test code = TESTED AT [facility] 6720 153) [facility], [address]: Modeling And Simulation Analyst/Techni roxie ID = [id number] for TUYET BEJARANO POCT-GLUCOSE [id number] 16:23:00 Test Item Value Reference Range Interpretation Comments POC-GLUCOSE METER 141 mg/dL 70-110 H : [facility] (test code = [facility], 1538) [address]: Modeling And Simulation Analyst/Techni roxie ID = [id number] for RICO MEDEROS POCT-GLUCOSE [id number] 08:02:00 Test Item Value Reference Range Interpretation Comments POC-GLUCOSE METER 87 mg/dL 70-110 : [facility]) (test code = [facility], 1538) 08[address]: Modeling And Simulation Analyst/Techni roxie ID = [id number] for RICO COBURN ECG 12 [id number] 07:24:44Interface, External Ris In - 10/09/2020 7:24 AM CDTVentricular Rate 68 BPMAtrial Rate 68 BPMP-R Interval 204 msQRS Duration 96 msQ-T Interval 430 msQTC Calculation(Italo) 457 msP [place] 30 degreesR [place] 48 degreesT [place] 30 degreesNormal sinus rhythmNormal ECGWhen compared with ECG of 12-SEP-2009 04:50,No significant change was foundConfirmed by Ji William ([id number]) on 10/09/2020 7:24:40 [facility] PeninsulaCOMPREHENSIVE METABOLIC [id number] 06:10:00 Test Item Value Reference Range Interpretation Comments TOTAL PROTEIN 6.6 gm/dL 6.0-8.3 (BEAKER) (test code = 770) ALBUMIN (BEAKER) 2.9 g/dL 3.5-5.0 L (test code = 1145) ALKALINE PHOSPHATASE 94 U/L 40-150 (BEAKER) (test code = 346) BILIRUBIN TOTAL 0.4 mg/dL 0.2-1.2 (BEAKER) (test code = 377) SODIUM (BEAKER) (test 138 meq/L 136-145 code = 381) POTASSIUM (BEAKER) 4.1 meq/L 3.5-5.1 (test code = 379) CHLORIDE (BEAKER) 107 meq/L 98-107 (test code = 382) CO2 (BEAKER) (test 25 meq/L 22-29 code = 355) BLOOD UREA NITROGEN 24 mg/dL 7-21 H (BEAKER) (test code = 354) CREATININE (BEAKER) 1.51 mg/dL 0.57-1.25 H (test code = 358) GLUCOSE RANDOM 113 mg/dL 70-105 H (BEAKER) (test code = 652) CALCIUM (BEAKER) 8.3 mg/dL 8.4-10.2 L (test code = 697) AST (SGOT) (BEAKER) 14 U/L 5-34 (test code = 353) ALT (SGPT) (BEAKER) 14 U/L 6-55 (test code = 347) EGFR (BEAKER) (test 44 mL/min/1.73 ESTIMA CANDELARIO GFR IS code = 1092) sq m NOT ACCURATE CREATININE CLEARANCE IN PREDICTING GLOMERULAR FILTRATION RATE . ESTIMATED GFR I S NOT APPLICABLE FOR DIALYSIS PATIEN TS. Modeling And Simulation Analyst ID - PIAYA [facility] (HEMOGRAM ONLY)2020-10-09 05:08:00 Test Item Value Reference Range Interpretation Comments WHITE BLOOD CELL COUNT (BEAKER) 4.9 K/ L 3.5-10.5 (test code = 775) RED BLOOD CELL COUNT (BEAKER) 3.07 M/ L 4.63-6.08 L (test code = 761) HEMOGLOBIN (BEAKER) (test code = 9.3 GM/DL 13.7-17.5 L 410) HEMATOCRIT (BEAKER) (test code = 29.3 % 40.1-51.0 L 411) MEAN CORPUSCULAR VOLUME (BEAKER) 95.4 fL 79.0-92.2 H (test code = 753) MEAN CORPUSCULAR HEMOGLOBIN 30.3 pg 25.7-32.2 (BEAKER) (test code = 751) MEAN CORPUSCULAR HEMOGLOBIN CONC 31.7 GM/DL 32.3-36.5 L (BEAKER) (test code = 752) RED CELL DISTRIBUTION WIDTH 14.0 % 11.6-14.4 (BEAKER) (test code = 412) PLATELET COUNT (BEAKER) (test 165 K/CU MM 150-450 code = 756) MEAN PLATELET VOLUME (BEAKER) 11.7 fL 9.4-12.4 (test code = 754) NUCLEATED RED BLOOD CELLS 0 /100 WBC 0-0 (BEAKER) (test code = 413) POCT-GLUCOSE [id number] 21:33:00 Test Item Value Reference Range Interpretation Comments POC-GLUCOSE METER 196 mg/dL 70-110 H : TESTED A T [facility] 6720 ([employer]) (test code = [facility], 1538) [address]: Modeling And Simulation Analyst/Techni roxie ID = [id number] for GERMANIA MORATAYA POCT-GLUCOSE [id number] 17:48:00 Test Item Value Reference Range Interpretation Comments POC-GLUCOSE METER 148 mg/dL 70-110 H : TESTED A T [facility] 6720 ([employer]) (test code = [facility], 1538) [address]: Modeling And Simulation Analyst/Techni roxie ID = [id number] for RO DGERS, LANEECA RAD, SPINE, CERVICAL, COMPLETE, W/ [id number] 14:18:00Reason for exam:- >spinal [facility] : 1930 Sex: MFINAL REPORT RAD, SPINE, CERVICAL, COMPLETE, WITH FLEX \\T\\ EXTENSION INDICATION: spinal stenosis COMPARISON: None TECHNIQUE: AP and lateral radiographs of the cervicalspine FINDINGS/IMPRESSION:Severe diffuse osteopenia. Straightening of cervical lordosis. Grade 1 anterolisthesis of C2 on C3, which does not change significantly with flexion and extension radiographs,with 6 mm anterolisthesis with extension and 7 mm with flexion. There is osseous fusion across the C3-C5 disc spaces. No radiographically evident fracture. There is suspected at least moderate canal stenosis at C2-C3. 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 Signed: Johanna Ruiz Verified Date/Time: 10/08/2020 14:18:31 Reading Location: [facility] Radiology Reading Room XR cervical spine comp with flex and [id number] 14:18:00Interface, External Ris In - 10/08/2020 2:28 PM CDTFINAL REPORT RAD, SPINE, CERVICAL, COMPLETE, WITH FLEX \\T\\ EXTENSION INDICATION: spinal stenosis COMPARISON: None TECHNIQUE: AP and lateral radiographs of the cervical spine FINDINGS/IMPRESSION:Severe diffuse osteopenia. Straightening of cervical lordosis. Grade 1 anterolisthesis of C2 on C3, which does not change significantly with flexion and extension radiographs, with 6 mm anterolisthesis with extension and 7 mm with flexion. There is osseous fusion across the C3-C5 disc spaces. No radiographically evident fracture. There is suspected at least moderate canal stenosis at C2-C3. 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 Signed: Johanna Ruiz Verified Date/Time: 10/08/2020 14:18:31 Reading Location: [facility]omatic [facility]2020-10-08 10:50:00 Test Item Value Reference Range Interpretation Comments SARS-COV2/RT-PCR Negative Not Detected, (test code = Negative, See 48735-8) external report for linked test [facility]OV-2 [facility] (test code = 12572-8) CRISTINA (test code = Negative result for this CRISTINA) test determines that SARS-CoV-2 RNA was not present in the specimen above the Limit of Detection (LOD). However, Negative results do not preclude SARS-CoV-2 infection and should not be used as the sole basis for treatment or patient management decisions. Negative results must be combined with clinical observations, patient history, and epidemiological information. A false negative result may occur if a specimen is improperly collected, transported or handled. A false negative result should be considered if patient's recent exposures or clinical presentation indicate that COVID-19 (SARS-CoV-2) is likely and diagnostic tests for other causes of illness are negative. Re-testing should be considered in cases of suspected false negatives. The limit of detection for this assay is 800 copies/mL. This SARS CoV-2 test is a real-time RT-PCR test intended for the qualitative detection of nucleic acid from SARS-CoV-2 in a nasopharyngeal swab specimen collected from individuals suspected of COVID-19 by their healthcare provider. This test has not been Food and Drug Administration (FDA) cleared or approved. This is a modified version of an approved Emergency Use Authorization (EUA) and is in the process of review by the FDA. Once authorized by the FDA, the issued EUA will be effective until the declaration that circumstances exist justifying the authorization of the emergency use of in vitro diagnostic tests for detection and/or diagnosis of COVID-19 is terminated under Section 564(b)(2) of the Act or the EUA is revoked under Section 564(g) of the Act. Fact Sheet for Healthcare Providers:https://www.[employer]/sites/default/f kari/product/documents/F act_Sheet_HC_Providers_L wmj_CIIG-XqI-2.pdf Fact Sheet for Healthcare Patients:https://www.Flitto.com/sites/default/fi les/product/documents/Fa ct_Sheet_Patients_Ly_S ARS-CoV-2.pdf Performing Laboratory:[facility] [place] [address] [facility])2020-10-08 10:50:00 Test Item Value Reference Range Interpretation Comments SARS-COV2/RT-PCR (test Negative Not Detected, Negative, code = 8352272) See external report for linked test SARS-COV-2 PERFORMING LAB [facility] PAT (test code = 8317672) Negative result for this test determines that SARS-CoV-2 RNA was not present in the specimen above the Limit of Detection (LOD). However, Negative results do not preclude SARS-CoV-2 infection and should not be used as the sole basis for treatment or patient management decisions. Negative results mustbe combined with clinical observations, patient history, and epidemiological information. A false negative result may occur if a specimen is improperly collected, transported or handled. A false negative result should be considered if patient's recent exposures or clinical presentation indicate that COVID-19 (SARS-CoV-2) is likely and diagnostic tests for other causes of illness are negative. Re-testing should be considered in cases of suspected false negatives.The limit of detection for this assay is 800 copies/mL.This SARS CoV-2 test is a real-time RT-PCR test intended for the qualitative detection of nucleic acid from SARS-CoV-2 in a nasopharyngeal swab specimen collected from individuals susp ected of COVID-19 by their healthcare provider.This test has not been Food and Drug Administration (FDA) cleared or approved. This is a modified version of an approved Emergency Use Authorization (EUA) and is in the process of review by the FDA. Once authorized by the FDA, the issued EUA will be effective until the declaration that circumstances exist justifying the authorization of the emergency use of in vitro diagnostic tests for detection and/or diagnosis of COVID-19 is terminated under Section 564(b)(2) of the Act or the EUA is revoked under Section 564(g) of the Act.Fact Sheet for Healthcare Providers:https://www.[employer]/sites/default/files/product/documents/Fact_Shedylan a_TV_Lhjnxoteh_Gbfi_CBBE-LvT-2.pdfFact Sheet for Healthcare Patients:https://www.[employer]/sites/default/files/product/ documents/Kzuy_Zvqze_Mspiddcc_Ycxs_RNGZ-ZrZ-6.pdfPerforming Laboratory:[place] [address], [place] [address]Zaozphxwoy A1c 2020-10-08 09:34:00 Test Item Value Reference Range Interpretation Comments Hemoglobin A1C (test code = 4548-4) 6.9 % 4.3-6.1 H Lab Interpretation (test code = Abnormal 76209-9) [facility] [id number] 09:34:00 Test Item Value Reference Range Interpretation Comments HEMOGLOBIN A1C (BEAKER) (test code = 6.9 % 4.3-6.1 H 368) TSH/Free T4 If [id number] 07:29:00 Test Item Value Reference Range Interpretation Comments TSH (test code = 2.546 See_Comment [Automated 01552-4) message] The system which generated this result transmit candelario reference range : 0.350 - 4.940 uIU/mL. The reference range was not used to interpret this result as normal/abnormal . CRISTINA (test code = CRISTINA) Modeling And Simulation Analyst ID - PIAYA L Lab Interpretation Normal (test code = 33833-7) [facility] CenterT[facility]FREE T4 IF [id number] 07:29:00 Test Item Value Reference Range Interpretation Comments THYROID STIMULATING HORMONE 2.546 uIU/mL 0.350-4.940 (BEAKER) (test code = 772) Modeling And Simulation Analyst ID - PIAYA [id number] 07:12:00 Test Item Value Reference Range Interpretation Comments Procalcitonin (test code = 0.08 ng/mL <0.05 H 75267-5) CRISTINA (test code = CRISTINA) SEPSIS RISK (ng/mL)Low: 0.05-0.50Intermedi ate: 0.51-2.00High: >=2.01 Lab Interpretation (test Abnormal code = 96357-9) [facility] CenterPROCALCITONIN2021-07-21 07:12:00 Test Item Value Reference Range Interpretation Comments PROCALCITONIN (BEAKER) (test code 0.08 ng/mL <0.05 H = 3036) SEPSIS RISK (ng/mL)Low: 0.05-0.50Intermediate: 0.51-2.00High: >=2.01C-Reactive [id number] 06:34:00 Test Item Value Reference Range Interpretation Comments CRP (test code = 676) 2.15 mg/dL 0-0.5 H CRISTINA (test code = CRISTINA) Modeling And Simulation Analyst ID - NORA W Lab Interpretation (test Abnormal code = 49959-2) [facility] CenterC-REACTIVE [id number] 06:34:00 Test Item Value Reference Range Interpretation Comments C-REACTIVE PROTEIN (BEAKER) (test 2.15 mg/dL 0.00-0.50 H code = 676) Modeling And Simulation Analyst ID - NORA WBasic metabolic [id number] 04:53:00 Test Item Value Reference Range Interpretation Comments Sodium (test code = 141 meq/L 489-033 9438-2) Potassium (test code = 4.2 meq/L 3.5-5.1 2823-3) Chloride (test code = 107 meq/L 98-107 2075-0) CO2 (test code = 24 meq/L 22-29 2028-9) BUN (test code = 29 mg/dL 7-21 H 3094-0) Creatinine (test code 1.42 mg/dL 0.57-1.25 H = 2160-0) Glucose (test code = 111 mg/dL 70-105 H 2345-7) Calcium (test code = 8.3 mg/dL 8.4-10.2 L 60902-4) EGFR (test code = 47 mL/min/1.73 sq m [facility] [place] [address]-6) NOT ACCURATE CREATININE CLEARANCE IN PREDICTING GLOMERULAR FILTRATION RATE . ESTIMATED GFR I S NOT APPLICABLE FOR DIALYSIS PATIENTS. CRISTINA (test code = CRISTINA) Modeling And Simulation Analyst ID - NORA W Lab Interpretation Abnormal (test code = 76722-7) [facility] CenterLipid [id number] 04:53:00 Test Item Value Reference Range Interpretation Comments Triglycerides (test 54 mg/dL code = 2571-8) Cholesterol (test code 82 mg/dL = 2093-3) HDL (test code = 33 mg/dL 9) LDL Calculated (test 38 mg/dL code = 79168-8) CRISTINA (test code = CRISTINA) Triglyceride Reference Range: Low Risk <150 Borderline 150-199 High Risk 200-499 Very High Risk >=500 Cholesterol Reference Range: Low Risk <200 Borderline 200-239 High Risk >240 HDL Cholesterol Reference Range: Low Risk >=60 High Risk <40 LDL Cholesterol Reference Range: Optimal <100 Near Optimal 100-129 Borderline 130-159 High 160-189 Very High >=190 Modeling And Simulation Analyst ID - NORA Saba [facility] CenterHepatic function [id number] 04:53:00 Test Item Value Reference Range Interpretation Comments Protein, Total (test 6.6 See_Comment [Autom ated code = 2885-2) message] The system which generated this result transmit candelario reference range : 6.0 - 8.3 gm/dL . The reference range was not u sed to interpret th is result as normal/abnormal . Albumin (test code = 3.0 g/dL 3.5-5 L 05269-8) Total Bilirubin (test 0.4 mg/dL 0.2-1.2 code = 1974-2) Bilirubin, Direct 0.2 mg/dL 0.1-0.5 (test code = 1967-7) Alkaline Phosphatase 110 U/L 40-150 (test code = 6768-6) AST (test code = 15 U/L 5-34 1920-8) ALT (test code = 14 U/L 6-55 1742-6) CRISTINA (test code = CRISTINA) Modeling And Simulation Analyst ID - NORA W Lab Interpretation Abnormal (test code = 61473-3) [facility] CenterMagnesium2021-07-21 04:53:00 Test Item Value Reference Range Interpretation Comments Magnesium (test code = 1.9 mg/dL 1.6-2.6 51452-7) CRISTINA (test code = CRISTINA) Modeling And Simulation Analyst ID - NORA W Lab Interpretation (test Normal code = 86194-7) [facility] CenterMAGNESIUM2021-07-21 04:53:00 Test Item Value Reference Range Interpretation Comments MAGNESIUM (BEAKER) (test code = 1.9 mg/dL 1.6-2.6 627) Modeling And Simulation Analyst ID Radha MELENDEZ WLIPID [id number] 04:53:00 Test Item Value Reference Range Interpretation Comments TRIGLYCERIDES (BEAKER) (test code = 54 mg/dL 540) CHOLESTEROL (BEAKER) (test code = 82 mg/dL 631) HDL CHOLESTEROL (BEAKER) (test code 33 mg/dL = 976) LDL CHOLESTEROL CALCULATED (BEAKER) 38 mg/dL (test code = 633) Triglyceride Reference Range: Low Risk <150 Borderline 150-199 High Risk 200-499 Very High Risk >=500Cholesterol Reference Range: Low Risk <200 Borderline 200-239 High Risk >240HDL Cholesterol Reference Range: Low Risk >=60 High Risk <40LDL Cholesterol Reference Range: Optimal <100 Near Optimal 100-129 Borderline 130-159 High 160-189 Very High >=190 Modeling And Simulation Analyst ID Radha MELENDEZWHEPATIC FUNCTION [id number] 04:53:00 Test Item Value Reference Range Interpretation Comments TOTAL PROTEIN (BEAKER) (test code = 6.6 gm/dL 6.0-8.3 770) ALBUMIN (BEAKER) (test code = 1145) 3.0 g/dL 3.5-5.0 L BILIRUBIN TOTAL (BEAKER) (test code 0.4 mg/dL 0.2-1.2 = 377) BILIRUBIN DIRECT (BEAKER) (test 0.2 mg/dL 0.1-0.5 code = 706) ALKALINE PHOSPHATASE (BEAKER) (test 110 U/L 40-150 code = 346) AST (SGOT) (BEAKER) (test code = 15 U/L 5-34 353) ALT (SGPT) (BEAKER) (test code = 14 U/L 6-55 347) Modeling And Simulation Analyst ID - NORA WBASIC METABOLIC [id number] 04:53:00 Test Item Value Reference Range Interpretation Comments SODIUM (BEAKER) 141 meq/L 136-145 (test code = 381) POTASSIUM (BEAKER) 4.2 meq/L 3.5-5.1 (test code = 379) CHLORIDE (BEAKER) 107 meq/L 98-107 (test code = 382) CO2 (BEAKER) (test 24 meq/L 22-29 code = 355) BLOOD UREA NITROGEN 29 mg/dL 7-21 H (BEAKER) (test code = 354) CREATININE (BEAKER) 1.42 mg/dL 0.57-1.25 H (test code = 358) GLUCOSE RANDOM 111 mg/dL 70-105 H (BEAKER) (test code = 652) CALCIUM (BEAKER) 8.3 mg/dL 8.4-10.2 L (test code = 697) EGFR (BEAKER) (test 47 mL/min/1.73 ESTIMA CANDELARIO GFR IS code = 1092) sq m NOT ACCURATE CREATININE CLEARANCE IN PREDICTING GLOMERULAR FILTRATION RATE . ESTIMATED GFR I S NOT APPLICABLE FOR DIALYSIS PATIMARILYN CROSS. Modeling And Simulation Analyst ID - NORA [id number] 04:16:00 Test Item Value Reference Range Interpretation Comments PTT (test code = 58.6 See_Comment H [Automated message] 31116-2) The system [employer] generated this result transmitted ref erence range: 22.5 - 3 6.0 seconds. The reference range was not used to int erpret this result as normal/abnormal . Lab Interpretation (test Abnormal code = 48362-0) [id number] Test Item Value Reference Range Interpretation Comments PARTIAL THROMBOPLASTIN TIME 58.6 seconds 22.5-36.0 H (BEAKER) (test code = 760) Prothrombin time/[id number] 04:15:00 Test Item Value Reference Interpretation Comments Range Protime (test code = 16.1 See_Comment H [Autom ated 0932-2) message] The system which generated this result transmitted reference range : 11.9 - 14.2 seconds. The reference range was not used to interpret this result as normal/abnormal . INR (test code = 1.31 See_Comment [Automated 6751-6) message] The system which generated this result transmitted reference range : <=5.90. The reference range was not used to interpret this result as normal/abnormal . CRISTINA (test code = RECOMMENDED CRISTINA) COUMADIN/WARFARIN INR THERAPY RANGESSTANDARD DOSE: 2.0 - 3.0 Includes: PROPHYLAXIS for venous thrombosis, systemic embolization; TREATMENT for venous thrombosis and/or pulmonary embolus.HIGH RISK: Target INR is 2.5-3.5 for patients with mechanical heart valves. Lab Interpretation Abnormal (test code = 20519-3) [facility]/[id number] 04:15:00 Test Item Value Reference Range Interpretation Comments PROTIME (BEAKER) 16.1 seconds 11.9-14.2 H (test code = 759) INR (BEAKER) (test 1.31 See_Comment [Automat ed message] code = 370) The system [facility] generated this result transmitted ref erence range: <=5.90. The reference range was not used to int erpret this result as normal/abnormal . RECOMMENDED COUMADIN/WARFARIN INR THERAPY RANGESSTANDARD DOSE: 2.0 - 3.0 Includes: PROPHYLAXIS forvenous thrombosis, systemic embolization; TREATMENT for venous thrombosis and/or pulmonary embolus.HIGH RISK: Target INR is 2.5-3.5 for patients with mechanical heart valves.CBC with platelet count + automated diff 2020-10-08 04:11:00 Test Item Value Reference Range Interpretation Comments WBC (test code = 6690-2) 6.3 See_Comment [A utomated message] The system [facility] generated this result transmitted ref erence range: 3.5 - 10 .5 K/L. The refe rence range was not u sed to interpret this result as normal/abnor mal. RBC (test code = 789-8) 3.03 See_Comment L [Au tomated message] The system [facility] generated this result transmitted ref erence range: 4.63 - 6 .08 M/L. The refe rence range was not u sed to interpret this result as normal/abnor mal. MCHC (test code = 786-4) 31.8 See_Comment L [A utomated message] The system [facility] generated this result transmitted ref erence range: 32.3 - 3 6.5 GM/DL. The refe rence range was not u sed to interpret this result as normal/abnor mal. Hematocrit (test code = 28.9 % 40.1-51 L 4544-3) MCV (test code = 787-2) 95.4 fL 79-92.2 H MCH (test code = 785-6) 30.4 pg 25.7-32.2 RDW (test code = 788-0) 14.1 % 11.6-14.4 Platelets (test code = 152 See_Comment [Aut omated message] 777-3) The system [facility] generated this result transmitted ref erence range: 150 - 45 0 K/CU MM. The referen ce range was not u sed to interpret this result as normal/abnor mal. MPV (test code = 11.6 fL 9.4-12.4 66698-0) nRBC (test code = 413) 0 See_Comment [Aut omated message] The system [facility] generated this result transmitted ref erence range: 0 - 0 /1 00 WBC. The refere nce range was not u sed to interpret this result as normal/abnor mal. % Neutros (test code = 60 % 429) % Lymphs (test code = 24 % 430) % Monos (test code = 10 % 431) % Eos (test code = 432) 4 % % Baso (test code = 437) 1 % # Neutros (test code = 3.77 See_Comment [Aut omated message] 670) The system [facility] generated this result transmitted ref erence range: 1.78 - 5 .38 K/L. The refe rence range was not u sed to interpret this result as normal/abnor mal. # Lymphs (test code = 1.49 See_Comment [Auto mated message] 414) The system [facility] generated this result transmitted ref erence range: 1.32 - 3 .57 K/L. The refe rence range was not u sed to interpret this result as normal/abnor mal. # Monos (test code = 0.61 See_Comment [Autom ated message] 415) The system [facility] generated this result transmitted ref erence range: 0.30 - 0 .82 K/L. The refe rence range was not u sed to interpret this result as normal/abnor mal. # Eos (test code = 416) 0.25 See_Comment [Au tomated message] The system [facility] generated this result transmitted ref erence range: 0.04 - 0 .54 K/L. The refe rence range was not u sed to interpret this result as normal/abnor mal. # Baso (test code = 417) 0.05 See_Comment [A utomated message] The system [facility] generated this result transmitted ref erence range: 0.01 - 0 .08 K/L. The refe rence range was not u sed to interpret this result as normal/abnor mal. Immature 2 % 0-1 H Granulocytes-Relative (test code = 2801) Lab Interpretation (test Abnormal code = 55425-0) [facility] W/PLT COUNT & AUTO [id number] 04:11:00 Test Item Value Reference Range Interpretation Comments WHITE BLOOD CELL COUNT (BEAKER) 6.3 K/ L 3.5-10.5 (test code = 775) RED BLOOD CELL COUNT (BEAKER) 3.03 M/ L 4.63-6.08 L (test code = 761) HEMOGLOBIN (BEAKER) (test code = 9.2 GM/DL 13.7-17.5 L 410) HEMATOCRIT (BEAKER) (test code = 28.9 % 40.1-51.0 L 411) MEAN CORPUSCULAR VOLUME (BEAKER) 95.4 fL 79.0-92.2 H (test code = 753) MEAN CORPUSCULAR HEMOGLOBIN 30.4 pg 25.7-32.2 (BEAKER) (test code = 751) MEAN CORPUSCULAR HEMOGLOBIN CONC 31.8 GM/DL 32.3-36.5 L (BEAKER) (test code = 752) RED CELL DISTRIBUTION WIDTH 14.1 % 11.6-14.4 (BEAKER) (test code = 412) PLATELET COUNT (BEAKER) (test 152 K/CU MM 150-450 code = 756) MEAN PLATELET VOLUME (BEAKER) 11.6 fL 9.4-12.4 (test code = 754) NUCLEATED RED BLOOD CELLS 0 /100 WBC 0-0 (BEAKER) (test code = 413) NEUTROPHILS RELATIVE PERCENT 60 % (BEAKER) (test code = 429) LYMPHOCYTES RELATIVE PERCENT 24 % (BEAKER) (test code = 430) MONOCYTES RELATIVE PERCENT 10 % (BEAKER) (test code = 431) EOSINOPHILS RELATIVE PERCENT 4 % (BEAKER) (test code = 432) BASOPHILS RELATIVE PERCENT 1 % (BEAKER) (test code = 437) NEUTROPHILS ABSOLUTE COUNT 3.77 K/ L 1.78-5.38 (BEAKER) (test code = 670) LYMPHOCYTES ABSOLUTE COUNT 1.49 K/ L 1.32-3.57 (BEAKER) (test code = 414) MONOCYTES ABSOLUTE COUNT (BEAKER) 0.61 K/ L 0.30-0.82 (test code = 415) EOSINOPHILS ABSOLUTE COUNT 0.25 K/ L 0.04-0.54 (BEAKER) (test code = 416) BASOPHILS ABSOLUTE COUNT (BEAKER) 0.05 K/ L 0.01-0.08 (test code = 417) IMMATURE GRANULOCYTES-RELATIVE 2 % 0-1 H PERCENT (BEAKER) (test code = 2801) COMPREHENSIVE METABOLIC [id number] 23:49:00 Test Item Value Reference Range Interpretation Comments TOTAL PROTEIN 6.7 gm/dL 6.0-8.3 (BEAKER) (test code = 770) ALBUMIN (BEAKER) 3.0 g/dL 3.5-5.0 L (test code = 1145) ALKALINE PHOSPHATASE 110 U/L 40-150 (BEAKER) (test code = 346) BILIRUBIN TOTAL 0.4 mg/dL 0.2-1.2 (BEAKER) (test code = 377) SODIUM (BEAKER) (test 139 meq/L 136-145 code = 381) POTASSIUM (BEAKER) 4.2 meq/L 3.5-5.1 (test code = 379) CHLORIDE (BEAKER) 107 meq/L 98-107 (test code = 382) CO2 (BEAKER) (test 24 meq/L 22-29 code = 355) BLOOD UREA NITROGEN 30 mg/dL 7-21 H (BEAKER) (test code = 354) CREATININE (BEAKER) 1.65 mg/dL 0.57-1.25 H (test code = 358) GLUCOSE RANDOM 140 mg/dL 70-105 H (BEAKER) (test code = 652) CALCIUM (BEAKER) 8.4 mg/dL 8.4-10.2 (test code = 697) AST (SGOT) (BEAKER) 15 U/L 5-34 (test code = 353) ALT (SGPT) (BEAKER) 15 U/L 6-55 (test code = 347) EGFR (BEAKER) (test 40 mL/min/1.73 ESTIMA CANDELARIO GFR IS code = 1092) sq m NOT ACCURATE CREATININE CLEARANCE IN PREDICTING GLOMERULAR FILTRATION RATE . ESTIMATED GFR I S NOT APPLICABLE FOR DIALYSIS PATIEN TS. Modeling And Simulation Analyst ID - [id number] 23:49:00 Test Item Value Reference Range Interpretation Comments MAGNESIUM (BEAKER) (test code = 1.8 mg/dL 1.6-2.6 627) Modeling And Simulation Analyst ID - BSCBC W/PLT COUNT & AUTO [id number] 23:38:00 Test Item Value Reference Range Interpretation Comments WHITE BLOOD CELL COUNT (BEAKER) 6.8 K/ L 3.5-10.5 (test code = 775) RED BLOOD CELL COUNT (BEAKER) 3.02 M/ L 4.63-6.08 L (test code = 761) HEMOGLOBIN (BEAKER) (test code = 9.2 GM/DL 13.7-17.5 L 410) HEMATOCRIT (BEAKER) (test code = 29.1 % 40.1-51.0 L 411) MEAN CORPUSCULAR VOLUME (BEAKER) 96.4 fL 79.0-92.2 H (test code = 753) MEAN CORPUSCULAR HEMOGLOBIN 30.5 pg 25.7-32.2 (BEAKER) (test code = 751) MEAN CORPUSCULAR HEMOGLOBIN CONC 31.6 GM/DL 32.3-36.5 L (BEAKER) (test code = 752) RED CELL DISTRIBUTION WIDTH 14.2 % 11.6-14.4 (BEAKER) (test code = 412) PLATELET COUNT (BEAKER) (test 146 K/CU MM 150-450 L code = 756) MEAN PLATELET VOLUME (BEAKER) 11.8 fL 9.4-12.4 (test code = 754) NUCLEATED RED BLOOD CELLS 0 /100 WBC 0-0 (BEAKER) (test code = 413) NEUTROPHILS RELATIVE PERCENT 64 % (BEAKER) (test code = 429) LYMPHOCYTES RELATIVE PERCENT 21 % (BEAKER) (test code = 430) MONOCYTES RELATIVE PERCENT 9 % (BEAKER) (test code = 431) EOSINOPHILS RELATIVE PERCENT 3 % (BEAKER) (test code = 432) BASOPHILS RELATIVE PERCENT 1 % (BEAKER) (test code = 437) NEUTROPHILS ABSOLUTE COUNT 4.36 K/ L 1.78-5.38 (BEAKER) (test code = 670) LYMPHOCYTES ABSOLUTE COUNT 1.45 K/ L 1.32-3.57 (BEAKER) (test code = 414) MONOCYTES ABSOLUTE COUNT (BEAKER) 0.58 K/ L 0.30-0.82 (test code = 415) EOSINOPHILS ABSOLUTE COUNT 0.23 K/ L 0.04-0.54 (BEAKER) (test code = 416) BASOPHILS ABSOLUTE COUNT (BEAKER) 0.04 K/ L 0.01-0.08 (test code = 417) IMMATURE GRANULOCYTES-RELATIVE 2 % 0-1 H PERCENT (BEAKER) (test code = 2805)
[2020-11-22 18:19] LABS: Absolute Lymphocytes (CBC) 0.9 K/uL (0.7-4.9); Basophils % 0.7 % (0-1.3); Hematocrit 27.9 % (39.6-49.0); RBC Red Blood Cell Count 3.07 M/uL (4.33-5.43)
[2020-11-22 18:27] LABS: Protime INR 1.59
[2020-11-22] MEDS ORDERED: NA CHLORIDE 0.9% 500 ML ONE ×2 (18:38→18:40)
[2020-11-22] MEDS ORDERED: MORPHINE 2 MG/ML SYR ONE (18:39)
[2020-11-22] MEDS ORDERED: ONDANSETRON 4 MG/2 ML VIAL ONE (18:39)
--- NOTE | 2020-11-22 18:39 | RAD REPORT ---
EXAM DESCRIPTION: Marilee Single View11/22/2020 6:25 pm CLINICAL HISTORY: cough COMPARISON: October 08, 2020 FINDINGS: The lungs appear clear of acute infiltrate. The heart is normal size Postsurgical changes involve the chest. IMPRESSION: No acute abnormalities displayed
[2020-11-22] MEDS ORDERED: CEFTRIAXONE/SWI 1gm 1 GM/10 ML SYR ONE (18:40)
[2020-11-22 19:12] LABS: Anisocytosis SLIGHT; Blood Morphology Comment NOTED (NOT SEEN); Platelet Estimate ADEQ; White Blood Cell Scan OK (OK)
[2020-11-22 19:16] LABS: Urine Blood 2+ (Negative); Urine Glucose Negative (Negative); Urine Protein 3+ (Negative); Urine pH 7.5 (5.0-7.0)
[2020-11-22 19:17] LABS: Potassium 5.3 mmol/L (3.5-5.1); Sodium Level 141 mmol/L (136-145)
[2020-11-22 19:18] LABS: BUN Blood Urea Nitrogen 182 mg/dL (7-18); Bicarbonate 21 mmol/L (21-32); Glucose Level 250 mg/dL (74-106)
[2020-11-22 19:19] LABS: ALT/SGPT 40 U/L (12-78); AST/SGOT 87 U/L (15-37); Albumin 2.3 g/dL (3.4-5.0); Alkaline Phosphatase 121 U/L (45-117); Bilirubin Direct 0.5 mg/dL (0-0.2); Bilirubin Total 0.8 mg/dL (0.2-1.0); Protein, Total 8.8 g/dL (6.4-8.2)
[2020-11-22 19:20] LABS: Magnesium 4.4 mg/dL (1.8-2.4); NT PRO-BNP > 35000 pg/mL (<450); Troponin (Emerg Dept Use Only) 0.41 ng/mL (0.0-0.045)
--- NOTE | 2020-11-22 20:20 | EDPHYS ---
Physician Documentation [facility] Name: Bella Morales Age: 89 yrs Sex: Male : 1930 Arrival Date: 11/22/2020 Time: 17:30 Bed 26 Private MD: DEEPA Physician Ralph Dominguez HPI: 11/22 20:04 This 89 yrs old Male presents to ER via EMS with complaints of ams, weak and evelyn dehydrated. 20:04 The patient presents with urinary symptoms, dribbling of urine. Onset: The evelyn symptoms/episode began/occurred 3 day(s) ago. Modifying factors: The symptoms are alleviated by nothing, the symptoms are aggravated by nothing. dehydrated. Associated signs and symptoms: Pertinent positives: abdominal pain. Severity of symptoms: At their worst the symptoms were moderate, in the emergency department the symptoms are unchanged. Severity of symptoms: At their worst the symptoms were moderate in the emergency department the symptoms are unchanged. The patient has experienced similar episodes in the past, a few times. Historical: - Allergies: 17:48 Vancomycin; bp - Home Meds: 17:48 Amitiza 24 mcg Oral cap 1 cap 2 times per day [Active]; aspirin 325 mg Oral tab 1 tab bp once daily [Active]; gabapentin 400 mg Oral cap 1 cap 3 times per day [Active]; furosemide 40 mg Oral tab 1 tab once daily [Active]; levothyroxine 25 mcg tab 1 tab once daily [Active]; tramadol 50 mg Oral tab 1 tab every 6 hours [Active]; simvastatin 40 mg Oral tab 1 tab once daily [Active]; pantoprazole 40 mg Oral TbEC 1 tab once daily [Active]; metoprolol succinate 50 mg Oral CSpX 1 cap once daily [Active]; Linzess 290 mcg Oral cap 1 cap once daily [Active]; Basaglar KwikPen U-100 Insulin 100 unit/mL (3 mL) subcutaneous inpn 12 unit nightly [Active]; Humulin R Regular U-100 Insuln 100 unit/mL soln 4 unit before breakfast and dinner [Active]; - 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 - Social history:: Smoking status: Patient denies any tobacco usage or history of. - Family history:: not pertinent. ROS: 20:04 Constitutional: Negative for fever, chills, and weight loss, Eyes: Negative for injury, evelyn pain, redness, and discharge, ENT: Negative for injury, pain, and discharge, Neck: Negative for injury, pain, and swelling, Cardiovascular: Negative for chest pain, palpitations, and edema, Abdomen/GI: Negative for abdominal pain, nausea, vomiting, diarrhea, and constipation, Back: Negative for injury and pain, MS/Extremity: Negative for injury and deformity, Psych: Negative for depression, anxiety, suicide ideation, homicidal ideation, and hallucinations, Allergy/Immunology: Negative for hives, rash, and allergies, Endocrine: Negative for neck swelling, polydipsia, polyuria, polyphagia, and marked weight changes, Hematologic/Lymphatic: Negative for swollen nodes, abnormal bleeding, and unusual bruising. 20:04 Respiratory: Positive for cough. 20:04 Abdomen/GI: Positive for abdominal pain, nausea, abdominal cramps, abdominal distension, of the suprapubic area, right lower quadrant and left lower quadrant. 20:04 : Positive for small amounts, burning with urination. 20:04 Neuro: Positive for altered mental status, weakness. Exam: 20:04 Head/Face: Normocephalic, atraumatic. Neck: Trachea midline, no thyromegaly or masses evelyn palpated, and no cervical lymphadenopathy. Supple, full range of motion without nuchal rigidity, or vertebral point tenderness. No Meningismus. Back: No spinal tenderness. No costovertebral tenderness. Full range of motion. 20:04 Eyes: Periorbital structures: erythema, swelling, Conjunctiva: injected. 20:04 Cardiovascular: Rate: tachycardic, actual rate is 101 bpm, Rhythm: regular, Pulses: Pulses are 4+ in bilateral radial, brachial, femoral, popliteal, posterior tibial and and dorsalis pedis arteries.. Heart sounds: murmur, systolic, grade 2 over 6, Edema: is not appreciated, JVD: is not appreciated. 20:04 ECG was reviewed by the Attending Physician. 20:04 : CVA tenderness, is absent, Male external genitalia: penile discharge, purulent, tenderness, Bladder: distension, that is moderate, tenderness, that is mild, placed , pvr 1000 cc foul urine, purlent. Vital Signs: 17:45 BP 108 / 55; Pulse 97; Resp 16; Temp 98.1; Pulse Ox 95% ; bp 18:29 BP 105 / 52; Pulse 92; Resp 16; Pulse Ox 97% 2 lpm ; zb 19:16 BP 112 / 54; Pulse 89; Resp 17; Pulse Ox 100% ; bp 20:03 BP 121 / 53; Pulse 90; Resp 20; Pulse Ox 91% 2 lpm ; zb 11/23 02:07 BP 121 / 56; Pulse 74; Resp 16 S; Temp 96(R); Pulse Ox 100% on 3 lpm NC; bb MDM: 11/22 17:39 Patient medically screened. evelyn 20:12 Differential diagnosis: nonspecific abdominal pain, UTI, urinary retention, evelyn prostatitis, urethritis. Differential Diagnosis altered mental status, sepsis. Data reviewed: vital signs, nurses notes, lab test result(s), EKG, radiologic studies, CT scan, plain films. Data interpreted: campus monitor: rate is 90 beats/min, rhythm is regular, Pulse oximetry: on room air is 91 %. Test interpretation: by ED physician or midlevel provider: ECG, plain radiologic studies. Counseling: I had a detailed discussion with the patient and/or guardian regarding: the historical points, exam findings, and any diagnostic results supporting the discharge/admit diagnosis, lab results, radiology results, the need for further work-up and treatment in the hospital. 11/22 17:42 Order name: Basic Metabolic Panel [facility] 11/22 17:42 Order name: CBC with Diff [facility] 11/22 17:42 Order name: LFT's [facility] 11/22 17:42 Order name: Magnesium; Complete Time: 20:01 [facility] 11/22 17:42 Order name: NT PRO-BNP; Complete Time: 20:01 [facility] 11/22 17:42 Order name: PT-INR; Complete Time: 20:01 [facility] 11/22 17:42 Order name: Troponin (emerg Dept Use Only); Complete Time: 20:01 [facility] 11/22 17:42 Order name: Blood Culture Adult (2) [facility] 11/22 17:42 Order name: Lactate; Complete Time: 20:01 [facility] 11/22 17:42 Order name: Procalcitonin; Complete Time: 20:01 [facility] 11/22 17:42 Order name: Urine Culture [facility] 11/22 17:43 Order name: Basic Metabolic Panel; Complete Time: 20:01 [facility] 11/22 17:43 Order name: CBC with Automated Diff; Complete Time: 20:01 [facility] 11/22 17:42 Order name: XRAY Chest (1 view); Complete Time: 20:01 [facility] 11/22 17:43 Order name: Liver (Hepatic) Function; Complete Time: 20:01 [facility] 11/22 18:26 Order name: CBC Smear Scan; Complete Time: 20:01 [facility] 11/22 19:16 Order name: Urine Dipstick-Ancillary; Complete Time: 20:01 [facility] 11/22 19:53 Order name: SARS-COV-2 RT PCR; Complete Time: 20:01 [facility] 11/22 20:20 Order name: CT Stone Protocol [facility] 11/22 22:03 Order name: CT [facility] 11/22 23:38 Order name: Troponin I [facility] 11/23 00:51 Order name: Glucose, Ancillary Testing [facility] 11/22 17:42 Order name: EKG; Complete Time: 17:43 [facility] 11/22 17:42 Order name: Cardiac monitoring; Complete Time: 19:15 [facility] 11/22 17:42 Order name: EKG - Nurse/Tech; Complete Time: 19:15 [facility] 11/22 17:42 Order name: IV Saline Lock; Complete Time: 17:57 [facility] 11/22 17:42 Order name: Labs collected and sent; Complete Time: 18:29 [facility] 11/22 17:42 Order name: O2 Per Protocol; Complete Time: 17:57 [facility] 11/22 17:42 Order name: O2 Sat Monitoring; Complete Time: 17:57 [facility] 11/22 17:42 Order name: Urine Dipstick-Ancillary (obtain specimen); Complete Time: 19:15 [facility] EC:04 Rate is 91 beats/min. Rhythm is regular. QRS [place] is Normal. AL interval is normal. QRS evelyn interval is normal. QT interval is normal. No Q waves. T waves are Normal. No ST changes noted. Clinical impression: Abnormal EKG without significant change and No evidence of ischemia. Interpreted by me. Reviewed by me. Administered Medications: 17:00 Drug: NS 0.9% 500 ml Route: IV; Rate: bolus; Site: right forearm; zb 11/23 00:12 Follow up: Response: No adverse reaction; IV Status: Completed infusion; IV Intake: zb 500ml 11/22 18:26 Drug: Rocephin (cefTRIAXone) 1 grams Route: IV; Rate: per protocol; Site: right forearm;zb 11/23 00:13 Follow up: Response: No adverse reaction; IV Status: Completed infusion; IV Intake: 10mlzb 11/22 18:26 Drug: morphine 2 mg Route: IVP; Site: right forearm; zb 11/23 00:12 Follow up: Response: No adverse reaction; Pain is decreased; RASS: Alert and Calm (0) zb 11/22 18:26 Drug: Zofran (Ondansetron) 4 mg Route: IVP; Site: right forearm; zb 11/23 00:12 Follow up: Response: No adverse reaction zb 11/22 18:27 Drug: NS 0.9% 500 ml Route: IV; Rate: bolus; Site: right antecubital; zb 11/23 00:12 Follow up: Response: No adverse reaction; IV Status: Completed infusion; IV Intake: zb 500ml 11/22 18:28 Drug: NS 0.9% 1000 ml Route: IV; Rate: 125 ml/hr; Site: right antecubital; zb 11/23 00:13 Follow up: Response: No adverse reaction; IV Status: Completed infusion; IV Intake: zb 125ml 02:16 Follow up: IV Status: Infusion continued upon admission bb 00:12 Drug: Pepcid (famotidine) 20 mg Route: IVP; Site: right femoral; zb 00:13 Follow up: Response: No adverse reaction zb Disposition Summary: 11/22/20 20:19 Hospitalization Ordered Hospitalization Status: Inpatient Admission evelyn Provider: Blaine Mendoza cha Condition: Serious evelyn Problem: new evelyn Symptoms: have improved evelyn Bed/Room Type: Standard evelyn Location: Telemetry/MedSurg (Inpatient)(11/23/20 00:59) cg Room Assignment: 407(11/23/20 00:59) cg Diagnosis - Acute kidney failure, unspecified - on chronic evelyn - Coronavirus infection, unspecified evelyn - UTI/ Urinary tract infection, site not specified evelyn - Retention of urine, unspecified - pvr 1000 evelyn - Dehydration evelyn - Weakness evelyn - Hyperkalemia evelyn - Elevated white blood cell count, unspecified evelyn Forms: - Medication Reconciliation Form evelyn - SBAR form evelyn Signatures: Dispatcher [employer] EDMS Ralph Dominguez MD MD cha Garcia, Cindy, RN RN Oracio Rowe RN RN Margaret Guevara RN RN Geovanna Salmon RN bb Corrections: (The following items were deleted from the chart) 11/22 18:52 17:43 CORONAVIRUS+MRMANOHAR.BRZ ordered. EDMS EDMS 22:52 20:19 Telemetry/MedSurg (Inpatient) [facility] 22:52 20:19 [facility] 11/23 00:59 11/22 22:52 [facility] ER HOLD [facility] 11/23 00:59 11/22 22:52 ERHOLD- [facility]
--- NOTE | 2020-11-22 20:20 | ER ---
Nurse's Notes Formerly [facility] [place] Name: Bella Morales Age: 89 yrs Sex: Male : 1930 Arrival Date: 11/22/2020 Time: 17:30 Bed 26 Private MD: Diagnosis: Acute kidney failure, unspecified-on chronic;Coronavirus infection, unspecified;UTI/ Urinary tract infection, site not specified;Retention of urine, unspecified-pvr 1000;Dehydration;Weakness;Hyperkalemia;Elevated white blood cell count, unspecified Presentation: 11/22 17:45 Chief complaint: EMS states: DIRECTED TO ER BY HOME HEALTH FOR DEHYDRATION. Coronavirus bp screen: At this time, the client does not indicate any symptoms associated with coronavirus-19. Ebola Screen: No symptoms or risks identified at this time. Initial Sepsis Screen: Does the patient meet any 2 criteria? No. Patient's initial sepsis screen is negative. Does the patient have a suspected source of infection? No. Patient's initial sepsis screen is negative. Risk Assessment: Do you want to hurt yourself or someone else? Patient reports no desire to harm self or others. Onset of symptoms is unknown. Care prior to arrival: IV initiated. 18 GA, in the left antecubital area, Glucose check: 239 Oxygen administered. via nasal cannula. 17:45 Method Of Arrival: EMS: [place] [facility] bp 17:45 Acuity: DIANNE 3 bp Triage Assessment: 17:48 General: Appears distressed, uncomfortable, ill, slender, unkempt, Behavior is bp agitated, anxious, drowsy. Pain: Unable to use pain scale. Does not appear to understand pain scale. EENT: No deficits noted. Neuro: Level of Consciousness is obeys commands, confused, Oriented to person, place. Cardiovascular: No deficits noted. Respiratory: Airway is patent Respiratory effort is shallow. GI: No signs and/or symptoms were reported involving the gastrointestinal system. : No signs and/or symptoms were reported regarding the genitourinary system. Derm: No deficits noted. Musculoskeletal: No deficits noted. Historical: - Allergies: 17:48 Vancomycin; bp - Home Meds: 17:48 Amitiza 24 mcg Oral cap 1 cap 2 times per day [Active]; aspirin 325 mg Oral tab 1 tab bp once daily [Active]; gabapentin 400 mg Oral cap 1 cap 3 times per day [Active]; furosemide 40 mg Oral tab 1 tab once daily [Active]; levothyroxine 25 mcg tab 1 tab once daily [Active]; tramadol 50 mg Oral tab 1 tab every 6 hours [Active]; simvastatin 40 mg Oral tab 1 tab once daily [Active]; pantoprazole 40 mg Oral TbEC 1 tab once daily [Active]; metoprolol succinate 50 mg Oral CSpX 1 cap once daily [Active]; Linzess 290 mcg Oral cap 1 cap once daily [Active]; Basaglar KwikPen U-100 Insulin 100 unit/mL (3 mL) subcutaneous inpn 12 unit nightly [Active]; Humulin R Regular U-100 Insuln 100 unit/mL soln 4 unit before breakfast and dinner [Active]; - 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 - Social history:: Smoking status: Patient denies any tobacco usage or history of. - Family history:: not pertinent. Screenin:56 Abuse screen: Denies threats or abuse. Denies injuries from another. Nutritional bp screening: No deficits noted. Tuberculosis screening: No symptoms or risk factors identified. Fall Risk None identified. Assessment: 17:56 Reassessment: SEE TRIAGE NOTE. bp 19:16 : Urine is cloudy, Penile discharge is white, malodorous, Swelling noted at urinary bp meatus HYPHEMA NOTED. 20:02 Reassessment: Patient appears in no apparent distress at this time. remains incoherent. zb family at bedside. IV fluids infusing. kay cath remains in place. 11/23 02:07 Reassessment: pt supine, resp unlabored, oriented to none, kay catheter in place 1500 bb mL output, IV site intact, patent, with fluids infusing, pt moaning periodically, cleaned of incontinence. Vital Signs: 11/22 17:45 BP 108 / 55; Pulse 97; Resp 16; Temp 98.1; Pulse Ox 95% ; bp 18:29 BP 105 / 52; Pulse 92; Resp 16; Pulse Ox 97% 2 lpm ; zb 19:16 BP 112 / 54; Pulse 89; Resp 17; Pulse Ox 100% ; bp 20:03 BP 121 / 53; Pulse 90; Resp 20; Pulse Ox 91% 2 lpm ; zb 11/23 02:07 BP 121 / 56; Pulse 74; Resp 16 S; Temp 96(R); Pulse Ox 100% on 3 lpm NC; bb ED Course: 11/22 17:30 Patient arrived in ED. em1 17:39 Ralph Dominguez MD is Attending Physician. evelyn 17:40 Oracio العراقي, RN is Primary Nurse. bp 17:48 Triage completed. bp 17:48 Arm band placed on. bp 17:56 Patient has correct armband on for positive identification. Bed in low position. Call bp light in reach. Side rails up X2. Adult w/ patient. 17:57 Maintain EMS IV. Dressing intact. Good blood return noted. Site clean \T\ dry. Gauge \T\ bp site: 18 GA LEFT AC. 18:25 XRAY Chest (1 view) In Process Unspecified. EDMS 19:15 Kay cath inserted, using sterile technique, 18 Fr., by in, balloon inflated, to bp gravity drainage, urine specimen collected. returned cloudy urine. Patient tolerated well. 19:48 Primary Nurse role handed off by Oracio العراقي, RN zb 19:48 Margaret Moyer, SHELBY is Primary Nurse. zb 20:14 Blaine Mendoza DO is Hospitalizing Provider. [facility] 11/23 02:09 Cleaned of incontinence. bb 02:15 No provider procedures requiring assistance completed. Patient admitted, IV remains in bb place. Administered Medications: 11/22 17:00 Drug: NS 0.9% 500 ml Route: IV; Rate: bolus; Site: right forearm; 11/23 00:12 Follow up: Response: No adverse reaction; IV Status: Completed infusion; IV Intake: zb 500ml 11/22 18:26 Drug: Rocephin (cefTRIAXone) 1 grams Route: IV; Rate: per protocol; Site: right forearm; 11/23 00:13 Follow up: Response: No adverse reaction; IV Status: Completed infusion; IV Intake: 10mlzb 11/22 18:26 Drug: morphine 2 mg Route: IVP; Site: right forearm; 11/23 00:12 Follow up: Response: No adverse reaction; Pain is decreased; RASS: Alert and Calm (0) 11/22 18:26 Drug: Zofran (Ondansetron) 4 mg Route: IVP; Site: right forearm; zb 11/23 00:12 Follow up: Response: No adverse reaction zb 11/22 18:27 Drug: NS 0.9% 500 ml Route: IV; Rate: bolus; Site: right antecubital; zb 11/23 00:12 Follow up: Response: No adverse reaction; IV Status: Completed infusion; IV Intake: zb 500ml 11/22 18:28 Drug: NS 0.9% 1000 ml Route: IV; Rate: 125 ml/hr; Site: right antecubital; zb 11/23 00:13 Follow up: Response: No adverse reaction; IV Status: Completed infusion; IV Intake: zb 125ml 02:16 Follow up: IV Status: Infusion continued upon admission bb 00:12 Drug: Pepcid (famotidine) 20 mg Route: IVP; Site: right femoral; zb 00:13 Follow up: Response: No adverse reaction zb Intake: 00:12 IV: 500ml; Total: 500ml. zb 00:12 IV: 500ml; Total: 1000ml. zb 00:13 IV: 10ml; Total: 1010ml. zb 00:13 IV: 125ml; Total: 1135ml. zb Output: 02:13 Urine: 1500ml (Kay); Total: 1500ml. bb Outcome: 11/22 20:19 Decision to Hospitalize by Provider. [facility] 11/23 02:15 Admitted to Tele accompanied by tech, via stretcher, room 407, with chart, Report bb called to Gregory RYAN Condition: stable Instructed on unable pt is not oriented 02:52 Patient left the ED. bb Signatures: Dispatcher [employer] Ralph Hurley MD MD cha Ballard, Brenda, RN RN Jose Daniel Ureña emOracio Marin RN RN bp Brown, Zipporah, RN RN zb
--- NOTE | 2020-11-22 22:02 | RAD REPORT ---
EXAM DESCRIPTION: CT - Stone Protocol - 11/22/2020 9:41 pm CLINICAL HISTORY: Abdominal pain. COMPARISON: 2007 TECHNIQUE: Computed axial tomography of the abdomen pelvis was obtained without oral or IV contrast. Lack of IV and oral contrast limits evaluation of solid organs, bowel, and vessels. Coronal reformat candelario images were obtained and reviewed. All CT scans are performed using dose optimization technique as appropriate and may include automated exposure control or mA/KV adjustment according to patient size. FINDINGS: Small bilateral renal calculi. No hydronephrosis. A ureteral calculus is not seen. A bladd er calculus is not noted. Mars catheter the bladder. The liver, spleen, pancreas and adrenals appear grossly normal A prostatectomy with lymph node dissection. Small inguinal hernias contain fat. Rectum is mildly dist ended with stool. There is no evidence of diverticulitis. Spondylosis lumbar spine resulting in spinal stenosis Normal appendix. Small umbilical hernia Mild right lower lobe opacity IMPRESSION: Small nonobstructing bilateral renal calculi Mild right lower lobe opacity may indicate a mild pneumonia
[2020-11-22] MEDS ORDERED: ONDANSETRON 4 MG/2 ML VIAL IV PRN (22:20)
[2020-11-22] MEDS: NACHLORIDE 0.45% 1,000 ML IV SCH (22:20)
--- NOTE | 2020-11-22 22:32 | P.HP ---
Certification for Inpatient Patient admitted to: Inpatient With expected LOS: >2 Midnights Patient will require the following post-hospital care: None Practitioner: I am a practitioner with admitting privileges, knowledge of patient current condition, hospital course, and medical plan of care. Services: Services provided to patient in accordance with Admission requirements found in Title 42 Section 412.3 of the Code of Federal Regulations Patient History Date of Service: 11/22/20 Reason for admission: Acute renal failure, urinary retention History of Present Illness: 89-year-old male with history of diabetes mellitus type 2, paroxysmal atrial fibrillation, CKD three, anemia chronic disease, hypertension, history of prostate cancer, C2, C3 anterior subluxation presents emergency department for weakness, dehydration. Patient currently lives at home and has caretakers, recently was taken off of home health/hospice, patient was very dehydrated. Patient was evaluated the emergency department labs were significant for white blood cell 13.4 hemoglobin 9.1 hematocrit 27.9 potassium 5.3 creatinine 6.56 BUN 182 GFR eight glucose 250 magnesium 4.4 calcium 7.8 BNP greater than 35,000 troponin 0 0.41 procalcitonin 8.49 urinalysis 3+ leukocytes. Patient was found to be retaining urine, foreskin was stenotic on exam, ED provider placed Mars catheter which drained 1 L of urine. Case was discussed with patient's business systems lead who recommended IV fluids overnight in addition to leaving Mars catheter in place to see if patient's renal function can recover or if you require dialysis. Patient also tested positive for Covid, this is his first positive Covid test, patient is vaccinated, no signs or symptoms present at this time. We will continue to monitor patient's daughter at bedside reports that they would want dialysis if this was necessary. Patient full code at this time, not in need of emergent dialysis at this time. Will admit for further evaluation and management. Allergies vancomycin Allergy (Verified 05/18/18 09:20) Hives/Rash Home Medications: Metoprolol Succinate [Toprol Xl] 50 mg PO BEDTIME 05/18/18 Simvastatin 40 mg PO BEDTIME 05/18/18 Aspirin 1 tab PO DAILY 09/22/20 Furosemide 1 tab PO DAILY 09/22/20 Gabapentin 1 cap PO TID 09/22/20 Insulin -Regular Human [Novolin -R*] 4 unit SQ BID 09/22/20 Insulin Glargine,Hum.rec.anlog [Lantus] 12 unit SQ BEDTIME 09/22/20 Levothyroxine Sodium [Levothyroxine] 1 tab PO [id number] 09/22/20 Linaclotide [Linzess] 1 tab PO DAILY 09/22/20 Lubiprostone [Amitiza] 1 cap PO DAILY 09/22/20 Pantoprazole [Protonix Tab*] 1 tab PO DAILY 09/22/20 Tramadol HCl [Ultram] 1 tab PO Q6H PRN 09/22/20 - Past Medical/Surgical History Diabetic: Yes -: IDDM -: HTN -: prostate cancer -: kidney failure -: angiosarcoma -: 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 -: prostatectomy Psychosocial/ Personal History: lives at home by himself - Family History Mother -: Heart disease Father -: Cancer - Social History Alcohol use: No CD- Drugs: No Caffeine use: No Place of Residence: Home Review of Systems is unable to be obtained Physical Examination - Physical Exam General: Alert, Oriented x2 HEENT: Other Neck: Supple (Brain is dry) Respiratory: Diminished Cardiovascular: No edema, Normal S1 S2 Capillary refill: <2 Seconds Gastrointestinal: Normal bowel sounds, Soft and benign Musculoskeletal: No contractures, No tenderness, No warmth Integumentary: No tenderness/swelling, No cyanosis Neurological: Other (Speech is slow, mildly slurred), Dementia - Studies Laboratory Data (last 24 hrs) 11/22/20 18:02: PT 18.4 H, INR 1.59 11/22/20 18:02: WBC 13.40 H, Hgb 9.1 L, Hct 27.9 L, Plt Count 209 11/22/20 18:02: Sodium 141, Potassium 5.3 H, BUN 182 H, Creatinine 6.56 H*, Glucose 250 H, Magnesium 4.4 H* D, Total Bilirubin 0.8, AST 87 H, ALT 40, Alkaline Phosphatase 121 H Assessment and Plan - Plan Assessment: Acute renal failure superimposed on CKD 3 secondary to urinary retentionnow with Mars catheter Altered mental status likely secondary to above Paroxysmal atrial fibrillation not on chronic anticoagulation therapy NSTEMI Diabetes type 2 Anemia of chronic disease Hypertension History of prostate cancer status post prostatectomy C2-C3 anterior subluxation COVID-19 positive Plan: Acute renal failure superimposed on CKD 3 secondary to urinary retentionnow with Mars catheter: Likely related to urinary tension. Patient had greater than 1 L of urine on bladder scan, ED provider noticed stenotic foreskin, Mars catheter was placed in the emergency department drained approximately 1 L of da rk foul odor to urine. Case was discussed with patient's business systems lead who recommends leaving indwelling Mars catheter in place treat with IV fluids overnight and reassessing renal function in the morning. Case was discussed at length with patient's daughter, they would like to proceed with dialysis if it became necessary. We will recheck labs in the morning. Altered mental status likely secondary to above: Family reports patient with difficulty swallowing, patient is n.p.o. at this time will consult speech therapy, physical therapy, occupational therapy. Patient may require additional assistance at discharge including possibly long term facility, rehab, home health with physical therapy. Paroxysmal atrial fibrillation not on chronic anticoagulation therapy: At time of admission patient in sinus rhythm with rate around 80, currently tachycardic with rate around 150 suspect atrial fibrillation EKG pending. Will treat with beta-salud therapy, consult cardiology. Patient not candidate for full anticoagulation, history of life-threatening GI bleed. NSTEMI: Likely demand ischemia related to acute renal failure, urinary retention. Will trend troponins, monitor on telemetry, consult cardiology. Again patient not candidate for full anticoagulation with history of life- threatening GI bleed. Diabetes type 2: A [facility] Accu-Chek, sliding scale insulin therapy. Anemia of chronic disease: Transfuse to maintain hemoglobin greater than 8. Hypertension: Patient n.p.o. at this time will provide medications as needed IV. History of prostate cancer status post prostatectomy: Stable C2-C3 anterior subluxation: Patient previously transferred to [facility] for evaluation from neurosurgery, no intervention was recommended. COVID-19 positive: Patient not in respiratory symptoms or pneumonia at this time. Continue to monitor. Patient family does not want any further treatment with supplements, wants patient to be retested doubts results. Patient is fully vaccinated. DVT PPX: Heparin Code status: Full Discharge Plan: Home Plan to discharge in: Greater than 2 days - Advance Directives Does patient have a Living Will: No Does patient have a Durable POA for Healthcare: No - Code Status/Comfort Care Code Status Assessed: Yes (Full code) Critical Care: No Time Spent Managing Pts Care (In Minutes): 55
[2020-11-22] MEDS ORDERED: NA CHLORIDE 0.9% 1,000 ML ONE (22:51)
[2020-11-22] MEDS ORDERED: METOPROLOL TARTRATE 5 MG/5 ML INJ IV STA (23:42)
[2020-11-22] MEDS ORDERED: METOPROLOL TARTRATE 5 MG/5 ML INJ IV ONE (23:51)
[2020-11-23 00:11] VITALS: BMI 27.8
[2020-11-23] MEDS ORDERED: MORPHINE 2 MG/ML SYR IV PRN (02:09)
[2020-11-23] MEDS ORDERED: METOPROLOL TARTRATE 5 MG/5 ML INJ IV STA (04:49)
--- NOTE | 2020-11-23 06:09 | P.PN ---
Subjective Date of Service: 11/23/20 Chief Complaint: Acute renal failure, urinary retention Subjective: Other (Spoke to daughter. Patient was getting Morphine every hour as needed at home for chronic pain. Father did not want to go to the Hospital as she reports. He was in [facility] for pain. This am he is somnolent. Answers to yes) Physical Examination - Vital Signs Temperature: 97.0 F Blood Pressure: 110/76 Pulse: 120 Respirations: 20 Pulse Ox (%): 98 - Studies Laboratory Data (last 24 hrs) 11/22/20 18:02: PT 18.4 H, INR 1.59 11/22/20 18:02: WBC 13.40 H, Hgb 9.1 L, Hct 27.9 L, Plt Count 209 11/22/20 18:02: Sodium 141, Potassium 5.3 H, BUN 182 H, Creatinine 6.56 H*, Glucose 250 H, Magnesium 4.4 H* D, Total Bilirubin 0.8, AST 87 H, ALT 40, Alkaline Phosphatase 121 H Assessment & Plan Discharge Plan: Home Plan to discharge in: Greater than 2 days - Code Status/Comfort Care Code Status Assessed: Yes Code Status: Do Not Attempt Resuscitat Physician Review Additional Text: COVID: Positive CXR: COMPARISON: October 08, 2020 FINDINGS: The lungs appear clear of acute infiltrate. The heart is normal size Postsurgical changes involve the chest. IMPRESSION: No acute abnormalities displayed CT scan: FINDINGS: Small bilateral renal calculi. No hydronephrosis. A ureteral calculus is not seen. A bladder calculus is not noted. Mars catheter the bladder. The liver, spleen, pancreas and adrenals appear grossly normal A prostatectomy with lymph node dissection. Small inguinal hernias contain fat. Rectum is mildly distended with stool. There is no evidence of diverticulitis. Spondylosis lumbar spine resulting in spinal stenosis Normal appendix. Small umbilical hernia Mild right lower lobe opacity IMPRESSION: Small nonobstructing bilateral renal calculi Mild right lower lobe opacity may indicate a mild pneumonia Physical Exam: General: Patient alert but confused. Patient answers to yes. HEENT: Dry mucous membranes Neck: Neck supple Respiratory: Diminished bilateral. Currently on 3 L per nasal cannula Cardiovascular: No edema, Normal S1 S2 Capillary refill: <2 Seconds Gastrointestinal: Normal bowel sounds, Soft and benign Musculoskeletal: No contractures, No tenderness, No warmth Integumentary: No tenderness/swelling, No cyanosis Neurological: Other (Speech is slow, mildly slurred), Dementia Impression: Acute renal failure superimposed on CKD 3 with Hyperkalemia secondary to UTI/urinary retentionnow with Mars catheter/RLL pneumonia complicated with Metabolic encephalopathy, Hyperkalemia, and likely Uremia Paroxysmal atrial fibrillation not on chronic anticoagulation therapy Elevated troponin likely ischemic demand related to ARF Diabetes type 2 Anemia of chronic disease Hypertension History of prostate cancer status post prostatectomy C2-C3 anterior subluxation with Spinal stenosis COVID-19 positive Plan: Acute renal failure superimposed on CKD 3 with Hyperkalemia secondary to UTI/urinary retentionnow with Mars catheter/RLL pneumonia complicated with Metabolic encephalopathy, Hyperkalemia, and likely Uremia: Patient with confusion noted. Patient with multiple medical issues. Will DC Morphine change to Dilaudid and provide other measures for pain. 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 He was transferred to [facility]. No intervention was done. He was then placed in SNF in [place]. He has declined in health since that time. Patient and family was looking into Hospice prior to admission. He really did not want to go to the Hospital. Now on IV fluids, antibiotics. I spoke to the daughter-Barbra at length along with Dr. Mcduffie-Nephrology concerning all aspects of care. Advance d directives readdressed in detail. Daughter has decided to make the patient DO NOT Resuscitate. After a lengthy discussion, will continue with conservative measures to treat his infections, receive IV fluids and control pain. If No improvement or worsening condition in the next 24-48 hours then will pursue Hospice at Home. I will turn the service over to the Hospitalist team tomorrow. I will go over the plan of care. Paroxysmal atrial fibrillation not on chronic anticoagulation therapy: Patient was in RVR, now NSR. Continue with Metoprolol. Parameters in place. Continue off anticoagulation due to risk of bleeding and fall. Elevated Troponin likely demand ischemia related to acute renal failure, urinary retention: Continue with conservative measures. No interventions as stated above. Diabetes type 2: Continue with accuchecks, sliding scale insulin therapy. Anemia of chronic disease: Will monitor. Transfuse if hemoglobin below 7.5. Hypertension: Will provide medication IV until swallowing can be fully assessed. History of prostate cancer status post prostatectomy: Stable. Continue with pain control C2-C3 anterior subluxation with Spinal Stenosis: Patient previously transferred to [facility] for evaluation from neurosurgery, no intervention was recommended. Continue with pain control. COVID-19 positive: Patient is fully vaccinated. Continue with plan above. DVT PPX: Heparin Code status: Patient is DNR. See above for details. Discharge Plan: Continue with conservative measures for now. If he continues to decline or no significant improvement then will purse Hospice at home in the next 24-48 hours. Time Spent Managing Pts Care (In Minutes): 55
[2020-11-23 06:21] LABS: Absolute Lymphocytes (CBC) 0.5 K/uL (0.7-4.9); Basophils % 0.2 % (0-1.3); Hematocrit 26.1 % (39.6-49.0); Lymphocytes % 3.8 % (15.3-44.8); RBC Red Blood Cell Count 2.79 M/uL (4.33-5.43)
[2020-11-23 07:04] LABS: Ferritin 1524.8 ng/mL (26-388)
[2020-11-23] MEDS: NACHLORIDE 0.45% 1,000 ML IV SCH (07:05)
[2020-11-23 07:17] LABS: Albumin 2.1 g/dL (3.4-5.0); Bilirubin Total 0.6 mg/dL (0.2-1.0); Protein, Total 7.8 g/dL (6.4-8.2); Thyroid Stimulating Hormone 1.85 uIU/mL (0.360-3.740); Uric Acid 18.1 mg/dL (3.5-7.2)
[2020-11-23 07:21] LABS: Magnesium 4.4 mg/dL (1.8-2.4); Potassium 5.7 mmol/L (3.5-5.1)
[2020-11-23] MEDS: INSULIN -REGULAR HUMAN 50 UNIT/0.5 ML ML SQ SCH ×5 (07:30→20:48)
[2020-11-23] MEDS ORDERED: NALOXONE HCL 2 MG/2 ML VIAL IV ONE (08:49)
[2020-11-23] MEDS ORDERED: CEFTRIAXONE 1 GM/NS 50 ML 1 GM/50 ML BAG IV SCH (09:00)
[2020-11-23] MEDS: HEPARIN 5000 UNIT/ML 1 ML VIAL SQ SCH ×2 (09:02→20:48)
[2020-11-23] MEDS: METOPROLOL TARTRATE 5 MG/5 ML INJ IV SCH ×2 (09:02→20:47)
[2020-11-23] MEDS ORDERED: HYDROCODONE/APAP 7.5/325 MG TAB PO PRN (10:24)
[2020-11-23] MEDS ORDERED: TRAMADOL HCL 50 MG TAB PO PRN (10:24)
[2020-11-23 10:34] LABS: Arterial Blood Carboxyhemoglob 1.3 % (0-1.5); Blood Gas Oxyhemoglobin 95.6 % (94-97); Blood O2 Saturation 98.2 % (92-98.5)
--- NOTE | 2020-11-23 11:53 | CON ---
Date of Consultation: 11/23/2020 Reason For Consultation: Atrial fibrillation with rapid ventricular response and elevated troponin. History Of Present Illness: Mr. Morales is an 89-year-old male with history of severe peripheral art erial disease, diabetes, chronic renal disease, hypertension, dyslipidemia, chronic diastolic congest luz maria heart failure, gastroesophageal reflux disease, admitted with COVID pneumonia, rapid ventricular response. Creatinine is 6.59. Not a candidate for anticoagulation. Unable to take p.o., confused, altered mental status. No report of chest pain. Came in mostly with shortness of breath. Past Medical History: As stated above. Allergies: VANCOMYCIN. Review of Systems: Negative. Social History: Negative. Family History: Negative. Medications: At home include aspirin, Lasix, Neurontin, insulin, Synthroid, Toprol, Protonix, and Zo cor. Physical Examination: General: Patient has altered mental status. Alert and oriented to name, atrial fibrillation, rate o f 120. HEENT: Negative. Neck: Supple. No bruit. Chest: Reveals rales at both bases. Cardiac: Revealed atrial fibrillation. Abdomen: Benign. Extremities: Revealed no clubbing, cyanosis, or edema. Diagnostic Data: Creatinine is 6.59, white count of 12,000, magnesium 4.4, potassium 5.7, glucose of 260. Troponin 0.41. Procalcitonin 8.49. BNP is more than 35,000. Impression And Plan: Atrial fibrillation. The patient is not a candidate for anti coagulation or be ta blockers, but may be worse trying IV amiodarone as his heart rate remains fast. His main problem is COVID pneumonia and renal failure. Nephrology is involved. Echocardiogram in September of 2020 last [facility] was perfectly normal. He has elevated magnesium and potassium and BNP and troponin are secondar y to COVID pneumonia, sepsis, and renal failure. This is not an acute coronary syndrome. I would co ntinue his antibiotics, heparin, insulin, and metoprolol IV as needed. His diabetes is poorly contro lled. His blood pressure is well controlled. His dyslipidemia is well controlled. I do not think jennifer richardson is in congestive heart failure right now. Continue present regimen. No plan for heart catheteriza tion. No plan for further cardiac workup. I will continue to follow him. BARRETT/HONORIO Voice ID: [id number] Report ID: [id number]
[2020-11-23] MEDS: FOLIC ACID 1 MG in NA CHLORIDE 0.9% 50 ML IV SCH (12:00)
[2020-11-23] MEDS ORDERED: FOLIC ACID 5 MG/ML VIAL IVP SCH (12:00)
[2020-11-23] MEDS: CEFEPIME/SWI 1gm 10 ML IV SCH (15:00)
--- NOTE | 2020-11-23 16:17 | RAD REPORT ---
EXAM DESCRIPTION: RAD - Chest Single View - 11/23/2020 9:14 am CLINICAL HISTORY: Follow up COVID, Acute renal failure COMPARISON: Chest Single View dated 11/22/2020; Chest Single View dated 09/27/2020; Chest Single View d ated 09/25/2020; Chest Single View dated 09/22/2020 FINDINGS: Lines: None. Lungs: No evidence of edema or pneumonia. There are a few scattered nodular foci bilaterally which ar e similar to prior. No definite acute process identified. Pleural: No significant pleural effusions or pneumothorax. Cardiac: The heart size is within normal limits. Bones: No acute fractures. Sternotomy. Other: IMPRESSION: No acute cardiopulmonary disease. No appreciable change compared with 11/22/2020.
[2020-11-23] MEDS ORDERED: NACHLORIDE 0.45% 1,000 ML IV SCH (17:00)
[2020-11-23] MEDS ORDERED: CEFTRIAXONE/SWI 1gm 1 GM/10 ML SYR IVP SCH (18:00)
--- NOTE | 2020-11-23 18:26 | RAD REPORT ---
EXAM DESCRIPTION: US - Renal Ultrasound-Complete - 11/23/2020 5:06 pm CLINICAL HISTORY: arf COMPARISON: Stone Protocol dated 11/22/2020 FINDINGS: The right kidney measures 8.6. No hydronephrosis, focal mass or perinephric fluid. The patient could not tolerate the exam and therefore the left kidney was not evaluated. The bladder is decompressed and a Mars catheter. IMPRESSION: Nonvisualized left kidney. The patient could not tolerate the exam. The right kidney is unremarkable. No hydronephrosis.
--- NOTE | 2020-11-23 18:47 | CON ---
Date of Consultation: 11/23/2020 Reason For Consult: Acute renal failure. History Of Present Illness: Mr. 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 He was living at home wi th his caregivers and was supposed to be on his home health/hospice, but he was taken off it recently and he was getting morphine for pain. The patient's family member stated that he was in a lot of pa in and was getting morphine 3 times a day. When he was in the emergency room, he was found to have u rinary retention with about a liter of urine in his bladder and likely acute renal failure. He has b een started on IV fluids and has been admitted to the hospital for further evaluation. He has failed a swallow eval and he has pretty much been out of it for the most part. His daughter is at bedside at this time and she feels like he is doing slightly better. Past Medical History: Significant for history of atrial fibrillation, insulin-dependent diabetes, pr ostate cancer, stage 4 CKD, angiosarcoma, and prostatectomy. Social History: Lives at home. No history of smoking or alcohol use reported. Family History: Noncontributory at this time. Review of Systems: Unable to be obtained. Physical Examination: Vital Signs: Showing temperature of 96.9, pulse rate 68, respiratory rate of 6, and blood pressure 1 14/56. General: He appears cachectic, malnourished. HEENT: He has atraumatic head. Lungs: Auscultation of lungs revealed bilateral equal air entry with diminished breath sounds at bas es. Abdomen: Soft and nontender. Mars catheter with the urine was noted. In's and out's are showing o utput of about 200 mL from the urinary catheter. Current Medications: Include cefepime 1 g every 24 hours, famotidine, heparin 5000 units subcu every 12 hours for DVT prophylaxis, insulin per protocol, metoprolol 5 mg IV b.i.d., and tramadol p.r.n. f or pain and Dilaudid p.r.n. has been ordered instead of morphine. Laboratory Data: At this time are showing sodium of 143, potassium of 5.7, chloride of 108, bicarb o f 22, BUN of 186, and creatinine of 6.59. LFTs are showing elevated AST. Calcium of 7.5, magnesium of 4.4, ferritin was 1524, and C-reactive protein was 160. CBC showing hemoglobin of 8.4, hematocrit 26.1, and platelet count of 181, and WBC count of 12. Urine culture reports are still pending at th is time and COVID was noted to be positive to PCR. Impression: 1.Acute renal failure, likely secondary to combination of acute tubular necrosis and also retention from use of morphine leading to bladder outlet dysfunction. The patient has a Mars catheter placed and he seems nonoliguric at this time. However, daughter feels like he is getting slightly better. I will go ahead and continue with IV fluids with half NS and monitor him closely and follow up on his kidney function level. I have discussed at length regarding dialysis options with his daughter at [facility] and explained that the dialysis will not improve his quality of life at this time given his ad vanced age and multiple comorbidities. His daughter voiced understanding. At this time, we had deci ded on not pursuing any aggressive measures and monitoring him closely without doing any dialysis. 2.Urinary tract infection. Continue with cefepime. 3.Urinary retention. Continue Mars drainage. 4.Altered mental status secondary to metabolic encephalopathy. 5.Atrial fibrillation, rate controlled, currently on metoprolol. Plan: Overall, the patient's condition is guarded. He would not be a good dialysis candidate and wi ll not improve his quality of life. We will discuss with his other daughter, who is actually the [facility] er of associate attorney tomorrow and monitor closely. His ABG and blood work are consistent with metabolic acidosis. Continue with IV fluids and monitor him. VV/MODL Voice ID: [id number] Report ID: [id number]
[2020-11-23] MEDS ORDERED: CEFEPIME 1 GM/VIAL IV SCH (21:00)
[2020-11-23] MEDS: D5 0.45 NS 1,000 ML IV SCH (23:44)
[2020-11-24] MEDS ORDERED: D5 0.45 NS 1,000 ML IV ONE (00:07)
[2020-11-24 04:19] LABS: Absolute Lymphocytes (CBC) 0.4 K/uL (0.7-4.9); Basophils % 0.3 % (0-1.3); Hematocrit 24.6 % (39.6-49.0); Lymphocytes % 3.4 % (15.3-44.8); MPV 10.2 fL (7.6-11.3); RBC Red Blood Cell Count 2.66 M/uL (4.33-5.43)
[2020-11-24 05:17] LABS: Bilirubin Total 0.5 mg/dL (0.2-1.0); Ferritin 1554.6 ng/mL (26-388); Potassium 5.2 mmol/L (3.5-5.1); Protein, Total 7.6 g/dL (6.4-8.2)
[2020-11-24 05:35] LABS: Magnesium 4.1 mg/dL (1.8-2.4)
[2020-11-24] MEDS: INSULIN -REGULAR HUMAN 50 UNIT/0.5 ML ML SQ SCH ×3 (06:39→20:47)
[2020-11-24] MEDS: HEPARIN 5000 UNIT/ML 1 ML VIAL SQ SCH ×2 (10:19→20:49)
[2020-11-24] MEDS: METOPROLOL TARTRATE 5 MG/5 ML INJ IV SCH ×2 (10:19→20:48)
[2020-11-24] MEDS: FOLIC ACID 1 MG in NA CHLORIDE 0.9% 50 ML IV SCH (10:20)
[2020-11-24] MEDS: FAMOTIDINE 20 MG/2 ML VIAL IV SCH (10:25)
[2020-11-24] MEDS: THIAMINE 200 MG/2 ML INJ IVP SCH (10:25)
[2020-11-24] MEDS: HYDROMORPHONE HCL 0.5 MG/0.5 ML INJ IV PRN ×2 (11:44→20:47)
[2020-11-24] MEDS: D5 0.45 NS 1,000 ML IV SCH (12:30)
[2020-11-24] MEDS: CEFEPIME/SWI 1gm 10 ML IV SCH (15:00)
--- NOTE | 2020-11-24 16:58 | EKG ---
Test Date: 2020-11-22 Test Time: 23:27:58 Earthmoving Plant Operator: BAUTISTA MEASUREMENT RESULTS: Intervals: Rate: 148 TN: QRSD: 106 QT: 294 QTc: 461 [place]: P: TN: QRS: 61 T: 255 INTERPRETIVE STATEMENTS: Atrial fibrillation with rapid ventricular response Incomplete left bundle branch block Marked ST abnormality, possible inferior subendocardial injury Abnormal ECG Compared to ECG 11/22/2020 18:54:04 Left bundle-branch block now present Sinus rhythm no longer present First degree AV block no longer present Prolonged QT interval no longer present ST (T wave) deviation still present Electronically Signed On 11-24-20 16:55:59 CDT by Glenn Looney
--- NOTE | 2020-11-24 16:59 | EKG ---
Test Date: 2020-11-22 Test Time: 18:54:04 Patient Biller: BP MEASUREMENT RESULTS: Intervals: Rate: 91 MI: 216 QRSD: 102 QT: 386 QTc: 474 [place]: P: 38 MI: 216 QRS: 45 T: 83 INTERPRETIVE STATEMENTS: Sinus rhythm with 1st degree AV block Possible Left atrial enlargement Nonspecific ST and T wave abnormality Prolonged QT Abnormal ECG Compared to ECG 09/24/2020 00:06:24 First degree AV block now present Prolonged QT interval now present Atrial fibrillation no longer present Ventricular premature complex(es) no longer present T-wave abnormality no longer present ST (T wave) deviation still present Electronically Signed On 11-24-20 16:56:17 CDT by Glenn Looney
[2020-11-25] MEDS: INSULIN -REGULAR HUMAN 50 UNIT/0.5 ML ML SQ SCH ×4 (00:30→18:15)
[2020-11-25] MEDS: HYDROMORPHONE HCL 0.5 MG/0.5 ML INJ IV PRN ×2 (00:41→06:08)
[2020-11-25] MEDS ORDERED: D5 0.45 NS 1,000 ML IV SCH (01:15)
[2020-11-25 01:49] LABS: Urine Appearance TURBID (Clear); Urine Bilirubin NEGATIVE (Negative); Urine Blood 3+ (Negative); Urine Color YELLOW (Yellow); Urine Glucose NEGATIVE (Negative); Urine Protein 1+ (Negative); Urine Specific Gravity 1.015 (1.005-1.030); Urine Urobilinogen 0.2 mg/dL (0.2-1.0)
[2020-11-25 03:17] LABS: Urine Microscopic Reflex ORDER UMIC
[2020-11-25 03:33] LABS: Urine Bacteria >50 /HPF (NONE SEEN); Urine Mucus 2+ /HPF (NONE SEEN); Urine RBC TNTC /HPF (NONE SEEN)
[2020-11-25 05:52] LABS: Albumin 1.9 g/dL (3.4-5.0); Bilirubin Total 0.6 mg/dL (0.2-1.0); Ferritin 1656.5 ng/mL (26-388); Potassium 4.5 mmol/L (3.5-5.1); Protein, Total 7.5 g/dL (6.4-8.2)
[2020-11-25 06:12] LABS: Absolute Lymphocytes (CBC) 0.4 K/uL (0.7-4.9); Basophils % 0.1 % (0-1.3); Hematocrit 25.7 % (39.6-49.0); Lymphocytes % 2.3 % (15.3-44.8); MPV 10.6 fL (7.6-11.3); RBC Red Blood Cell Count 2.77 M/uL (4.33-5.43)
[2020-11-25 06:19] LABS: Magnesium 3.8 mg/dL (1.8-2.4)
[2020-11-25 09:30] LABS: Anisocytosis 1+; Blood Morphology Comment NOTED (NOT SEEN); Platelet Estimate ADEQ
--- NOTE | 2020-11-25 09:44 | P.PN ---
Subjective Date of Service: 11/24/20 Patient's condition is worsening. Prognosis is poor. Daughter at bedside. Considering hospice Review of Systems 10-point ROS is otherwise unremarkable Physical Examination - Vital Signs Temperature: 97.9 F Blood Pressure: 129/62 Pulse: 113 Respirations: 23 Pulse Ox (%): 92 - Physical Exam General: Alert, In no apparent distress, Oriented x3 Respiratory: Clear to auscultation bilaterally, Normal air movement Cardiovascular: Regular rate/rhythm, Normal S1 S2, No murmurs Gastrointestinal: Normal bowel sounds, Soft and benign, Non-distended, No tenderness Musculoskeletal: No clubbing, No swelling, No tenderness Neurological: Sensation intact, Cranial nerves 3-12 intact - Studies Microbiology Data (last 24 hrs): 11/22/20 19:10 Catheterized Urine [place] Count - Final >100,000 CFU/ML. 11/22/20 19:10 Catheterized Urine - Final Klebsiella Pneumoniae Medications List Reviewed: Yes Assessment & Plan - Problems (Diagnosis) (1) Pneumonia due to COVID-19 virus Current Visit: Yes Status: Acute (2) Acute kidney injury Current Visit: Yes Status: Acute (3) UTI (urinary tract infection) Current Visit: Yes Status: Acute (4) Toxic encephalopathy Current Visit: Yes Status: Acute - Plan Plan: 1. Gentle hydration 2. IV antibiotics 3. IV steroids for treatment of COVID-19 pneumonia 4. Nebs as needed 5. Prognosis is poor. Patient has been declining over the last month according to the family. They are contemplating hospice if he is not improving. Discharge Plan: Other - Advance Directives Does patient have a Living Will: No Does patient have a Durable POA for Healthcare: No - Code Status/Comfort Care Code Status: Do Not Attempt Resuscitat
--- NOTE | 2020-11-25 09:45 | P.PN ---
Date of Service: 11/25/20 Subjective Patient with no new changes. Poor prognosis. Review of Systems 10-point ROS is otherwise unremarkable Physical Examination - Vital Signs reviewed - Physical Exam General: Altered Respiratory: Clear to auscultation bilaterally, Normal air movement Cardiovascular: Regular rate/rhythm, Normal S1 S2, No murmurs Gastrointestinal: Normal bowel sounds, Soft and benign, Non-distended, No tenderness Musculoskeletal: No clubbing, No swelling, No tenderness Neurological: Sensation intact, Cranial nerves 3-12 intact Assessment & Plan - Problems (Diagnosis) (1) Pneumonia due to COVID-19 virus Current Visit: Yes Status: Acute (2) Acute kidney injury Current Visit: Yes Status: Acute (3) UTI (urinary tract infection) Current Visit: Yes Status: Acute (4) Toxic encephalopathy Current Visit: Yes Status: Acute - Plan Plan: 1. Gentle hydration 2. IV antibiotics 3. IV steroids for treatment of COVID-19 pneumonia 4. Nebs as needed 5. Prognosis is poor. Patient has been declining over the last month according to the family. They are contemplating hospice if he is not improving.
[2020-11-25] MEDS: HEPARIN 5000 UNIT/ML 1 ML VIAL SQ SCH ×2 (10:28→21:19)
[2020-11-25] MEDS: FOLIC ACID 1 MG in NA CHLORIDE 0.9% 50 ML IV SCH (10:42)
[2020-11-25] MEDS: THIAMINE 200 MG/2 ML INJ IVP SCH (10:43)
[2020-11-25] MEDS: METHYLPREDNISOLONE 40 MG INJ IV SCH ×2 (10:43→21:20)
[2020-11-25] MEDS: FAMOTIDINE 20 MG/2 ML VIAL IV SCH (10:43)
[2020-11-25] MEDS: METOPROLOL TARTRATE 5 MG/5 ML INJ IV SCH ×2 (10:45→21:19)
--- NOTE | 2020-11-25 11:01 | EKG ---
Test Date: 2020-11-23 Test Time: 04:26:52 Facilities Technician: NADER MEASUREMENT RESULTS: Intervals: Rate: 119 RI: QRSD: 126 QT: 334 QTc: 469 [place]: P: RI: QRS: 78 T: -88 INTERPRETIVE STATEMENTS: Atrial fibrillation with rapid ventricular response Nonspecific intraventricular block T wave abnormality, consider inferolateral ischemia or digitalis effect Abnormal ECG Compared to ECG 11/22/2020 23:27:58 T-wave abnormality now present Possible ischemia now present Left bundle-branch block no longer present ST (T wave) deviation no longer present Electronically Signed On 11-25-20 10:54:40 CDT by Glenn Looney
[2020-11-25] MEDS: CEFEPIME/SWI 1gm 10 ML IV SCH (14:45)
--- NOTE | 2020-11-25 15:52 | PN ---
Date of Progress Note: 11/24/2020 Mr. Morales had came in with renal failure requiring dialysis if the family agrees. Has paroxysmal a trial fibrillation, remains in atrial fibrillation, rate controlled, on anticoagulation. Code status was to be discussed with Dr. Mendoza and the family and Nephrology. From a heart standpoint, I am co mfortable with him being rate controlled, on anticoagulation. No further cardiac workup recommended at this point. BARRETT/HONORIO Voice ID: [id number] Report ID: [id number]
--- NOTE | 2020-11-25 20:42 | P.PN ---
Date of Service: 11/25/20 Vital Signs Temp Pulse Resp BP Pulse Ox 97.7 F 110 H 20 139/74 92 11/25/20 20:00 11/25/20 20:00 11/25/20 20:00 11/25/20 20:00 11/25/20 20:00 Medications Hydrocodone Bitart/Acetaminophen (Hydrocodone/Apap 7.5/325 Mg Tab) 1 tab PO Q6HP PRN PRN Reason: Pain scale 5-7 (Moderate) Famotidine (Famotidine 20 Mg/2 Ml Vial) 20 mg IV DAILY [facility]; Protocol Last Admin: 11/25/20 10:43 Dose: 20 mg Documented by: Heparin Sodium (Porcine) (Heparin 5000 Unit/Ml 1 Ml Vial) 5,000 unit SQ Q12HR [facility] Last Admin: 11/25/20 10:28 Dose: 5,000 unit Documented by: Hydromorphone HCl (Hydromorphone Hcl 0.5 Mg/0.5 Ml Inj) 0.5 mg IV Q4HP PRN PRN Reason: Pain scale 8-10 (Severe) Last Admin: 11/25/20 06:08 Dose: 0.5 mg Documented by: Cefepime HCl (Maxipime 1 Gm/10 Ml Ivp) 10 mls @ 200 mls/hr IV Q24H [facility] Last Admin: 11/25/20 14:45 Dose: 10 mls Documented by: Folic Acid 1 mg/ Sodium (Chloride) 50.2 mls @ 200.8 mls/hr IV DAILY [facility] Last Admin: 11/25/20 10:42 Dose: 50.2 mls Documented by: Dextrose/Sodium Chloride (Dextrose 5% O.45% Saline) 1,000 mls @ 50 mls/hr IV .Q20H [facility] Last Admin: 11/25/20 01:15 Dose: 1,000 mls Documented by: Insulin Human Regular (Insulin -Regular Human 50 Unit/0.5 Ml Ml) 0 unit SQ Q6H [facility]; Protocol Last Admin: 11/25/20 18:15 Dose: 341 unit Documented by: Methylprednisolone Sodium Succinate (Methylprednisolone 40 Mg Inj) 40 mg IV Q12HR [facility] Last Admin: 11/25/20 10:43 Dose: 40 mg Documented by: Metoprolol Tartrate (Metoprolol Tartrate 5 Mg/5 Ml Inj) 5 mg IV BID [facility] Last Admin: 11/25/20 10:45 Dose: 5 mg Documented by: Ondansetron HCl (Ondansetron 4 Mg/2 Ml Vial) 4 mg IV Q6HP PRN PRN Reason: NAUSEA / VOMITING Sodium Chloride (Flush Normal Saline 10 Ml) 10 ml IV BID [facility] Last Admin: 11/25/20 10:44 Dose: 10 ml Documented by: Thiamine HCl (Thiamine 200 Mg/2 Ml Inj) 100 mg IVP DAILY [facility] Last Admin: 11/25/20 10:43 Dose: 100 mg Documented by: Tramadol HCl (Tramadol Hcl 50 Mg Tab) 50 mg PO TIDP PRN PRN Reason: Pain scale 2-4 (Mild) Microbiology Results 11/22/20 19:10 Catheterized Urine [place] Count - Final >100,000 CFU/ML. 11/22/20 19:10 Catheterized Urine - Final Klebsiella Pneumoniae 11/22/20 18:02 Blood - Blood Aerobic Blood Culture - Preliminary No growth in 24 hours. 11/22/20 18:02 Blood - Blood Anaerobic Blood Culture - Preliminary 11/22/20 18:02 Blood - Blood Gram Stain - Preliminary 11/22/20 18:09 Blood - Blood Aerobic Blood Culture - Preliminary 11/22/20 18:09 Blood - Blood Blood Culture Gram Stain - Preliminary 11/22/20 18:09 Blood - Blood Anaerobic Blood Culture - Preliminary No growth in 24 hours. Assessment/ Plan: Nephrology Progress Note Limited IH/ ROS due to persistent AMS Case reviewed with his daughter No acute events overnight Vitals, medications blood work and imaging reviewed in the chart NAD. NCAT. DMM. Neck supple. CTA. RRR. ND Abd. No C/C/E. Somnolent. No speech. A/P Continue current POC and Medications other than the changes listed. AM labs as ordered. Recommend daily weight. Greater than 30min patient care. LIZETT likely hypovolemia complicated by obstruction and possible ATN CKD III -No NSAIDs -Change IVF D5W -Continue kay Hyperkalemia -Continue IVF Acidosis -Monitor level HTN with CKD -Monitor BP DM II with CKD -RISS Severe malnutrition -Advance nutrition as tolerated -Continue IVF Toxic metabolic encephalopathy Uremic encephalopathy -Continue IVF Acute K.pneumoniae cystitis -Continue Cefepime COVID PNA -Continue solumedrol
[2020-11-25] MEDS: D5W 1,000 ML IV SCH (21:22)
[2020-11-26] MEDS: INSULIN -REGULAR HUMAN 50 UNIT/0.5 ML ML SQ SCH ×5 (02:20→18:47)
[2020-11-26 03:41] LABS: Absolute Lymphocytes (CBC) 0.4 K/uL (0.7-4.9); Basophils % 0.1 % (0-1.3); Hematocrit 25.4 % (39.6-49.0); Lymphocytes % 2.2 % (15.3-44.8); MPV 10.9 fL (7.6-11.3); RBC Red Blood Cell Count 2.73 M/uL (4.33-5.43)
[2020-11-26] MEDS ORDERED: METOPROLOL TARTRATE 5 MG/5 ML INJ IV STA (03:48)
[2020-11-26] MEDS: D5W 1,000 ML IV SCH ×4 (04:17→20:45)
[2020-11-26 04:26] LABS: Albumin 1.8 g/dL (3.4-5.0); Bilirubin Total 0.6 mg/dL (0.2-1.0); Ferritin 2064.2 ng/mL (26-388); Phosphorus 5.9 mg/dL (2.5-4.9); Potassium 4.6 mmol/L (3.5-5.1); Protein, Total 7.6 g/dL (6.4-8.2)
[2020-11-26] MEDS ORDERED: INSULIN -REGULAR HUMAN 50 UNIT/0.5 ML ML ONE (06:50)
[2020-11-26 06:58] LABS: Urine Appearance TURBID (Clear); Urine Bilirubin NEGATIVE (Negative); Urine Blood 3+ (Negative); Urine Color YELLOW (Yellow); Urine Glucose 3+ (Negative); Urine Protein 1+ (Negative); Urine Specific Gravity 1.015 (1.005-1.030); Urine Urobilinogen 0.2 mg/dL (0.2-1.0)
[2020-11-26 07:21] LABS: Urine Amorphous Sediment 2+ /HPF (NONE SEEN); Urine Bacteria >50 /HPF (NONE SEEN); Urine Yeast PRESENT (NONE SEEN)
[2020-11-26] MEDS: THIAMINE 200 MG/2 ML INJ IVP SCH (08:30)
[2020-11-26] MEDS: FAMOTIDINE 20 MG/2 ML VIAL IV SCH (08:30)
[2020-11-26] MEDS: METOPROLOL TARTRATE 5 MG/5 ML INJ IV SCH ×2 (08:30→20:52)
[2020-11-26] MEDS: HEPARIN 5000 UNIT/ML 1 ML VIAL SQ SCH ×2 (08:30→20:52)
[2020-11-26] MEDS: METHYLPREDNISOLONE 40 MG INJ IV SCH ×2 (08:31→20:56)
[2020-11-26] MEDS ORDERED: GLUCAGON 1 MG/VIAL IM PRN (08:55)
[2020-11-26] MEDS ORDERED: D50W 25 GM/50 ML SYRINGE IV PRN (08:55)
[2020-11-26] MEDS ORDERED: INSULIN 70/30 100 UNITS/ML SQ ONE (08:57)
[2020-11-26] MEDS: FOLIC ACID 1 MG in NA CHLORIDE 0.9% 50 ML IV SCH (10:07)
[2020-11-26] MEDS: INSULIN GLARGINE 100 UNITS/ML SQ SCH (11:48)
[2020-11-26] MEDS: HYDROMORPHONE HCL 0.5 MG/0.5 ML INJ IV PRN ×2 (11:49→17:58)
[2020-11-26] MEDS: CEFEPIME/SWI 1gm 10 ML IV SCH (14:26)
--- NOTE | 2020-11-26 19:31 | P.PN ---
Date of Service: 11/26/20 Vital Signs Temp Pulse Resp BP Pulse Ox 96 F L 87 16 156/66 H 92 11/26/20 16:00 11/26/20 16:00 11/26/20 16:00 11/26/20 16:00 11/26/20 16:00 Medications Hydrocodone Bitart/Acetaminophen (Hydrocodone/Apap 7.5/325 Mg Tab) 1 tab PO Q6HP PRN PRN Reason: Pain scale 5-7 (Moderate) Dextrose (D50w 25 Gm/50 Ml Syringe) 12.5 gm IV PRN PRN; Protocol PRN Reason: HYPOGLYCEMIA Famotidine (Famotidine 20 Mg/2 Ml Vial) 20 mg IV DAILY [facility]; Protocol Last Admin: 11/26/20 08:30 Dose: 20 mg Documented by: Glucagon (Glucagon 1 Mg/Vial) 1 mg IM 1X PRN; Protocol PRN Reason: HYPOGLYCEMIA Heparin Sodium (Porcine) (Heparin 5000 Unit/Ml 1 Ml Vial) 5,000 unit SQ Q12HR [facility] Last Admin: 11/26/20 08:30 Dose: 5,000 unit Documented by: Hydromorphone HCl (Hydromorphone Hcl 0.5 Mg/0.5 Ml Inj) 0.5 mg IV Q4HP PRN PRN Reason: Pain scale 8-10 (Severe) Last Admin: 11/26/20 17:58 Dose: 0.5 mg Documented by: Cefepime HCl (Maxipime 1 Gm/10 Ml Ivp) 10 mls @ 200 mls/hr IV Q24H [facility] Last Admin: 11/26/20 14:26 Dose: 10 mls Documented by: Folic Acid 1 mg/ Sodium (Chloride) 50.2 mls @ 200.8 mls/hr IV DAILY [facility] Last Admin: 11/26/20 10:07 Dose: 50.2 mls Documented by: Dextrose/Water (Dextrose In Water (1-Liter)) 1,000 mls @ 100 mls/hr IV .Q10H [facility] Last Admin: 11/26/20 14:26 Dose: 1,000 mls Documented by: Insulin Glargine (Insulin Glargine 100 Units/Ml) 40 units SQ DAILY [facility] Last Admin: 11/26/20 11:48 Dose: 40 units Documented by: Insulin Human Regular (Insulin -Regular Human 50 Unit/0.5 Ml Ml) 0 unit SQ Q6H [facility]; Protocol Last Admin: 11/26/20 18:47 Dose: 12 unit Documented by: Methylprednisolone Sodium Succinate (Methylprednisolone 40 Mg Inj) 40 mg IV Q12HR [facility] Last Admin: 11/26/20 08:31 Dose: 40 mg Documented by: Metoprolol Tartrate (Metoprolol Tartrate 5 Mg/5 Ml Inj) 5 mg IV BID [facility] Last Admin: 11/26/20 08:30 Dose: 5 mg Documented by: Ondansetron HCl (Ondansetron 4 Mg/2 Ml Vial) 4 mg IV Q6HP PRN PRN Reason: NAUSEA / VOMITING Sodium Chloride (Flush Normal Saline 10 Ml) 10 ml IV BID [facility] Last Admin: 11/26/20 08:32 Dose: 10 ml Documented by: Thiamine HCl (Thiamine 200 Mg/2 Ml Inj) 100 mg IVP DAILY [facility] Last Admin: 11/26/20 08:30 Dose: 100 mg Documented by: Tramadol HCl (Tramadol Hcl 50 Mg Tab) 50 mg PO TIDP PRN PRN Reason: Pain scale 2-4 (Mild) Microbiology Results 11/22/20 18:09 Blood - Blood Aerobic Blood Culture - Preliminary Klebsiella Pneumoniae 11/22/20 18:09 Blood - Blood Blood Culture Gram Stain - Preliminary 11/22/20 18:09 Blood - Blood Anaerobic Blood Culture - Preliminary No growth in 24 hours. 11/22/20 18:02 Blood - Blood Aerobic Blood Culture - Preliminary Klebsiella Pneumoniae 11/22/20 18:02 Blood - Blood Anaerobic Blood Culture - Preliminary 11/22/20 18:02 Blood - Blood Gram Stain - Preliminary 11/22/20 19:10 Catheterized Urine [place] Count - Final >100,000 CFU/ML. 11/22/20 19:10 Catheterized Urine - Final Klebsiella Pneumoniae Assessment/ Plan: Nephrology Progress Note Limited IH/ ROS due to persistent AMS No acute events overnight Vitals, medications blood work and imaging reviewed in the chart NAD. NCAT. DMM. Neck supple. CTA. RRR. ND Abd. No C/C/E. Somnolent. No speech. A/P Continue current POC and Medications other than the changes listed. AM labs as ordered. Recommend daily weight. Greater than 30min patient care. LIZETT likely hypovolemia complicated by obstruction and possible ATN CKD III -No NSAIDs -Continue IVF D5W -Continue kay Hyperkalemia -Continue IVF Acidosis -Monitor level HTN with CKD -Monitor BP DM II with CKD -RISS -Start Lantus Severe malnutrition -Advance nutrition as tolerated -Continue IVF Toxic metabolic encephalopathy Uremic encephalopathy -Continue IVF Acute K.pneumoniae cystitis -Continue Cefepime COVID PNA -Continue solumedrol
[2020-11-27] MEDS: INSULIN -REGULAR HUMAN 50 UNIT/0.5 ML ML SQ SCH ×4 (06:00→18:30)
[2020-11-27] MEDS: D5W 1,000 ML IV SCH ×3 (06:45→16:45)
[2020-11-27] MEDS: METOPROLOL TARTRATE 5 MG/5 ML INJ IV SCH ×2 (09:00→21:10)
[2020-11-27] MEDS: INSULIN GLARGINE 100 UNITS/ML SQ SCH ×2 (09:00→09:52)
[2020-11-27] MEDS: HYDROMORPHONE HCL 0.5 MG/0.5 ML INJ IV PRN ×3 (09:49→21:11)
[2020-11-27] MEDS: METHYLPREDNISOLONE 40 MG INJ IV SCH ×2 (09:49→21:11)
[2020-11-27] MEDS: HEPARIN 5000 UNIT/ML 1 ML VIAL SQ SCH ×2 (09:50→21:04)
[2020-11-27] MEDS: FAMOTIDINE 20 MG/2 ML VIAL IV SCH (09:50)
[2020-11-27] MEDS: THIAMINE 200 MG/2 ML INJ IVP SCH (10:02)
[2020-11-27] MEDS: FOLIC ACID 1 MG in NA CHLORIDE 0.9% 50 ML IV SCH (10:02)
--- NOTE | 2020-11-27 10:35 | P.PN ---
Date of Service: 11/26/20 Subjective Patient is slightly improved. Patient more awake. Nurse to try to feed patient Review of Systems 10-point ROS is otherwise unremarkable Physical Examination - Vital Signs reviewed - Physical Exam General: Unresponsive the wakes up to stimulus Respiratory: Clear to auscultation bilaterally, Normal air movement Cardiovascular: Regular rate/rhythm, Normal S1 S2, No murmurs Gastrointestinal: Normal bowel sounds, Soft and benign, Non-distended, No tenderness Musculoskeletal: No clubbing, No swelling, No tenderness Neurological: Moves all extremities but generalized weakness Assessment & Plan - Problems (Diagnosis) (1) Pneumonia due to COVID-19 virus Current Visit: Yes Status: Acute (2) Acute kidney injury Current Visit: Yes Status: Acute (3) UTI (urinary tract infection) Current Visit: Yes Status: Acute (4) Toxic encephalopathy Current Visit: Yes Status: Acute - Plan Plan: 1. continue with Gentle hydration 2. Continue would IV antibiotics 3. Continue with IV steroids for treatment of COVID-19 pneumonia; taper 4. Nebs as needed 5. Prognosis is poor. Patient has been declining over the last month according to the family. They are contemplating hospice if he is not improving.
--- NOTE | 2020-11-27 10:38 | P.PN ---
Date of Service: 11/27/20 Subjective Patient with no significant changes. Spoke with Nephrology and they want continue with fluids and see how we patient improved. The patient does show some improvement then will go home with home health versus hospice. Pain control remains to be their main issues. May need to go on hospice because of this. Review of Systems 10-point ROS is otherwise unremarkable Physical Examination - Vital Signs reviewed - Physical Exam General: Altered Respiratory: Clear to auscultation bilaterally, Normal air movement Cardiovascular: Regular rate/rhythm, Normal S1 S2, No murmurs Gastrointestinal: Normal bowel sounds, Soft and benign, Non-distended, No tenderness Musculoskeletal: No clubbing, No swelling, No tenderness Neurological: Sensation intact, Cranial nerves 3-12 intact Assessment & Plan - Problems (Diagnosis) (1) Pneumonia due to COVID-19 virus Current Visit: Yes Status: Acute (2) Acute kidney injury Current Visit: Yes Status: Acute (3) UTI (urinary tract infection); Toxic encephalopathy Current Visit: Yes Status: Acute (4) Hyperglycemia Current Visit: Yes Status: Acute - Plan Plan: Continue with plan of care as mentioned below: 1. Gentle hydration 2. IV antibiotics 3. IV steroids for treatment of COVID-19 pneumonia 4. Nebs as needed 5. Strict blood sugar control 6. Prognosis is poor. Spoke with Nephrology who follows as an outpatient and wants to continue with hydration to see if there is any improvement in patient's status. Possible discharge with hospice versus home health pending on whether not patient improves with IV hydration
[2020-11-27 11:58] LABS: Absolute Lymphocytes (CBC) 0.2 K/uL (0.7-4.9); Basophils % 0.2 % (0-1.3); Hematocrit 27.1 % (39.6-49.0); Lymphocytes % 1.5 % (15.3-44.8); MPV 10.4 fL (7.6-11.3); RBC Red Blood Cell Count 2.93 M/uL (4.33-5.43)
[2020-11-27 12:26] LABS: Albumin 1.9 g/dL (3.4-5.0); Bilirubin Total 0.6 mg/dL (0.2-1.0); Protein, Total 7.9 g/dL (6.4-8.2)
[2020-11-27 12:27] LABS: Magnesium 3.7 mg/dL (1.8-2.4)
[2020-11-27] MEDS: CEFEPIME/SWI 1gm 10 ML IV SCH (15:56)
[2020-11-27] MEDS: MEDIHONEY 44 ML TOPICAL TUBE TOP SCH (15:56)
--- NOTE | 2020-11-27 20:42 | P.PN ---
Date of Service: 11/27/20 Vital Signs Temp Pulse Resp BP Pulse Ox 97.7 F 90 20 148/64 H 94 11/27/20 16:00 11/27/20 16:00 11/27/20 16:00 11/27/20 16:00 11/27/20 16:00 Medications Hydrocodone Bitart/Acetaminophen (Hydrocodone/Apap 7.5/325 Mg Tab) 1 tab PO Q6HP PRN PRN Reason: Pain scale 5-7 (Moderate) Dextrose (D50w 25 Gm/50 Ml Syringe) 12.5 gm IV PRN PRN; Protocol PRN Reason: HYPOGLYCEMIA Emollient Gel (Medihoney 44 Ml Topical Tube) 0 appl TOP DAILY [facility] Last Admin: 11/27/20 15:56 Dose: 1 appl Documented by: Famotidine (Famotidine 20 Mg/2 Ml Vial) 20 mg IV DAILY [facility]; Protocol Last Admin: 11/27/20 09:50 Dose: 20 mg Documented by: Glucagon (Glucagon 1 Mg/Vial) 1 mg IM 1X PRN; Protocol PRN Reason: HYPOGLYCEMIA Heparin Sodium (Porcine) (Heparin 5000 Unit/Ml 1 Ml Vial) 5,000 unit SQ Q12HR [facility] Last Admin: 11/27/20 09:50 Dose: 5,000 unit Documented by: Hydromorphone HCl (Hydromorphone Hcl 0.5 Mg/0.5 Ml Inj) 0.5 mg IV Q4HP PRN PRN Reason: Pain scale 8-10 (Severe) Last Admin: 11/27/20 15:56 Dose: 0.5 mg Documented by: Cefepime HCl (Maxipime 1 Gm/10 Ml Ivp) 10 mls @ 200 mls/hr IV Q24H [facility] Last Admin: 11/27/20 15:56 Dose: 10 mls Documented by: Folic Acid 1 mg/ Sodium (Chloride) 50.2 mls @ 200.8 mls/hr IV DAILY [facility] Last Admin: 11/27/20 10:02 Dose: 50.2 mls Documented by: Dextrose/Water (Dextrose In Water (1-Liter)) 1,000 mls @ 100 mls/hr IV .Q10H [facility] Last Admin: 11/27/20 16:45 Dose: Not Given Documented by: Insulin Glargine (Insulin Glargine 100 Units/Ml) 60 units SQ DAILY [facility] Last Admin: 11/27/20 09:52 Dose: 60 units Documented by: Insulin Human Regular (Insulin -Regular Human 50 Unit/0.5 Ml Ml) 0 unit SQ Q6H [facility]; Protocol Last Admin: 11/27/20 18:30 Dose: 10 unit Documented by: Methylprednisolone Sodium Succinate (Methylprednisolone 40 Mg Inj) 40 mg IV Q12HR [facility] Last Admin: 11/27/20 09:49 Dose: 40 mg Documented by: Metoprolol Tartrate (Metoprolol Tartrate 5 Mg/5 Ml Inj) 5 mg IV BID [facility] Last Admin: 11/27/20 09:00 Dose: Not Given Documented by: Ondansetron HCl (Ondansetron 4 Mg/2 Ml Vial) 4 mg IV Q6HP PRN PRN Reason: NAUSEA / VOMITING Sodium Chloride (Flush Normal Saline 10 Ml) 10 ml IV BID [facility] Last Admin: 11/27/20 09:50 Dose: 10 ml Documented by: Thiamine HCl (Thiamine 200 Mg/2 Ml Inj) 100 mg IVP DAILY [facility] Last Admin: 11/27/20 10:02 Dose: 100 mg Documented by: Tramadol HCl (Tramadol Hcl 50 Mg Tab) 50 mg PO TIDP PRN PRN Reason: Pain scale 2-4 (Mild) Microbiology Results 11/22/20 18:02 Blood - Blood Aerobic Blood Culture - Final Klebsiella Pneumoniae 11/22/20 18:02 Blood - Blood Anaerobic Blood Culture - Final Klebsiella Pneumoniae 11/22/20 18:02 Blood - Blood Gram Stain - Final 11/22/20 18:09 Blood - Blood Aerobic Blood Culture - Final Klebsiella Pneumoniae 11/22/20 18:09 Blood - Blood Blood Culture Gram Stain - Final 11/22/20 18:09 Blood - Blood Anaerobic Blood Culture - Final No growth in 5 days. 11/22/20 19:10 Catheterized Urine [place] Count - Final >100,000 CFU/ML. 11/22/20 19:10 Catheterized Urine - Final Klebsiella Pneumoniae Assessment/ Plan: Nephrology Progress Note Limited IH/ ROS due to persistent AMS No acute events overnight Vitals, medications blood work and imaging reviewed in the chart NAD. NCAT. DMM. Neck supple. CTA. RRR. ND Abd. No C/C/E. Somnolent. No speech. A/P Continue current POC and Medications other than the changes listed. AM labs as ordered. Recommend daily weight. Greater than 30min patient care. LIZETT likely hypovolemia complicated by obstruction and possible ATN CKD III -No NSAIDs -Continue IVF D5W -Continue kay Hyperkalemia -Continue IVF Acidosis -Monitor level HTN with CKD -Monitor BP DM II with CKD -RISS -Continue Lantus Severe malnutrition -Advance nutrition as tolerated -Continue IVF Toxic metabolic encephalopathy Uremic encephalopathy -Continue IVF Acute K.pneumoniae cystitis K.pneumoniae bacteremia -Continue Cefepime COVID PNA -Continue solumedrol Case reviewed with Dr. Duarte
[2020-11-28] MEDS: HYDROMORPHONE HCL 0.5 MG/0.5 ML INJ IV PRN (00:50)
[2020-11-28] MEDS: D5W 1,000 ML IV SCH ×3 (02:45→21:23)
[2020-11-28] MEDS: INSULIN -REGULAR HUMAN 50 UNIT/0.5 ML ML SQ SCH ×4 (06:00→18:22)
[2020-11-28] MEDS: THIAMINE 200 MG/2 ML INJ IVP SCH (08:30)
[2020-11-28] MEDS: METHYLPREDNISOLONE 40 MG INJ IV SCH ×2 (08:30→21:15)
[2020-11-28] MEDS: MEDIHONEY 44 ML TOPICAL TUBE TOP SCH (08:30)
[2020-11-28] MEDS: FAMOTIDINE 20 MG/2 ML VIAL IV SCH (08:31)
[2020-11-28] MEDS: METOPROLOL TARTRATE 5 MG/5 ML INJ IV SCH ×2 (08:32→21:15)
[2020-11-28] MEDS: INSULIN GLARGINE 100 UNITS/ML SQ SCH (08:37)
[2020-11-28] MEDS: HEPARIN 5000 UNIT/ML 1 ML VIAL SQ SCH ×2 (08:38→21:17)
[2020-11-28] MEDS: FOLIC ACID 1 MG in NA CHLORIDE 0.9% 50 ML IV SCH (08:58)
[2020-11-28 12:45] LABS: Absolute Lymphocytes (CBC) 0.3 K/uL (0.7-4.9); Basophils % 0.1 % (0-1.3); Hematocrit 28.3 % (39.6-49.0); Lymphocytes % 1.8 % (15.3-44.8); MPV 10.5 fL (7.6-11.3); RBC Red Blood Cell Count 3.09 M/uL (4.33-5.43)
[2020-11-28 13:27] LABS: Albumin 1.9 g/dL (3.4-5.0); Protein, Total 7.8 g/dL (6.4-8.2); Uric Acid 14.1 mg/dL (3.5-7.2)
[2020-11-28] MEDS: CEFEPIME/SWI 1gm 10 ML IV SCH (15:45)
--- NOTE | 2020-11-28 16:45 | P.PN ---
Date of Service: 11/28/20 Vital Signs Temp Pulse Resp BP Pulse Ox 97.8 F 83 20 157/85 H 99 11/28/20 12:00 11/28/20 12:00 11/28/20 12:00 11/28/20 12:00 11/28/20 12:00 Medications Hydrocodone Bitart/Acetaminophen (Hydrocodone/Apap 7.5/325 Mg Tab) 1 tab PO Q6HP PRN PRN Reason: Pain scale 5-7 (Moderate) Dextrose (D50w 25 Gm/50 Ml Syringe) 12.5 gm IV PRN PRN; Protocol PRN Reason: HYPOGLYCEMIA Emollient Gel (Medihoney 44 Ml Topical Tube) 0 appl TOP DAILY [facility] Last Admin: 11/28/20 08:30 Dose: 1 appl Documented by: Famotidine (Famotidine 20 Mg/2 Ml Vial) 20 mg IV DAILY [facility]; Protocol Last Admin: 11/28/20 08:31 Dose: 20 mg Documented by: Glucagon (Glucagon 1 Mg/Vial) 1 mg IM 1X PRN; Protocol PRN Reason: HYPOGLYCEMIA Heparin Sodium (Porcine) (Heparin 5000 Unit/Ml 1 Ml Vial) 5,000 unit SQ Q12HR [facility] Last Admin: 11/28/20 08:38 Dose: 5,000 unit Documented by: Hydromorphone HCl (Hydromorphone Hcl 0.5 Mg/0.5 Ml Inj) 0.5 mg IV Q4HP PRN PRN Reason: Pain scale 8-10 (Severe) Last Admin: 11/28/20 00:50 Dose: 0.5 mg Documented by: Cefepime HCl (Maxipime 1 Gm/10 Ml Ivp) 10 mls @ 200 mls/hr IV Q24H [facility] Last Admin: 11/28/20 15:45 Dose: 10 mls Documented by: Folic Acid 1 mg/ Sodium (Chloride) 50.2 mls @ 200.8 mls/hr IV DAILY [facility] Last Admin: 11/28/20 08:58 Dose: 50.2 mls Documented by: Dextrose/Water (Dextrose In Water (1-Liter)) 1,000 mls @ 100 mls/hr IV .Q10H [facility] Last Admin: 11/28/20 12:13 Dose: 1,000 mls Documented by: Insulin Glargine (Insulin Glargine 100 Units/Ml) 60 units SQ DAILY [facility] Last Admin: 11/28/20 08:37 Dose: 60 units Documented by: Insulin Human Regular (Insulin -Regular Human 50 Unit/0.5 Ml Ml) 0 unit SQ Q6H [facility]; Protocol Last Admin: 11/28/20 12:13 Dose: 10 unit Documented by: Methylprednisolone Sodium Succinate (Methylprednisolone 40 Mg Inj) 40 mg IV Q12HR [facility] Last Admin: 11/28/20 08:30 Dose: 40 mg Documented by: Metoprolol Tartrate (Metoprolol Tartrate 5 Mg/5 Ml Inj) 5 mg IV BID [facility] Last Admin: 11/28/20 08:32 Dose: 5 mg Documented by: Ondansetron HCl (Ondansetron 4 Mg/2 Ml Vial) 4 mg IV Q6HP PRN PRN Reason: NAUSEA / VOMITING Sodium Chloride (Flush Normal Saline 10 Ml) 10 ml IV BID [facility] Last Admin: 11/28/20 08:31 Dose: 10 ml Documented by: Thiamine HCl (Thiamine 200 Mg/2 Ml Inj) 100 mg IVP DAILY [facility] Last Admin: 11/28/20 08:30 Dose: 100 mg Documented by: Tramadol HCl (Tramadol Hcl 50 Mg Tab) 50 mg PO TIDP PRN PRN Reason: Pain scale 2-4 (Mild) Microbiology Results 11/22/20 18:02 Blood - Blood Aerobic Blood Culture - Final Klebsiella Pneumoniae 11/22/20 18:02 Blood - Blood Anaerobic Blood Culture - Final Klebsiella Pneumoniae 11/22/20 18:02 Blood - Blood Gram Stain - Final 11/22/20 18:09 Blood - Blood Aerobic Blood Culture - Final Klebsiella Pneumoniae 11/22/20 18:09 Blood - Blood Blood Culture Gram Stain - Final 11/22/20 18:09 Blood - Blood Anaerobic Blood Culture - Final No growth in 5 days. 11/22/20 19:10 Catheterized Urine [place] Count - Final >100,000 CFU/ML. 11/22/20 19:10 Catheterized Urine - Final Klebsiella Pneumoniae Assessment/ Plan: Nephrology Progress Note Limited IH/ ROS due to persistent AMS No acute events overnight Vitals, medications blood work and imaging reviewed in the chart NAD. NCAT. DMM. Neck supple. CTA. RRR. ND Abd. No C/C/E. Somnolent. No speech. A/P Continue current POC and Medications other than the changes listed. AM labs as ordered. Recommend daily weight. Greater than 30min patient care. LIZETT likely hypovolemia complicated by obstruction and possible ATN CKD III -No NSAIDs -Continue IVF D5W -Continue kay Hyperkalemia -Continue IVF Acidosis -Monitor level HTN with CKD -Monitor BP DM II with CKD -RISS -Continue Lantus Severe malnutrition -Advance nutrition as tolerated -Continue IVF Toxic metabolic encephalopathy Uremic encephalopathy -Continue IVF Acute K.pneumoniae cystitis K.pneumoniae bacteremia -Continue Cefepime COVID PNA -Continue solumedrol Case reviewed with Dr. Duarte. Case reviewed with the daughter Wendy at length including end of life/ hospice care. The prognosis
[2020-11-28 17:12] LABS: Anisocytosis SLIGHT; Blood Morphology Comment NOTED (NOT SEEN); Platelet Estimate ADEQ; Polychromasia SLIGHT; White Blood Cell Scan OK (OK)
[2020-11-29] MEDS: INSULIN -REGULAR HUMAN 50 UNIT/0.5 ML ML SQ SCH ×3 (06:00→12:00)
[2020-11-29] MEDS ORDERED: METOPROLOL TARTRATE 5 MG/5 ML INJ IV STA ×2 (06:27→14:20)
[2020-11-29] MEDS: D5W 1,000 ML IV SCH (07:44)
[2020-11-29] MEDS: METHYLPREDNISOLONE 40 MG INJ IV SCH (08:02)
[2020-11-29] MEDS: FAMOTIDINE 20 MG/2 ML VIAL IV SCH (08:04)
[2020-11-29] MEDS: HEPARIN 5000 UNIT/ML 1 ML VIAL SQ SCH (08:04)
[2020-11-29] MEDS: THIAMINE 200 MG/2 ML INJ IVP SCH (08:04)
[2020-11-29] MEDS: INSULIN GLARGINE 100 UNITS/ML SQ SCH (08:23)
[2020-11-29] MEDS: METOPROLOL TARTRATE 5 MG/5 ML INJ IV SCH (08:23)
[2020-11-29] MEDS: MEDIHONEY 44 ML TOPICAL TUBE TOP SCH (08:24)
[2020-11-29] MEDS: HYDROMORPHONE HCL 0.5 MG/0.5 ML INJ IV PRN (08:27)
[2020-11-29] MEDS: FOLIC ACID 1 MG in NA CHLORIDE 0.9% 50 ML IV SCH (09:19)
[2020-11-29 12:00] VITALS: TEMP 97
[2020-11-29 12:07] VITALS: O2SAT 99
[2020-11-29] MEDS: CEFEPIME/SWI 1gm 10 ML IV SCH (16:54)
[2020-11-29 17:11] VITALS: BP 112/65
--- NOTE | 2020-12-01 01:18 | P.PN ---
Date of Service: 11/28/20 Subjective Patient not really improving. Nephrology did speak with family. Possible discharge on hospice in a.m. Review of Systems 10-point ROS is otherwise unremarkable Physical Examination - Vital Signs reviewed - Physical Exam General: Altered Respiratory: Clear to auscultation bilaterally, Normal air movement Cardiovascular: Regular rate/rhythm, Normal S1 S2, No murmurs Gastrointestinal: Normal bowel sounds, Soft and benign, Non-distended, No tenderness Musculoskeletal: No clubbing, No swelling, No tenderness Neurological: Sensation intact, Cranial nerves 3-12 intact Assessment & Plan - Problems (Diagnosis) (1) Pneumonia due to COVID-19 virus Current Visit: Yes Status: Acute (2) Acute kidney injury Current Visit: Yes Status: Acute (3) UTI (urinary tract infection); Toxic encephalopathy Current Visit: Yes Status: Acute (4) Hyperglycemia Current Visit: Yes Status: Acute - Plan Plan: Continue with plan of care as mentioned below: 1. Gentle hydration; continue with gentle fluids 2. IV antibiotics; continue with antibiotic therapy 3. tapering IV steroids 4. Nebs as needed 5. Strict blood sugar control 6. Prognosis is poor. Possible discharge with hospice
--- NOTE | 2020-12-01 01:19 | P.DS ---
Discharge Date: 11/29/20 Disposition: HOSPICE-HOME Discharge Condition: GOOD Reason for Admission: Acute renal failure, urinary retention - Problems (1) Pneumonia due to COVID-19 virus Status: Acute (2) Acute kidney injury Status: Acute (3) UTI (urinary tract infection) Status: Acute (4) Toxic encephalopathy Status: Acute Brief History of Present Illness: 89-year-old male with history of diabetes mellitus type 2, paroxysmal atrial fibrillation, CKD three, anemia chronic disease, hypertension, history of prostate cancer, C2, C3 anterior subluxation presents emergency department for weakness, dehydration. Patient currently lives at home and has caretakers, yoni saxena was taken off of home health/hospice, patient was very dehydrated. Patient was evaluated the emergency department labs were significant for white blood cell 13.4 hemoglobin 9.1 hematocrit 27.9 potassium 5.3 creatinine 6.56 BUN 182 GFR eight glucose 250 magnesium 4.4 calcium 7.8 BNP greater than 35,000 troponin 0 0.41 procalcitonin 8.49 urinalysis 3+ leukocytes. Patient was found to be retaining urine, foreskin was stenotic on exam, ED provider placed Mars catheter which drained 1 L of urine. Case was discussed with patient's studio couch frame builder who recommended IV fluids overnight in addition to leaving Mars catheter in place to see if patient's renal function can recover or if you require dialysis. Patient also tested positive for Covid, this is his first positive Covid test, patient is vaccinated, no signs or symptoms present at this time. We will continue to monitor patient's daughter at bedside reports that they would want dialysis if this was necessary. Patient full code at this time, not in need of emergent dialysis at this time. Will admit for further evaluation and management. Hospital Course: Decision was made to proceed with hospice care. Patient was not improving after IV hydration. Patient was also given antibiotics. As patient was not improving family wanted to go ahead and send him home with hospice. At this time patient is stable for discharge with the hospice care. Vital Signs/Physical Exam: Temp Pulse Resp BP Pulse Ox 97 F 134 H 18 112/65 96 11/29/20 16:00 11/29/20 16:00 11/29/20 16:00 11/29/20 16:00 11/29/20 16:00 General: Unresponsive Laboratory Data at Discharge: WBC 14.60 K/uL (4.3-10.9) H 11/28/20 12:13 Hgb 8.9 g/dL (13.6-17.9) L 11/28/20 12:13 Hct 28.3 % (39.6-49.0) L 11/28/20 12:13 Plt Count 213 K/uL (152-406) 11/28/20 12:13 PT 18.4 SECONDS (9.5-12.5) H 11/22/20 18:02 INR 1.59 11/22/20 18:02 Sodium 143 mmol/L (136-145) 11/28/20 12:13 Potassium 4.0 mmol/L (3.5-5.1) 11/28/20 12:13 BUN 161 mg/dL (7-18) H 11/28/20 12:13 Creatinine 4.19 mg/dL (0.55-1.3) H 11/28/20 12:13 Glucose 334 mg/dL (74-106) H 11/28/20 12:13 Uric Acid 14.1 mg/dL (3.5-7.2) H D 11/28/20 12:13 Phosphorus 5.9 mg/dL (2.5-4.9) H 11/26/20 03:12 Magnesium 3.7 mg/dL (1.8-2.4) H* 11/27/20 11:25 Total Bilirubin 1.0 mg/dL (0.2-1.0) 11/28/20 12:13 AST 26 U/L (15-37) 11/28/20 12:13 ALT 29 U/L (12-78) 11/28/20 12:13 Alkaline Phosphatase 111 U/L (45-117) 11/28/20 12:13 Troponin I 0.38 ng/mL (0.0-0.045) H 11/22/20 23:10 Triglycerides 183 mg/dL (<150) H 11/23/20 05:39 Cholesterol 114 mg/dL (<200) 11/23/20 05:39 HDL Cholesterol 18 mg/dL (40-60) L 11/23/20 05:39 Cholesterol/HDL Ratio 6.33 11/23/20 05:39 Home Medications: Metoprolol Succinate [Toprol Xl] 50 mg PO BEDTIME 05/18/18 Simvastatin 40 mg PO BEDTIME 05/18/18 Aspirin 1 tab PO DAILY 09/22/20 Furosemide 1 tab PO DAILY 09/22/20 Gabapentin 1 cap PO TID 09/22/20 Insulin -Regular Human [Novolin -R*] 4 unit SQ BID 09/22/20 Insulin Glargine,Hum.rec.anlog [Lantus] 12 unit SQ BEDTIME 09/22/20 Levothyroxine Sodium [Levothyroxine] 1 tab PO [id number] 09/22/20 Linaclotide [Linzess] 1 tab PO DAILY 09/22/20 Lubiprostone [Amitiza] 1 cap PO DAILY 09/22/20 Pantoprazole [Protonix Tab*] 1 tab PO DAILY 09/22/20 Tramadol HCl [Ultram] 1 tab PO Q6H PRN 09/22/20 LORazepam [Ativan] 1 mg PO TID PRN #10 tab 11/29/20 Morphine Oral Syrup [Morphine Oral Syrup*] 5 ml PO Q6H PRN #5 syr 11/29/20 New Medications: LORazepam [Ativan] 1 mg PO TID PRN #10 tab PRN Reason: Anxiety Morphine Oral Syrup [Morphine Oral Syrup*] 5 ml PO Q6H PRN #5 syr PRN Reason: Pain Scale 2-4 (Mild) Physician Discharge Instructions: Proceed with hospice care Diet: AHA Activity: Fall precautions Time spent managing pt's care (in minutes): 35
== END 2020-11-29 17:36 | disposition hospice, home (50) | DRG 177 ==
LOC: ER 17:04 → ERHOLD 21:13 → 4TH 11-23 02:17
PROVIDERS: ADMIT Family Medicine; ATTEND Family Medicine
DX: U07.1 COVID-19 (principal); L89.153 Pressure ulcer of sacral region, stage 3; J12.82 Pneumonia due to coronavirus disease 2019; N17.0 Acute kidney failure with tubular necrosis; G92 Toxic encephalopathy; E43 Unspecified severe protein-calorie malnutrition; N17.9 Acute kidney failure, unspecified; I13.0 Hypertensive heart and chronic kidney disease with heart failure and stage 1 through stage 4 chronic kidney disease, or unspecified chronic kidney disease; I50.32 Chronic diastolic (congestive) heart failure; N39.0 Urinary tract infection, site not specified; E87.2 Acidosis; E11.22 Type 2 diabetes mellitus with diabetic chronic kidney disease; N18.30 Chronic kidney disease, stage 3 unspecified; K21.9 Gastro-esophageal reflux disease without esophagitis; I48.0 Paroxysmal atrial fibrillation; D63.8 Anemia in other chronic diseases classified elsewhere; B96.1 Klebsiella pneumoniae [K. pneumoniae] as the cause of diseases classified elsewhere; E11.65 Type 2 diabetes mellitus with hyperglycemia; R33.9 Retention of urine, unspecified; M43.5X2 Other recurrent vertebral dislocation, cervical region; E86.0 Dehydration; E87.5 Hyperkalemia; Z68.27 Body mass index [BMI] 27.0-27.9, adult; Z85.46 Personal history of malignant neoplasm of prostate; L89.622 Pressure ulcer of left heel, stage 2
CPT/HCPCS: 36415; 51702; 71045; 74176; 76377; 76770; 80048; 80053; 80061; 80076; 81001; 81003; 81015; 82550; 82570; 82728; 82805; 82947; 83605; 83735; 83880; 84100; 84145; 84300; 84439; 84443; 84484; 84550; 85025; 85610; 86140; 87040; 87077; 87086; 87088; 87186; 87205; 93005; 94760; 99251; 99285; J0692; J0696; J1170; J1644; J1815; J2270; J2405; J2920; J3411; J7030; J7040; J7799; U0003